=== PATIENT | male | born 1995 | race Caucasian/White ===

== ENCOUNTER 2024-03-12 09:33 | Outpatient (OUT) | payer BC, SELFPAY ==
--- NOTE | 2024-03-12 | XR_ITS ---
The [address] [address] Patient Name: TESSIE BENNETT MRN: [id number] date: 1995 Sex: M Assigned Patient Location: Current Patient Location: Accession/Order Number: [id number] Exam Date: 03/12/2024 09:50 Report Date: 03/13/2024 04:28 At the request of: DEVI PRITCHETT Procedure: XR ankle RT min 3V PROCEDURE: XR ankle RT min 3V HISTORY: RIGHT ANKLE PAIN ; increasing chronic lateral ankle pain COMPARISON: None. FINDINGS: BONES:No fracture, acute abnormality, or significant arthropathy. SOFT TISSUES:No visible soft tissue swelling. EFFUSION:None visible. OTHER: Negative. XR/XR ankle RT min 3V IMPRESSION: 1. No abnormal or suspicious findings to account for patient's symptoms. Electronically authenticated by: PATTI TAPIA Date: 03/13/2024 04:28
== END 2024-03-12 09:34 | disposition home or self-care (01) ==
PROVIDERS: Visit Provider Physician Assistant
DX: M25.571 Pain in right ankle and joints of right foot (principal)
CPT/HCPCS: 73610

== ENCOUNTER 2024-04-27 08:18 | Outpatient (OUT) | payer BC, SELFPAY ==
--- NOTE | 2024-04-27 08:30 | MR_ITS ---
[address] [address] Patient Name: TESSIE BENNETT MRN: [id number] date: 1995 Sex: M Assigned Patient Location: MRI Current Patient Location: MRI Accession/Order Number: [id number] Exam Date: 04/27/2024 08:54 Report Date: 04/27/2024 17:32 At the request of: DEVI PRITCHETT Procedure: MR ankle RT wo con EXAM: MR ankle RT wo con HISTORY: Right Ankle Instability, Right Peroneal Tendinitis. COMPARISON: 03/12/2024. TECHNIQUE: MRI images obtained with multiple sequences. MRI of the right ankle without contrast. Sequences obtained by standard department protocol. FINDINGS: Achilles tendon is intact. Plantar fascia is intact where visualized. Os trigonum. 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 No unstable osteochondral fragment. Extensor, flexor and peroneal tendons are intact. No acute abnormality of the peroneal tendons. Anterior and posterior syndesmotic ligaments are intact. Anterior talofibular, posterior talofibular and calcaneofibular ligaments are intact. Deltoid ligament fibers are intact. No ankle joint effusion. No acute fractures. MR/MR ankle RT wo con IMPRESSION: 1. Extensor, flexor and peroneal tendons are intact. 2. 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 No unstable osteochondral fragment. 3. No significant joint degeneration. No acute ligamentous abnormality. 4. No ankle joint effusion. Electronically authenticated by: MESFIN GUPTA Date: 04/27/2024 17:32
--- OUTSIDE RECORDS SUMMARY | 2024-04-27 08:42 | XMS_ITS | CCD ---
Author Organization [facility] Care Team Providers Care Grinder Tender Name Role Phone MERRY OLSON Unavailable Unavailable HAY, MARTHA Unavailable Unavailable HAY, MARTHA Unavailable Unavailable HAY, MARTHA Unavailable Unavailable REINECK, MANGO G Unavailable Unavailable REINECK, MANGO G Unavailable Unavailable PAVLOCK, MAX Unavailable Unavailable REINECK, MANGO G Unavailable Unavailable PAVLOCK, MAX Unavailable Unavailable HAY, MARTHA Unavailable Unavailable HAY, MARTHA Unavailable Unavailable ZIEBERLAWRENCE R Unavailable Unavailable GRECHNY, IRIS Unavailable Unavailable MARKER, SHAKILA Unavailable Unavailable MARKER, SHAKILA Unavailable Unavailable DENZEL BRIDGES Unavailable Unavailable ALLYSSA MACHUCA V Unavailable Unavailable MARKER, SHAKILA Unavailable Unavailable DENZEL BRIDGES Unavailable Unavailable DENZEL BRIDGES Unavailable Unavailable DENZEL BRIDGES Unavailable Unavailable DENZEL BRIDGES Unavailable Unavailable MD Denzel Bridges Primary Care Provider DO Jaylen Del Rosario Emergency Provider [phone] MD Denzel Bridges Attending Unavailable MD Denzel Bridges Attending Unavailable MD Denzel Bridges Attending Unavailable MD Denzel Bridges Attending Unavailable MD Denzel Bridges Primary Care Provider [phone] RAI Alexander Attending Provider Lacie Alexander Attending Unavailable Lacie Alexander Admitting Unavailable Denzel Bridges Primary Care Unavailable Medications Current Medications Medication Drug Class(es) Dates Sig (Normalized) Sig (Original) meloxicam 15 mg oral tablet (2 sources) Nonsteroidal Anti-inflammatory Drug Start: 03-18-2024 Meloxicam Active MG PO March 18, 2024 12:00am Pneumatic Walking Boot (2 sources) Start: 03-18-2024 Pneumatic Walking Boot Active 0 .Route 1 March 18, 2024 12:00am As directed Completed/Discontinued Medications Medication Drug Class(es) Dates Sig (Normalized) Sig (Original) cyclobenzaprine hydrochloride 10 mg oral tablet (3 sources) Muscle Relaxant Start: 12-10-2022 End: 03-18-2024 take 10 mg by mouth three times daily Cyclobenzaprine Discontinued 10 MG PO Three times daily December 10, 2022 12:00am March 18, 2024 4:31pm ibuprofen 800 mg oral tablet (3 sources) Nonsteroidal Anti-inflammatory Drug Start: 12-10-2022 End: 03-18-2024 take 800 mg by mouth three times daily Ibuprofen Discontinued 800 MG PO Three times daily December 10, 2022 12:00am March 18, 2024 4:31pm losartan potassium 50 mg oral tablet (3 sources) Angiotensin 2 Receptor Devaughn Start: 10-21-2019 End: 03-18-2024 take 50 mg by mouth once daily Losartan Discontinued 50 MG PO Daily October 21, 2019 12:00am March 18, 2024 4:30pm Problems Active Problems Problem Classification Problem Date Documented Date Episodic/Chronic Cardiac dysrhythmias (4 sources) Palpitations; Translations: [PALPITATIONS] Onset: 07-26-2018 Episodic Mood disorders (3 sources) Depressive disorder; Translations: [Depression] 10-21-2019 Chronic Nonspecific chest pain (4 sources) Chest pain, unspecified; Translations: [Other chest pain] Onset: 07-24-2018 Episodic Other connective tissue disease (1 source) Lateral epicondylitis, right elbow; Translations: [LATERAL EPICONDYLITIS RIGHT ELBOW] Onset: 05-07-2018 Episodic Other injuries and conditions due to external causes (3 sources) Unspecified injury of right ankle, initial encounter; Translations: [Knee, leg, ankle, and foot injury] Onset: 03-18-2024 03-18-2024 Episodic Other injuries and conditions due to external causes (3 sources) Unspecified injury of right foot, initial encounter; Translations: [Knee, leg, ankle, and foot injury] Onset: 03-18-2024 03-18-2024 Episodic Other non-traumatic joint disorders (4 sources) Pain in right elbow; Translations: [PAIN IN RIGHT ELBOW] Onset: 05-05-2018 Episodic Screening and history of mental health and substance abuse codes (1 source) Personal history of nicotine dependence; Translations: [PERSONAL HISTORY OF NICOTINE DEPEND] Onset: 07-28-2018 Episodic Sprains and strains (2 sources) Sprain of unspecified ligament of right ankle, initial encounter; Translations: [Sprain of ankle, unspecified site] 03-18-2024 Episodic Past or Other Problems Problem Classification Problem Date Documented Da te Episodic/Chronic Genitourinary symptoms and ill-defined conditions (4 sources) Dysuria; Translations: [DYSURIA] Onset: 02-15-2018 Episodic Unclassified (3 sources) Ankle sprain and strain 12-10-2022 Urinary tract infections (1 source) Other urethritis; Translations: [OTHER URETHRITIS] Onset: 11-08-2017 Episodic Results Test Name Value Interpretation Reference Range Facility XR foot RT min 3V*on 024 XR foot RT min 3V* [facility] [place] [address] [place] [address] XRay Report Signed Patient: Merrill Vargas MR#: [id number] : 1995 Acct:[id number] Age/Sex: 28 / M ADM Date: 03/18/24 Loc: [id number] Room: Type: [facility] Attending Dr: Lacie Alexander APRN Copies to: Lacie Alexander APRN Ordering Provider: Lacie Alexander APRN Date of Service: 03/18/24 XR/XR foot RT min 3V*: S99.911A - Unspecified injury of right ankle, initial enc... ([id number]) XR/XR ankle RT min 3V*: S99.911A - Unspecified injury of right ankle, initial enc... 3 views right ankle plain film COMPARISON: None HISTORY: Right ankle foot injury ACUTE FINDINGS: None DEGENERATIVE CHANGE: Unremarkable SOFT TISSUE FINDINGS: Unremarkable JOINT EFFUSION: None POSTOP CHANGES: None BONE MINERALIZATION: Adequate XR/XR ankle RT min 3V* IMPRESSION: No acute findings. 3 views right foot adequate alignment. No acute fracture. IMPRESSION: No acute fracture Impression dictated by: Sagar De Leon M.D.03/18/2024 5:07 PM Dictation Location: [place] [address] Transcribed By: [facility] 03/18/24 4657 Dictated By: Sagar De Leon DO 03/18/24 201 Signed By: 03/18/24 1707 Normal [facility] Ambulatory Visit Summaryon 0 03-02-2024 Ambulatory Visit Summary Ambulatory Visit Summary MERRILL VARGAS :1995 Visit Date:03/02/2024 Ambulatory Visit Instructions Your Diagnosis BMI 29.0-29.9,adult Overweight Former smoker Your Care Team Attending Physician - Denzel Bridges MD Primary Care Physician - Denzel Bridges MD This Is Your Medications List cyclobenzaprine (cyclobenzaprine 10 mg Tab) Discharge Vitals Temperature (Oral) 36.8 ?C Heart Rate (Peripheral) 70 Respiratory Rate 16 Blood Pressure 120/74 Height 179 cm Height 70 in Weight 94.3 kg Weight 207.46 lb BMI 29.43 What to do next Scheduled Follow-Up Appointments Saturday 7:30 AM EDT Where: [facility] Normal [facility] Family Medicine Office/Clini c Noteon 03-02-2024 Family Medicine Office/Clinic Note Family Medicine Office/Clinic Note HPI Staff Merrill is a 28 year old male presenting for check up Acute: right ankle pain messed it up years ago playing basketball feels it never healed And right wrist pain and tingling, ? carpal tunnel Health Maintenance: Colonoscopy: none PSA: none Last Labs: been a while History of Present Illness Patient is here for his physical and to discuss his ankle and wrist pain. Patient has lost over 65 pounds in the last 2 years. Patient is doing fasting and lifting. Patient feels great. BMI is now up to a 29. With that lifting patient is having issues with his right ankle. Patient states he has been having it for the last 7 years. Pain is on the lateral aspect of that ankle. Patient has trouble with movement. Patient's right wrist has improved with not lifting as much. Patient states the lateral aspect. Patient states at work makes it worse. No swelling or deformities today. Review of Systems PHQ Score Initial Depression Screen Score: 2 SCORE Physical Exam Vitals & Measurements T: 36.8 ?C(Oral) HR: 70(Peripheral) RR: 16 BP: 120/74 SpO2: 98% HT: 70 in HT: 179 cm WT: 94.3 kg WT: 207.46 lb BMI: 29.43 General: alert, no acute distress ENMT: oral mucosa moist, Cardiovascular: regular rate and rhythm, normal peripheral perfusion Respiratory: Lungs CTA, respirations non labored Extremities: no deformity, no trauma, no swelling or deformities noted of the right wrist or right ankle. Neurological: oriented x 4, LOC appropriate for age, CN II-XII intact, motor strength equal & normal bilaterally, speech normal Abdomen: Soft, Nontender, Non-distended, + BS Assessment/Plan 1. Physical exam (Z00.00: Encounter for general adult medical examination without abnormal findings) Anticipatory guidance given. Discussed diet and exercise. Discussed immunizations. Ordered: CBC w/ Auto Diff Comprehensive Metabolic Panel [facility] External Ambulatory Referral Lipid Panel 2. HTN (hypertension) (I10: Essential (primary) hypertension) REsolved with weight loss Ordered: CBC w/ Auto Diff Comprehensive Metabolic Panel [facility] External Ambulatory Referral Lipid Panel 3. Ankle pain (M25.579: Pain in unspecified ankle and joints of unspecified foot) Will send to podiatry Ordered: CBC w/ Auto Diff Comprehensive Metabolic Panel [facility] External Ambulatory Referral Lipid Panel 4. Wrist pain (M25.539: Pain in unspecified wrist) RICE advised. - If no improvement please see us back. - Discussed asking his job about wrist splints and looking at the body mechanics to help identify if he is doing anything wrong Ordered: CBC w/ Auto Diff Comprehensive Metabolic Panel [facility] External Ambulatory Referral Lipid Panel 5. BMI 29.0-29.9,adult (Z68.29: Body mass index [BMI] 29.0-29.9, adult) - BMI education added Ordered: CBC w/ Auto Diff Comprehensive Metabolic Panel [facility] External Ambulatory Referral Lipid Panel 6. Overweight (E66.3: Overweight) - Diet and exercise advised Ordered: CBC w/ Auto Diff Comprehensive Metabolic Panel Lipid Panel 7. Former smoker (Z87.891: Personal history of nicotine dependence) - Please continue to not smoke. Ordered: CBC w/ Auto Diff Comprehensive Metabolic Panel Lipid Panel Orders: buPROPion, 150 mg = 1 tab(s), Oral, q24hr, # 90 tab(s), Refills(s) 0, Pharmacy: [id number], 179.5, cm, 11/08/22 7:57:00 EDT, Height/Length Dosing, 107.3, kg, 11/08/22 7:57:00 EDT, Weight Dosing Follow-up No qualifying data available Problem List/Past Medical History Ongoing Ankle pain Asthma Depression HTN (hypertension) Marijuana use Physical exam Wrist pain Historical No qualifying data Medications cyclobenzaprine 10 mg Tab, 10 mg= 1 tab(s), Oral, TID, PRN, Not taking Allergies No Known Allergies Social History Alcohol - Denies Alcohol Use, 02/12/2023 Substance Abuse - Denies Substance Abuse, 02/12/2023 Tobacco - Denies Tobacco Use, 02/12/2023 Former smoker, quit more than 30 days ago Tobacco Use:. Never Smokeless Tobacco Use:., 03/02/2024 Family History Family history is negative Immunizations Vaccine Date Status Comments influenza virus vaccine, inactivated - Not Given Patient Refuses SARS-CoV-2 (COVID-19) mRNA BNT-162b2 vax 07/22/2021 Recorded SARS-CoV-2 (COVID-19) mRNA BNT-162b2 vax 07/01/2021 Recorded measles/mumps/rubell a virus vaccine 03/16/1999 Recorded hepatitis B pediatric vaccine 03/16/1999 Recorded DTaP, unspecified formulation 03/16/1999 Recorded measles/mumps/rubell a virus vaccine 10/11/1995 Recorded Hib, unspecified formulation 10/11/1995 Recorded DTaP, unspecified formulation 10/11/1995 Recorded hepatitis B pediatric vaccine 01/17/1995 Recorded Hib, unspecified formulation 01/17/1995 Recorded hepatitis B pediatric vaccine 1994 Recorded Hib, unspecified formulation 1994 Recorded hepatitis B pediatric vaccine 1994 Recorded Hib, unspecifie (more content not included)... Normal [facility] Comment on above: Result Comment: Elec tronically Signed By: Parminder LONGO, Denzel Carrillo\.br\Date and Time Signed: 03/02/24 08:45 EDT CBC AUTO DIFFon 07-26-2018 Basophils Auto #/vol (Bld) 0.0 103/ul Normal 0.0-0.1 [facility] Comment on above: Performed By: #### C BC ####[facility] [address] [place] [address]Ger[place] Basophils/100 WBC Auto (Bld) 0.6 % Normal 0.2-2.0 [facility] Comment on above: Performed By: #### C BC ####[facility] [address] [place] [address] [place] Eosinophils Auto #/vol (Bld) 0.2 103/ul Normal 0.0-0.7 [facility] Comment on above: Performed By: #### C BC ####[facility] [address] [place] [address] [place] Eosinophils/100 WBC Auto (Bld) 3.3 % Normal 0.9-7.0 [facility] Comment on above: Performed By: #### C BC ####[facility] [address] [place] [address] [place] Erythrocyte distribution width Auto Ratio (RBC) 11.4 % Normal 11.0-15.0 [facility] Comment on above: Performed By: #### C BC ####[facility] [address] [place] [address] [place] Hematocrit Auto Volume Fraction (Bld) 50.9 % Normal 42.0-54.0 [facility] Comment on above: Performed By: #### C BC ####[facility] [address] [place] [address] [place] Hemoglobin mass conc (Bld) 18.2 g/dL Critically high 14.0-18.0 [facility] Comment on above: Result Comment: test repeated delta check value verified Performed By: #### C BC ####[facility] [address] [place] [address] [place] IG # 0.01 10e3/ul Normal 0.00-0.03 [facility] Comment on above: Performed By: #### C BC ####[facility] [address] [place] [address] [place] IG % 0.2 % Normal 0.0-0.5 [facility] Comment on above: Performed By: #### C BC ####[facility] [address] [place] [address] [place] Lymphocytes Auto #/vol (Bld) 2.8 103/ul Normal 1.2-3.8 [facility] Comment on above: Performed By: #### C BC ####[facility] [address] [place] [address] [place] Lymphocytes/100 WBC Auto (Bld) 50.8 % Normal 20.5-60.0 [facility] Comment on above: Performed By: #### C BC ####[facility] [address] [place] [address] [place] MANUAL DIFF REQ NO Normal [facility] Comment on above: Performed By: #### C BC ####[facility] [address] [place] [address] [place] MCH Auto Entitic mass (RBC) 33.3 pg Normal 25.9-34.0 [facility] Comment on above: Performed By: #### C BC ####[facility] [address] [place] [address] [place] MCHC Auto mass conc (RBC) 35.8 g/dL Critically high 29.9-35.2 [facility] Comment on above: Performed By: #### C BC ####[facility] [address] [place] [address] [place] MCV Auto Entitic volume (RBC) 93.2 fL Normal 80.0-94.0 [facility] Comment on above: Performed By: #### C BC ####[facility] [address] [place] [address] [place] Monocytes Auto #/vol (Bld) 0.4 103/ul Normal 0.3-0.8 [facility] Comment on above: Performed By: #### C BC ####[facility] [address] [place] [address] [place] Monocytes/100 WBC Auto (Bld) 7.0 % Normal 1.7-12.0 [facility] Comment on above: Performed By: #### C BC ####[facility] [address] [place] [address] [place] Neutrophils Auto #/vol (Bld) 2.1 103/ul Normal 1.4-6.5 [facility] Comment on above: Performed By: #### C BC ####[facility] [address] [place] [address] Neutrophils/100 WBC Auto (Bld) 38.1 % Critically low 43.0-75.0 [facility] Comment on above: Performed By: #### C BC ####[facility] [address] [place], [place] [address] Platelet mean volume Auto Entitic volume (Bld) 8.9 fL Critically low 9.5-13.5 [facility] Comment on above: Performed By: #### C BC ####[facility] [address] [place], [place] [address] Platelets Auto #/vol (Bld) 276 103/ul Normal 150-450 [facility] Comment on above: Performed By: #### C BC ####[facility] [address] [place], [place] [address] RBC Auto #/vol (Bld) 5.46 106/ul Normal 4.70-6.10 [facility] Comment on above: Performed By: #### C BC ####[facility] [address] [place], [place] [address] WBC Auto #/vol (Bld) 5.5 103/ul Normal 4.0-11.0 [facility] Comment on above: Performed By: #### C BC ####[facility] [address] [place], [place] [address] GLYCOHEMOGLOBIN A1Con 2017 Glucose mass conc 97 mg/dL Normal [facility] Comment on above: Performed By: #### A 1C ####[facility] [address] [place], [place] [address] Hemoglobin A1c/Hemoglobin.total mass fraction (Bld) 5.0 % Normal <=6.0 [facility] Comment on above: Performed By: #### A 1C ####[facility] [address] [place], [place] [address]Ylacbw [place] LIPID PROFILEon 07-26-2018 CHOL-HDL RATIO NORM SEE BELOW Normal [facility] Comment on above: Result Comment: 3.3 - 4.4 LOW RISK 4.4 - 7.1 AVERAGE RISK 7.1 - 11.0 MODERATE RISK >11.0 HIGH RISK Performed By: #### C T/NGNA ####[facility] [address] [place], [place] [address]Mnkcul [place] Cholesterol in HDL mass conc > or = 60 mg/dl - LOW CARDIOVASCULAR RISK <40 mg/dl - HIGH CARDIOVASCULAR RISK Normal [facility] Comment on above: Performed By: #### C T/NGNA ####[facility] [address] [place], [place] [address]Axgave [place] Cholesterol in HDL mass conc 61 mg/dL Normal [facility] Comment on above: Performed By: #### C T/NGNA ####[facility] [address] [place], [place] [address]Uidwyt [place] Cholesterol in LDL mass conc SEE BELOW Normal [facility] Comment on above: Result Comment: <100 mg/dl OPTIMAL 100 - 129 mg/dl NEAR OR ABOVE OPTIMAL 130 - 159 mg/dl BORDERLINE HIGH 160 - 189 mg/dl HIGH >190 mg/dl VERY HIGH Performed By: #### C T/NGNA ####[facility] [address] [place], [place] [address]Qvedgu [place] Cholesterol in LDL mass conc 62.8 mg/dL Normal [facility] Comment on above: Performed By: #### C T/NGNA ####[facility] [address] [place], [place] [address]Gdewoo [place] Cholesterol mass conc 131 mg/dL Normal <=200 [facility] Comment on above: Performed By: #### C T/NGNA ####[facility] [address] [place], [place] [address]Phiiuc [place] Cholesterol.total/Cho lesterol in HDL mass ratio 2.1 {ratio} Normal [facility] Comment on above: Performed By: #### C T/NGNA ####[facility] [address] [place] Triglyceride mass conc 36 mg/dL Normal <=150 [facility] Comment on above: Performed By: #### C T/NGNA ####[facility] [address] [place] [id number] VLDL CALC 7.2 mg/dL Normal [facility] Comment on above: Performed By: #### C T/NGNA ####[facility] [address] [place] [id number] PROF 14(COMP METB)on 018 Albumin mass conc 4.8 g/dL Normal 3.5-5.0 [facility] Comment on above: Performed By: #### C T/NEHEMIASNA ####[facility] Y[address] [place] Albumin/Globulin mass ratio 1.3 {ratio} Normal [facility] Comment on above: Performed By: #### C T/NGNA ####[facility] [address] [place] [id number] ALP enzyme act/vol 66 U/L Normal 38-126 [facility] Comment on above: Performed By: #### C T/NEHEMIASNA ####[facility] [address] [place] ALT enzyme act/vol 21 U/L Normal 21-72 [facility] Comment on above: Performed By: #### C T/NGNA ####[facility] [address] [place] [address] Anion gap 3 molar conc 11.8 mmol/L Normal [facility] Comment on above: Performed By: #### C T/NGNA ####[facility] [address] [place] [address] AST enzyme act/vol 17 U/L Normal 17-59 [facility] Comment on above: Performed By: #### C T/NGNA ####[facility] I[address] [place] Bilirubin Ql (U) 0.4 mg/dL Normal 0.2-1.3 [facility] Comment on above: Performed By: #### C T/NGNA ####[facility] X[address] [place] [id number] Calcium mass conc 9.9 mg/dL Normal 8.4-10.2 [facility] Comment on above: Performed By: #### C T/NGNA ####[facility] [address] [place] Chloride molar conc 102 mmol/L Normal 98-107 [facility] Comment on above: Performed By: #### C T/NGNA ####[facility] [address] [place] CO2 molar conc 33.0 mmol/L Critically high 22.0-30.0 [facility] Comment on above: Performed By: #### C T/NGNA ####[facility] W[address] [place] Creatinine mass conc 0.96 mg/dL Normal 0.66-1.25 [facility] Comment on above: Performed By: #### C T/NGNA ####[facility] [address] [place] EGFR-AF [place] >60 Normal >=60 [facility] Comment on above: Performed By: #### C T/NGNA ####[facility] W[address] [place] EGFR-NON AF [place] >60 Normal >=60 [facility] Comment on above: Performed By: #### C T/NGNA ####[facility] Vtry[address] [place] Globulin Calculated mass conc (S) 3.7 g/dL Normal [facility] Comment on above: Performed By: #### C T/NGNA ####[facility] Xx[address] [place] Glucose mass conc 92 mg/dL Normal 74-106 [facility] Comment on above: Performed By: #### C T/NGNA ####[facility] [address] [place] [address] Potassium molar conc 3.8 mmol/L Normal 3.4-5.0 [facility] Comment on above: Performed By: #### C T/NGNA ####[facility] [address] [place] [address] Protein mass conc 8.5 g/dL Critically high 6.1-8.2 Th [facility] Comment on above: Performed By: #### C T/NGNA ####[facility] [address] [place] [address] Sodium molar conc 143 mmol/L Normal 137-145 [facility] Comment on above: Performed By: #### C T/NGNA ####[facility] Flops[address] [place] Urea nitrogen mass conc 8.0 mg/dL Critically low 9.0-20.0 [facility] Comment on above: Performed By: #### C T/NGNA ####[facility] [address] [place] [address] Urea nitrogen/Creatinine mass ratio 8.3 mg/mg Normal [facility] Comment on above: Performed By: #### C T/NGNA ####[facility] X[address] [place] [address] TSHon 07-26-2018 Thyrotropin Qn 1.145 uIU/mL Normal 0.470-4.680 [facility] Comment on above: Performed By: #### C T/NGNA ####[facility] [facility] [address] [place] [id number] Thyrotropin Qn SEE BELOW Normal [facility] Comment on above: Result Comment: <0.3 4 UIU/ml HYPERTHYROID 0.34-5.60 UIU/ml EUTHYROID >5.60 UIU/ml HYPOTHYROID Performed By: #### C T/NGNA ####[facility] Skctcnzlqk2562 [address] [place] CARDIAC MISAEL ADMITon 018 CK enzyme act/vol 110 U/L Normal 55-170 [facility] Comment on above: Performed By: #### C YOSEF, CORI ####[facility] [address]jjre[address] [place] [address] CK.MB mass conc 0.87 ng/mL Normal <=2.37 [facility] Comment on above: Performed By: #### C YOSEF, CORI ####[facility] Fulnnhuncl7793 [address] [place] INR Coag RelTime (Bld) SEE BELOW Normal [facility] Comment on above: Result Comment: <0.0 34 ng/ml NEGATIVE 0.034-0.119 INDETERMINATE 0.120 AMI CUT OFF Performed By: #### C YSOEF, CORI ####[facility] [address] [place] [address] [place] OUMAR 29.0 ng/mL Normal <=121.0 [facility] Comment on above: Performed By: #### C YOSEF, CORI ####[facility] [address] [place] [address] [place] TROP <0.017 Normal <=0.034 [facility] Comment on above: Performed By: #### C YOSEF, CORI ####[facility] [address] [place] [address] [place] CBC AUTO DIFFon 07-24-2018 Basophils Auto #/vol (Bld) 0.0 103/ul Normal 0.0-0.1 [facility] Comment on above: Performed By: #### C BC ####[facility] [address] [place] [address] [place] Basophils/100 WBC Auto (Bld) 0.6 % Normal 0.2-2.0 [facility] Comment on above: Performed By: #### C BC ####[facility] [address] [place] [address] [place] Eosinophils Auto #/vol (Bld) 0.2 103/ul Normal 0.0-0.7 [facility] Comment on above: Performed By: #### C BC ####[facility] [address] [place] [address] [place] Eosinophils/100 WBC Auto (Bld) 3.3 % Normal 0.9-7.0 [facility] Comment on above: Performed By: #### C BC ####[facility] X[address] [place] [address] [place] Erythrocyte distribution width Auto Ratio (RBC) 11.3 % Normal 11.0-15.0 [facility] Comment on above: Performed By: #### C BC ####[facility] S[address] [place] [address] [place] Hematocrit Auto Volume Fraction (Bld) 44.6 % Normal 42.0-54.0 [facility] Comment on above: Performed By: #### C BC ####[facility] [address] [place] [address] [place] Hemoglobin mass conc (Bld) 15.7 g/dL Normal 14.0-18.0 [facility] Comment on above: Performed By: #### C BC ####[facility] [address] [place] [address] [place] IG # 0.01 10e3/ul Normal 0.00-0.03 [facility] Comment on above: Performed By: #### C BC ####[facility] En[address] [place] [address] [place] IG % 0.2 % Normal 0.0-0.5 [facility] Comment on above: Performed By: #### C BC ####[facility] [address] [place] [address] [place] Lymphocytes Auto #/vol (Bld) 1.8 103/ul Normal 1.2-3.8 [facility] Comment on above: Performed By: #### C BC ####[facility] W[address] [place] [address] [place] Lymphocytes/100 WBC Auto (Bld) 37.0 % Normal 20.5-60.0 [facility] Comment on above: Performed By: #### C BC ####[facility] Or[address] [place] [id number] MANUAL DIFF REQ NO Normal [facility] Comment on above: Performed By: #### C BC ####[facility] [address] [place], [place] [address] MCH Auto Entitic mass (RBC) 32.8 pg Normal 25.9-34.0 [facility] Comment on above: Performed By: #### C BC ####[facility] [address] [place], [place] [address] MCHC Auto mass conc (RBC) 35.2 g/dL Normal 29.9-35.2 [facility] Comment on above: Performed By: #### C BC ####[facility] [address] [place], [place] [address] MCV Auto Entitic volume (RBC) 93.1 fL Normal 80.0-94.0 [facility] Comment on above: Performed By: #### C BC ####[facility] [address] [place], [place] [address] Monocytes Auto #/vol (Bld) 0.7 103/ul Normal 0.3-0.8 [facility] Comment on above: Performed By: #### C BC ####[facility] Env[address] [place], [place] [address] Monocytes/100 WBC Auto (Bld) 14.9 % Critically high 1.7-12.0 [facility] Comment on above: Performed By: #### C BC ####[facility] [address] [place], [place] [address] Neutrophils Auto #/vol (Bld) 2.1 103/ul Normal 1.4-6.5 [facility] Comment on above: Performed By: #### C BC ####[facility] [address] [place], [place] [address] Neutrophils/100 WBC Auto (Bld) 44.0 % Normal 43.0-75.0 [facility] Comment on above: Performed By: #### C BC ####[facility] [address] [place] [address] [place] Platelet mean volume Auto Entitic volume (Bld) 8.8 fL Critically low 9.5-13.5 [facility] Comment on above: Performed By: #### C BC ####[facility] [address] [place] [address] [place] Platelets Auto #/vol (Bld) 238 103/ul Normal 150-450 [facility] Comment on above: Performed By: #### C BC ####[facility] [address] [place] [address] [place] RBC Auto #/vol (Bld) 4.79 106/ul Normal 4.70-6.10 [facility] Comment on above: Performed By: #### C BC ####[facility] N[address] [place] [address] [place] WBC Auto #/vol (Bld) 4.8 103/ul Normal 4.0-11.0 [facility] Comment on above: Performed By: #### C BC ####[facility] [address] [place] [address] [place] D-DIMERon 07-24-2018 D-DIMER COMMENTS SEE BELOW Normal [facility] Comment on above: Result Comment: Incr eases in D-Dimer concentration observed with thromboembolic events can be variable due to localization, size, and age of the thrombus. Therefore, a thromboembolic event cannot be diagnosed with certainty on the basis of the reference range. D-Dimers may also be elevated for a variety of disorders including: advanced age, , coronary disease, cancer, liver disease, infection, inflammation, hematoma, DIC, trauma, post-surgery, diabetes, thrombolytic or anticoagulant therapy, stress, and generalizd hospitalization. Performed By: #### D DIM ####[facility] [address] [place] [address] [place] Fibrin D-dimer FEU IA mass conc (Bld) 0.19 ug/mL Normal 0.19-0.50 [facility] Comment on above: Performed By: #### D DIM ####[facility] Lvhqmoorfj[address] [place] PROF 14(COMP METB)on 018 Albumin mass conc 3.8 g/dL Normal 3.5-5.0 [facility] Comment on above: Performed By: #### C CORI NAVAS ####[facility] Bblgqrznhp2478 [address] [place] Albumin/Globulin mass ratio 1.0 {ratio} Normal [facility] Comment on above: Performed By: #### C CORI NAVAS ####[facility] Ekwrdutlcg3387 [address] [place] ALP enzyme act/vol 60 U/L Normal 38-126 [facility] Comment on above: Performed By: #### C CORI NAVAS ####[facility] [address] [place] [address] ALT enzyme act/vol 19 U/L Critically low 21-72 [facility] Comment on above: Performed By: #### C CORI NAVAS ####[facility] [address] [place] [address] [place] Anion gap 3 molar conc 10.2 mmol/L Normal [facility] Comment on above: Performed By: #### C CORI NAVAS ####[facility] Fqbjbfmmoi7975 [address] [place] AST enzyme act/vol 14 U/L Critically low 17-59 [facility] Comment on above: Performed By: #### C CORI NAVAS ####[facility] Crjocrildf1102 [address] [place] Bilirubin Ql (U) 0.4 mg/dL Normal 0.2-1.3 [facility] Comment on above: Performed By: #### C CORI NAVAS ####[facility] Cwzsvsvxqg[address] [place] Calcium mass conc 9.4 mg/dL Normal 8.4-10.2 [facility] Comment on above: Performed By: #### C MP, CMADM ####[facility] Ugvboufoqg4346 [address] [place] Chloride molar conc 105 mmol/L Normal 98-107 [facility] Comment on above: Performed By: #### C MP, CMADM ####[facility] Ipablurarp5545 [address] [place] CO2 molar conc 28.5 mmol/L Normal 22.0-30.0 [facility] Comment on above: Performed By: #### C MP, CMADM ####[facility] Boxyjesckv1976 [address] [place] Creatinine mass conc 0.95 mg/dL Normal 0.66-1.25 [facility] Comment on above: Performed By: #### C MP, CMADM ####[facility] Yfqutoqmvb5299 [address] [place] EGFR-AF [place] >60 Normal >=60 [facility] Comment on above: Performed By: #### C MP, CMADM ####[facility] Vgvhemafzf6[address] [place] EGFR-NON AF [place] >60 Normal >=60 [facility] Comment on above: Performed By: #### C MP, CMADM ####[facility] Ngcgrjateb0535 [address] [place] Globulin Calculated mass conc (S) 3.7 g/dL Normal [facility] Comment on above: Performed By: #### C MP, CMADM ####[facility] Yqoyqnnxgh55[address] [place] Glucose mass conc 104 mg/dL Normal 74-106 [facility] Comment on above: Performed By: #### C MP, CMADM ####[facility] Kckjckcuri0136 [address] [place] Potassium molar conc 3.7 mmol/L Normal 3.4-5.0 [facility] Comment on above: Performed By: #### C MP, CMADM ####[facility] [address] [place], [place] [address]Ryfhvq [place] Protein mass conc 7.5 g/dL Normal 6.1-8.2 [facility] Comment on above: Performed By: #### C MP, CMADM ####[facility] Jonhcgbslx[address]656 [place], [place] [address]Poeidb [place] Sodium molar conc 140 mmol/L Normal 137-145 [facility] Comment on above: Performed By: #### C MP, CMADM ####[facility] Odzpmnulbj3609 [place], [place] [address]Sqqysd [place] Urea nitrogen mass conc 10.0 mg/dL Normal 9.0-20.0 [facility] Comment on above: Performed By: #### C MP, CMADM ####[facility] Oqiobxhunu9776 [place], [place] [address]Bpsmxj [place] Urea nitrogen/Creatinine mass ratio 10.5 mg/mg Normal [facility] Comment on above: Performed By: #### C MP, CMADM ####[facility] [address] [place], [place] [address]eyhyf [place] XR CHEST 2 Von 07-24-2018 XR CHEST 2 V [address] [place] [address] Patient: MERRILL VARGAS Exam Date: 07/24/2018DOB: 1995 Gender:M : DR SHAKILA HARMON Admission #: [id number] : Order #: [id number] HERE TO VIEW EXAM RADIOLOGY REPORT PROCEDURE: RADIOGRAPH CHEST 2 VIEWS COMPARISON: XR CHEST 2 V, 01/21/2016. INDICATIONS: Acute chest pain for less than twelve hours; cough and shortness of breath FINDINGS: LUNGS: No significant pulmonary parenchymal abnormalities. VASCULATURE: No increased pulmonary vasculature. PLEURA: No pneumothorax, effusion, or pleural thickening. CARDIAC: No cardiomegaly or cardiac silhouette abnormality. MEDIASTINUM: No visible mass or adenopathy. BONES: No fracture or visible bone lesion. OTHER: Negative. CONCLUSION: No acute disease. Dictated by: Allyssa Machuca M.D. on 07/24/2018 at 07:46 Approved by: Allyssa Machuca M.D. on 07/24/2018 at 07:47 Normal [facility] XR ELBOW RT MIN 3 VIEWSon XR ELBOW RT MIN 3 VIEWS [address] [place] [address] Patient: MERRILL VARGAS Exam Date: 05/05/2018DOB: 1995 Gender:M : POLY PANG Admission #: [id number] : DR MARTHA GRECO . Order #: [id number] HERE TO VIEW EXAM RADIOLOGY REPORT PROCEDURE: RADIOGRAPH ELBOW RIGHT MIN 3 VIEWS COMPARISON: None. INDICATIONS: Acute pain of right elbow joint, no injury FINDINGS: BONES: No fracture, acute abnormality, or significant arthropathy. SOFT TISSUES: No visible soft tissue swelling or radiopaque foreign body. EFFUSION: None visible. OTHER: Negative. CONCLUSION: Normal examination. Dictated by: Lawrence Troncoso M.D. on 05/05/2018 at 16:33 Approved by: Lawrence Troncoso M.D. on 05/05/2018 at 16:35 Normal [facility] CHLAMYDIA/GONOCOCCUS YENNIFER W/C ONF. (SWAB/Uon 11-22-2017 Chlamydia Trach YENNIFER Negative Normal Negative [facility] Comment on above: Performed By: #### C T/NGNA ####[facility] Yhgvetpudd[address]80 [address] [place] N. Gonorrhoeae YENNIFER Negative Normal Negative [facility] Comment on above: Performed By: #### C T/NGNA ####[facility] Rntckxelzg4954 [address] [place] ER URINE PROFILEon 8 BILIRUBIN Negative Normal NEGATIVE [facility] Comment on above: Performed By: #### E RUR ####[facility] Mntqstgavm2805 [address] [place] BLOOD Negative Normal NEGATIVE [facility] Comment on above: Performed By: #### E RUR ####[facility] Wmopaxdgkd5477 [address] [place] CLARITY CLEAR Normal [facility] Comment on above: Performed By: #### E RUR ####[facility] [address] [place] [address] COLOR LT. YELLOW Normal YELLOW [facility] Comment on above: Performed By: #### E RUR ####[facility] [address]ug[address] [place] [address] ERUAHD A micrscopic examination will be performed if indicated. Normal [facility] Comment on above: Performed By: #### E RUR ####[facility] Unkhrelqjg60[address] [place] [address] GLUCOSE Negative Normal NEGATIVE [facility] Comment on above: Performed By: #### E RUR ####[facility] [address] [place] [address] [place] KETONES TRACE Normal NEGATIVE [facility] Comment on above: Performed By: #### E RUR ####[facility] [address] [place] [address] [place] LEUKOCYTES Negative Normal NEGATIVE [facility] Comment on above: Performed By: #### E RUR ####[facility] [address] [place] [address] [place] NITRITE Negative Normal NEGATIVE [facility] Comment on above: Performed By: #### E RUR ####[facility] [address]swe[address] [place] [address] pH 8.0 Normal 5-9 [facility] Comment on above: Performed By: #### E RUR ####[facility] Mc[address]dsxtlp[address]107 [place] [address] Protein mass conc Negative Normal [facility] Comment on above: Performed By: #### E RUR ####[facility] [address] [place] [address] [place] SPEC GRAVITY 1.015 Normal 1.005-<=1.025 [facility] Comment on above: Performed By: #### E RUR ####[facility] Q[address] [place], [place] [address] [place] UR MICRO IND NOT INDICATED Normal [facility] Comment on above: Performed By: #### E RUR ####[facility] Uqxvuogwji[address] [place] UROBILINOGEN 0.2 EU/dl Normal [facility] Comment on above: Performed By: #### E RUR ####[facility] Rmbxckzlpj[address]26 [address] [place] Vital Signs Date Time Vital Sign Value Performing Clinician Faci lity 03-18-2024 15:50-0400 Body height 182.88 cm MD Denzel Bridges Work Phone: [facility] 03-18-2024 15:50-0400 Body mass index (BMI) [Ratio] 28.5 kg/m2 MD Denzel Bridges Work Phone: [facility] 03-18-2024 15:50-0400 Body temperature 98.4 [degF] MD Denzel Bridges Work Phone: [facility] 03-18-2024 15:50-0400 Body weight 95.25 kg MD Denzel Bridges Work Phone: [facility] 03-18-2024 15:50-0400 Diastolic blood pressure 87 mm[Hg] MD Denzel Bridges Work Phone: [facility] 03-18-2024 15:50-0400 Heart rate 81 /min MD Denzel Bridges Work Phone: [facility] 03-18-2024 15:50-0400 SaO2% (BldA) [Mass fraction] 97 % MD Denzel Bridges Work Phone: [facility] 03-18-2024 15:50-0400 Systolic blood pressure 137 mm[Hg] MD Denzel Bridges Work Phone: [facility] 12-10-2022 08:11-0400 Body height 182.88 cm MD Denzel Bridges Work Phone: [facility] 12-10-2022 08:11-0400 Body temperature 97.5 [degF] MD Denzel Bridges Work Phone: [facility] 12-10-2022 08:11-0400 Body weight 101.6 kg MD Denzel Bridges Work Phone: [facility] 12-10-2022 08:11-0400 Diastolic blood pressure 80 mm[Hg] MD Denzel Bridges Work Phone: [facility] 12-10-2022 08:11-0400 Heart rate 98 /min MD Denzel Bridges Work Phone: [facility] 12-10-2022 08:11-0400 Respiratory rate 18 /min MD Denzel Bridges Work Phone: [facility] 12-10-2022 08:11-0400 SaO2% (BldA) [Mass fraction] 100 % MD Denzel Bridges Work Phone: [facility] 12-10-2022 08:11-0400 Systolic blood pressure 133 mm[Hg] MD Denzel Bridges Work Phone: [facility] Encounters Encounter Date Encounter Type Care Provider Facility Start: 03-18-2024 End: 03-18-2024 ambulatory MD Denzel Bridges Work Phone: [facility] Work Phone: Start: 03-18-2024 End: 03-18-2024 Patient encounter procedure MD Denzel Bridges Work Phone: [facility] [place] Work Phone: Start: 03-06-2024 ambulatory MD Denzel Bridges Facil ity:[facility] Start: 03-04-2024 ambulatory MD Denzel Bridges Facil ity:[facility] Start: 03-02-2024 End: 03-02-2024 ambulatory MD Denzel Bridges Facility:[facility] Start: 03-26-2023 End: 03-26-2023 ambulatory MD Denzel Bridges Facility:[facility] Start: 12-10-2022 End: 12-10-2022 Emergency department patient visit MD Denzel Bridges Work Phone: [facility] Work Phone: Start: 07-26-2018 End: 07-27-2018 Patient encounter procedure DENZEL BRIDGES Facility:[facility] Start: 07-24-2018 End: 07-24-2018 Patient encounter procedure SHAKILA MARKER Facility:[facility] Start: 05-05-2018 End: 05-05-2018 Patient encounter procedure TAMMY FREGOSOLOCK Facility:[facility] Start: 02-15-2018 End: 02-15-2018 Patient encounter procedure MANGO SKAGGS Facility:[facility] Start: 11-06-2017 End: 11-06-2017 Patient encounter procedure MERRY WHITNEY Facility:[facility] Procedures Date Procedure Procedure Detail Performing Clinician Start: 03-18-2024 X-ray of right ankle MD Denzel Bridges Work Phone: Start: 03-18-2024 X-ray of right foot MD Denzel Bridges Work Phone: Start: 12-10-2022 X-ray of right ankle MD Denzel Bridges Work Phone: Start: 12-10-2022 X-ray of right foot MD Denzel Bridges Work Phone: Plan of Treatment Date Care Activity Detail Author Patient Education Ankle Sprain ED [facility] Work Phone: Patient referral [facility] Work Phone: Payers Date Payer Category Payer Self-pay [id number] 2024 Unknown [id number] 1995 Unknown [id number] 1994 Unknown [id number] 1994 Unknown [id number] 1994 Unknown [id number] 1994 Unknown [id number] 1994 Unknown [id number] 1994 Unknown [id number] 1994 Unknown [id number] 1994 Unknown [id number] 1959 Unknown [id number] Private Health Insurance [employer] [id number] Unknown [id number] Social History Date Type Detail Facility Start: 12-10-2022 Tobacco smoking stat [facility] Smoker (finding) [facility] Start: 1995 Sex Assigned At Male [facility] Evaluation note Note Date & Type Note Facility Evaluation note No assessment information availa ble [facility] Work Phone: Evaluation note Note Date & Type Note Facility Evaluation note Diagnosis Onset Date Right ankle sprain noneactiv e Right ankle injury noneactiv e Right foot injury noneactive [facility] Work Phone: Summary Purpose Family History No Family History Records Found Relationship Condition Age at Onset Recorded Date/T armando Not Specified No pertinent family history Unknown Advance Directives No Advanced Directives Records Found Advance Directive Response Recorded Date/ Time Advance Directives No October 20 8:20pm Chief Complaint and Reason for Visit Chief Complaint rt ankle inj, 12-08- 3 @ bar Chief Complaint rt ankle pain , poss ible sprained Reason for Visit Right ankle sprain Right ankle injury Right foot injury Additional Source Comments (unrecognized sect ion and content) No Status Records FoundNo Status Records FoundNo Status Records Found INFORMATION SOURCE (unrecogn ized section and content) DATE CREATED AUTHOR 07/31/2018 [facility] DATE CREATED AUTHOR AUTHOR'S ORGANIZ ATION 03/06/2024 [facility] DATE CREATED AUTHOR AUTHOR'S ORGANIZ ATION 03/21/2024 [facility] Care Teams (unrecognized sec tion and content) Team Status: Active Member Role Status Dates Denzel Bridges MD Primary Care Provider Active Team Status: Inactive Member Role Status Dates Denzel Bridges MD Primary Care Provider Active Jaylen Del Rosario DO Emergency Provider Active Team Status: Inactive Member Role Status Dates Denzel Bridges MD Primary Care Provider Active Start: March 18, 2024 End: March 18, 2024 Lacie Alexander APRN Attending Provider Active Sta rt: March 18, 2024 End: March 18, 2024 Team Status: Active Member Role Status Dates Denzel Bridges MD Primary Care Provider Active Start: March 18, 2024 Lacie Alexander APRN Attending Provider Active Sta rt: March 18, 2024 Goals (unrecognized section and content) Goals may be documented in a n alternate sectionGoals may be documented in an alternate sectionGoals may be documented in an alternate section FOR RECORDS PERTAINING TO PATIENTS WHO ARE OR HAVE BEEN ENROLLED IN A CHEMICAL DEPENDENCY/SUBSTANCEABUSE PROGRAM, SOME INFORMATION MAY BE OMITTED. This clinical summary was aggregated from multiple sources. Caution should be exercised in using it in the provision of clinical care. This summary normalizes information from multiple sources, and as a consequence, information in this document may materially change the coding, format and clinical context of patient data. In addition, data may be omitted in some cases. CLINICAL DECISIONS SHOULD BE BASED ON THE PRIMARY CLINICAL RECORDS. [facility] [employer] [facility]. provides no warranty or guarantee of the accuracy or completeness of information in this document.
== END 2024-04-27 08:19 | disposition home or self-care (01) ==
LOC: MRI 08:20
PROVIDERS: Visit Provider Physician Assistant
DX: M25.371 Other instability, right ankle (principal); M76.71 Peroneal tendinitis, right leg; M93.271 Osteochondritis dissecans, right ankle and joints of right foot
CPT/HCPCS: 73721

== ENCOUNTER 2024-05-15 12:22 | Outpatient (OUT) | payer BC, SELFPAY ==
--- OUTSIDE RECORDS SUMMARY | 2024-05-15 12:25 | XMS_ITS | CCD ---
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 Main [place] [address] [place] [address] XRay Report Signed Patient: Merrill Vargas MR#: [id number] : 1995 Acct:[id number] Age/Sex: 28 / M ADM Date: 03/18/24 Loc: [id number] Room: Type: [facility] Attending Dr: Lacie Alexander APRN Copies to: Lacie Alexander APRN Ordering Provider: Lacie Alexander APRN Date of Service: 03/18/24 XR/XR foot RT min 3V*: S99.911A - Unspecified injury of right ankle, initial enc... ([id number]) XR/XR ankle RT min 3V*: S99.911A - [...] De Leon M.D.03/18/2024 5:07 PM Dictation Location: [place] [address] Transcribed By: [facility] 03/18/24 [id number] Dictated By: Sagar De Leon DO 03/18/24 857 Signed By: 03/18/24 1707 Normal [facility] Ambulatory Visit Summaryon 0 03-02-2024 [...] Follow-Up Appointments Saturday 7:30 AM EDT Where: [facility] [place] Normal [facility] Office/Clini c Noteon 03-02-2024 Family [...] CBC w/ Auto Diff Comprehensive Metabolic Panel [facility] External Ambulatory Referral Lipid Panel 2. HTN (hypertension) (I10: Essential (primary) hypertension) REsolved with weight loss Ordered: CBC w/ Auto Diff Comprehensive Metabolic Panel [facility] External Ambulatory Referral Lipid Panel 3. Ankle pain (M25.579: Pain in unspecified ankle and joints of unspecified foot) Will send to podiatry Ordered: CBC w/ Auto Diff Comprehensive Metabolic Panel [facility] External Ambulatory Referral Lipid Panel 4. Wrist pain (M25.539: Pain in unspecified wrist) RICE advised. - If no improvement please see us back. - Discussed asking his job about wrist splints and looking at the body mechanics to help identify if he is doing anything wrong Ordered: CBC w/ Auto Diff Comprehensive Metabolic Panel [facility] External Ambulatory Referral Lipid Panel 5. BMI 29.0-29.9,adult (Z68.29: Body mass index [BMI] 29.0-29.9, adult) - BMI education added Ordered: CBC w/ Auto Diff Comprehensive Metabolic Panel [facility] External Ambulatory Referral Lipid Panel 6. Overweight [...] q24hr, # 90 tab(s), Refills(s) 0, Pharmacy: [id number], 179.5, cm, 11/08/22 7:57:00 EDT, [...] Hib, unspecifie (more content not included)... Normal [facility] Comment on above: Result Comment: Elec tronically Signed By: Parminder LONGO, Denzel Carrillo\.br\Date and Time Signed: 03/02/24 08:45 EDT CBC AUTO DIFFon 07-26-2018 Basophils Auto #/vol (Bld) 0.0 103/ul Normal 0.0-0.1 [facility] Comment on above: Performed By: #### C BC ####[facility] [address]mbqtvcgy44[address] [place] [address] Basophils/100 WBC Auto (Bld) 0.6 % Normal 0.2-2.0 [facility] Comment on above: Performed By: #### C BC ####[facility] [address] [place] [address] [place] Eosinophils Auto #/vol (Bld) 0.2 103/ul Normal 0.0-0.7 [facility] Comment on above: Performed By: #### C BC ####[facility] [address] [place] [address] [place] Eosinophils/100 WBC Auto (Bld) 3.3 % Normal 0.9-7.0 [facility] Comment on above: Performed By: #### C BC ####[facility] Lseibz[address] [place] [address] [place] Erythrocyte distribution width Auto Ratio (RBC) 11.4 % Normal 11.0-15.0 [facility] Comment on above: Performed By: #### C BC ####[facility] [address]cy[address] [place] [address] [place] Hematocrit Auto Volume Fraction (Bld) 50.9 % Normal 42.0-54.0 [facility] Comment on above: Performed By: #### C BC ####[facility] Plzspleyes[address] [place] [address] [place] Hemoglobin mass conc (Bld) 18.2 g/dL Critically high 14.0-18.0 [facility] Comment on above: Result Comment: test repeated delta check value verified Performed By: #### C BC ####[facility] [address] [place] [address] [place] IG # 0.01 10e3/ul Normal 0.00-0.03 [facility] Comment on above: Performed By: #### C BC ####[facility] [address] [place] [address] [place] IG % 0.2 % Normal 0.0-0.5 [facility] Comment on above: Performed By: #### C BC ####[facility] Eevwwyovub[address] [place] [address] [place] Lymphocytes Auto #/vol (Bld) 2.8 103/ul Normal 1.2-3.8 [facility] Comment on above: Performed By: #### C BC ####[facility] Ddbmexlxlu[address] [place] [address] [place] Lymphocytes/100 WBC Auto (Bld) 50.8 % Normal 20.5-60.0 [facility] Comment on above: Performed By: #### C BC ####[facility] [address] [place] [address] [place] MANUAL DIFF REQ NO Normal [facility] Comment on above: Performed By: #### C BC ####[facility] Xkxbjdjvmy[address] [place] [address] [place] MCH Auto Entitic mass (RBC) 33.3 pg Normal 25.9-34.0 [facility] Comment on above: Performed By: #### C BC ####[facility] U[address]adlykse[address] [place] [address] [place] MCHC Auto mass conc (RBC) 35.8 g/dL Critically high 29.9-35.2 [facility] Comment on above: Performed By: #### C BC ####[facility] [address]aisvcpout[address] [place] [address] [place] MCV Auto Entitic volume (RBC) 93.2 fL Normal 80.0-94.0 [facility] Comment on above: Performed By: #### C BC ####[facility] Fufyusrt[address] [place] [address] [place] Monocytes Auto #/vol (Bld) 0.4 103/ul Normal 0.3-0.8 [facility] Comment on above: Performed By: #### C BC ####[facility] Hvbhpkvamn[address] [place] [address] [place] Monocytes/100 WBC Auto (Bld) 7.0 % Normal 1.7-12.0 [facility] Comment on above: Performed By: #### C BC ####[facility] Qnxcvv[address]wh[address] [place] [address] [place] Neutrophils Auto #/vol (Bld) 2.1 103/ul Normal 1.4-6.5 [facility] Comment on above: Performed By: #### C BC ####[facility] Unhtcwliql95[address] [place] [address] Neutrophils/100 WBC Auto (Bld) 38.1 % Critically low 43.0-75.0 [facility] Comment on above: Performed By: #### C BC ####[facility] [address] [place], [place] [address] Platelet mean volume Auto Entitic volume (Bld) 8.9 fL Critically low 9.5-13.5 [facility] Comment on above: Performed By: #### C BC ####[facility] [address]mswe[address] [place], [place] [address] Platelets Auto #/vol (Bld) 276 103/ul Normal 150-450 [facility] Comment on above: Performed By: #### C BC ####[facility] [address]jfxfvhb[address] [place], [place] [address] RBC Auto #/vol (Bld) 5.46 106/ul Normal 4.70-6.10 [facility] Comment on above: Performed By: #### C BC ####[facility] Ofjcec[address]gs[address] [place], [place] [address] WBC Auto #/vol (Bld) 5.5 103/ul Normal 4.0-11.0 [facility] Comment on above: Performed By: #### C BC ####[facility] [address] [place], [place] [address] GLYCOHEMOGLOBIN A1Con 2017 Glucose mass conc 97 mg/dL Normal [facility] Comment on above: Performed By: #### A 1C ####[facility] Lzmt[address] [place], [place] [address] Hemoglobin A1c/Hemoglobin.total mass fraction (Bld) 5.0 % Normal <=6.0 [facility] Comment on above: Performed By: #### A 1C ####[facility] [address]uzkl[address] [place], [place] [address]Oameqs [place] LIPID PROFILEon 07-26-2018 CHOL-HDL RATIO NORM SEE BELOW Normal [facility] Comment on above: Result Comment: 3.3 - 4.4 LOW RISK 4.4 - 7.1 AVERAGE RISK 7.1 - 11.0 MODERATE RISK >11.0 HIGH RISK Performed By: #### C T/NGNA ####[facility] Mbcmpknlxa4479 [place], [place] [address]Etulbe [place] Cholesterol in HDL mass conc > or = 60 mg/dl - LOW CARDIOVASCULAR RISK <40 mg/dl - HIGH CARDIOVASCULAR RISK Normal [facility] Comment on above: Performed By: #### C T/NGNA ####[facility] Wfwugazywy4574 [place], [place] [address]Jhctml [place] Cholesterol in HDL mass conc 61 mg/dL Normal [facility] Comment on above: Performed By: #### C T/NGNA ####[facility] Cpqjsfzhxw0683 [place], [place] [address]Qpqldd [place] Cholesterol in LDL mass conc SEE BELOW Normal [facility] Comment on above: Result Comment: <100 mg/dl OPTIMAL 100 - 129 mg/dl NEAR OR ABOVE OPTIMAL 130 - 159 mg/dl BORDERLINE HIGH 160 - 189 mg/dl HIGH >190 mg/dl VERY HIGH Performed By: #### C T/NGNA ####[facility] Jnssnkpcmt4688 [place], [place] [address]Bgozmf [place] Cholesterol in LDL mass conc 62.8 mg/dL Normal [facility] Comment on above: Performed By: #### C T/NGNA ####[facility] Qyonoqafnt2987 [place], [place] [address]Lwopkt [place] Cholesterol mass conc 131 mg/dL Normal <=200 [facility] Comment on above: Performed By: #### C T/NGNA ####[facility] Dxufqytolj6078 [place], [place] [address]Umprkp [place] Cholesterol.total/Cho lesterol in HDL mass ratio 2.1 {ratio} Normal [facility] Comment on above: Performed By: #### C T/NGNA ####[facility] Ncuvufzjhp[address] [place] Triglyceride mass conc 36 mg/dL Normal <=150 [facility] Comment on above: Performed By: #### C T/NGNA ####[facility] Tqdhxqbvbx8668 [place] [address] VLDL CALC 7.2 mg/dL Normal [facility] Comment on above: Performed By: #### C T/NGNA ####[facility] Eolpomtjru6278 [place] [address] PROF 14(COMP METB)on 018 Albumin mass conc 4.8 g/dL Normal 3.5-5.0 [facility] Comment on above: Performed By: #### C T/NEHEMIASNA ####[facility] Oxbgeahshk0757 [address] [place] Albumin/Globulin mass ratio 1.3 {ratio} Normal [facility] Comment on above: Performed By: #### C T/NGNA ####[facility] Zoruimqpqm3356 [place] [address] ALP enzyme act/vol 66 U/L Normal 38-126 [facility] Comment on above: Performed By: #### C T/NEHEMIASNA ####[facility] Tjgerfzcak6[address] [place] ALT enzyme act/vol 21 U/L Normal 21-72 [facility] Comment on above: Performed By: #### C T/NGNA ####[facility] Oaaqeaiycz9985 [place] [id number] Anion gap 3 molar conc 11.8 mmol/L Normal [facility] Comment on above: Performed By: #### C T/NGNA ####[facility] Qngkuxoiiu7896 [place] [address] AST enzyme act/vol 17 U/L Normal 17-59 [facility] Comment on above: Performed By: #### C T/NGNA ####[facility] Itqbdqnxrw8726 [address] [place] Bilirubin Ql (U) 0.4 mg/dL Normal 0.2-1.3 [facility] Comment on above: Performed By: #### C T/NGNA ####[facility] Eqdgjqehbr5789 [place] [address] Calcium mass conc 9.9 mg/dL Normal 8.4-10.2 [facility] Comment on above: Performed By: #### C T/NGNA ####[facility] Xqgawhndjr65[address] [place] Chloride molar conc 102 mmol/L Normal 98-107 [facility] Comment on above: Performed By: #### C T/NGNA ####[facility] Culsozqopg1138 [address] [place] CO2 molar conc 33.0 mmol/L Critically high 22.0-30.0 [facility] Comment on above: Performed By: #### C T/NGNA ####[facility] Frwkhoqcko7483 [address] [place] Creatinine mass conc 0.96 mg/dL Normal 0.66-1.25 [facility] Comment on above: Performed By: #### C T/NGNA ####[facility] Nnqmwoiumi2354 [address] [place] EGFR-AF MARSHALLESE >60 Normal >=60 [facility] Comment on above: Performed By: #### C T/NGNA ####[facility] Ahmmumduow9982 [address] [place] EGFR-NON AF MARSHALLESE >60 Normal >=60 [facility] Comment on above: Performed By: #### C T/NGNA ####[facility] Ljgtyayaqu5627 [address] [place] Globulin Calculated mass conc (S) 3.7 g/dL Normal [facility] Comment on above: Performed By: #### C T/NGNA ####[facility] Giweedkfjg8718 [address] [place] Glucose mass conc 92 mg/dL Normal 74-106 [facility] Comment on above: Performed By: #### C T/NGNA ####[facility] Zxkssxmyra4670 [place] [id number] Potassium molar conc 3.8 mmol/L Normal 3.4-5.0 [facility] Comment on above: Performed By: #### C T/NGNA ####[facility] Alcjlateto4914 [place] [address] Protein mass conc 8.5 g/dL Critically high 6.1-8.2 [facility] Comment on above: Performed By: #### C T/NGNA ####[facility] Rzunrokjqj8914 [place] [address] Sodium molar conc 143 mmol/L Normal 137-145 [facility] Comment on above: Performed By: #### C T/NGNA ####[facility] Hdabdovpfy67[address] [place] Urea nitrogen mass conc 8.0 mg/dL Critically low 9.0-20.0 [facility] Comment on above: Performed By: #### C T/NGNA ####[facility] Bbocfgioim2144 [place] [address] Urea nitrogen/Creatinine mass ratio 8.3 mg/mg Normal [facility] Comment on above: Performed By: #### C T/NGNA ####[facility] Xddxlxwegh1303 [place] [address] TSHon 07-26-2018 Thyrotropin Qn 1.145 uIU/mL Normal 0.470-4.680 [facility] Comment on above: Performed By: #### C T/NGNA ####[facility] Jcppxzggkq1063 [place] [id number] Thyrotropin Qn SEE BELOW Normal [facility] Comment on above: Result Comment: <0.3 4 UIU/ml HYPERTHYROID 0.34-5.60 UIU/ml EUTHYROID >5.60 UIU/ml HYPOTHYROID Performed By: #### C T/NGNA ####[facility] Bfrahbsqyt5615 [address] [place] CARDIAC MISAEL ADMITon 018 CK enzyme act/vol 110 U/L Normal 55-170 [facility] Comment on above: Performed By: #### C YOSEF, CORI ####[facility] Rrkpeutizy6744 [place] [address] CK.MB mass conc 0.87 ng/mL Normal <=2.37 [facility] Comment on above: Performed By: #### C YOSEF, CORI ####[facility] Zjmaiqebcp8220 [address] [place] INR Coag RelTime (Bld) SEE BELOW Normal [facility] Comment on above: Result Comment: <0.0 34 ng/ml NEGATIVE 0.034-0.119 INDETERMINATE 0.120 AMI CUT OFF Performed By: #### C YOSEF, CORI ####[facility] [address] [place] [address] [place] OUMAR 29.0 ng/mL Normal <=121.0 [facility] Comment on above: Performed By: #### C YOSEF, CORI ####[facility] [address] [place] [address] [place] TROP <0.017 Normal <=0.034 [facility] Comment on above: Performed By: #### C YOSEF, CORI ####[facility] [address]bs[address] [place] [address] [place] CBC AUTO DIFFon 07-24-2018 Basophils Auto #/vol (Bld) 0.0 103/ul Normal 0.0-0.1 [facility] Comment on above: Performed By: #### C BC ####[facility] S[address]wr[address] [place] [address] [place] Basophils/100 WBC Auto (Bld) 0.6 % Normal 0.2-2.0 [facility] Comment on above: Performed By: #### C BC ####[facility] Cugkbfculp[address] [place] [address] [place] Eosinophils Auto #/vol (Bld) 0.2 103/ul Normal 0.0-0.7 [facility] Comment on above: Performed By: #### C BC ####[facility] Ijeuvvupfu[address] [place] [address] [place] Eosinophils/100 WBC Auto (Bld) 3.3 % Normal 0.9-7.0 [facility] Comment on above: Performed By: #### C BC ####[facility] Dwifulabae[address] [place] [address] [place] Erythrocyte distribution width Auto Ratio (RBC) 11.3 % Normal 11.0-15.0 [facility] Comment on above: Performed By: #### C BC ####[facility] Yjuivjvpzs[address] [place] [address] [place] Hematocrit Auto Volume Fraction (Bld) 44.6 % Normal 42.0-54.0 [facility] Comment on above: Performed By: #### C BC ####[facility] [address]bfayxry[address] [place] [address] [place] Hemoglobin mass conc (Bld) 15.7 g/dL Normal 14.0-18.0 [facility] Comment on above: Performed By: #### C BC ####[facility] [address]olkyjcui[address] [place] [address] [place] IG # 0.01 10e3/ul Normal 0.00-0.03 [facility] Comment on above: Performed By: #### C BC ####[facility] [address]bsbap[address] [place] [address] [place] IG % 0.2 % Normal 0.0-0.5 [facility] Comment on above: Performed By: #### C BC ####[facility] Y[address]kefokxjc[address] [place] [address] [place] Lymphocytes Auto #/vol (Bld) 1.8 103/ul Normal 1.2-3.8 [facility] Comment on above: Performed By: #### C BC ####[facility] Fnscyeyid[address] [place] [address] [place] Lymphocytes/100 WBC Auto (Bld) 37.0 % Normal 20.5-60.0 [facility] Comment on above: Performed By: #### C BC ####[facility] Frtdmiiead3824 [place] [address] MANUAL DIFF REQ NO Normal [facility] Comment on above: Performed By: #### C BC ####[facility] Osfklqlij[address] [place], [place] [address] MCH Auto Entitic mass (RBC) 32.8 pg Normal 25.9-34.0 [facility] Comment on above: Performed By: #### C BC ####[facility] Agesxazple[address] [place], [place] [address] MCHC Auto mass conc (RBC) 35.2 g/dL Normal 29.9-35.2 [facility] Comment on above: Performed By: #### C BC ####[facility] [address]tvolhvbxt[address] [place], [place] [address] MCV Auto Entitic volume (RBC) 93.1 fL Normal 80.0-94.0 [facility] Comment on above: Performed By: #### C BC ####[facility] Xkgmngggdt[address] [place], [place] [address] Monocytes Auto #/vol (Bld) 0.7 103/ul Normal 0.3-0.8 [facility] Comment on above: Performed By: #### C BC ####[facility] Lviotepux[address] [place], [place] [address] Monocytes/100 WBC Auto (Bld) 14.9 % Critically high 1.7-12.0 [facility] Comment on above: Performed By: #### C BC ####[facility] [address]ikyaxpuma[address] [place], [place] [address] Neutrophils Auto #/vol (Bld) 2.1 103/ul Normal 1.4-6.5 [facility] Comment on above: Performed By: #### C BC ####[facility] Cygvofssgo[address] [place], [place] [address] Neutrophils/100 WBC Auto (Bld) 44.0 % Normal 43.0-75.0 [facility] Comment on above: Performed By: #### C BC ####[facility] Vttagjgans[address] [place] [address] [place] Platelet mean volume Auto Entitic volume (Bld) 8.8 fL Critically low 9.5-13.5 [facility] Comment on above: Performed By: #### C BC ####[facility] K[address]pd[address]qf[address] [place] [address] [place] Platelets Auto #/vol (Bld) 238 103/ul Normal 150-450 [facility] Comment on above: Performed By: #### C BC ####[facility] [address]qooxocdb[address] [place] [address] [place] RBC Auto #/vol (Bld) 4.79 106/ul Normal 4.70-6.10 [facility] Comment on above: Performed By: #### C BC ####[facility] X[address]sfzq[address]jr[address] [place] [address] [place] WBC Auto #/vol (Bld) 4.8 103/ul Normal 4.0-11.0 [facility] Comment on above: Performed By: #### C BC ####[facility] [address]myit[address]irau[address] [place] [address] [place] D-DIMERon 07-24-2018 D-DIMER COMMENTS SEE BELOW Normal [facility] Comment on above: Result Comment: Incr eases [...] generalizd hospitalization. Performed By: #### D DIM ####[facility] [address]ys[address] [place] [address] [place] Fibrin D-dimer FEU IA mass conc (Bld) 0.19 ug/mL Normal 0.19-0.50 [facility] Comment on above: Performed By: #### D DIM ####[facility] Nzzxmgfdfw3[address] [place] PROF 14(COMP METB)on 018 Albumin mass conc 3.8 g/dL Normal 3.5-5.0 [facility] Comment on above: Performed By: #### C CORI NAVAS ####[facility] Skwyidhona9845 [address] [place] Albumin/Globulin mass ratio 1.0 {ratio} Normal [facility] Comment on above: Performed By: #### C CORI NAVAS ####[facility] Aqsdqytvar2433 [address] [place] ALP enzyme act/vol 60 U/L Normal 38-126 [facility] Comment on above: Performed By: #### C CORI NAVAS ####[facility] Zaixzujlta5367 [place] [id number] ALT enzyme act/vol 19 U/L Critically low 21-72 [facility] Comment on above: Performed By: #### C CORI NAVAS ####[facility] [address]wmvotrk[address] [place] [address] [place] Anion gap 3 molar conc 10.2 mmol/L Normal [facility] Comment on above: Performed By: #### C CORI NAVAS ####[facility] Xeeqeqrhmj7973 [address] [place] AST enzyme act/vol 14 U/L Critically low 17-59 [facility] Comment on above: Performed By: #### C CORI NAVAS ####[facility] Hkyyrbrsdq5054 [address] [place] Bilirubin Ql (U) 0.4 mg/dL Normal 0.2-1.3 [facility] Comment on above: Performed By: #### C CORI NAVAS ####[facility] Cquzzrglxt050[address] [place] Calcium mass conc 9.4 mg/dL Normal 8.4-10.2 [facility] Comment on above: Performed By: #### C MP, CMADM ####[facility] Gfhyyctxpr8298 [address] [place] Chloride molar conc 105 mmol/L Normal 98-107 [facility] Comment on above: Performed By: #### C MP, CMADM ####[facility] Dpewelzmps8237 [address] [place] CO2 molar conc 28.5 mmol/L Normal 22.0-30.0 [facility] Comment on above: Performed By: #### C MP, CMADM ####[facility] Rixdyurhgc6727 [address] [place] Creatinine mass conc 0.95 mg/dL Normal 0.66-1.25 [facility] Comment on above: Performed By: #### C MP, CMADM ####[facility] Khdtcixukm5252 [address] [place] EGFR-AF MARSHALLESE >60 Normal >=60 [facility] Comment on above: Performed By: #### C MP, CMADM ####[facility] Geizzkmogk6975 [address] [place] EGFR-NON AF MARSHALLESE >60 Normal >=60 [facility] Comment on above: Performed By: #### C MP, CMADM ####[facility] Hsdnvuwfkn9241 [address] [place] Globulin Calculated mass conc (S) 3.7 g/dL Normal [facility] Comment on above: Performed By: #### C MP, CMADM ####[facility] Gkjfvolcpl4815 [address] [place] Glucose mass conc 104 mg/dL Normal 74-106 [facility] Comment on above: Performed By: #### C MP, CMADM ####[facility] Cbnnhfkotl77[address] [place] Potassium molar conc 3.7 mmol/L Normal 3.4-5.0 [facility] Comment on above: Performed By: #### C MP, CMADM ####[facility] Gvmqhardii0279 [place], [place] [address]Zitvat [place] Protein mass conc 7.5 g/dL Normal 6.1-8.2 [facility] Comment on above: Performed By: #### C MP, CMADM ####[facility] Tibvitfiwq7219 [place], [place] [address]Qysuyx [place] Sodium molar conc 140 mmol/L Normal 137-145 [facility] Comment on above: Performed By: #### C MP, CMADM ####[facility] Okvivxjrii5388 [place], [place] [address]Zhkqdj [place] Urea nitrogen mass conc 10.0 mg/dL Normal 9.0-20.0 [facility] Comment on above: Performed By: #### C MP, CMADM ####[facility] Ydnyuvlczm0204 [place], [place] [address]Yxfnjq [place] Urea nitrogen/Creatinine mass ratio 10.5 mg/mg Normal [facility] Comment on above: Performed By: #### C MP, CMADM ####[facility] [address]ynpiugvqq[address] [place], [place] [address]Qpudcf [place] XR CHEST 2 Von 07-24-2018 XR CHEST 2 V [address] [place] [address] Patient: MERRILL VARGAS Exam Date: 07/24/2018DOB: 1995 Gender:M : DR SHAKILA HARMON Admission #: [id number] : Order #: [id number] HERE TO VIEW EXAM RADIOLOGY REPORT PROCEDURE: [...] M.D. on 07/24/2018 at 07:47 Normal [facility] XR ELBOW RT MIN 3 VIEWSon XR ELBOW RT MIN 3 VIEWS [address] [place] [address] Patient: MERRILL VARGAS Exam Date: 05/05/2018DOB: 1995 Gender:M : POLY PANG Admission #: [id number] : DR MARTHA GRECO . Order #: [id number] HERE TO VIEW EXAM RADIOLOGY REPORT PROCEDURE: [...] M.D. on 05/05/2018 at 16:35 Normal [facility] CHLAMYDIA/GONOCOCCUS YENNIFER W/C ONF. (SWAB/Uon 11-22-2017 Chlamydia Trach YENNIFER Negative Normal Negative [facility] Comment on above: Performed By: #### C T/NGNA ####[facility] Euqjzyyrey54[address] [place] N. Gonorrhoeae YENNIFER Negative Normal Negative [facility] Comment on above: Performed By: #### C T/NGNA ####[facility] Mfcjtrmmia9345 [address] [place] ER URINE PROFILEon 8 BILIRUBIN Negative Normal NEGATIVE [facility] Comment on above: Performed By: #### E RUR ####[facility] Jbikpeicuy0198 [address] [place] BLOOD Negative Normal NEGATIVE [facility] Comment on above: Performed By: #### E RUR ####[facility] Zbxaxceogm1788 [address] [place] CLARITY CLEAR Normal [facility] Comment on above: Performed By: #### E RUR ####[facility] Atyphwqzbr1250 [place] [id number] COLOR LT. YELLOW Normal YELLOW [facility] Comment on above: Performed By: #### E RUR ####[facility] Hvobmehlbk9120 [place] [address]ken [place] ERUAHD A micrscopic examination will be performed if indicated. Normal [facility] Comment on above: Performed By: #### E RUR ####[facility] Yxgfbbyzoo4516 [place] [address] GLUCOSE Negative Normal NEGATIVE [facility] Comment on above: Performed By: #### E RUR ####[facility] [address] [place] [address] [place] KETONES TRACE Normal NEGATIVE [facility] Comment on above: Performed By: #### E RUR ####[facility] [address] [place] [address] [place] LEUKOCYTES Negative Normal NEGATIVE [facility] Comment on above: Performed By: #### E RUR ####[facility] [address] [place] [address] [place] NITRITE Negative Normal NEGATIVE [facility] Comment on above: Performed By: #### E RUR ####[facility] Flngorojdw1705 [place] [address] pH 8.0 Normal 5-9 [facility] Comment on above: Performed By: #### E RUR ####[facility] Vhnknrvtyf4135 [place] [address] Protein mass conc Negative Normal [facility] Comment on above: Performed By: #### E RUR ####[facility] [address] [place] [address] [place] SPEC GRAVITY 1.015 Normal 1.005-<=1.025 [facility] Comment on above: Performed By: #### E RUR ####[facility] R[address] [place], [place] [address] [place] UR MICRO IND NOT INDICATED Normal [facility] Comment on above: Performed By: #### E RUR ####[facility] Qlobumacgr[address] [place] UROBILINOGEN 0.2 EU/dl Normal [facility] Comment on above: Performed By: #### E RUR ####[facility] Narbrdqcbc4685 [address] [place] Vital Signs Date Time Vital Sign Value Performing Clinician Faci lity 03-18-2024 15:50-0400 Body height 182.88 cm MD Denzel Bridges Work Phone: [facility] 03-18-2024 15:50-0400 Body mass index (BMI) [Ratio] 28.5 kg/m2 MD Denzel Bridges Work Phone: [facility] 03-18-2024 15:50-0400 Body temperature 98.4 [degF] MD Denzel Bridges Work Phone: [facility] 03-18-2024 15:50-0400 Body weight 95.25 kg MD Denzel Bridges Work Phone: [facility] 03-18-2024 15:50-0400 Diastolic blood pressure 87 mm[Hg] MD Denzel Bridges Work Phone: [facility] 03-18-2024 15:50-0400 Heart rate 81 /min MD Denzel Bridges Work Phone: [facility] 03-18-2024 15:50-0400 SaO2% (BldA) [Mass fraction] 97 % MD Denzel Bridges Work Phone: [facility] 03-18-2024 15:50-0400 Systolic blood pressure 137 mm[Hg] MD Denzel Bridges Work Phone: [facility] 12-10-2022 08:11-0400 Body height 182.88 cm MD Denzel Bridges Work Phone: [facility] 12-10-2022 08:11-0400 Body temperature 97.5 [degF] MD Denzel Bridges Work Phone: [facility] 12-10-2022 08:11-0400 Body weight 101.6 kg MD Denzel Bridges Work Phone: [facility] 12-10-2022 08:11-0400 Diastolic blood pressure 80 mm[Hg] MD Denzel Bridges Work Phone: [facility] 12-10-2022 08:11-0400 Heart rate 98 /min MD Denzel Bridges Work Phone: [facility] 12-10-2022 08:11-0400 Respiratory rate 18 /min MD Denzel Bridges Work Phone: [facility] 12-10-2022 08:11-0400 SaO2% (BldA) [Mass fraction] 100 % MD Denzel Bridges Work Phone: [facility] 12-10-2022 08:11-0400 Systolic blood pressure 133 mm[Hg] MD Denzel Bridges Work Phone: [facility] Encounters Encounter Date Encounter Type Care Provider Facility Start: 03-18-2024 End: 03-18-2024 ambulatory MD Denzel Bridges Work Phone: [facility] Work Phone: Start: 03-18-2024 End: 03-18-2024 Patient encounter procedure MD Denzel Bridges Work Phone: [facility] Work Phone: Start: 03-06-2024 ambulatory MD Denzel Bridges Facil ity:[facility] Start: 03-04-2024 ambulatory MD Denzel Bridges Facil ity:[facility] Start: 03-02-2024 End: 03-02-2024 ambulatory MD Denzel Bridges Facility:[facility] Start: 03-26-2023 End: 03-26-2023 ambulatory MD Denzel Bridges Facility:[facility] Start: 12-10-2022 End: 12-10-2022 Emergency department patient visit MD Denzel Bridges Work Phone: [facility] Work Phone: Start: 07-26-2018 End: [...] Detail Author Patient Education Ankle Sprain ED [facility] Work Phone: Patient referral [facility] Work Phone: Payers Date Payer Category Payer Self-pay [id number] 2024 Unknown [id number] 1995 Unknown [id number] 1995 Unknown [id number] 1994 Unknown [id number] 1994 Unknown [id number] 1994 Unknown [id number] 1994 Unknown [id number] 1994 Unknown [id number] 1994 Unknown [id number] 1994 Unknown [id number] 1959 Unknown [id number] Private Health Insurance [employer] [id number] Unknown [id number] Social History Date Type Detail Facility Start: 12-10-[address] [facility] Smoker (finding) [facility] Start: 1995 Sex Assigned At Male [facility] Evaluation note Note Date & Type Note Facility Evaluation note No assessment information availa ble [facility] Work Phone: Evaluation note Note Date & Type Note Facility Evaluation note Diagnosis Onset Date Right ankle sprain noneactiv e Right ankle injury noneactiv e Right foot injury noneactive [facility] Work Phone: Summary Purpose Family History No [...] AUTHOR AUTHOR'S ORGANIZ ATION 03/06/2024 Anil [facility] DATE CREATED AUTHOR AUTHOR'S ORGANIZ ATION 03/21/2024 [facility] Care Teams (unrecognized sec tion [...] BE BASED ON THE PRIMARY CLINICAL RECORDS. [facility] [employer] [facility]. provides no warranty or guarantee of the accuracy or completeness of information in this document.
--- NOTE | 2024-05-15 13:18 | P.GSHP_ITS ---
History of Present Illness History of Present Illness Chief complaint: Right ankle instability Narrative: Patient presents for preadmission testing. Please see HPI from Dr. Singh dated May 06, 2024. Review of Systems ROS Narrative Please see ROS from Dr. Singh dated May 06, 2024. [facility] Medical History (Updated 05/15/24 @ 13:13 by Aga Zavala NP) Sprain of ligament of right ankle ?S93.401A - Sprain of unspecified ligament of right ankle, initial encounter (ICD-10) Contracture, right ankle ?M24.571 - Contracture, right ankle (ICD-10) Strain of muscle(s) and tendon(s) of peroneal muscle group at lower leg level, right leg, initial encounter ?S86.311A - Strain of muscle(s) and tendon(s) of peroneal muscle group at lower leg level, right leg, initial encounter (ICD-10) Plantar fascial fibromatosis ?M72.2 - Plantar fascial fibromatosis (ICD-10) Right ankle instability ?M25.371 - Other instability, right ankle (ICD-10) Osteochondritis dissecans of lateral talus of right ankle ?M93.271 - Osteochondritis dissecans, right ankle and joints of right foot (ICD-10) Osteochondritis dissecans, right ankle and joints of right foot ?M93.271 - Osteochondritis dissecans, right ankle and joints of right foot (ICD-10) Asthma ?J45.909 - Unspecified asthma, uncomplicated (ICD-10) Adopted ?Z02.82 - Encounter for adoption services (ICD-10) COVID-19 (2019) ?U07.1 - COVID-19 (ICD-10) Snores ?R06.83 - Snoring (ICD-10) Family History (Updated 05/15/24 @ 13:10 by Aga Zavala NP) Other Family history not known due to adoption Social History (Updated 05/15/24 @ 12:48 by Aga Zavala NP) Within the past year, how often did you have a drink containing alcohol: monthly or less Smoking status: Current some day smoker Non-prescribed substance use: denies use 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 Highest level of school completed/degree received: high school graduate Meds Home Medications and Allergies Home Medications ?Medication ?Instructions ?Recorded ?Confirmed ?Type meloxicam 15 mg tablet 15 mg PO DAILY 05/15/24 05/15/24 History Allergies Allergy/AdvReac Type Severity Reaction Status Date / Time No Known Drug Allergies Allergy Verified 05/15/24 12:46 Exam Narrative Exam Narrative: Constitutional: Awake, alert, comfortable, well-appearing, nontoxic, interactive, vital signs as charted Head: Normocephalic, atraumatic Neck: Supple, normal appearance, normal range of motion, no meningeal signs, no lymphadenopathy Respiratory: No respiratory distress, breath sounds clear Cardiovascular: Regular rate and rhythm, strong and regular heart tones Skin: No rashes or induration, no lesions, only visible skin inspected Neuro: No neurological deficits, normal sensation Psychiatric: Oriented ?3, normal affect Assessment and Plan Assessment and Plan (1) Sprain of ligament of right ankle: (2) Contracture, right ankle: (3) Strain of muscle(s) and tendon(s) of peroneal muscle group at lower leg level, right leg, initial encounter: (4) Plantar fascial fibromatosis: (5) Right ankle instability: (6) Osteochondritis dissecans of lateral talus of right ankle: (7) Osteochondritis dissecans, right ankle and joints of right foot: Plan Right ankle arthroscopy/arthroplasty with cartilage, ligament, and tendon repairs as needed, endoscopic plantar fasciotomy, and gastrocnemius recession, stress examination under fluoroscopy scheduled with Dr. Singh June 01, 2024
== END 2024-05-15 12:23 | disposition home or self-care (01) ==
LOC: PST 12:23
PROVIDERS: Visit Provider Podiatrist Foot & Ankle Surgery
DX: Z01.818 Encounter for other preprocedural examination (principal); M93.271 Osteochondritis dissecans, right ankle and joints of right foot; M25.371 Other instability, right ankle
CPT/HCPCS: G0463

== ENCOUNTER 2024-06-01 07:08 | Day surgery (SDC) | payer BC, SELFPAY ==
[2024-05-15 13:13] VITALS: BP 131/73; PULSE 69; TEMP 36.5; O2SAT 98; BMI 27.7
[2024-06-01] VITALS (9 sets, daily range): BP systolic 121–134; BP diastolic 72–83; PULSE 78–93; TEMP 36.6; O2SAT 95–98; BMI 28.3
--- NOTE | 2024-06-01 | FL_ITS ---
[address] [address] Patient Name: TESSIE BENNETT MRN: [id number] date: 1995 Sex: M Assigned Patient Location: [facility] Current Patient Location: Accession/Order Number: [id number] Exam Date: 06/01/2024 08:45 Report Date: 06/01/2024 14:39 At the request of: WILLIAM CHA Procedure: FL fluoroscopy <1hr NON-READ EXAM: FL fluoroscopy <1hr NON-READ HISTORY: TECHNIQUE: FINDINGS: Please see Operative Report. Electronically authenticated by: RADIOLOGIST NO Date: 06/01/2024 14:39
--- OUTSIDE RECORDS SUMMARY | 2024-06-01 07:11 | XMS_ITS | CCD ---
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 [place] [address] [place] [address] XRay Report Signed Patient: Merrill Vargas MR#: [id number] : 1995 Acct:[id number] Age/Sex: 28 / M ADM Date: 03/18/24 Loc: [id number] Room: Type: [facility] Attending Dr: Lacie Alexander APRN Copies to: Lacie Alexander APRN Ordering Provider: Lacie Alexander APRN Date of Service: 03/18/24 XR/XR foot RT min 3V*: S99.911A - Unspecified injury of right ankle, initial enc... ([id number]) XR/XR ankle RT min 3V*: S99.911A - [...] De Leon M.D.03/18/2024 5:07 PM Dictation Location: [place] [address] Transcribed By: [facility] 03/18/24 0727 Dictated By: Sagar De Leon DO 03/18/24 730 Signed By: 03/18/24 1707 Normal [facility] Ambulatory Visit Summaryon 0 03-02-2024 [...] Follow-Up Appointments Saturday 7:30 AM EDT Where: [facility] [place] Normal [facility] Office/Clini c Noteon [...] CBC w/ Auto Diff Comprehensive Metabolic Panel [facility] External Ambulatory Referral Lipid Panel 2. HTN (hypertension) (I10: Essential (primary) hypertension) REsolved with weight loss Ordered: CBC w/ Auto Diff Comprehensive Metabolic Panel [facility] External Ambulatory Referral Lipid Panel 3. Ankle pain (M25.579: Pain in unspecified ankle and joints of unspecified foot) Will send to podiatry Ordered: CBC w/ Auto Diff Comprehensive Metabolic Panel [facility] External Ambulatory Referral Lipid Panel 4. Wrist pain (M25.539: Pain in unspecified wrist) RICE advised. - If no improvement please see us back. - Discussed asking his job about wrist splints and looking at the body mechanics to help identify if he is doing anything wrong Ordered: CBC w/ Auto Diff Comprehensive Metabolic Panel [facility] External Ambulatory Referral Lipid Panel 5. BMI 29.0-29.9,adult (Z68.29: Body mass index [BMI] 29.0-29.9, adult) - BMI education added Ordered: CBC w/ Auto Diff Comprehensive Metabolic Panel [facility] External Ambulatory Referral Lipid Panel 6. Overweight [...] q24hr, # 90 tab(s), Refills(s) 0, Pharmacy: [facility], 179.5, cm, 11/08/22 7:57:00 EDT, [...] Hib, unspecifie (more content not included)... Normal [facility] Comment on above: Result Comment: Elec tronically Signed By: Parminder LONGO, Denzel Carrillo\.br\Date and Time Signed: 03/02/24 08:45 EDT CBC AUTO DIFFon 07-26-2018 Basophils Auto #/vol (Bld) 0.0 103/ul Normal 0.0-0.1 [facility] Comment on above: Performed By: #### C BC ####[facility] Ckbozjftjt8429 [place] [address] Basophils/100 WBC Auto (Bld) 0.6 % Normal 0.2-2.0 [facility] Comment on above: Performed By: #### C BC ####[facility] Fdowoxdeaj[address] [place] [address] [place] Eosinophils Auto #/vol (Bld) 0.2 103/ul Normal 0.0-0.7 [facility] Comment on above: Performed By: #### C BC ####[facility] Osztyhepqe[address] [place] [address] [place] Eosinophils/100 WBC Auto (Bld) 3.3 % Normal 0.9-7.0 [facility] Comment on above: Performed By: #### C BC ####[facility] Xsldaayptr[address] [place] [address] [place] Erythrocyte distribution width Auto Ratio (RBC) 11.4 % Normal 11.0-15.0 [facility] Comment on above: Performed By: #### C BC ####[facility] Mmfhbinpob[address] [place] [address] [place] Hematocrit Auto Volume Fraction (Bld) 50.9 % Normal 42.0-54.0 [facility] Comment on above: Performed By: #### C BC ####[facility] Oeisyuvxxq[address] [place] [address] [place] Hemoglobin mass conc (Bld) 18.2 g/dL Critically high 14.0-18.0 [facility] Comment on above: Result Comment: test repeated delta check value verified Performed By: #### C BC ####[facility] Iq[address]pyhb[address] [place] [address] [place] IG # 0.01 10e3/ul Normal 0.00-0.03 [facility] Comment on above: Performed By: #### C BC ####[facility] Hxodzvczve[address] [place] [address] [place] IG % 0.2 % Normal 0.0-0.5 [facility] Comment on above: Performed By: #### C BC ####[facility] Fauslxhdxg[address] [place] [address] [place] Lymphocytes Auto #/vol (Bld) 2.8 103/ul Normal 1.2-3.8 [facility] Comment on above: Performed By: #### C BC ####[facility] Nsdevrocnu[address] [place] [address] [place] Lymphocytes/100 WBC Auto (Bld) 50.8 % Normal 20.5-60.0 [facility] Comment on above: Performed By: #### C BC ####[facility] Bdmiflfktu[address] [place] [address] [place] MANUAL DIFF REQ NO Normal [facility] Comment on above: Performed By: #### C BC ####[facility] Nfnzlhlwll[address] [place] [address] [place] MCH Auto Entitic mass (RBC) 33.3 pg Normal 25.9-34.0 [facility] Comment on above: Performed By: #### C BC ####[facility] Sacpnqrjbx813[address] [place] [address] [place] MCHC Auto mass conc (RBC) 35.8 g/dL Critically high 29.9-35.2 [facility] Comment on above: Performed By: #### C BC ####[facility] Obqvfctbzg[address] [place] [address] [place] MCV Auto Entitic volume (RBC) 93.2 fL Normal 80.0-94.0 [facility] Comment on above: Performed By: #### C BC ####[facility] Fodrzixapj[address] [place] [address] [place] Monocytes Auto #/vol (Bld) 0.4 103/ul Normal 0.3-0.8 [facility] Comment on above: Performed By: #### C BC ####[facility] Ooajaxujcc635[address] [place] [address] [place] Monocytes/100 WBC Auto (Bld) 7.0 % Normal 1.7-12.0 [facility] Comment on above: Performed By: #### C BC ####[facility] Mpmlnxqdsu[address] [place] [address] [place] Neutrophils Auto #/vol (Bld) 2.1 103/ul Normal 1.4-6.5 [facility] Comment on above: Performed By: #### C BC ####[facility] Lrkkrybjpq4717 [place] [id number] Neutrophils/100 WBC Auto (Bld) 38.1 % Critically low 43.0-75.0 [facility] Comment on above: Performed By: #### C BC ####[facility] Bynuzmnxnl[address] [place], [place] [address] Platelet mean volume Auto Entitic volume (Bld) 8.9 fL Critically low 9.5-13.5 [facility] Comment on above: Performed By: #### C BC ####[facility] Ofsqgtkuyu[address] [place], [place] [address] Platelets Auto #/vol (Bld) 276 103/ul Normal 150-450 [facility] Comment on above: Performed By: #### C BC ####[facility] Apcduynapw[address] [place], [place] [address] RBC Auto #/vol (Bld) 5.46 106/ul Normal 4.70-6.10 [facility] Comment on above: Performed By: #### C BC ####[facility] Nmuttwogai[address] [place], [place] [address] WBC Auto #/vol (Bld) 5.5 103/ul Normal 4.0-11.0 [facility] Comment on above: Performed By: #### C BC ####[facility] Cbyewudwyw[address] [place], [place] [address] GLYCOHEMOGLOBIN A1Con 2017 Glucose mass conc 97 mg/dL Normal [facility] Comment on above: Performed By: #### A 1C ####[facility] Yanziebvcb[address] [place], [place] [address] Hemoglobin A1c/Hemoglobin.total mass fraction (Bld) 5.0 % Normal <=6.0 [facility] Comment on above: Performed By: #### A 1C ####[facility] Jmjrncbnkz8786 [place], [place] [address]Uutgjw [place] LIPID PROFILEon 07-26-2018 CHOL-HDL RATIO NORM SEE BELOW Normal [facility] Comment on above: Result Comment: 3.3 - 4.4 LOW RISK 4.4 - 7.1 AVERAGE RISK 7.1 - 11.0 MODERATE RISK >11.0 HIGH RISK Performed By: #### C T/NGNA ####[facility] Nvefvqkrjn1545 [place], [place] [address]Abhcyz [place] Cholesterol in HDL mass conc > or = 60 mg/dl - LOW CARDIOVASCULAR RISK <40 mg/dl - HIGH CARDIOVASCULAR RISK Normal [facility] Comment on above: Performed By: #### C T/NGNA ####[facility] Hycwhqrxnu1264 [place], [place] [address]Pvkeao [place] Cholesterol in HDL mass conc 61 mg/dL Normal [facility] Comment on above: Performed By: #### C T/NGNA ####[facility] Pekrylhphw9114 [place], [place] [address]Asspey [place] Cholesterol in LDL mass conc SEE BELOW Normal [facility] Comment on above: Result Comment: <100 mg/dl OPTIMAL 100 - 129 mg/dl NEAR OR ABOVE OPTIMAL 130 - 159 mg/dl BORDERLINE HIGH 160 - 189 mg/dl HIGH >190 mg/dl VERY HIGH Performed By: #### C T/NGNA ####[facility] Umhgdkdyku0440 [place], [place] [address]Ovbvbq [place] Cholesterol in LDL mass conc 62.8 mg/dL Normal [facility] Comment on above: Performed By: #### C T/NGNA ####[facility] Anknkqzrol3125 [place], [place] [address]Xxjysz [place] Cholesterol mass conc 131 mg/dL Normal <=200 [facility] Comment on above: Performed By: #### C T/NGNA ####[facility] Xviwlhhkqp2864 [place], [place] [address]Naciuf [place] Cholesterol.total/Cho lesterol in HDL mass ratio 2.1 {ratio} Normal [facility] Comment on above: Performed By: #### C T/NGNA ####[facility] Hnnkgkwohp7826 [address] [place] Triglyceride mass conc 36 mg/dL Normal <=150 [facility] Comment on above: Performed By: #### C T/NGNA ####[facility] Idgeshcudy1786 [place] [address] VLDL CALC 7.2 mg/dL Normal [facility] Comment on above: Performed By: #### C T/NGNA ####[facility] Zgdmnjolkf9296 [place] [address] PROF 14(COMP METB)on 018 Albumin mass conc 4.8 g/dL Normal 3.5-5.0 [facility] Comment on above: Performed By: #### C T/NEHEMIASNA ####[facility] Kbndfmdybb2172 [address] [place] Albumin/Globulin mass ratio 1.3 {ratio} Normal [facility] Comment on above: Performed By: #### C T/NGNA ####[facility] Ziujbibirf2853 [place] [address] ALP enzyme act/vol 66 U/L Normal 38-126 [facility] Comment on above: Performed By: #### C T/NEHEMIASNA ####[facility] Xwusmcxwpq9481 [address] [place] ALT enzyme act/vol 21 U/L Normal 21-72 [facility] Comment on above: Performed By: #### C T/NGNA ####[facility] Uizioypjmo0344 [place] [address] Anion gap 3 molar conc 11.8 mmol/L Normal [facility] Comment on above: Performed By: #### C T/NGNA ####[facility] Fxqfwzrylv4962 [place] [address] AST enzyme act/vol 17 U/L Normal 17-59 [facility] Comment on above: Performed By: #### C T/NGNA ####[facility] Tsaoznnpuq3168 [address] [place] Bilirubin Ql (U) 0.4 mg/dL Normal 0.2-1.3 [facility] Comment on above: Performed By: #### C T/NGNA ####[facility] Nhyxdlimfk2516 [place] [phone] Calcium mass conc 9.9 mg/dL Normal 8.4-10.2 [facility] Comment on above: Performed By: #### C T/NGNA ####[facility] Kwwedtgyty10[address] [place] Chloride molar conc 102 mmol/L Normal 98-107 [facility] Comment on above: Performed By: #### C T/NGNA ####[facility] Mjyfwbfese0411 [address] [place] CO2 molar conc 33.0 mmol/L Critically high 22.0-30.0 [facility] Comment on above: Performed By: #### C T/NGNA ####[facility] Jmyuigdgsk4717 [address] [place] Creatinine mass conc 0.96 mg/dL Normal 0.66-1.25 [facility] Comment on above: Performed By: #### C T/NGNA ####[facility] Mctrtwduap6452 [address] [place] EGFR-AF [place] >60 Normal >=60 The [facility] Comment on above: Performed By: #### C T/NGNA ####[facility] Wncmcfgonq7974 [address] [place] EGFR-NON AF [place] >60 Normal >=60 [facility] Comment on above: Performed By: #### C T/NGNA ####[facility] Xrppesmslb8910 [address] [place] Globulin Calculated mass conc (S) 3.7 g/dL Normal [facility] Comment on above: Performed By: #### C T/NGNA ####[facility] Gzbaspeaxu1958 [address] [place] Glucose mass conc 92 mg/dL Normal 74-106 [facility] Comment on above: Performed By: #### C T/NGNA ####[facility] Ylcqtzmkoi1267 [place] [address] Potassium molar conc 3.8 mmol/L Normal 3.4-5.0 [facility] Comment on above: Performed By: #### C T/NGNA ####[facility] Owjvpuubvk9930 [place] [address] Protein mass conc 8.5 g/dL Critically high 6.1-8.2 [facility] Comment on above: Performed By: #### C T/NGNA ####[facility] Tcfxddccim2632 [place] [address] Sodium molar conc 143 mmol/L Normal 137-145 [facility] Comment on above: Performed By: #### C T/NGNA ####[facility] Tpxaoxdapj8411 [address] [place] Urea nitrogen mass conc 8.0 mg/dL Critically low 9.0-20.0 [facility] Comment on above: Performed By: #### C T/NGNA ####[facility] Jpbtkznkaw0064 [place] [phone] Urea nitrogen/Creatinine mass ratio 8.3 mg/mg Normal [facility] Comment on above: Performed By: #### C T/NGNA ####[facility] Utxoivhfhq9059 [place] [phone] TSHon 07-26-2018 Thyrotropin Qn 1.145 uIU/mL Normal 0.470-4.680 [facility] Comment on above: Performed By: #### C T/NGNA ####[facility] Ghhbhagfrf3340 [place] [phone] Thyrotropin Qn SEE BELOW Normal [facility] Comment on above: Result Comment: <0.3 4 UIU/ml HYPERTHYROID 0.34-5.60 UIU/ml EUTHYROID >5.60 UIU/ml HYPOTHYROID Performed By: #### C T/NGNA ####[facility] Msniqygrea7855 [address] [place] CARDIAC MISAEL ADMITon 018 CK enzyme act/vol 110 U/L Normal 55-170 [facility] Comment on above: Performed By: #### C YOSEF, CORI ####[facility] Zrjyhttoja6552 [place] [phone] CK.MB mass conc 0.87 ng/mL Normal <=2.37 [facility] Comment on above: Performed By: #### C YOSEF, CORI ####[facility] Kkahcnumsm7234 [address] [place] INR Coag RelTime (Bld) SEE BELOW Normal [facility] Comment on above: Result Comment: <0.0 34 ng/ml NEGATIVE 0.034-0.119 INDETERMINATE 0.120 AMI CUT OFF Performed By: #### C YOSEF, CORI ####[facility] Rmgzzpeiqt[address] [place] [address] [place] OUMAR 29.0 ng/mL Normal <=121.0 [facility] Comment on above: Performed By: #### C YOSEF, CORI ####[facility] Hktqnkgigd[address] [place] [address] [place] TROP <0.017 Normal <=0.034 [facility] Comment on above: Performed By: #### C YOSEF, CORI ####[facility] [address]izv[address]fzun[address] [place] [address] [place] CBC AUTO DIFFon 07-24-2018 Basophils Auto #/vol (Bld) 0.0 103/ul Normal 0.0-0.1 [facility] Comment on above: Performed By: #### C BC ####[facility] Yuftdzrjnz[address] [place] [address] [place] Basophils/100 WBC Auto (Bld) 0.6 % Normal 0.2-2.0 [facility] Comment on above: Performed By: #### C BC ####[facility] Dymkahpcte[address] [place] [address] [place] Eosinophils Auto #/vol (Bld) 0.2 103/ul Normal 0.0-0.7 [facility] Comment on above: Performed By: #### C BC ####[facility] Kkodnzhfqr[address] [place] [address] [place] Eosinophils/100 WBC Auto (Bld) 3.3 % Normal 0.9-7.0 [facility] Comment on above: Performed By: #### C BC ####[facility] Kphkumujji268[address] [place] [address] [place] Erythrocyte distribution width Auto Ratio (RBC) 11.3 % Normal 11.0-15.0 [facility] Comment on above: Performed By: #### C BC ####[facility] Gmltoxcfph[address] [place] [address] [place] Hematocrit Auto Volume Fraction (Bld) 44.6 % Normal 42.0-54.0 [facility] Comment on above: Performed By: #### C BC ####[facility] Kaefyocnjd59[address] [place] [address] [place] Hemoglobin mass conc (Bld) 15.7 g/dL Normal 14.0-18.0 [facility] Comment on above: Performed By: #### C BC ####[facility] Xtfdhwnayp[address] [place] [address] [place] IG # 0.01 10e3/ul Normal 0.00-0.03 [facility] Comment on above: Performed By: #### C BC ####[facility] Dbhedlquse6424[address] [place] [address] [place] IG % 0.2 % Normal 0.0-0.5 [facility] Comment on above: Performed By: #### C BC ####[facility] Axchwwfshw[address] [place] [address] [place] Lymphocytes Auto #/vol (Bld) 1.8 103/ul Normal 1.2-3.8 [facility] Comment on above: Performed By: #### C BC ####[facility] Ssqrsvtbwq164[address] [place] [address] [place] Lymphocytes/100 WBC Auto (Bld) 37.0 % Normal 20.5-60.0 [facility] Comment on above: Performed By: #### C BC ####[facility] Yllythvlln7179 [place] [phone] MANUAL DIFF REQ NO Normal [facility] Comment on above: Performed By: #### C BC ####[facility] Dckthhxpsl[address] [place], [place] [address] MCH Auto Entitic mass (RBC) 32.8 pg Normal 25.9-34.0 [facility] Comment on above: Performed By: #### C BC ####[facility] Whkkytqrby[address] [place], [place] [address] MCHC Auto mass conc (RBC) 35.2 g/dL Normal 29.9-35.2 [facility] Comment on above: Performed By: #### C BC ####[facility] Feugnlkihm[address] [place], [place] [address] MCV Auto Entitic volume (RBC) 93.1 fL Normal 80.0-94.0 [facility] Comment on above: Performed By: #### C BC ####[facility] Jolqhatxrf230[address] [place], [place] [address] Monocytes Auto #/vol (Bld) 0.7 103/ul Normal 0.3-0.8 [facility] Comment on above: Performed By: #### C BC ####[facility] Yfsvbckgfy[address] [place], [place] [address] Monocytes/100 WBC Auto (Bld) 14.9 % Critically high 1.7-12.0 [facility] Comment on above: Performed By: #### C BC ####[facility] Msnfxtqwsb318[address] [place], [place] [address] Neutrophils Auto #/vol (Bld) 2.1 103/ul Normal 1.4-6.5 The [facility] Comment on above: Performed By: #### C BC ####[facility] Rheivbrhsq[address] [place], [place] [address] Neutrophils/100 WBC Auto (Bld) 44.0 % Normal 43.0-75.0 [facility] Comment on above: Performed By: #### C BC ####[facility] Ovdtbsevku[address] [place] [address] [place] Platelet mean volume Auto Entitic volume (Bld) 8.8 fL Critically low 9.5-13.5 [facility] Comment on above: Performed By: #### C BC ####[facility] Tgyrbuhgey[address] [place] [address] [place] Platelets Auto #/vol (Bld) 238 103/ul Normal 150-450 [facility] Comment on above: Performed By: #### C BC ####[facility] Hjydfgyquw836[address] [place] [address] [place] RBC Auto #/vol (Bld) 4.79 106/ul Normal 4.70-6.10 [facility] Comment on above: Performed By: #### C BC ####[facility] Gbpvkmsqbp[address] [place] [address] [place] WBC Auto #/vol (Bld) 4.8 103/ul Normal 4.0-11.0 [facility] Comment on above: Performed By: #### C BC ####[facility] Knoedybcxy[address] [place] [address] [place] D-DIMERon 07-24-2018 D-DIMER COMMENTS SEE BELOW Normal The [facility] Comment on above: Result Comment: Incr eases [...] generalizd hospitalization. Performed By: #### D DIM ####[facility] Egbivgqeca[address] [place] [address] [place] Fibrin D-dimer FEU IA mass conc (Bld) 0.19 ug/mL Normal 0.19-0.50 [facility] Comment on above: Performed By: #### D DIM ####[facility] Wklydaxjso0331 [address] [place] PROF 14(COMP METB)on 018 Albumin mass conc 3.8 g/dL Normal 3.5-5.0 [facility] Comment on above: Performed By: #### C CORI NAVAS ####[facility] Uhhdbuvaoh9[address] [place] Albumin/Globulin mass ratio 1.0 {ratio} Normal [facility] Comment on above: Performed By: #### C CORI NAVAS ####[facility] Bxhfmlqerj3046 [address] [place] ALP enzyme act/vol 60 U/L Normal 38-126 [facility] Comment on above: Performed By: #### C CORI NAVAS ####[facility] Smmqzxguqx5297 [place] [phone] ALT enzyme act/vol 19 U/L Critically low 21-72 [facility] Comment on above: Performed By: #### C CORI NAVAS ####[facility] Riunpjmtit[address] [place] [address] [place] Anion gap 3 molar conc 10.2 mmol/L Normal [facility] Comment on above: Performed By: #### C CORI NAVAS ####[facility] Xcieqwtrqf5802 [address] [place] AST enzyme act/vol 14 U/L Critically low 17-59 [facility] [facility] Comment on above: Performed By: #### C CORI NAVAS ####[facility] Xasuhqgohs9124 [address] [place] Bilirubin Ql (U) 0.4 mg/dL Normal 0.2-1.3 The [facility] Comment on above: Performed By: #### C CORI NAVAS ####[facility] Xhylrqcuni8138 [address] [place] Calcium mass conc 9.4 mg/dL Normal 8.4-10.2 [facility] Comment on above: Performed By: #### C MP, CMADM ####[facility] Uhtsscluwu2752 [address] [place] Chloride molar conc 105 mmol/L Normal 98-107 [facility] Comment on above: Performed By: #### C MP, CMADM ####[facility] Tbmpwhlnpj2338 [address] [place] CO2 molar conc 28.5 mmol/L Normal 22.0-30.0 The [facility] Comment on above: Performed By: #### C MP, CMADM ####[facility] Zrurkpofgq5059 [address] [place] Creatinine mass conc 0.95 mg/dL Normal 0.66-1.25 [facility] Comment on above: Performed By: #### C MP, CMADM ####[facility] Qohpvncqtt0158 [address] [place] EGFR-AF [place]TH [place]ORE[place] >60 Normal >=60 The [facility] Comment on above: Performed By: #### C MP, CMADM ####[facility] Irrqjohdod0150 [address] [place] EGFR-NON AF [place]ORE[place] >60 Normal >=60 The [facility] Comment on above: Performed By: #### C MP, CMADM ####[facility] Wmqisrtoub3796 [address] [place] Globulin Calculated mass conc (S) 3.7 g/dL Normal [facility] Comment on above: Performed By: #### C MP, CMADM ####[facility] Snsznigdar9548 [address] [place] Glucose mass conc 104 mg/dL Normal 74-106 [facility] Comment on above: Performed By: #### C MP, CMADM ####[facility] Abmuhvacst0443 [address] [place] Potassium molar conc 3.7 mmol/L Normal 3.4-5.0 The [facility] Comment on above: Performed By: #### C MP, CMADM ####[facility] Ymvlesvhqo9145 [place], [place] [address]Zomnfj [place] Protein mass conc 7.5 g/dL Normal 6.1-8.2 [facility] Comment on above: Performed By: #### C MP, CMADM ####[facility] Pyqbxhfilj5826 [place], [place] [address]Hwhcfx [place] Sodium molar conc 140 mmol/L Normal 137-145 [facility] Comment on above: Performed By: #### C MP, CMADM ####[facility] Jjeiztquzp7200 [place], [place] [address]Ldkmds [place] Urea nitrogen mass conc 10.0 mg/dL Normal 9.0-20.0 [facility] Comment on above: Performed By: #### C MP, CMADM ####[facility] Ucyfygylab0914 [place], [place] [address]Hcylgc [place] Urea nitrogen/Creatinine mass ratio 10.5 mg/mg Normal The [facility] Comment on above: Performed By: #### C MP, CMADM ####[facility] Edtnporbdx3360 [place], [place] [address]Lazssg [place] XR CHEST 2 Von 07-24-2018 XR CHEST 2 V [address] [place] [address] Patient: MERRILL VARGAS Exam Date: 07/24/2018DOB: 1995 Gender:M : DR SHAKILA HARMON Admission #: [id number] : Order #: [id number] HERE TO VIEW EXAM RADIOLOGY REPORT PROCEDURE: [...] M.D. on 07/24/2018 at 07:47 Normal The [facility] XR ELBOW RT MIN 3 VIEWSon XR ELBOW RT MIN 3 VIEWS [address] [place] [address] Patient: MERRILL VARGAS Exam Date: 05/05/2018DOB: 1995 Gender:M : POLY PANG Admission #: [id number] : DR MARTHA GRECO . Order #: [id number] HERE TO VIEW EXAM RADIOLOGY REPORT PROCEDURE: [...] M.D. on 05/05/2018 at 16:35 Normal The [facility] CHLAMYDIA/GONOCOCCUS YENNIFER W/C ONF. (SWAB/Uon 11-22-2017 Chlamydia Trach YENNIFER Negative Normal Negative [facility] Comment on above: Performed By: #### C T/NGNA ####[facility] Uvgrtlutqc8734 [address] [place] N. Gonorrhoeae YENNIFER Negative Normal Negative [facility] Comment on above: Performed By: #### C T/NGNA ####[facility] Ndrbwyajmk0236 [address] [place] ER URINE PROFILEon 8 BILIRUBIN Negative Normal NEGATIVE [facility] Comment on above: Performed By: #### E RUR ####[facility] Odpfxcodsc9025 [address] [place] BLOOD Negative Normal NEGATIVE The [facility] Comment on above: Performed By: #### E RUR ####[facility] Dccfpgttrf0384 [address] [place] CLARITY CLEAR Normal The [facility] Comment on above: Performed By: #### E RUR ####[facility] Wazqwvfptt4210 [place] [address] COLOR LT. YELLOW Normal YELLOW The [facility] Comment on above: Performed By: #### E RUR ####[facility] Quhxavnftt8138 [place] [address] ERUAHD A micrscopic examination will be performed if indicated. Normal The [facility] Comment on above: Performed By: #### E RUR ####[facility] Zczagavaqa7184 [place] [address] GLUCOSE Negative Normal NEGATIVE The [facility] Comment on above: Performed By: #### E RUR ####[facility] [address] [place] [address] [place] KETONES TRACE Normal NEGATIVE The [facility] Comment on above: Performed By: #### E RUR ####[facility] [address] [place] [address] [place] LEUKOCYTES Negative Normal NEGATIVE The [facility] Comment on above: Performed By: #### E RUR ####[facility] [address] [place] [address] [place] NITRITE Negative Normal NEGATIVE The [facility] Comment on above: Performed By: #### E RUR ####[facility] Hqhncphdxq2434 [place] [address] pH 8.0 Normal 5-9 The [facility] Comment on above: Performed By: #### E RUR ####[facility] Txjwiosyhj0218 [place] [address] Protein mass conc Negative Normal [facility] Comment on above: Performed By: #### E RUR ####[facility] [address] [place] [address] [place] SPEC GRAVITY 1.015 Normal 1.005-<=1.025 [facility] Comment on above: Performed By: #### E RUR ####[facility] B[address] [place], [place] [address] [place] UR MICRO IND NOT INDICATED Normal [facility] Comment on above: Performed By: #### E RUR ####[facility] Owkuqoyouh1578 [address] [place] UROBILINOGEN 0.2 EU/dl Normal The [facility] Comment on above: Performed By: #### E RUR ####[facility] Tsigohsvxj0690 [address] [place] Vital Signs Date Time Vital Sign Value Performing Clinician Faci lity 03-18-2024 15:50-0400 Body height 182.88 cm MD Denzel Bridges Work Phone: [facility] 03-18-2024 15:50-0400 Body mass index (BMI) [Ratio] 28.5 kg/m2 MD Denzel Bridges Work Phone: [facility] 03-18-2024 15:50-0400 Body temperature 98.4 [degF] MD Denzel Bridges Work Phone: [facility] 03-18-2024 15:50-0400 Body weight 95.25 kg MD Denzel Bridges Work Phone: [facility] 03-18-2024 15:50-0400 Diastolic blood pressure 87 mm[Hg] MD Denzel Bridges Work Phone: [facility] 03-18-2024 15:50-0400 Heart rate 81 /min MD Denzel Bridges Work Phone: [facility] 03-18-2024 15:50-0400 SaO2% (BldA) [Mass fraction] 97 % MD Denzel Bridges Work Phone: [facility] 03-18-2024 15:50-0400 Systolic blood pressure 137 mm[Hg] MD Denzel Bridges Work Phone: [facility] 12-10-2022 08:11-0400 Body height 182.88 cm MD Denzel Bridges Work Phone: [facility] 12-10-2022 08:11-0400 Body temperature 97.5 [degF] MD Denzel Bridges Work Phone: [facility] 12-10-2022 08:11-0400 Body weight 101.6 kg MD Denzel Bridges Work Phone: [facility] 12-10-2022 08:11-0400 Diastolic blood pressure 80 mm[Hg] MD Denzel Bridges Work Phone: [facility] 12-10-2022 08:11-0400 Heart rate 98 /min MD Denzel Bridges Work Phone: [facility] 12-10-2022 08:11-0400 Respiratory rate 18 /min MD Denzel Bridges Work Phone: [facility] 12-10-2022 08:11-0400 SaO2% (BldA) [Mass fraction] 100 % MD Denzel Bridges Work Phone: [facility] 12-10-2022 08:11-0400 Systolic blood pressure 133 mm[Hg] MD Denzel Bridges Work Phone: [facility] Encounters Encounter Date Encounter Type Care Provider Facility Start: 03-18-2024 End: 03-18-2024 ambulatory MD Denzel Bridges Work Phone: [facility] Work Phone: Start: 03-18-2024 End: 03-18-2024 Patient encounter procedure MD Denzel Bridges Work Phone: [facility] [place] Work Phone: Start: 03-06-2024 ambulatory MD Denzel Bridges Facil ity:[facility] Start: 03-04-2024 ambulatory MD Denzel Bridges Facil ity:[facility] [place] Start: 03-02-2024 End: 03-02-2024 ambulatory MD Denzel Bridges Facility:[facility] Start: 03-26-2023 End: 03-26-2023 ambulatory MD Denzel Bridges Facility:[facility] [place] Start: 12-10-2022 End: 12-10-2022 Emergency department patient visit MD Denzel Bridges Work Phone: [facility] Work Phone: Start: 07-26-2018 End: [...] Detail Author Patient Education Ankle Sprain ED [facility] Work Phone: Patient referral [facility] Work Phone: Payers Date Payer Category Payer Self-pay [id number] 2024 Unknown [id number] 1995 Unknown [id number] 1995 Unknown [id number] 1994 Unknown [id number] 1994 Unknown [id number] 1994 Unknown [id number] 1994 Unknown [id number] 1994 Unknown [id number] 1995 Unknown [id number] 1994 Unknown [id number] 1959 Unknown [id number] Private Health Insurance [employer] [id number] Unknown [id number] Social History Date Type Detail Facility Start: 12-10-2022 Tobacco smoking stat [facility] Smoker (finding) [facility] Start: 1995 Sex Assigned At Male F [facility] Evaluation note Note Date & Type Note Facility Evaluation note No assessment information availa ble [facility] Work Phone: Evaluation note Note Date & Type Note Facility Evaluation note Diagnosis Onset Date Right ankle sprain noneactiv e Right ankle injury noneactiv e Right foot injury noneactive [facility] Work Phone: Summary Purpose Family History [...] AUTHOR AUTHOR'S ORGANIZ ATION 03/06/2024 Anil Oshea [facility] DATE CREATED AUTHOR AUTHOR'S ORGANIZ ATION 03/21/2024 [facility] y[facility]ician [facility] Care Teams (unrecognized sec tion [...] BE BASED ON THE PRIMARY CLINICAL RECORDS. [facility] [employer] [facility]. provides no warranty or guarantee of the accuracy or completeness of information in this document.
[2024-06-01 07:16] LABS: Basophils Percent Auto 0.3 % (0.2-2.0); Eosinophils Absolute Auto 0.2 10^3/uL (0.0-0.7); Hematocrit 43.6 % (42.0-54.0); Hemoglobin 15.2 g/dL (14.0-18.0); Immature Granulocytes Abs Auto 0.01 10^3/uL (0.00-0.03); Immature Granulocytes Pct Auto 0.2 % (0.0-0.5); Lymphocytes Absolute Auto 2.7 10^3/uL (1.2-3.8); Lymphocytes Percent Auto 44.1 % (20.5-60.0); Mean Corpuscular HGB Conc 34.9 g/dL (29.9-35.2); Mean Corpuscular Hemoglobin 34.3 pg (25.9-34.0); Mean Corpuscular Volume 98.4 fL (80.0-94.0); Mean Platelet Volume 8.1 fL (9.5-13.5); Monocytes Absolute Auto 0.5 10^3/uL (0.3-0.8); Monocytes Percent Auto 7.5 % (1.7-12.0); Neutrophils Absolute Auto 2.6 10^3/uL (1.4-6.5); Neutrophils Percent Auto 43.9 % (43.0-75.0); Platelet Count 248 10^3/uL (150-450); Red Blood Count 4.43 10^6/uL (4.70-6.10); Red Cell Distribution Width 11.2 % (11.0-15.0)
[2024-06-01 07:39] LABS: Glucometer 96 mg/dL (74-106)
[2024-06-01] MEDS: LACTATED RINGER'S SOLUTION 1,000 ML 50 ML IV (07:42)
[2024-06-01] MEDS: CEFAZOLIN SODIUM 2 GM/50 ML D5W PREMIX IV (08:36)
--- NOTE | 2024-06-01 11:10 | PM.ORONB ---
Brief Operative Note Date of procedure: 06/01/24 Pre-op diagnosis general: Right ankle osteochondritis dissecans, osteochondral defect of talus, plantar fasciitis, equinus, possible lateral ankle instability Post-op diagnosis: other (Right ankle osteochondritis dissecans, osteochondral defect of talus, plantar fasciitis and equinus) Procedure: Procedure performed: Right ankle arthroplasty with cartilage repair, endoscopic plantar fasciotomy, gastrocnemius recession, stress examination under intraoperative fluoroscopy and application of short leg splint Indications for procedure: Patient is a healthy 29-year-old male who presented to me for 7-year history of worsening right ankle pain. In 2017 he had an inversion ankle injury while playing basketball. Initially he believed that his pain got a little better but began getting worse and now affects his activities of daily living on a daily basis. His pain and dysfunction did not improve with NSAIDs, ankle bracing, shoe and activity modification. MRI revealed osteochondritis dissecans/osteochondral defect of the lateral talar dome which the radiologist believed was stable. Due to patient's persistent pain he wished to undergo surgical intervention and also noted to worsening right heel pain consistent with plantar fasciitis. He also had equinus on examination so I recommended the above procedures. He does have a history of lateral ankle injuries so I recommended stress examination to determine if lateral ankle stabilization need to be performed as well. Intraoperative findings: Lateral collateral ankle ligaments were stable on intraoperative stress exam under fluoroscopy. Reduced ankle joint dorsiflexion and thickened medial band of the plantar fascia consistent with plantar fasciitis. Acute and chronic impingement tissue noted on arthroscopy with unstable osteochondral defect of the lateral talar dome. Procedure in detail: patient was identified in preoperative holding by myself which time correct side and site were marked and consent was obtained. Regional anesthesia was performed by the anesthesia team and patient was brought back to the operating theater placed on table in supine position and preoperative antibiotics were started. General anesthesia was administered and the right lower extremity was prepped and draped in usual sterile fashion. Formal timeout was performed. Under fluoroscopy the ankle was stressed in varus, valgus and anterior drawer and was notably stable in all planes. Right lower extremity was exsanguinated and the tourniquet was inflated. Stab incision over the medial aspect of the in-step at the glabrous skin junction was used followed by blunt dissection and the medial band of the plantar fascia was identified. Trochar and cannula were then placed medial to lateral. A lateral stab incision was made to allow passage of the trochar and cannula. Camera was inserted into the lateral portal and a hook blade was placed into the medial portal. 50% of the plantar fascia was released and healthy muscle was noted. The site was flushed with saline and instrumentation was removed. Closure with nylon suture was then undertaken. Incision was placed to figure breadths posterior to the posterior cortex of the tibia over the calf muscle. Combination of sharp and blunt dissection gained access to the deep fascia overlying the gastrocnemius and soleus which was incised longitudinally. Access was gained between the gastrocnemius and soleus muscle bellies using a retractor. Then the fascia overlying the gastrocnemius muscle was incised transversely twice in the soleus once allowing 10 degrees of ankle joint dorsiflexion to be obtained with the knee extended. Surgical site was irrigated with copious saline and the incision was closed in layers. Patient was identified in pre op and consent was reviewed. Correct side and site were identified and marked. Pre-op antibiotics were started. Patient was brought to OR suite and place on table in a supine position. General anesthesia was administered. Thigh tourniquet applied. Operative extremity was prepped and draped in usual sterile fashion and place in a well-padded leg morse. Formal time-out was performed. The intermediate dorsal cutaneous nerve was identified and marked. The ankle was insufflated with 15 cc of sterile saline and the foot, ankle and calf were exsanguinated and tourniquet inflated. Marcaine was injected proximal to the surgical field. No anesthetic was injected into the joint. On the anterior ankle, a 1 cm incision over the medial ankle gutter was created is standard safe zone. Blunt dissection was performed then the trochar and cannula were inserted with the ankle held in maximum dorsiflexion. Inspection of the ankle demonstrated significant acute and chronic synovitis with impingement. A needle was inserted into the anterior lateral ankle in standard safe zone and was identified then removed. A second 1 cm incision was created over anterior lateral ankle followed by blunt dissection to ensure the intermediate dorsal cutaneous nerve was protected. A 3.5 mm aggressive shaver was inserted into this portal and used to resect all impingement and synovitic tissue. Further inspection revealed a meniscoid lesion which was excised as well as osteochondral defect on the lateral talar dome. A blunt probe was used to further inspect the defect which could be easily displaced and was attached only by a small amount of cartilage on is posterior medial aspect. Decision was made to open the ankle for better visualization and access so arthroscopic instrumentation was removed and the lateral ankle portal was extended distally and proximally. Combination of sharp and blunt dissection gained access to the ankle joint capsule which was carefully reflected. The foot was held in plantarflexion and good visualization of the defect was observed. The loose damaged cartilage was excised with rongeurs and curettes and was passed the back table for specimen. The subchondral bone was curetted and irrigated copiously then a 1.1 mm drill bit was used to drilled the subchondral bone noting bleeding from the underlying bone. Then Surgicel, suction and gauze was used to obtain a dry field. Once adequately dry cartilage allograft was speckled onto the exposed subchondral bone filling the defect. Then 2 drops of fibrin glue were used to hold the allograft in place. A dry field was maintained for over 5 minutes until the fibrin glue was dried and stable. The surgical field was lightly irrigated and the capsule was repaired with observable suture. The tourniquet was then dropped noting a prompt hyperemic response. The medial portal was closed with skin suture and the anterior?lateral ankle incision was closed in layers. A dry sterile dressing and multilayer posterior splint was placed. Patient tolerated procedure and anesthesia well was transferred to the recovery room with vital signs stable and brisk capillary refill to the right toes. Postoperative plan: Discharge home under family's care Nonweightbearing in short leg splint which she is to keep clean dry and intact Prescriptions were sent through my office EMR Ice and elevate the operative extremity Follow-up within 1 week for dressing change and to be placed into a fiberglass cast. Patient will be nonweightbearing for approximately 3 weeks Implants: CAM alloaid matrix cartilage allograft Anesthesia: regional and General-LMA Surgeon: Willian Singh Estimated blood loss (mL): 10 Tourniquet time (min): 64 Pathology: other (chondral defect) Condition: stable Disposition: PACU
[2024-06-01 11:31] LABS: Glucometer 101 mg/dL (74-106)
--- NOTE | 2024-06-01 11:41 | XR_ITS ---
The [address] [address] Patient Name: TESSIE BENNETT MRN: [id number] date: 1995 Sex: M Assigned Patient Location: [facility] Current Patient Location: [facility] Accession/Order Number: [id number] Exam Date: 06/01/2024 11:35 Report Date: 06/03/2024 06:01 At the request of: WILLIAM CHA Procedure: XR ankle RT min 3V PROCEDURE: XR ankle RT min 3V HISTORY: osteochondral defect COMPARISON: XR ankle right 03/12/2024 FINDINGS: BONES:Known osteochondritis dissecans of the lateral talar dome as seen on prior MRI, which is less visible on today's study and may have been repaired. SOFT TISSUES:Small amount of free air within the soft tissues anterior to the ankle and dorsal to the proximal foot. Images were obtained to cast material. EFFUSION:None visible. OTHER: Negative. XR/XR ankle RT min 3V IMPRESSION: 1. Postoperative appearance of the right foot with small amount of subcutaneous air. Electronically authenticated by: PATTI TAPIA Date: 06/03/2024 06:01
== END 2024-06-01 12:24 | disposition home or self-care (01) ==
PROVIDERS: Anesthesiology; Visit Provider Podiatrist Foot & Ankle Surgery
PROC: (CPT 1464; principal; 2024-06-01 08:40)
DX: M93.271 Osteochondritis dissecans, right ankle and joints of right foot (principal); M25.371 Other instability, right ankle; M72.2 Plantar fascial fibromatosis; M24.571 Contracture, right ankle; F17.210 Nicotine dependence, cigarettes, uncomplicated; J45.909 Unspecified asthma, uncomplicated
CPT/HCPCS: 27687; 27700; 29893; 36415; 64445; 64450; 73610; 76000; 76942; 82948; 85025; 88305; C1762; J0690; J1100; J1885; J2250; J2405; J2704; J3010

== ENCOUNTER 2024-08-18 08:39 | Outpatient (OUT) | payer BC, SELFPAY ==
--- NOTE | 2024-08-18 08:47 | XR_ITS ---
[place] [id number] Patient Name: TESSIE BENNETT MRN: [id number] date: 1995 Sex: M Assigned Patient Location: [facility] Current Patient Location: [facility] Accession/Order Number: [id number] Exam Date: 08/18/2024 08:50 Report Date: 08/18/2024 21:55 At the request of: WILLIAM CHA Procedure: XR ankle RT min 3V EXAM: XR ankle RT min 3V HISTORY: Right Ankle Pain COMPARISON: 06/01/2024 FINDINGS/IMPRESSION: 1. No acute fracture or dislocation. 2. Ankle mortise is maintained. 3. Mild degeneration of the mid foot. 4. 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 5. Small ankle joint effusion. Electronically authenticated by: MESFIN GUPTA Date: 08/18/2024 21:55
== END 2024-08-18 08:40 | disposition home or self-care (01) ==
LOC: RAD 08:39
PROVIDERS: Visit Provider Podiatrist Foot & Ankle Surgery
DX: M25.571 Pain in right ankle and joints of right foot (principal); M85.871 Other specified disorders of bone density and structure, right ankle and foot; M25.471 Effusion, right ankle
CPT/HCPCS: 73610

== ENCOUNTER 2025-05-03 15:55 | Outpatient (OUT) | payer BC, SELFPAY ==
--- OUTSIDE RECORDS SUMMARY | 2025-05-03 16:08 | XMS_ITS | CCD ---
Author Organization [facility] Team Providers Care [employer] Name Role Phone MARCO OLSON Unavailable Unavailable HAY, MARTHA Unavailable Unavailable HAY, MARTHA Unavailable Unavailable HAY, MARTHA Unavailable Unavailable REINECK, MANGO G Unavailable Unavailable REINECK, MANGO G Unavailable Unavailable PAVLOCK, MAX Unavailable Unavailable REINECK, MANGO G Unavailable Unavailable PAVLOCK, MAX Unavailable Unavailable HAY, MARTHA Unavailable Unavailable HAY, MARTHA Unavailable Unavailable ZIPATTI SAWYER Unavailable Unavailable GRECHNYIRIS Unavailable Unavailable MARKER, SHAKILA Unavailable Unavailable MARKER, SHAKILA Unavailable Unavailable DENZEL BRIDGES Unavailable Unavailable ALLSYSA MACHUCA V Unavailable Unavailable MARKER, SHAKILA Unavailable Unavailable DENZEL BRIDGES Unavailable Unavailable DENZEL BRIDGES Unavailable Unavailable DENZEL BRIDGES Unavailable Unavailable DENZEL BRIDGES Unavailable Unavailable MD Denzel Bridges Primary Care Provider DO Jaylen Del Rosario Emergency Provider MD Denzel Bridges Primary Care Provider RAI Alexander Attending Provider MARTIN Singh Attending Provider [phone] William Singh Attending Unavailable William Singh Admitting Unavailable Lacie Alexander Attending Unavailable Lacie Alexander Admitting Unavailable Denzel Bridges Primary Care Unavailable Tessie Simon Primary Care Physician Denzel Bridges MD Primary Care Provider [phone] Tessie Denise Unavailable [phone] POCOS, ALLYSSA Meneses Referring Unavailable POCALLYSSA ROBBINS Attending Unavailable POCALLYSSA ROBBINS Attending Unavailable ALLYSSA CARLISLE Referring Unavailable Sherman Hart. Attending Unavailable Denzel Bridges Attending Unavailable Denzel Bridges Attending Unavailable Denzel Bridges Attending Unavailable Denzel Bridges Attending Unavailable Denzel Bridges Attending Unavailable Tessie Moe Attending Unavailable Sosinski, Tessie Babin Attending Unavailable Sosinski, Tessie Babin Attending Unavailable Sosinski, Tessie Babin Attending Unavailable WILLIAM SINGH Attending Unavailable WILLIAM SINGH Referring Unavailable Denzel Bridges Referring Unavailable Denzel Bridges Attending Unavailable Tessie Moe Admitting Unavailable Sosmason, Tessie Babin Attending Unavailable Sosmason, Tessie Babin Admitting Unavailable Sosinski, Tessie Babin Attending Unavailable Hajdari, Astrit H Attending Unavailable Sosinski, Tessie Babin Attending Unavailable Sosinski, Tessie Babin Attending Unavailable Sosinski, Tessie Babin Attending Unavailable Sosinski, Tessie Babin Attending Unavailable PocosAllyssa Referring Unavailable Pocos, Allyssa Meneses Attending Unavailable PocosAllyssa Admitting Unavailable Pocos, Allyssa Meneses Referring Unavailable Pocos, Allyssa Meneses Attending Unavailable PocosAllyssa Admitting Unavailable Medications Current Medications Medication Drug Class(es) Dates Sig (Normalized) Sig (Original) acetaminophen 325 mg / HYDROcodone bitartrate 5 mg oral tablet (1 source) Opioid Agonist Start: 02-15-2025 End: 02-18-2025 [place] 325 mg-5 mg oral tablet 1 tab(s), Oral, q6hr for pain for 3 day(s), 12 tab(s), Refill(s) 0, [facility] #[id number], 182.9, cm, 02/15/25 17:15:00 EDT, Height/Length Dosing, 82.1, kg, 02/15/25 17:15:00 EDT, Weight Dosing Start Date: 02/15/25 Stop Date: 02/18/25 Status: Ordered Quantity: 12.0 Unit: tab(s) Repeat number: 1 acetaminophen 325 mg / oxyCODONE hydrochloride 5 mg oral tablet (3 sources) Opioid Agonist Start: 01-06-2025 Percocet 5 mg-325 mg oral tablet 1 tab(s), Oral, q6hr, 12 tab(s), Refill(s) 0, [facility] #[id number], 179, cm, 01/06/25 11:04:00 EDT, Height/Length Dosing, 86.6, kg, 01/06/25 11:10:00 EDT, Weight Dosing Start Date: 01/06/25 Status: Ordered Quantity: 12.0 Unit: tab(s) Repeat number: 1 Indications: Torticollis; Strain of unspecified muscle, fascia and tendon at shoulder and upper arm level, right arm, initial encounter; Pain in right wrist; [id number] 200 actuat albuterol 0.09 mg/actuat metered dose inhaler (7 sources) beta2-Adrenergic Agonist Start: 12-03-2024 take 2 puff(s) by mouth every six hours as needed for wheezing albuterol HFA 90 mcg/act inhaler INHALE 2 PUFFS BY MOUTH EVERY 6 HOURS NEEDED FOR SHORTNESS OF BREATH OR WHEEZING 12/03/2024 Active Albuterol (Eqv-ProAir HFA) 90 mcg/inh inhalation aerosol (9 sources) Start: 11-12-2024 Albuterol (Eqv-ProAir HFA) 90 mcg/inh inhalation aerosol 2 inh, Inhalation, q6hr Shortness of breath or wheezing, 8.5 gm, Refill(s) 3, [facility] #[id number], 179, cm, 11/12/24 10:24:00 EDT, Height/Length Dosing, 92.1, kg, 11/12/24 10:26:00 EDT, Weight Dosing Start Date: 11/12/24 Status: Ordered Quantity: 8.5 Unit: g Repeat number: 4 Indications: Unspecified asthma, uncomplicated; amoxicillin 875 mg / clavulanate 125 mg oral tablet (1 source) Penicillin-class Antibacterial Start: 04-08-2025 End: 04-15-2025 Augmentin 875 mg-125 mg Tab 1 tab(s), Oral, q12hr for 7 day(s), 14 tab(s), Refill(s) 0, [facility] #[id number], 182, cm, 04/08/25 9:33:00 EDT, Height/Length Dosing, 78.3, kg, 04/08/25 9:40:00 EDT, Weight Dosing Start Date: 04/08/25 Stop Date: 04/15/25 Status: Ordered Quantity: 14.0 Unit: tab(s) Repeat number: 1 Indications: Otitis media, unspecified, bilateral; Otalgia, left ear; ciprofloxacin 3 mg/ml / dexamethasone 1 mg/ml otic suspension (1 source) Corticosteroid, Quinolone Antimicrobial Start: 03-19-2025 End: 03-26-2025 Ciprodex 0.3%-0.1% Susp-Otic 4 drop(s), Otic, BID for 7 day(s), 7.5 mL, Refill(s) 0, [facility] #[id number], 182.9, cm, 03/19/25 11:45:00 EDT, Height/Length Dosing, 78, kg, 03/19/25 11:51:00 EDT, Weight Dosing Start Date: 03/19/25 Stop Date: 03/26/25 Status: Ordered Quantity: 7.5 Unit: mL Repeat number: 1 Indications: Otitis media, unspecified, bilateral; fluticasone propionate 0.05 mg/actuat metered dose nasal spray (2 sources) Corticosteroid Start: 03-19-2025 take 1 spray(s) nasal route twice daily Flonase 0.05 mg/inh Stuart 1 spray(s), Nasal, BID, 16 gram, Refill(s) 1, each nostril, [facility] #[id number], 182.9, cm, 03/19/25 11:45:00 EDT, Height/Length Dosing, 78, kg, 03/19/25 11:51:00 EDT, Weight Dosing Start Date: 03/19/25 Status: Ordered Quantity: 16.0 Unit: g Repeat number: 2 Indications: Otitis media, unspecified, bilateral; ibuprofen 800 mg oral tablet (8 sources) Nonsteroidal Anti-inflammatory Drug Start: 07-03-2024 take 1 tablet by mouth every eight hours at mealtime as needed ibuprofen 800 MG tablet TAKE 1 TABLET BY MOUTH EVERY 8 HOURS WITH FOOD OR MILK FOR 20 DAYS NEEDED 07/03/2024 Active Start: 12-10-2022 End: 03-18-2024 take 800 mg by mouth three times daily Ibuprofen Discontinued 800 MG PO Three times daily December 10, 2022 12:00am March 18, 2024 4:31pm meloxicam 15 mg oral tablet (3 sources) Nonsteroidal Anti-inflammatory Drug Start: 03-18-2024 Meloxicam Active MG PO March 18, 2024 12:00am naloxone hydrochloride 40 mg/ml nasal spray (3 sources) Opioid Antagonist Start: 01-06-2025 Narcan 4 mg/0.1 mL nasal spray 4 mg, Nasal, As Directed, for suspected overdose symptoms, # 1 kit(s), Refills(s) 0, Pharmacy: [facility] #[id number], 179, cm, 01/06/25 11:04:00 EDT, Height/Length Dosing, 86.6, kg, 01/06/25 11:10:00 EDT, Weight Dosing Start Date: 01/06/25 Status: Ordered Quantity: 1.0 Unit: kit(s) Repeat number: 1 Indications: Torticollis; Pain in right wrist; Strain of unspecified muscle, fascia and tendon at shoulder and upper arm level, right arm, initial encounter; Pneumatic Walking Boot (3 sources) Start: 03-18-2024 Pneumatic Walking Boot Active 0 .Route 1 March 18, 2024 12:00am As directed pregabalin 50 mg oral capsule (16 sources) Start: 01-06-2025 take 1 capsule by mouth three times daily pregabalin 50 mg Cap 50 mg = 1 cap(s), Oral, TID, Refills(s) 0 Start Date: 01/06/25 Status: Ordered Repeat number: 1 Start: 09-17-2024 take 1 capsule by mo uth twice daily pregabalin 150 mg Cap TAKE 1 CAPSULE BY MOUTH TWICE DAILY Start Date: 09/17/24 Status: Ordered Repeat number: 1 Completed/Discontinued Medications Medication Drug Class(es) Dates Sig (Normalized) Sig (Original) betamethasone 3 mg/ml / betamethasone acetate 3 mg/ml injectable suspension (4 sources) Corticosteroid Start: 02-10-2025 End: 02-10-2025 betamethasone acetate-betamethason e sodium phosphate ([place]) injection 1 mL Start: 02-10-2025 End: 02-10-2025 1 mL, Intra-articular, Once PRN Procedure, Starting on Sat02/10/25 at 1140, For 1 dose cyclobenzaprine hydrochloride 10 mg oral tablet (4 sources) Muscle Relaxant Start: 12-10-2022 End: 03-18-2024 take 10 mg by mouth three times daily Cyclobenzaprine Discontinued 10 MG PO Three times daily December 10, 2022 12:00am March 18, 2024 4:31pm diclofenac sodium 75 mg delayed release oral tablet (4 sources) Nonsteroidal Anti-inflammatory Drug Start: 02-10-2025 End: 03-17-2025 take 1 tablet by mouth in the morning diclofenac (Voltaren) 75 MG EC tablet Indications: Primary osteoarthritis of both knees , Posterior tibial tendinitis of right leg Take 1 tablet (75 mg) by mouth in the morning and 1 tablet (75 mg) before bedtime. Do not crush, chew, or split. 60 tablet 2 02/10/2025 03/17/2025 losartan potassium 50 mg oral tablet (4 sources) Angiotensin 2 Receptor Devaughn Start: 10-21-2019 End: 03-18-2024 take 50 mg by mouth once daily Losartan Discontinued 50 MG PO Daily October 21, 2019 12:00am March 18, 2024 4:30pm predniSONE 10 mg oral tablet (1 source) Start: 11-12-2024 predniSONE 10 mg Tab 10 mg = 1 tab(s), Oral, As Directed, 6 tabs for 2 days,5 tabs for 2 days,4 tabs for 2 days,3 tabs for 2 days,2 tabs for 2 days,1 tab for 2 days, # 42 tab(s), Refills(s) 0, Pharmacy: [facility] #[id number], 179, cm, 11/12/24 10:24:00 EDT, Height/Length Dosing, 92.1, kg, 11/12/24 10:26:00 EDT, Weight Dosing Start Date: 11/12/24 Status: Ordered Quantity: 42.0 Unit: tab(s) Repeat number: 1 Indications: Strain of unspecified muscle, fascia and tendon at shoulder and upper arm level, right arm, initial encounter; Problems Active Problems Problem Classification Problem Date Documented Date Episodic/Chronic Asthma (10 sources) Asthma; Translations: [Unspecified asthma, uncomplicated] Onset: 04-08-2025 11-08-2022 Chronic Cardiac dysrhythmias (4 sources) Palpitations; Translations: [PALPITATIONS] Onset: 07-26-2018 Episodic Essential hypertension (8 sources) Essential hypertension 11-03-2024 Chronic Mood disorders (13 sources) Depressive disorder; Translations: [Depression] 10-21-2019 Chronic Nonspecific chest pain (4 sources) Chest pain, unspecified; Translations: [Other chest pain] Onset: 07-24-2018 Episodic Osteoarthritis (2 sources) Primary gonarthrosis, bilateral; Translations: [Bilateral primary osteoarthritis of knee] 02-10-2025 Chronic Other connective tissue disease (1 source) Lateral epicondylitis, right elbow; Translations: [LATERAL EPICONDYLITIS RIGHT ELBOW] Onset: 05-07-2018 Episodic Other connective tissue disease (2 sources) Tendinitis of right posterior tibial tendon; Translations: [Posterior tibial tendinitis, right leg] 02-10-2025 Episodic Other ear and sense organ disorders (1 source) Otalgia, left ear; Translations: [Otalgia of left ear] Onset: 04-08-2025 Episodic Other injuries and conditions due to external causes (4 sources) Unspecified injury of right ankle, initial encounter; Translations: [Knee, leg, ankle, and foot injury] Onset: 03-18-2024 03-18-2024 Episodic Other injuries and conditions due to external causes (4 sources) Unspecified injury of right foot, initial encounter; Translations: [Knee, leg, ankle, and foot injury] Onset: 03-18-2024 03-18-2024 Episodic Other injuries and conditions due to external causes (2 sources) Injury of right wrist; Translations: [Other specified injuries of right wrist, hand and finger(s), initial encounter] 02-10-2025 Episodic Other nervous system disorders (2 sources) Ulnar neuropathy; Translations: [Lesion of ulnar nerve, right upper limb] 03-17-2025 Chronic Other nervous system disorders (1 source) Anesthesia of skin; Translations: [Anesthesia of skin] Onset: 02-02-2025 Episodic Other nervous system disorders (5 sources) Numbness of hand 02-02-2025 Episodic Other non-traumatic joint disorders (4 sources) Pain in right elbow; Translations: [PAIN IN RIGHT ELBOW] Onset: 05-05-2018 Episodic Other non-traumatic joint disorders (5 sources) Pain of right wrist; Translations: [Pain in right wrist] Onset: 01-06-2025 Episodic Other non-traumatic joint disorders (9 sources) Chronic ankle pain 11-03-2024 Episodic Other non-traumatic joint disorders (9 sources) Pain in wrist 11-03-2024 Episodic Other nutritional; endocrine; and metabolic disorders (11 sources) Overweight in adulthood with body mass index of 25 or more but less than 30; Translations: [Body mass index (BMI) 27.0-27.9, adult] Onset: 01-06-2025 Episodic Other nutritional; endocrine; and metabolic disorders (2 sources) Overweight; Translations: [Overweight] Onset: 01-06-2025 Episodic Other nutritional; endocrine; and metabolic disorders (9 sources) Body mass index 25-29 - overweight 09-17-2024 Episodic Otitis media and related conditions (4 sources) Otitis media; Translations: [Otitis media, unspecified, bilateral] Onset: 03-19-2025 Episodic Residual codes; unclassified (2 sources) Body mass index 20-24 - normal; Translations: [Body mass index (BMI) 23.0-23.9, adult] Onset: 03-19-2025 Episodic Screening and history of mental health and substance abuse codes (1 source) Personal history of nicotine dependence; Translations: [PERSONAL HISTORY OF NICOTINE DEPEND] Onset: 07-28-2018 Episodic Spondylosis; intervertebral disc disorders; other back problems (10 sources) Torticollis; Translations: [Torticollis] Onset: 01-06-2025 Episodic Sprains and strains (16 sources) Sprain of unspecified ligament of right ankle, initial encounter; Translations: [Sprain of ankle, unspecified site] Onset: 01-06-2025 03-18-2024 Episodic Substance-related disorders (9 sources) Marijuana user 11-08-2022 Episodic Unclassified (9 sources) Non-smoker 09-17-2024 Unclassified (20 sources) Patient encounter status 03-02-2024 Past or Other Problems Problem Classification Problem Date Documented Da te Episodic/Chronic Genitourinary symptoms and ill-defined conditions (4 sources) Dysuria; Translations: [DYSURIA] Onset: 02-15-2018 Episodic Unclassified (4 sources) Ankle sprain and strain 12-10-2022 Unclassified (2 sources) Injury of right wrist 02-15-2025 Urinary tract infections (1 source) Other urethritis; Translations: [OTHER URETHRITIS] Onset: 11-08-2017 Episodic Results Test Name Value Interpretation Reference Range Facility Ambulatory Visit Summaryon 0 04-08-2025 Ambulatory Visit Summary Ambulatory Visit Summary TESSIE VARGAS :1995 Visit Date:04/08/2025 Ambulatory Visit Instructions Your Diagnosis Acute otitis media, bilateral BMI 23.0-23.9, adult Left ear pain Asthma Your Care Team Attending Physician - Tessie Simon Primary Care Physician - Tessie Simon This Is Your Medications List albuterol (Albuterol (Eqv-ProAir HFA) 90 mcg/inh inhalation aerosol) amoxicillin-clavulanat e (Augmentin 875 mg-125 mg Tab) fluticasone nasal (Flonase 0.05 mg/inh Stuart) pregabalin (pregabalin 50 mg Cap) Procedures Performed Ankle (06/01/2024). Discharge Vitals Temperature (Oral) 36.9 ???C Heart Rate (Peripheral) 94 Blood Pressure 104/70 Height 182 cm Height 72 in Weight 78.3 kg Weight 172.622 lb BMI 23.64 What to do next Scheduled Follow-Up Appointments Saturday2025 9:20 AM EDT With: Tessie Simon Where: [facility] [address], [facility] [place] [address]- You Need to Schedule the Following Appointments Follow Up with Tessie Simon, [facility], MED When: Comments: as scheduled Where: [address], [facility] [address] [facility] [address] [place] [address]- [phone] Medications What How Much When Why Instructions New amoxicillin-clavulanat e (Augmentin 875 mg-125 mg Tab) 1 Tablets By Mouth Every 12 hours Acute otitis media, bilateral Left ear pain Duration: 7 Days Pickup at [facility] #[id number] Unchanged albuterol (Albuterol (Eqv-ProAir HFA) 90 mcg/ inh inhalation aerosol) 2 Inhalation Inhalation Every 6 hours as needed for Shortness of breath or wheezing Asthma Unchanged fluticasone nasal (Flonase 0.05 mg/ inh Stuart) 1 Sprays Nasal Inhalation 2 times a day Acute otitis media, bilateral each nostril Unchanged pregabalin (pregabalin 50 mg Cap) 1 Capsules By Mouth 3 times a day [id number]: [address] [place], [place] [id number] [phone] Allergies No Known Allergies Problems Ongoing - Any problem that you are currently receiving treatment for. Acute otitis media, bilateral Adult wellness visit Asthma BMI 29.0-29.9,adult Chronic pain of right ankle Depression Encounter for screening for diabetes mellitus Encounter for screening for lipid disorder Hand numbness Marijuana use Neck stiffness Non-smoker Overweight (BMI 25.0-29.9) Physical exam Right shoulder strain Right wrist pain Patient Survey You may receive a survey via text or e-mail asking about your office visit. Please share your experience with us by completing your survey. We appreciate your feedback and thank you for choosing us for your care. Patient Portal You may access all of your results and other medical record information on our secure patient portal. If you are not signed up for this yet, please contact [employer] at [phone] to get signed up today. Language Information Language assistance services are available as needed. Esteban [facility] Office/Clini c Noteon 04-08-2025 Family Medicine Office/Clinic Note Family Medicine Office/Clinic Note Chief Complaint left ear pain HPI Staff 3 mo. f/u - Pt. states he is still having left ear pain, right ear is better. Did use the debrox for a while. Saturday he had severe pain in left ear. History of Present Illness Sergio is a 29 year old male presenting for follow up of pain he is having in his left ear. He was treated at the last visit for bilateral ear infection with Ciprodex eardrops. He states his right ear does feel better but his left ear still having intermittent pain. He has not been wearing ear buds or earplugs at work. He notes ever since he returned from vacation in [place] he has a cough and some rhinitis as well. He uses his albuterol once or twice per week for his cough and he tries not to use it more than that. He does not take any antihistamines. He has been using Flonase nasal spray which does seem to help. Review of Systems PHQ Score Initial Depression Screen Score: 0 SCORE Physical Exam Vitals & Measurements T: 36.9 ???C(Oral) HR: 94(Peripheral) BP: 104/70 HT: 182 cm HT: 72 in WT: 78.3 kg WT: 172.622 lb BMI: 23.64 General: Well developed, well nourished, in no acute distress Ears: No deformity or lesion of external ear. Canals and TM with moderate to severe erythema bilaterally no exudates noted. TM???s intact, left with mild erythema and right not inflamed, with normal light reflex. Hearing grossly normal to conversational speech Lungs: Normal respiratory effort and clear to auscultation Cardio: Regular rate and rhythm, normal S1 and S2, no murmur, no rub Abdomen: Soft, non-distended, non-tender. no G/R/S/Masses Musculoskeletal: No deformity or scoliosis noted. Normal range of motion. Joints normal. No erythema, edema, effusion, or ecchymosis Extremity: No clubbing, cyanosis, edema, or deformity, with normal ROM in both upper and lower bilateral extremities Neurologic: Grossly normal Skin: No rashes, ulcerations, or suspicious lesions Mental Status: Alert and oriented x3. Normal mood and affect Assessment/Plan 1. Acute otitis media, bilateral (H66.93: Otitis media, unspecified, bilateral) Bilateral ears with moderate to severe erythema in the canals with the left tympanic membrane having mild to moderate erythema. There is no sign of exudates in either ear. Will provide patient with Augmentin 1 tablet twice daily for 7 days. He states he has had this in the past with no issues, and I advised him to take this with food and watch for any allergic reaction. He will follow-up as needed. Encouraged use of antihistamine such as Xyzal. I advised him to refrain from any earbuds or earplugs. Ordered: amoxicillin-clavulanat e, 1 tab(s), Oral, q12hr for 7 day(s), 14 tab(s), [facility](s) 0[id number], 182, cm, 04/08/25 9:33:00 EDT, Height/Length Dosing, 78.3, kg, 04/08/25 9:40:00 EDT, Weight Dosing 2. Left ear pain (H92.02: Otalgia, left ear) See above. If the Augmentin does not improve his ear pain then I believe this to be caused by allergies as the ragweed is very high right now. I advised him to start a daily antihistamine such as Xyzal to see if this helps with his ear discomfort and other symptoms. Ordered: amoxicillin-clavulanat e, 1 tab(s), Oral, q12hr for 7 day(s), 14 tab(s), Refill(s) 0, [id number], 182, cm, 04/08/25 9:33:00 EDT, Height/Length Dosing, 78.3, kg, 04/08/25 9:40:00 EDT, Weight Dosing 3. Asthma (J45.909: Unspecified asthma, uncomplicated) I advised him if he is short of breath or has a cough to increase his albuterol usage. He states he feels very mildly short of breath but the albuterol does help. Will continue to monitor follow-up. ED precautions for asthma attack symptoms. 4. BMI 23.0-23.9, adult (Z68.23: Body mass index [BMI] 23.0-23.9, adult) Healthy weight and BMI. Continue diet and exercise. Total time spent preparing the chart, conducting of the encounter with the patient and family and time spent documenting, reviewing, and ordering tests was 30 minutes. Follow-up With When Contact Information Abhi LEDBETTER, Tessie Babin, [facility], [address], [address] [phone] Additional Instructions: as scheduled Patient Education Otitis Media, Adult, [id number] BMI for Adults Problem List/Past Medical History Ongoing Acute otitis media, bilateral Adult wellness visit Asthma BMI 29.0-29.9,adult Chronic pain of right ankle Depression Encounter for screening for diabetes mellitus Encounter for screening for lipid disorder Hand numbness Marijuana use Neck stiffness Non-smoker Overweight (BMI 25.0-29.9) Physical exam Right shoulder strain Right wrist pain Historical No qualifying data Procedure/Surgical History Ankle (06/01/2024). Medications Albuterol (Eqv-ProAir HFA) 90 mcg/inh inhalation aerosol, 2 inh, Inhalation, q6hr, PRN, 3 refills Augmentin 875 mg-125 mg Tab, 1 tab(s), Oral, q12hr Flonase 0.05 mg/inh Stuart, 1 spray(s), Nasal (more content not included)... Normal [facility] Comment on above: Result Comment: Elec tronically Signed By: Tessie Simon\.br\Date and Time Signed: 04/08/25 10:29 EDT MR Wrist - right Arthrogramo n 04-08-2025 Exam Date/Time: 04/06/2025 11:46 EDT Reason for Exam: S63.591D, G56.21, M25.531, S69.81XA Report IMPRESSION: Apparent tearing involving the intermediate/interosse ous component of the scapholunate ligament with grossly intact dorsal and volar components. Grossly intact TFCC. No acute osseous findings. HISTORY: Chronic right wrist pain, worsening. Possible lifting related injury. Denies prior wrist surgery. TECHNIQUE: Routine multisequence multiplanar MRI arthrogram of the right wrist. COMPARISON: Radiographs from 02/15/2025. RESULT: Some limitations from motion. Bone Marrow: There is no evidence of fracture, bone bruise or osteonecrosis. Ligaments: There appears to be tearing involving the intermediate/interosse ous component of the scapholunate ligament, with grossly intact dorsal and volar components. Lunotriquetral ligament grossly intact. Triangular Fibrocartilage Complex (TFCC): The triangular fibrocartilage appears to be intact. Cartilage: The articular cartilage of the radiocarpal and intercarpal joints is preserved. Tendons: The flexor and extensor tendons are intact. Nerves: The visualized portions of the median and ulnar nerves appear to be grossly within normal limits. Other: No other significant abnormality. Ordering Provider: Allyssa Carlisle FINAL REPORT Dictated: 04/08/2025 9:26 am Marco Johnson MD Signed (Electronic Signature): 04/08/2025 9:26 am Signed by: Marco Johnson MD Transcribed by: OLGA LIDIA Technologist: BBOO [facility] Radiology, Radiologist, - 04/08/2025 Exam Date/Time: 04/06/2025 11:46 EDT Reason for Exam: S63.591D, G56.21, M25.531, S69.81XA Report IMPRESSION: Apparent tearing involving the intermediate/interosse ous component of the scapholunate ligament with grossly intact dorsal and volar components. Grossly intact TFCC. No acute osseous findings. HISTORY: Chronic right wrist pain, worsening. Possible lifting related injury. Denies prior wrist surgery. TECHNIQUE: Routine multisequence multiplanar MRI arthrogram of the right wrist. COMPARISON: Radiographs from 02/15/2025. RESULT: Some limitations from motion. Bone Marrow: There is no evidence of fracture, bone bruise or osteonecrosis. Ligaments: There appears to be tearing involving the intermediate/interosse ous component of the scapholunate ligament, with grossly intact dorsal and volar components. Lunotriquetral ligament grossly intact. Triangular Fibrocartilage Complex (TFCC): The triangular fibrocartilage appears to be intact. Cartilage: The articular cartilage of the radiocarpal and intercarpal joints is preserved. Tendons: The flexor and extensor tendons are intact. Nerves: The visualized portions of the median and ulnar nerves appear to be grossly within normal limits. Other: No other significant abnormality. Ordering Provider: Allyssa Carlisle FINAL REPORT Dictated: 04/08/2025 9:26 am Marco Johnson MD Signed (Electronic Signature): 04/08/2025 9:26 am Signed by: Marco Johnson MD Transcribed by: OLGA LIDIA Technologist: [facility] - right ArthrogramO rdered By: Radiologist Radiology on 04-08-2025 [facility]: MRI Wrist Arthrogram Righton 04-08-2025 MRI Wrist Arthrogram Right Exam Date/Time: 04/06/2025 11:46 EDT Reason for Exam: S63.591D, G56.21, M25.531, S69.81XA Report IMPRESSION: Apparent tearing involving the intermediate/interosse ous component of the scapholunate ligament with grossly intact dorsal and volar components. Grossly intact TFCC. No acute osseous findings. HISTORY: Chronic right wrist pain, worsening. Possible lifting related injury. Denies prior wrist surgery. TECHNIQUE: Routine multisequence multiplanar MRI arthrogram of the right wrist. COMPARISON: Radiographs from 02/15/2025. RESULT: Some limitations from motion. Bone Marrow: There is no evidence of fracture, bone bruise or osteonecrosis. Ligaments: There appears to be tearing involving the intermediate/interosse ous component of the scapholunate ligament, with grossly intact dorsal and volar components. Lunotriquetral ligament grossly intact. Triangular Fibrocartilage Complex (TFCC): The triangular fibrocartilage appears to be intact. Cartilage: The articular cartilage of the radiocarpal and intercarpal joints is preserved. Tendons: The flexor and extensor tendons are intact. Nerves: The visualized portions of the median and ulnar nerves appear to be grossly within normal limits. Other: No other significant abnormality. Ordering Provider: Allyssa Carlisle FINAL REPORT Dictated: 04/08/2025 9:26 am Marco Johnson MD Signed (Electronic Signature): 04/08/2025 9:26 am Signed by: Marco Johnson MD Transcribed by: OLGA LIDIA Technologist: BOBO [facility] MR Wrist - right Arthrogramo n 04-06-2025 Radiology Study observation (narrative) [facility] XR Arthrogram Wrist Righton 04-06-2025 XR Arthrogram Wrist Right Exam Date/Time: 04/06/2025 11:19 EDT Reason for Exam: S63.591D, G56.21, M25.531, S69.81XA Report IMPRESSION: RIGHT WRIST ARTHROGRAM FOR MRI, WHICH WILL BE REPORTED SEPARATELY. EXAM: XR Arthrogram Wrist Right DATE: 04/06/2025 10:37 AM CLINICAL HISTORY: S63.591D, G56.21, M25.531, S69.81XA. COMPARISON: Right wrist radiographs 02/15/2025. PROCEDURE: Informed consent was obtained. Sterile technique, local lidocaine anesthesia and fluoroscopic guidance was used to place a 22-gauge spinal needle into the right radiocarpal joint from an anterolateral oblique approach. Approximately 0.3 mL of Isovue-300 contrast was instilled to confirm intra-articular positioning. Approximately 2 mL of saline containing 0.5% of Vueway gadolinium contrast was then injected. The patient tolerated the procedure without evidence of immediate complication, and was taken to the MRI suite in stable condition. Technical Comments: Contrast: Isovue 300 Ka,r in mGy = 0.40 DAP = 7.00 (\XB5\Gy*m\XB2\) Ordering Provider: Allyssa Carlisle FINAL REPORT Dictated: 04/06/2025 1:05 pm Kaleb Busch MD Signed (Electronic Signature): 04/06/2025 1:05 pm Signed by: Kaleb Busch MD Transcribed by: OLGA LIDIA Technologist: JIM [facility] XR INJ WRIST ARTHROGRAM AURELIO Randall 04-06-2025 Exam Date/Time: 04/06/2025 11:19 EDT Reason for Exam: S63.591D, G56.21, M25.531, S69.81XA Report IMPRESSION: RIGHT WRIST ARTHROGRAM FOR MRI, WHICH WILL BE REPORTED SEPARATELY. EXAM: XR Arthrogram Wrist Right DATE: 04/06/2025 10:37 AM CLINICAL HISTORY: S63.591D, G56.21, M25.531, S69.81XA. COMPARISON: Right wrist radiographs 02/15/2025. PROCEDURE: Informed consent was obtained. Sterile technique, local lidocaine anesthesia and fluoroscopic guidance was used to place a 22-gauge spinal needle into the right radiocarpal joint from an anterolateral oblique approach. Approximately 0.3 mL of Isovue-300 contrast was instilled to confirm intra-articular positioning. Approximately 2 mL of saline containing 0.5% of Vueway gadolinium contrast was then injected. The patient tolerated the procedure without evidence of immediate complication, and was taken to the MRI suite in stable condition. Technical Comments: Contrast: Isovue 300 Ka,r in mGy = 0.40 DAP = 7.00 ( Gy*m ) Ordering Provider: Allyssa Carlisle FINAL REPORT Dictated: 04/06/2025 1:05 pm Kaleb Busch MD Signed (Electronic Signature): 04/06/2025 1:05 pm Signed by: Kaleb Busch MD Transcribed by: OLGA LIDIA Technologist: JIM [facility] Radiology, Radiologist, MD - 04/06/2025 Exam Date/Time: 04/06/2025 11:19 EDT Reason for Exam: S63.591D, G56.21, M25.531, S69.81XA Report IMPRESSION: RIGHT WRIST ARTHROGRAM FOR MRI, WHICH WILL BE REPORTED SEPARATELY. EXAM: XR Arthrogram Wrist Right DATE: 04/06/2025 10:37 AM CLINICAL HISTORY: S63.591D, G56.21, M25.531, S69.81XA. COMPARISON: Right wrist radiographs 02/15/2025. PROCEDURE: Informed consent was obtained. Sterile technique, local lidocaine anesthesia and fluoroscopic guidance was used to place a 22-gauge spinal needle into the right radiocarpal joint from an anterolateral oblique approach. Approximately 0.3 mL of Isovue-300 contrast was instilled to confirm intra-articular positioning. Approximately 2 mL of saline containing 0.5% of Vueway gadolinium contrast was then injected. The patient tolerated the procedure without evidence of immediate complication, and was taken to the MRI suite in stable condition. Technical Comments: Contrast: Isovue 300 Ka,r in mGy = 0.40 DAP = 7.00 ( Gy*m ) Ordering Provider: Allyssa Carlisle FINAL REPORT Dictated: 04/06/2025 1:05 pm Kaleb Busch MD Signed (Electronic Signature): 04/06/2025 1:05 pm Signed by: Kaleb Busch MD Transcribed by: OLGA LIDIA Technologist: JIM [facility] Radiology Study observation (narrative) [facility] XR INJ WRIST ARTHROGRAM RIGH TOrdered By: Radiologist Radiology on 04-06-2025 [facility] [employer] Work Phone: Family Medicine Office/Clini c Noteon 03-19-2025 Family Medicine Office/Clinic Note Family Medicine Office/Clinic Note Chief Complaint left ear pressure HPI Staff complaints of _ Onset: 2 weeks Characteristics: started with congestion, still has phlegm, left ear was hurting, now feels like pressure when he bends over OTC tried: History of Present Illness Sergio is a 29 year old male presenting for acute visit of left ear pressure when he bends over and feels like something is in his ear for the last 2 weeks while he was on vacation. He was in [place] and was swimming in pools. He noted he had congestion on the way to vacation and head felt full. He states after a few days he had a cough and ear pain and sinuses cleared. The left ear pain came back after being back from vacation and the sound is muffled. He did have chills but denies confirmed fever. Review of Systems PHQ Score Initial Depression Screen Score: 0 SCORE Physical Exam Vitals & Measurements HR: 83(Peripheral) BP: 122/72 SpO2: 95% HT: 72 in HT: 182.9 cm WT: 78.0 kg WT: 171.96 lb BMI: 23.32 General: Well developed, well nourished, in no acute distress Head: Normocephalic/atraumat ic Eyes: Pupils equal, round, and reactive to light. Conjunctivae and sclerae normal, and extraocular movements intact Ears: No deformity or lesion of external ear. Canals and TM with moderate to severe erythema bilaterally no exudates noted. TM???s intact, not inflamed, with normal light reflex. Hearing grossly normal to conversational speech Nose: No deformity, discharge, inflammation, or lesions Mouth: Mucous membranes moist. Normal oropharynx, and posterior pharynx without lesions or exudates. Tongue normal Neck: Neck supple. No masses or palpable cervical nodes. Trachea midline. Thyroid without nodules, masses, tenderness, or enlargement Chest: No chest wall deformity, no chest wall tenderness Lungs: Normal respiratory effort and clear to auscultation Cardio: Regular rate and rhythm, normal S1 and S2, no murmur, no rub Musculoskeletal: No deformity or scoliosis noted. Normal range of motion. Joints normal. No erythema, edema, effusion, or ecchymosis Extremity: No clubbing, cyanosis, edema, or deformity, with normal ROM in both upper and lower bilateral extremities Neurologic: Grossly normal Skin: No rashes, ulcerations, or suspicious lesions Lymph Nodes: No cervical adenopathy, nodes normal Mental Status: Alert and oriented x3. Normal mood and affect Assessment/Plan 1. Acute otitis media, bilateral (H66.93: Otitis media, unspecified, bilateral) -start ciprodex 4 drops in each ear twice daily for 7 days. -start flonase 1 spray in each nostril twice daily. -avoid ear plugs and ear buds. -avoid swimming. Ordered: ciprofloxacin-dexameth asone otic, 4 drop(s), Otic, BID for 7 day(s), 7.5 mL, Refill(s) 0, [id number], 182.9, cm, 03/19/25 11:45:00 EDT, Height/Length Dosing, 78, kg, 03/19/25 11:51:00 EDT, Weight Dosing fluticasone nasal, 1 spray(s), Nasal, BID, 16 gram, Refill(s) 1, each nostril, [facility][id number], 182.9, cm, 03/19/25 11:45:00 EDT, Height/Length Dosing, 78, kg, 03/19/25 11:51:00 EDT, Weight Dosing 2. BMI 23.0-23.9, adult (Z68.23: Body mass index [BMI] 23.0-23.9, adult) healthy weight and BMI. continue healthy diet and exercise. Total time spent preparing the chart, conducting of the encounter with the patient and family and time spent documenting, reviewing, and ordering tests was 25 minutes. Follow-up With When Contact Information Abhi LEDBETTER, Tessie Babin, [facility], [address], [facility] A [address] [address] [phone] Additional Instructions: as scheduled Patient Education Otitis Media, Adult, Ueru-xi-Lkzk Ear Drops, Adult, Zsrc-tc-Tzke Problem List/Past Medical History Ongoing Acute otitis media, bilateral Adult wellness visit Asthma BMI 29.0-29.9,adult Chronic pain of right ankle Depression Encounter for screening for diabetes mellitus Encounter for screening for lipid disorder Hand numbness Marijuana use Neck stiffness Non-smoker Overweight (BMI 25.0-29.9) Physical exam Primary hypertension Right shoulder strain Right wrist pain Historical No qualifying data Procedure/Surgical History Ankle (06/01/2024). Medications Albuterol (Eqv-ProAir HFA) 90 mcg/inh inhalation aerosol, 2 inh, Inhalation, q6hr, PRN, 3 refills Ciprodex 0.3%-0.1% Susp-Otic, 4 drop(s), Otic, BID Flonase 0.05 mg/inh Stuart, 1 spray(s), Nasal, BID, 1 refills pregabalin 50 mg Cap, 50 mg= 1 cap(s), Oral, TID Allergies No Known Allergies Social History Alcohol - Denies Alcohol Use, 02/12/2023 Current, 1-2 times per month, 02/15/2025 Never., 09/16/2024 Substance Abuse - Denies Substance Abuse, 02/12/2023 Never., 09/16/2024 Tobacco - Denies Tobacco Use, 02/12/2023 Smokeless tobacco user within last 30 days Smokeless Tobacco Use:. Oral, 02/15/2025 Former smoker, quit more than 30 days ago Tobacco Use:. Never Smokeless Tobacco Use:. Oral, Household to (more content not included)... [facility] Comment on above: Result Comment: Elec tronically Signed By: Tessie Simon\.br\Date and Time Signed: 03/19/25 12:12 EDT XR Wrist 3+ Views Righton XR Wrist 3+ Views Right Exam Date/Time: 02/15/2025 17:33 EDT Reason for Exam: Pain, Non Traumatic Report IMPRESSION: No acute osseous findings. EXAMINATION/TECHNIQUE: XR Wrist 3+ Views Right HISTORY: Right wrist pain. COMPARISON: None RESULT: No acute fracture. No dislocation. No significant degenerative changes. Soft tissues unremarkable. No other significant abnormality. Ordering Provider: Carlos Leonard FINAL REPORT Dictated: 02/16/2025 9:42 am Marco Johnson MD Signed (Electronic Signature): 02/16/2025 9:42 am Signed by: Marco Johnson MD Transcribed by: OLGA LIDIA Technologist: RADHA Orellana [facility] ED Clinical Summaryon 2024 ED Clinical Summary ED Clinical Summary [place] [id number] ED Clinical Summary Person Information Name: TESSIE VARGAS/[facility] Age: 29 Years : 1995 Sex: Male Language: Kiswahili PCP: Tessie Simon Marital Status: Single Phone: [phone] Visit Id: Visit Reason: Wrist pain-swelling; RIGHT WRIST PAIN-SWELLING Speciality: Acuity: 4 Enc Type: Emergency Med Service: Emergency Arrival: 02/15/2025 17:04:34 Discharge: 02/15/2025 18:19:45 LOS: 000 01:15 Checkin: 02/15/2025 17:04:34 Checkout: 02/15/2025 18:19:45 Dispo Type: Home (Routine DC) EVENTS: Event Name Event Status Request Date/Time Start Date/Time Complete Date/Time Arrive Complete 02/15/2025 17:04:34 02/15/2025 17:04:34 02/15/2025 17:04:34 Document Home Meds Request 02/15/2025 17:04:34 Triage Complete 02/15/2025 17:04:34 02/15/2025 17:15:47 02/15/2025 17:15:47 Registration Complete 02/15/2025 17:11:46 02/15/2025 17:11:46 02/15/2025 17:11:46 Reg Complete Request 02/15/2025 17:11:46 Reg Bed Request Complete 02/15/2025 17:11:46 02/15/2025 17:11:46 02/15/2025 17:11:46 Bed Assign Complete 02/15/2025 17:15:55 02/15/2025 17:15:55 02/15/2025 17:15:55 Dr Exam Complete 02/15/2025 17:15:55 02/15/2025 17:16:29 02/15/2025 17:16:29 RN Exam Complete 02/15/2025 17:15:55 02/15/2025 17:40:23 02/15/2025 17:40:23 Registration Request 02/15/2025 17:16:29 Dr Exam Complete 02/15/2025 17:19:07 02/15/2025 17:19:07 02/15/2025 17:19:07 X-Ray Complete 02/15/2025 17:21:27 02/15/2025 17:22:23 02/15/2025 17:33:24 Wet Read Request 02/15/2025 17:33:25 Discharge Complete 02/15/2025 18:11:52 02/15/2025 18:19:51 02/15/2025 18:19:51 Transfer Complete 02/15/2025 18:19:51 02/15/2025 18:19:51 02/15/2025 18:19:51 ADDRESS: [address] [place] [phone] PHYS DOC NOTES: MEDICAL INFORMATION: Prescriptions Given: New Medications [id number], [address], [place] [id number], [phone] acetaminophen-hydrocod one (Strasburg 325 mg-5 mg oral tablet) 1 Tablets By Mouth every 6 hours as needed for pain for 3 Days. Refills: 0. Medications to Continue with No Changes Other Medications albuterol (Albuterol (Eqv-ProAir HFA) 90 mcg/inh inhalation aerosol) 2 Inhalation Inhalation every 6 hours as needed Shortness of breath or wheezing. Refills: 3. pregabalin (pregabalin 50 mg Cap) 1 Capsules By Mouth 3 times a day. PATIENT EDUCATION INFORMATION: Instructions: Wrist Pain, Adult Follow up: With: Address: When: Allyssa Carlisle [address] [place] [id number] [facility] (1) In 3 days 02/18/2025 Comments: Call Dr for diagnosis based follow up With: Address: When: Tessie Moe In 3 days DIAGNOSIS: Right wrist pain Normal [facility] ED Note-Physicianon 02-16-20 ED Note-Physician ED Note-Physician Basic Information Time Seen: Horacio HINES, Carlos Bragg 02/15/2025 17:16 Chief Complaint c/o chronic right wrist pain. Recent cortisone shot in wrist. States pain has been much worse sinsce. History of Present Illness A 29-year-old female reports emerged department with concerns of right wrist pain. This has been going on for some time. Of left wrist pain on the lateral aspect of his right wrist on the ulnar aspect. He reports a recent cortisone injection last week with orthopedics. He reports he is right-handed. Denies any new injuries. Would like something for pain. Reports that he cannot work because the pain is so bad. Denies any allergies. Has been taking ibuprofen and NSAIDs for relief. Review of Systems No other aggravating or relieving factors no other associated symptoms no other prior treatments or complaints. Family: Reviewed and noncontributory Social: lives at home Review of systems negative unless otherwise specified in the HPI. Physical Exam Vitals & Measurements T: 36.7 ???C(Oral) HR: 99(Peripheral) BP: 146/92 SpO2: 95% HT: 182.9 cm WT: 82.1 kg BMI: 24.54 General: The patient appears well and in no apparent distress. Patient is resting comfortably in chair. Afebrile Skin: Warm, dry, no pallor noted. No erythema of the wrist noted. No obvious deformity. Head: Normocephalic, atraumatic Neck: No JVD Eye: PERRLA, EOMI ENT: Moist mucus membranes Cardiovascular: Regular rate. normal peripheral perfusion. Radial pulse +2 bilaterally Respiratory: No respiratory distress. no accessory muscle use. no obvious audible wheezing Chest Wall: no deformity Musculoskeletal: Limited range of motion of the right wrist due to pain. No obvious deformity. Tenderness along the lateral aspect on palpation of the ulnar aspect of the wrist. GI: No obvious distention Neurological: A&O. moves all extremities equal strength and symmetry Psychiatric: Cooperative and appropriate Medical Decision Making 29-year-old male reports emerged department with concerns of wrist pain. This been going on for a while, worsening wrist pain. Had a recent injection in the wrist, that seemed to make it worse. Has a hard time moving his wrist. Right wrist is neurovascularly intact. No tendon deficits. No obvious signs of infection. We did do an x-ray that showed no acute fractures. Discussed with the patient. Patient prescribed Strasburg for pain. Continue to take NSAIDs. I did offer do a wrist splint, with patient denying at this time as he states it makes it worse. Discussed need follow-up orthopedics. Follow-up with your primary care provider in 3 to 5 days. If symptoms worsen, do not improve, or new symptoms arise please report back to emergency department for further evaluation. The patient was understanding and agreeable to plan moving forward. Assessment/Plan Right wrist pain (M25.531: Pain in right wrist) Orders: acetaminophen-hydrocod one, 1 tab(s), Oral, q6hr for pain for 3 day(s), 12 tab(s), Refill(s) 0, [id number], 182.9, cm, 02/15/25 17:15:00 EDT, Height/Length Dosing, 82.1, kg, 02/15/25 17:15:00 EDT, Weight Dosing XR Wrist 3+ Views Right Disposition Plan Patient Discharge Condition stable Discharge Disposition to home Discharge Prescription List Prescriptions Strasburg 325 mg-5 mg oral tablet, 1 tab(s), Oral, q6hr, PRN Follow-up With When Contact Information Allyssa Carlisle In 3 days 02/18/2025 EDT [address] [place] [address]- Business (1) Additional Instructions: Call Dr for diagnosis based follow up Tessie Moe In 3 days Additional Instructions: Patient Education Wrist Pain, Adult Attestation Patient seen and evaluated by the physician assistant field hockey coach. Attending physician was present in the emergency department and supervised care. This visit was performed by both the physician and an APC. I performed all aspects of the MDM as documented. This report was transcribed using voice recognition software. Every effort was made to ensure accuracy, however, inadvertently computerized orthodontic technician mistakes may be present. Appropriate healthcare PPE was used in evaluating this patient. The patient was placed in a mask. The healthcare provider was wearing mask, gloves, and utilizing proper hand hygiene. All equipment was properly cleansed. I performed a substantive part of the MDM during the patient???s E/M visit. I personally made or approved the documented management plan and acknowledge its risk of complications. (Independent Interpretation) My (EKG/X-Ray/US/CT as applicable) interpretation as above. (Discussion) Management/test interpretation discussed with APC. Problem List/Past Medical History Ongoing Adult wellness visit Asthma BMI 29.0-29.9,adult Chronic pain of right ankle Depression Encounter for screening for diabetes mellitus Encounter for screening for lipid disorder Hand numbness Marijuana use Neck stiffness Non-smoker Overweight (BMI (more content not included)... Normal [facility] Comment on above: Result Comment: Elec tronically Signed By: Carlos Leonard PA-C\.br\Date and Time Signed: 02/15/25 18:33 EDT\.br\Electronically Co-Signed By: Imelda Ridley M.D.\.br\Date and Time Co-Signed: 02/15/25 18:39 EDT ED Patient Summaryon 025 ED Patient Summary ED Patient Summary [facility] [address], [place] [address] Patient Discharge Instructions Person Information Name: TESSIE VARGAS Age: 29 Years Arrival Date: 02/15/2025 17:04:34 Discharge Diagnosis: Right wrist pain Primary Care Physician: Tessie Simon Provider Information Primary Provider: Imelda Ridley M.D. [employer] Claim Adjuster:Carlos Leonard PA-C The exam and treatment you received in the Emergency Department were for an urgent problem and are not intended as complete care. It is important that you follow up with a doctor, nurse practitioner, or physician???s assistant field hockey coach for ongoing care. If your symptoms become worse or you do not improve as expected and you are unable to reach your usual health care provider, you should return to the Emergency Department. We are available 24 hours a day. TESSIE VARGAS has been given the following list of patient education materials, prescriptions and follow-up instructions: Follow-up Instructions: With: Address: When: Allyssa Carlisle [address] [place] [address] [place] (6) In 3 days 02/18/2025 Comments: Call Dr for diagnosis based follow up With: Address: When: Tessie Moe In 3 days In the event that this physician does not participate in your insurance network, please consult with your insurance company to find a nearby participating provider. Patient Education Materials: Wrist Pain, Adult A MESSAGE TO ALL PATIENTS REGARDING OPIOIDS PRESCRIPTION OPIOIDS: WHAT YOU NEED TO KNOW Prescription opioids can be used to help relieve gabmpzoi-vk-blurtw pain and are often prescribed following a surgery or injury, or for certain health conditions. These medications can be an important part of the treatment but also come with serious risks. It is important to work with your healthcare provider to make sure you are getting the safest, most effective care. WHAT ARE THE RISKS AND SIDE EFFECTS OF OPIOID USE? Prescription opioids carry serious risks of addiction and overdose, especially with prolonged use. An opioid overdose, often marked by slowed breathing, can cause sudden . The use of prescription opioids can have a number of side effects as well, even when taken as directed: ??? Tolerance???meaning you might need to take more of the medication for the same pain relief ??? Physical dependence???meaning you have symptoms of withdrawal when a medication is stopped ??? Increased sensitivity to pain ??? Constipation ??? Nausea, vomiting, and dry mouth ??? Sleepiness and dizziness ??? Confusion ??? Depression ??? Low levels of testosterone that can result in lower sex drive, energy, and strength ??? Itching and sweating RISKS ARE GREATER WITH: ??? History of drug misuse, substance use disorder, or overdose ??? Mental health conditions (such as depression or anxiety) ??? Sleep apnea ??? Older age (65 years and older) ??? Avoid alcohol while taking prescription opioids. Also, unless specifically advised by your health care provider, medications to avoid include: ??? Benzodiazepines (such as Xanax or Valium) ??? Muscle relaxants (such as Soma or Flexeril) ??? Hypnotics (such as Ambien or Lunesta) ??? Other prescription opioids KNOW YOUR OPTIONS Talk to your health care provider about ways to manage your pain that don???t involve prescription opioids. Some of these options may actually work better and have fewer risks and side effects. Options may include: ??? Pain relievers such as acetaminophen, ibuprofen, and naproxen ??? Some medication that are also used for depression or seizures ??? Physical therapy and exercise ??? Cognitive behavioral therapy, a psychological, goal-directed approach, in which patients learn how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 pregabalin (pregabalin 50 mg Cap) 1 Capsules By Mouth 3 times a day Unchanged albuterol (Albuterol (Eqv-ProAir HFA) 90 mcg/ inh inhalation aerosol) 2 Inhalation Inhalation Every 6 hours as needed for Shortness of breath or wheezing Asthma [email or web address] #[id number]: [address] [place] [address] [phone] Allergies No Known Allergies Problems Ongoing - Any problem that you are currently receiving treatment for. Adult wellness visit Asthma BMI 29.0-29.9,adult Chronic pain of right ankle Depression Encounter for screening for diabetes mellitus Encounter for screening for lipid disorder Marijuana use Neck stiffness Non-smoker Overweight (BMI 25.0-29.9) Physical exam Primary hypertension Right shoulder strain Right wrist pain Patient Survey You may receive a survey via text or e-mail asking about your office visit. Please share your experience with us by completing your survey. We appreciate your feedback and thank you for choosing us for your care. [facility] Ambulatory Visit Summary Ambulatory Visit Summary SABRINATESSIE :1995 Visit Date:01/06/2025 Ambulatory Visit Instructions Your Diagnosis Right wrist pain Right shoulder strain Neck stiffness BMI 27.0-27.9,adult Overweight (BMI 25.0-29.9) Your Care Team Attending Physician - Tessie Simon Primary Care Physician - Tessie Simon This Is Your Medications List acetaminophen-oxycodon e (Percocet 5 mg-325 mg oral tablet) albuterol (Albuterol (Eqv-ProAir HFA) 90 mcg/inh inhalation aerosol) naloxone (Narcan 4 mg/0.1 mL nasal spray) pregabalin (pregabalin 50 mg Cap) Procedures Performed Ankle (06/01/2024). Discharge Vitals Heart Rate (Peripheral) 80 Blood Pressure 122/78 Height 179 cm Height 70 in Weight 86.6 kg Weight 190.92 lb BMI 27.03 What to do next Scheduled Follow-Up Appointments Saturday 11:00 AM EDT With: Tessie Simon Where: [facility] [address], [place] [address]- Saturday2025 9:20 AM EDT With: Tessie Simon Where: [facility] [address], [place] [address]- You Need to Schedule the Following Appointments Follow Up with Tessie Simon, [facility] When: In 3 months Comments: shoulder/wrist pain Where: [facility] Brown, [address] [address]- [phone] You Need to Complete the Following XR Spine Cervical 4 or 5 Views, 01/06/25, Routine, Order for future visit, Transport Mode: Ambulatory, Reason: Neck Pain, No, Neck stiffness Right shoulder strain Right wrist pain, pp_set_radiology_subsp ecialty, Ma - Dayo XR Spine Thoracic 3 Views, 01/06/25, Routine, Order for future visit, Transport Mode: Ambulatory, Reason: Pain, Non Traumatic, No, Neck stiffness Right shoulder strain Right wrist pain, pp_set_radiology_subsp ecialty, Ma - Allen Medications What How Much When Why Instructions New acetaminophen-oxycodon e (Percocet 5 mg-325 mg oral tablet) 1 Tablets By Mouth Every 6 hours Right wrist pain Right shoulder strain Neck stiffness Pickup at [facility] #[id number] New naloxone (Narcan 4 mg/ 0.1 mL nasal spray) 4 Milligram Nasal Inhalation As Directed Right wrist pain Right shoulder strain Neck stiffness for suspected overdose symptoms Pickup at [facility] #[id number] Changed pregabalin (pregabalin 50 mg Cap) 1 Capsules By Mouth 3 times a day Unchanged albuterol (Albuterol (Eqv-ProAir HFA) 90 mcg/ inh inhalation aerosol) 2 Inhalation Inhalation Every 6 hours as needed for Shortness of breath or wheezing Asthma Pharmacy Information [facility] #[id number]: [address] [place], [place] [phone] Allergies No Known Allergies Problems Ongoing - Any problem that you are currently receiving treatment for. Adult wellness visit Asthma BMI 29.0-29.9,adult Chronic pain of right ankle Depression Encounter for screening for diabetes mellitus Encounter for screening for lipid disorder Marijuana use Neck stiffness Non-smoker Overweight (BMI 25.0-29.9) Physical exam Primary hypertension Right shoulder strain Right wrist pain Patient Survey You may receive a survey via text or e-mail asking about your office visit. Please share your experience with us by completing your survey. We appreciate your feedback and thank you for choosing us for your care. [facility] Family Medicine Office/Clini c Noteon 01-06-2025 Family Medicine Office/Clinic Note Family Medicine Office/Clinic Note Chief Complaint wrist and shoulder blade area pain HPI Staff Pt. finished his OT therapy. Needs referral for orthopedics, also shoulder blade area is hurting and radiates in neck, and is having a hard time moving it. History of Present Illness Tessie is a 29 year old male presenting for acute visit of chronic right wrist pain. He previously saw Dr. Bridges for this in October and was improved at the time, but considering MRI if no significant recovery of wrist function. He did have occupational therapy for this and did not relieve his issues. and he takes pregabalin 150 mg twice daily. The pain is worse in the right wrist than the left and is exacerbated by rotational movements. He denies numbness or tingling in the fingers and hands. He has been unable to obtain a possible cause for the pain. He notes his pain has worsened this past month and over the last few days he notes neck stiffness and right shoulder blade tenderness reproducible with palpation. He is on Lyrica for nerve pain. he lowered his dosing about 2 weeks ago and does not correlate to the pain he is having now. Pain currently 8/10 throbbing right shoulder blade pain worse with positioning and sleeping on it. Review of Systems PHQ Score Initial Depression Screen Score: 0 SCORE Physical Exam Vitals & Measurements HR: 80(Peripheral) BP: 122/78 SpO2: 94% HT: 70 in HT: 179 cm WT: 86.6 kg WT: 190.92 lb BMI: 27.03 General: Well developed, well nourished, in no acute distress Lungs: Normal respiratory effort and clear to auscultation Cardio: Regular rate and rhythm, normal S1 and S2, no murmur, no rub Musculoskeletal: No deformity or scoliosis noted. decreased range of motion noted in upper and lower extremities. point tenderness near shoulder blade and C8/T1. Joints normal. No erythema, edema, effusion, or ecchymosis Extremity: No clubbing, cyanosis, edema, or deformity, with decreased ROM in both upper and lower bilateral extremities Neurologic: Grossly normal Skin: No rashes, ulcerations, or suspicious lesions Mental Status: Alert and oriented x3. Normal mood and affect Assessment/Plan 1. Right wrist pain (M25.531: Pain in right wrist) he completed PT/OT and still has the pain Xray from 2022 showed possible AC joint separation reviewed with the patient. will obtain xray of thoracic and cervical spine as dermatomes align with his pain and he notes point tenderness off the right side of the spine. plan of care to be determined by findings. percocet provided for pain relief as this has been keeping him up at night. advised him to watch for sedation as he takes lyrica but lower dose than previous. He states has tolerated this medication well in the past. OARRS reviewed. possible ortho or spine/pain management referral depending on Xray findings. OT did not help his hand/arm issues. work note provided for the rest of the week. Ordered: acetaminophen-oxycodon e, 1 tab(s), Oral, q6hr, 12 tab(s), Refill(s) 0, [facility] #[id number], 179, cm, 01/06/25 11:04:00 EDT, Height/Length Dosing, 86.6, kg, 01/06/25 11:10:00 EDT, Weight Dosing naloxone, 4 mg, Nasal, As Directed, for suspected overdose symptoms, # 1 kit(s), Refills(s) 0, Pharmacy: [facility] #[id number], 179, cm, 01/06/25 11:04:00 EDT, Height/Length Dosing, 86.6, kg, 01/06/25 11:10:00 EDT, Weight Dosing XR Spine Cervical 4 or 5 Views XR Spine Thoracic 3 Views 2. Right shoulder strain (S46.911A: Strain of unspecified muscle, fascia and tendon at shoulder and upper arm level, right arm, initial encounter) possible AC joint separation seen on right shoulder xray in 2022. will obtain new xray. this AC joint separation can indirectly explain the issues with the rest of his arm due to the body compensating. plan of care to be determined on results. Ordered: acetaminophen-oxycodon e, 1 tab(s), Oral, q6hr, 12 tab(s), Refill(s) 0, [facility] #[id number], 179, cm, 01/06/25 11:04:00 EDT, Height/Length Dosing, 86.6, kg, 01/06/25 11:10:00 EDT, Weight Dosing naloxone, 4 mg, Nasal, As Directed, for suspected overdose symptoms, # 1 kit(s), Refills(s) 0, Pharmacy: [facility] #[id number], 179, cm, 01/06/25 11:04:00 EDT, Height/Length Dosing, 86.6, kg, 01/06/25 11:10:00 EDT, Weight Dosing predniSONE, 10 mg = 1 tab(s), Oral, As Directed, 6 tabs for 2 days,5 tabs for 2 days,4 tabs for 2 days,3 tabs for 2 days,2 tabs for 2 days,1 tab for 2 days, # 42 tab(s), Refills(s) 0, Pharmacy: [facility] #[id number], 179, cm, 11/12/24 10:24:00 EDT, Height/L... XR Spine Cervical 4 or 5 Views XR Spine Thoracic 3 Views 3. Neck stiffness (M43.6: Torticollis) see #1 and #2. Ordered: acetaminophen-oxycodon e, 1 tab(s), Oral, q6hr, 12 tab(s), Refill(s) 0, [facility] #[id number], 179, cm, 01/06/25 11:04:00 EDT, Height/Length Dosing, 86.6, kg, 01/06/25 11:10:00 EDT, Weight Dosing naloxone, 4 mg, Nasal, As Directed, for suspected overdose symptoms, # 1 kit(s), Refills(s) 0, Pharmacy: [facility] (more content not included)... [facility] Comment on above: Result Comment: Elec tronically Signed By: Abhi LEDBETTER, Tessie Babin\.br\Date and Time Signed: 01/06/25 12:41 EDT Provider Letteron 01-06-2025 Provider Letter Provider Letter January 06, 2025 TESSIE VARGAS [address] [address] : 1995 To Whom It May Concern, Please excuse above patient from work. Date of Illness:01/06/2025 From: _01/06/2025 To: _01/10/2025 May Return to Work On:01/11/2025 Restrictions: _none Comments: _ Sincerely, [facility] [address] [place] [address], [place] [address] [facility] Nonvisit Note - OTon 12-29-2 025 Nonvisit Note - OT Nonvisit Note - OT Pt. canceled today and rescheduled as he is not feeling well. [facility] Nonvisit Note - OTon 12-22- 025 Nonvisit Note - OT Nonvisit Note - OT Pt. canceled and rescheduled his reassessment today as he got called into work. [facility] Nonvisit Note - OTon 12-15- 025 Nonvisit Note - OT Nonvisit Note - OT Pt. cancelled today's appointment and rescheduled as his son has appointment in [place]. [facility] Nonvisit Note - OTon 12-02- 025 Nonvisit Note - OT Nonvisit Note - OT Pt. cancelled and rescheduled today's appointment as he had another appointment that ran late. [facility] Nonvisit Note - OTon 11-25- 025 Nonvisit Note - OT Nonvisit Note - OT Pt. cancelled today as his car is in the shop and rescheduled it for next week. [facility] Ambulatory Visit Summaryon 0 11-12-2024 Ambulatory Visit Summary Ambulatory Visit Summary SABRINA TESSIE :1995 Visit Date:11/12/2024 Ambulatory Visit Instructions Your Diagnosis Adult wellness visit Primary hypertension Asthma Depression Chronic pain of right ankle BMI 28.0-28.9,adult Overweight (BMI 25.0-29.9) Right shoulder strain Encounter for screening for lipid disorder Encounter for screening for diabetes mellitus Your Care Team Attending Physician - Tessie Simon Primary Care Physician - Tessie Simon This Is Your Medications List albuterol (Albuterol (Eqv-ProAir HFA) 90 mcg/inh inhalation aerosol) predniSONE (predniSONE 10 mg Tab) pregabalin (pregabalin 150 mg Cap) Procedures Performed Ankle (06/01/2024). Discharge Vitals Heart Rate (Peripheral) 80 Blood Pressure 122/78 Height 179 cm Height 70 in Weight 92.1 kg Weight 203.046 lb BMI 28.74 What to do next Scheduled Follow-Up Appointments Saturday 9:00 AM EDT With: Where: [facility] Occup[facility] Saturday 9:20 AM EDT With: Denzel Bridges MD Where: [facility] [address] [address]- Saturday2025 9:20 AM EDT With: Tessie Simon Where: [facility] [address], [place] [address]- You Need to Schedule the Following Appointments Follow Up with Tessie Simon, [facility] When: In 1 year Comments: wellness Where: [address], [address] [facility] [address] [place] [address]- [phone] You Need to Complete the Following CBC w/ Auto Diff, Blood, Routine collect, 11/12/24, Order for future visit, Lab Collect, Adult wellness visit Asthma, Print Label By Order Location Comprehensive Metabolic Panel, Blood, Routine collect, 11/12/24, Order for future visit, Lab Collect, Adult wellness visit Primary hypertension, Print Label By Order Location HgbA1c, Blood, Routine collect, 11/12/24, Order for future visit, Lab Collect, Adult wellness visit Encounter for screening for diabetes mellitus, Print Label By Order Location Lipid Panel, Blood, Routine collect, 11/12/24, Order for future visit, Lab Collect, Adult wellness visit Encounter for screening for lipid disorder, Print Label By Order Location XR Shoulder Complete Right, 11/12/24, Routine, Order for future visit, Transport Mode: Ambulatory, Reason: Pain, Non Traumatic, No, Right shoulder strain, pp_set_radiology_subsp de [facility] Medications What How Much When Why Instructions New albuterol (Albuterol (Eqv-ProAir HFA) 90 mcg/ inh inhalation aerosol) 2 Inhalation Inhalation Every 6 hours as needed for Shortness of breath or wheezing Asthma Refills: 3 Pickup at [facility] #[id number] New predniSONE (predniSONE 10 mg Tab) 1 Tablets By Mouth As Directed Right shoulder strain 6 tabs for 2 days,5 tabs for 2 days,4 tabs for 2 days,3 tabs for 2 days,2 tabs for 2 days,1 tab for 2 days Pickup at [facility] #[id number] Unchanged pregabalin (pregabalin 150 mg Cap) TAKE 1 CAPSULE BY MOUTH TWICE DAILY [id number] [address] [place], [place] [phone] Allergies No Known Allergies Problems Ongoing - Any problem that you are currently receiving treatment for. Adult wellness visit Asthma BMI 29.0-29.9,adult Chronic pain of right ankle Depression Encounter for screening for diabetes mellitus Encounter for screening for lipid disorder Marijuana use Non-smoker Overweight (BMI 25.0-29.9) Physical exam Primary hypertension Right shoulder strain Right wrist pain Patient Survey You may receive a survey via text or e-mail asking about your office visit. Please share your experience with us by completing your survey. We appreciate your feedback and thank you for choosing us for your care. Education Materials BMI for Adults Body mass index (BMI) is a number found using a person's weight and height. BMI can help tell how much of a person's weight is made up of fat. BMI does not measure body fat directly. It is used instead of tests that directly measure body fat, which can be difficult and expensive. What are BMI measurements used for? BMI is useful to: ??? Find out if your weight puts you at higher risk for medical problems. ??? Help recommend changes, such as in diet and exercise. This can help you reach a healthy weight. BMI screening can be done again to see if these changes are working. How is BMI calculated? Your height and weight are measured. The BMI is found from those numbers. This can be done with U.S. or metric measurements. Note that charts and online BMI calculators are available to help you find your BMI quickly and easily without doing these calculations. To calculate your BMI in U.S. measurements: 1. Measure your weight in pounds (lb). 2. Multiply the number of daphnie (more content not included)... [facility] Family Medicine Office/Clini c Noteon 11-12-2024 Family Medicine Office/Clinic Note Family Medicine Office/Clinic Note Chief Complaint Est. care HPI Staff Establish Care: History: Any previous diagnosis: History of seeing any specialist(s): When was your last doctor visit: Last provider: Any recent labs: n/a JAS: 0 PHQ9: 0 Acute: Current issues/complaints: right middle of back, shoulder blade area is super tight, very painful, been going on for a couple months. History of Present Illness Tessie is a 29 year old male presenting to establish [facility] and soreness of right upper back. He is going to OT and PT for decreased range of motion per Dr. Bridges. he denies numbness and tingling. He states he uses a massage chair and it seems to help temporarily. He is taking lyrica for ankle procedure where he had right ankle reconstruction. He notes the lyrica is taken twice daily and helps with the pain in his ankle but not the pain in his right shoulder blade. he is able to pinpoint in the area of the third/fourth rib connection to the spine and the shoulder blade. he states he was on vacation and he was throwing a ball for a couple hours and was seen in the ED for this 02-12-2023. He notes while he was off work, his pain has worsened since his ankle procedure. Social hx: diet: 4 meals per day for weight lifting. home cooked, meal prepped, not processed occupation: [employer]. exercise: 3 days per week, cardio and strength training. alcohol use: socially illicit drug use: none smoking status: none Health Maintenance: Routine labs: due will order today. Immunizations: Tdap due, declined for now. Specialists: Communications Programmer: none Dentist: none PHQ: 0 JAS: 0 Review of Systems PHQ Score Initial Depression Screen Score: 0 SCORE Physical Exam Vitals & Measurements HR: 80(Peripheral) BP: 122/78 SpO2: 96% HT: 70 in HT: 179 cm WT: 203.046 lb WT: 92.1 kg BMI: 28.74 General: Well developed, well nourished, in no acute distress Head: Normocephalic/atraumat ic Eyes: Pupils equal, round, and reactive to light. Conjunctivae and sclerae normal, and extraocular movements intact Ears: No deformity or lesion of external ear. Canals and TM appear normal bilaterally. TM???s intact, not inflamed, with normal light reflex. Hearing grossly normal to conversational speech Nose: No deformity, discharge, inflammation, or lesions Mouth: Mucous membranes moist. Normal oropharynx, and posterior pharynx without lesions or exudates. Tongue normal Neck: Neck supple. No masses or palpable cervical nodes. Trachea midline. Thyroid without nodules, masses, tenderness, or enlargement Chest: No chest wall deformity, no chest wall tenderness Lungs: Normal respiratory effort and clear to auscultation Cardio: Regular rate and rhythm, normal S1 and S2, no murmur, no rub Abdomen: Soft, non-distended, non-tender, no M/M/T/G/S Musculoskeletal: No deformity or scoliosis noted. decreased range of motion with upper and lower extremities. Joints normal. No erythema, edema, effusion, or ecchymosis Extremity: No clubbing, cyanosis, edema, or deformity, with decreased ROM in both upper and lower bilateral extremities Neurologic: Grossly normal Skin: No rashes, ulcerations, or suspicious lesions Lymph Nodes: No cervical adenopathy, nodes normal Mental Status: Alert and oriented x3. Normal mood and affect Assessment/Plan 1. Adult wellness visit (Z00.00: Encounter for general adult medical examination without abnormal findings) - Discussed recommended screenings and testing for age and lifestyle risks: - Screening for hypertension with blood pressure checks - Screening for depression with PHQ tools and anxiety with JAS - Vaccination recommendations reviewed - Screening for diabetes -Ordered labs today (CMP, CBC, A1c, lipids) - Discuss Resources and Guidelines including proper diet and exercise. - Those with HTN, CAD, or PAD for example. recommendations regarding BP parameters and lipid control provided - Dental and Ophthalmology recommendations Ordered: CBC w/ Auto Diff Comprehensive Metabolic Panel HgbA1c Lipid Panel 2. Primary hypertension (I10: Essential (primary) hypertension) not on current medication. his blood pressure is controlled of medication with lifestyle modifications. will continue to monitor at follow ups. Ordered: Comprehensive Metabolic Panel 3. Asthma (J45.909: Unspecified asthma, uncomplicated) he is not on any as needed or maintenance therapy. breathing is doing well without treatment or issues. he does not use albuterol inhaler but would like to have one on hand. Ordered: albuterol, 2 inh, Inhalation, q6hr Shortness of breath or wheezing, 8.5 gm, Refill(s) 3, [facility] #[id number], 179, cm, 11/12/24 10:24:00 EDT, Height/Length Dosing, 92.1, kg, 11/12/24 10:26:00 EDT, Weight Dosing CBC w/ Auto Diff 4. Depression (F32.A: Depression, unspecified) PHQ: 0 no therapy and is controlled at this time. no need for medications at this time. 5. Chronic anastasia (more content not included)... [facility] Comment on above: Result Comment: Elec tronically Signed By: Abhi LEDBETTER, Tessie Babin\.br\Date and Time Signed: 11/12/24 11:27 EDT Ambulatory Visit Summaryon 0 11-03-2024 Ambulatory Visit Summary Ambulatory Visit Summary SABRINATESSIE :1995 Visit Date:11/03/2024 Ambulatory Visit Instructions Your Diagnosis Primary hypertension Other chronic pain Chronic pain of right ankle Right wrist pain Your Care Team Attending Physician - Denzel Bridges MD Primary Care Physician - Denzel Bridges MD This Is Your Medications List pregabalin (pregabalin 150 mg Cap) Procedures Performed Ankle (06/01/2024). Discharge Vitals Temperature (Tympanic) 36.8 ???C Heart Rate (Peripheral) 68 Respiratory Rate 18 Blood Pressure 124/80 Height 179 cm Height 70 in Weight 94 kg Weight 207.234 lb BMI 29.34 What to do next Scheduled Follow-Up Appointments Saturday 9:00 AM EDT With: Where: Occupational Therapy Saturday 9:20 AM EDT With: Denzel Bridges MD Where: [facility] [address] [address]- Medications What When Instructions Unchanged pregabalin (pregabalin 150 mg Cap) TAKE 1 CAPSULE BY MOUTH TWICE DAILY Allergies No Known Allergies Problems Ongoing - Any problem that you are currently receiving treatment for. Asthma BMI 29.0-29.9,adult Chronic pain of right ankle Depression Marijuana use Non-smoker Overweight (BMI 25.0-29.9) Physical exam Primary hypertension Right wrist pain Patient Survey You may receive a survey via text or e-mail asking about your office visit. Please share your experience with us by completing your survey. We appreciate your feedback and thank you for choosing us for your care. Esteban Ma [facility] Family Medicine Office/Clini c Noteon 11-03-2024 Family Medicine Office/Clinic Note Family Medicine Office/Clinic Note Chief Complaint follow up to wrist pain Pain in the right wrist and right ankle. HPI Staff 1m follow up to Rt wrist pain. sharp pain. no full range of motion Tx'd w/steroid @ [facility]. finished. took all of it and did not feel a difference. Referred to Occupational therapy. went a month after surgery. helped with motion. massage helps and tape also helps. concerns: weird spot on back looked at. History of Present Illness The patient is a 29-year-old male presenting with chronic pain management concerns regarding his right wrist and right ankle. The wrist pain, while not completely resolved, has reduced in frequency and maintains some limitation in movement range. Follow-up considerations include the requirement of an MRI for further investigation. The ankle pain poses difficulty with work activities, and potential concerns involve consultations with a production metal sprayer diagnosing lip polyps possibly specific to certain conditions, with management referred out. The patient's primary hypertension is under control, with blood pressure appearing stable during this encounter. There was an affirmation on the usage of pregabalin for neuropathic relief, highlighting its benefit and necessity for continuation. - Blood pressure monitoring, indicating stable control. - Continued discussion and use of pregabalin for neuropathic pain management. Review of Systems PHQ Score Initial Depression Screen Score: 0 SCORE Physical Exam Vitals & Measurements T: 36.8 ???C(Tympanic) HR: 68(Peripheral) RR: 18 BP: 124/80 SpO2: 98% HT: 179 cm HT: 70 in WT: 94 kg WT: 207.234 lb BMI: 29.34 General: alert, no acute distress ENMT: oral mucosa moist, polyps on the middle of the lip Cardiovascular: Regular rate and rhythm, normal peripheral perfusion Respiratory: Lungs clear to auscultation, respirations non labored Extremities: no deformity, no trauma, right ankle pain, wrist with limited supination Neurological: oriented x 4, level of consciousness appropriate for age, CN II-XII intact, motor strength equal & normal bilaterally, speech normal Abdomen: Soft, Non-tender, Non-distended, + Bowel sounds Assessment/Plan 1. Primary hypertension (I10: Essential (primary) hypertension) Blood pressure management is satisfactory; no changes in current medical regimen needed. Regular check-ups are suggested to maintain stable readings. 2. Other chronic pain (G89.29: Other chronic pain) Ensured refill of pregabalin prescription due to its favorable impact on managing symptoms. Watchfulness advised for symptom progression and effect. 3. Chronic pain of right ankle (M25.571: Pain in right ankle and joints of right foot) Monitoring of right ankle pain continues with ongoing assessment of functional impact. The management of lip polyps is deferred to a specialist. It is advised to attend follow-up visits for ankle pain evaluation. 4. Right wrist pain (M25.531: Pain in right wrist) Improvement noted; further imaging as MRI considered if no significant recovery of wrist function is noted. Observation on occupational therapy outcomes continues. 29-year-old male with history of primary hypertension presenting with chronic pain in the right wrist and right ankle. The right wrist has improved in symptom severity, but movement remains somewhat restricted, warranting consideration for imaging. Right ankle pain continues to impact functioning, compounded by non-resolved lip polyps being overseen by specialist guidance. Blood pressure is stable, and current medication for neuropathic pain shows effectiveness. In this visit, I addressed the chronic pain challenges affecting the right wrist and right ankle, specifically emphasizing therapy continuation and pain management strategies. We discussed the control of primary hypertension with current medications showing satisfactory results. The options of obtaining imaging for future wrist evaluation if necessary were considered. The importance of seen outcomes from pregabalin use was also restated in agreement with ongoing care necessity. There are ongoing specialist checks concerning irritated lip polyps, with no intervention during this visit. Discussions regarding patient???s well-being, routine therapy, and essential follow-up to maintain effective pain management and cardiac care were reviewed. Follow-up No qualifying data available Patient Education Hypertension, Adult Problem List/Past Medical History Ongoing Asthma BMI 29.0-29.9,adult Chronic pain of right ankle Depression Marijuana use Non-smoker Overweight (BMI 25.0-29.9) Physical exam Primary hypertension Right wrist pain Historical No qualifying data Procedure/Surgical History Ankle (06/01/2024). Medications pregabalin 150 mg Cap Allergies No Known Allergies Social History Alcohol - Denies Alcohol Use, 02/12/2023 Never., 09/16/2024 Substance Abuse - Denies Substance Abuse, 02/12/2023 Never., 09/16/2024 To (more content not included)... Normal [facility] Comment on above: Result Comment: Elec tronically Signed By: Denzel Bridges MD\.br\Date and Time Signed: 11/03/24 09:48 EDT Nonvisit Note - OTon 025 Nonvisit Note - OT Nonvisit Note - OT Pt. cancelled as he stated that his ride cancelled and now he doesn't have a way to get to therapy. Normal [facility] Nonvisit Note - OTon 025 Nonvisit Note - OT Nonvisit Note - OT No call, no show. Left a voicemail message to remind pt. of his next. appt. Normal [facility] Ambulatory Visit Summaryon 0 09-17-2024 Ambulatory Visit Summary Ambulatory Visit Summary TESSIE VARGAS :1995 Visit Date:09/17/2024 Ambulatory Visit Instructions Your Diagnosis Wrist pain Marijuana use HTN (hypertension) BMI 29.0-29.9,adult Overweight (BMI 25.0-29.9) Non-smoker Your Care Team Attending Physician - Denzel Bridges MD Primary Care Physician - Denzel Bridges MD This Is Your Medications List methylPREDNISolone (Medrol Dosepack 4 mg Tab) pregabalin (pregabalin 150 mg Cap) Procedures Performed Ankle (06/01/2024). Discharge Vitals Temperature (Tympanic) 36.7 ???C Heart Rate (Peripheral) 82 Respiratory Rate 18 Blood Pressure 122/78 Height 179 cm Height 70 in Weight 95.1 kg Weight 209.659 lb BMI 29.68 What to do next Scheduled Follow-Up Appointments Saturday 9:45 AM EST With: Where: [facility] Saturday 9:00 AM EST With: Where: [facility] Saturday 9:45 AM EST With: Where: [facility] Saturday 8:45 AM EST With: Where: [facility] Saturday 9:45 AM EST With: Where: [facility] 2024 9:30 AM EST With: Parminder LONGO, Denzel Carrillo Where: [address] [address]- Medications What How Much When Why Instructions New methylPREDNISolone (Medrol Dosepack 4 mg Tab) 1 Packets By Mouth As Directed BMI 29.0-29.9,adult Overweight (BMI 25.0-29.9) Non-smoker Wrist pain HTN (hypertension) Marijuana use Duration: 6 Days as directed on package labeling Pickup at [facility] #[id number] Unchanged pregabalin (pregabalin 150 mg Cap) TAKE 1 CAPSULE BY MOUTH TWICE DAILY Pharmacy Information [facility] #[id number]: [address], [place] [id number] [phone] Allergies No Known Allergies Problems Ongoing - Any problem that you are currently receiving treatment for. Ankle pain Asthma BMI 29.0-29.9,adult Depression HTN (hypertension) Marijuana use Non-smoker Overweight (BMI 25.0-29.9) Physical exam Wrist pain Patient Survey You may receive a survey via text or e-mail asking about your office visit. Please share your experience with us by completing your survey. We appreciate your feedback and thank you for choosing us for your care. Education Materials BMI for Adults Body mass index (BMI) is a number found using a person's weight and height. BMI can help tell how much of a person's weight is made up of fat. BMI does not measure body fat directly. It is used instead of tests that directly measure body fat, which can be difficult and expensive. What are BMI measurements used for? BMI is useful to: ??? Find out if your weight puts you at higher risk for medical problems. ??? Help recommend changes, such as in diet and exercise. This can help you reach a healthy weight. BMI screening can be done again to see if these changes are working. How is BMI calculated? Your height and weight are measured. The BMI is found from those numbers. This can be done with U.S. or metric measurements. Note that charts and online BMI calculators are available to help you find your BMI quickly and easily without doing these calculations. To calculate your BMI in U.S. measurements: 1. Measure your weight in pounds (lb). 2. Multiply the number of pounds by 703. ??? So, for an adult who weighs 150 lb, multiply that number by 703: 150 x 703, which equals 105,450. 3. Measure your height in inches. Then multiply that number by itself to get a measurement called inches squared. ??? So, for an adult who is 70 inches tall, the inches squared measurement is 70 inches x 70 inches, which equals 4,900 inches squared. 4. Divide the total from step 2 (number of lb x 703) by the total from step 3 (inches squared): 105,450 ??? 4,900 = 21.5. This is your BMI. To calculate your BMI in metric measurements: 1. Measure your weight in kilograms (kg). ??? For this example, the weight is 70 kg. 2. Measure your height in meters (m). Then multiply that number by itself to get a measurement called meters squared. ??? So, for an adult who is 1.75 m tall, the meters squared measurement is 1.75 m x 1.75 m, which equals 3.1 meters squared. 3. Divide the number of kilograms (your weight) by the meters squared number. In this example: 70 ??? 3.1 = 22.6. This is your BMI. What do the results mean? BMI charts are used to see if you are underweight, normal weight, overweight, or obese. The following guidelines will be used: ??? Underweight: BMI less than 18.5. ??? Normal weight: BMI between 18.5 and 24.9. ??? Overweight: BMI between 25 and 29.9. ??? Obese: BMI of 30 or above. BMI is a tool and cannot diagnose a condition. Talk with your health care provider about what your BMI means for you. Keep these notes in mind: ??? We (more content not included)... Normal [facility] Family Medicine Office/Clini c Noteon 09-17-2024 Family Medicine Office/Clinic Note Family Medicine Office/Clinic Note Chief Complaint Acute Visit Pain and tightness in the right wrist HPI Staff Pt presents today for acute visit. Pain in Rt wrist getting worse. Denies pain when not using. /10. Increases when using. Has tried taking Tylenol with no relief. History of Present Illness The patient is a 29-year-old male presenting with wrist pain management and evaluation. The patient reports that the wrist pain initially started months ago, worsening progressively. The pain is localized primarily in the right wrist, extending into the right arm, with the right wrist being significantly more affected than the left. The patient describes the sensation as a tightness and significant stinging pain that is exacerbated by rotational movements. There is no describing numbness in the hands or fingers. The patient reports a history of surgery and physical therapy concerning an ankle issue but has not had occupational therapy for the wrist pain. Various interventions have been attempted, including trying to avoid activities that worsen the symptoms. Wrist pain worsens during certain movements such as tucking in a shirt. The patient has been contemplating the underlying causes of wrist pain, considering possibilities like tendon tightness and muscle strain. No clear relief measures have been identified yet. - Weight management due to BMI 29.0-29.9 - Blood pressure control due to essential hypertension - Counseling on reducing cannabis use, particularly due to asthma considerations Review of Systems PHQ Score Initial Depression Screen Score: 0 SCORE Physical Exam Vitals & Measurements T: 36.7 ???C(Tympanic) HR: 82(Peripheral) RR: 18 BP: 122/78 SpO2: 96% HT: 70 in HT: 179 cm WT: 95.1 kg WT: 209.659 lb BMI: 29.68 General: alert, no acute distress ENMT: oral mucosa moist Cardiovascular: Regular rate and rhythm, normal peripheral perfusion Respiratory: Lungs clear to auscultation, respirations non labored Extremities: Right wrist pain with tightness and stinging sensation, no deformity, no trauma Neurological: oriented x 4, level of consciousness appropriate for age, CN II-XII intact, motor strength equal & normal bilaterally, speech normal Abdomen: Soft, Non-tender, Non-distended, + Bowel sounds Assessment/Plan 1. Wrist pain (M25.539: Pain in unspecified wrist) Referral to occupational therapy aimed at addressing wrist mechanics and alleviating symptoms. Consider potential for steroid therapy to reduce inflammation if occupational therapy is not effective. Possible future imaging (MRI) if symptoms persist despite therapeutic intervention. Ordered: methylPREDNISolone, = 1 packet(s), Oral, As Directed, as directed on package labeling, X 6 day(s), # 21 tab(s), Refills(s) 0, Pharmacy: [facility] #[id number], 179, cm, 09/17/24 9:01:00 EST, Height/Length Dosing, 95.1, kg, 09/17/24 9:01:00 EST, Weight Dosing [facility] Outpatient Occupational Therapy Evaluate Patient, Develop a Plan of Care, & Implement Plan Occupational Therapy Evaluation - External Facility 2. Marijuana use (F12.90: Cannabis use, unspecified, uncomplicated) Continued encouragement to reduce cannabis use, especially with respiratory considerations in the backdrop of asthma history. Ordered: methylPREDNISolone, = 1 packet(s), Oral, As Directed, as directed on package labeling, X 6 day(s), # 21 tab(s), Refills(s) 0, Pharmacy: [facility] #[id number], 179, cm, 09/17/24 9:01:00 EST, Height/Length Dosing, 95.1, kg, 09/17/24 9:01:00 EST, Weight Dosing [facility] Outpatient Occupational Therapy Evaluate Patient, Develop a Plan of Care, & Implement Plan 3. HTN (hypertension) (I10: Essential (primary) hypertension) Blood pressure monitoring to continue; the discussion will include advisories if steroid treatment begins, as it could affect blood pressure. Ordered: methylPREDNISolone, = 1 packet(s), Oral, As Directed, as directed on package labeling, X 6 day(s), # 21 tab(s), Refills(s) 0, Pharmacy: [facility] #[id number], 179, cm, 09/17/24 9:01:00 EST, Height/Length Dosing, 95.1, kg, 09/17/24 9:01:00 EST, Weight Dosing [facility] Outpatient Occupational Therapy Evaluate Patient, Develop a Plan of Care, & Implement Plan Occupational Therapy Evaluation - External Facility 4. BMI 29.0-29.9,adult (Z68.29: Body mass index [BMI] 29.0-29.9, adult) Continue monitoring and addressing lifestyle changes such as diet and exercise to aid weight management. Ordered: methylPREDNISolone, = 1 packet(s), Oral, As Directed, as directed on package labeling, X 6 day(s), # 21 tab(s), Refills(s) 0, Pharmacy: [facility] #[id number], 179, cm, 09/17/24 9:01:00 EST, Height/Length Dosing, 95.1, kg, 09/17/24 9:01:00 EST, Weight Dosing [facility] Outpatient Occupational Therapy Evaluate Patient, Develop a Plan of Care, & Implement Plan Occupational Therapy Evaluation - External Facility 5. Overweight (BMI 25.0-29.9) (E66.3: Overweight) Diet and exercise advised Ordered: methy (more content not included)... Normal [facility] Comment on above: Result Comment: Elec tronically Signed By: Parminder LONGO, Denzel Palmabr\Date and Time Signed: 09/17/24 09:27 EST Nonvisit Note - PTon 025 Nonvisit Note - PT Nonvisit Note - PT Called following the appointment time to cancel due to confusing appointment times. Normal [facility] Nonvisit Note - PTon 025 Nonvisit Note - PT Nonvisit Note - PT Patient is sick and requested to cancel this appointment. Normal [facility] Nonvisit Note - PTon 07-31- 024 Nonvisit Note - PT Nonvisit Note - PT Patient is sick and requested to cancel. Normal [facility] [place] 06-01-2024 L Specimen: [id number] Received: 06/02/24 Status: NOHELIA Stewart Num: [id number] Spec Type: Surgical Subm Dr: William Singh DPM, MS Tissues: A Osteochondroma (OSTEOCHONDRAL DEFECT RT ANKL) Procedures: HE, Gross/Micro L4 Age/ Patient Sex Location Account Attending Physician Tessie Vargas 29/M [facility] [id number] William Singh DPM, MS SPEC NUM: [id number] RECD: 06/02/24 STATUS: NOHELIA STEWART NUM: [id number] NATY: 06/01/[address]: William Singh DPM, MS ENTERED: 06/02/[address]: Gokul Limon SPEC TYPE: Surgical DEPT: [facility] ENTERED BY: [id number] RECV BY: [id number] ORDERED: HE, Gross/Micro L4 ORDERED: HE, Gross/Micro L4 Pathological Diagnosis Right ankle, tissue, excision: - Degenerative cartilaginous tissue. Clinical Information Right ankle instability, osteochondritis Gross Description The specimen is received in formalin with the patient's name and osteochondral defect right ankle and consists of two portions of white cartilage tissue measuring 0.6 and 1.0 cm in greatest dimension. The largest portion is trisected. The specimen is entirely submitted in cassette A1. Microscopic Description Microscopic examination is performed. CPT Codes 79405 ---- ---- Specimen: [id number] Received: 06/02/24 Status: NOHELIA Stewart Num: [id number] Spec Type: Surgical Subm Dr: William Singh,MARTIN, MS Tissues: A Osteochondroma (OSTEOCHONDRAL DEFECT RT ANKL) Procedures: Faby PAEZ/Ochoa Rowe ---- Patient: Tessie Vargas [id number] (Continued) ---- Signed (signature on file) Milo Macias MD 06/03/24 1424 Normal [facility] XR foot RT min 3V*on 024 XR foot RT min 3V* [facility] [place] [address] XRay Report Signed Patient: Tessie Vargas MR#: [id number] : 1995 Acct:[id number] Age/Sex: 28 / M ADM Date: 03/18/24 Loc: [id number] Room: Type: [facility] Attending Dr: Lacie Alexander [employer]ER Copies to: Lacie Alexander APRN Ordering Provider: Lacie Alexander APRN Date of Service: 03/18/24 XR/XR foot RT min 3V*: S99.911A - Unspecified injury of right ankle, initial enc... ([id number]) XR/XR ankle RT min 3V*: S99.911A - [...] De Leon M.D.03/18/2024 5:07 PM Dictation Location: [place] [address] Transcribed By: [facility] 03/18/241706 Dictated By: Sagar De Leon DO 03/18/241705 Signed By: 03/18/241706 Normal [facility] CBC AUTO DIFFon 07-26-2018 Basophils Auto #/vol (Bld) 0.0 103/ul Normal 0.0-0.[address] [facility] Comment on above: Performed By: #### C BC ####[facility] [address] [place], [place] [address]Gerken Rosemary Basophils/100 WBC Auto (Bld) 0.6 % Normal 0.2-2.[address] [facility] Comment on above: Performed By: #### C BC ####[facility] [address] [place] [address] Rosemary Eosinophils Auto #/vol (Bld) 0.2 103/ul Normal 0.0-0.7 [facility] Comment on above: Performed By: #### C BC ####[facility] [address] [place], [place] [address]Gerken Rosemary Eosinophils/100 WBC Auto (Bld) 3.3 % Normal 0.9-7.[address] [facility] Comment on above: Performed By: #### C BC ####[facility] [address] [place] [address] Rosemary Erythrocyte distribution width Auto Ratio (RBC) 11.4 % Normal 11.0-15.[address] [facility] Comment on above: Performed By: #### C BC ####[facility] [address] [place] [address] Rosemary Hematocrit Auto Volume Fraction (Bld) 50.9 % Normal 42.0-54.0 [facility] Comment on above: Performed By: #### C BC ####[facility] [address] [place], [place] [address]Gerken Rosemary Hemoglobin mass conc (Bld) 18.2 g/dL Critically high 14.0-18.[address] [facility] Comment on above: Result Comment: test repeated delta check value verified Performed By: #### C BC ####[facility] [address] [place], [place] [address]Gerken Rosemary IG # 0.01 10e3/ul Normal 0.00-0.03 [facility] Comment on above: Performed By: #### C BC ####[facility] [address] [place], [place] [address]Gerken Rosemary IG % 0.2 % Normal 0.0-0.[address] [facility] Comment on above: Performed By: #### C BC ####[facility] [address] [place], [place] [address]Muafkp Rosemary Lymphocytes Auto #/vol (Bld) 2.8 103/ul Normal 1.2-3.[address] [facility] Comment on above: Performed By: #### C BC ####[facility] [address] [place], [place] [address]Mnzxgs Rosemary Lymphocytes/100 WBC Auto (Bld) 50.8 % Normal 20.5-60.[address] [facility] Comment on above: Performed By: #### C BC ####[facility] [address] [place], [place] [address]Gerken Rosemary MANUAL DIFF REQ NO Normal [facility] Comment on above: Performed By: #### C BC ####[facility] [address] [place], [place] [address]Gerken Rosemary MCH Auto Entitic mass (RBC) 33.3 pg Normal 25.9-34.0 [facility] Comment on above: Performed By: #### C BC ####[facility] [address] [place], [place] [address]Gerken Rosemary MCHC Auto mass conc (RBC) 35.8 g/dL Critically high 29.9-35.2 [facility] Comment on above: Performed By: #### C BC ####[facility] [address] [place], [place] [address]Gerken Rosemary MCV Auto Entitic volume (RBC) 93.2 fL Normal 80.0-94.0 [facility] Comment on above: Performed By: #### C BC ####[facility] [address] [place] [address]Nfrgym Rosemary Monocytes Auto #/vol (Bld) 0.4 103/ul Normal 0.3-0.8 [facility] Comment on above: Performed By: #### C BC ####[facility] [address] [place], [place] [address]Gerken Rosemary Monocytes/100 WBC Auto (Bld) 7.0 % Normal 1.7-12.0 [facility] Comment on above: Performed By: #### C BC ####[facility] [address] [place], [place] [address]Cltyxa Rosemary Neutrophils Auto #/vol (Bld) 2.1 103/ul Normal 1.4-6.5 [facility] Comment on above: Performed By: #### C BC ####[facility] [address] [place], [place] [address]Ogcphz Rosemary Neutrophils/100 WBC Auto (Bld) 38.1 % Critically low 43.0-75.0 [facility] Comment on above: Performed By: #### C BC ####[facility] [address] [place], [place] [address]Bnipkp Rosemary Platelet mean volume Auto Entitic volume (Bld) 8.9 fL Critically low 9.5-13.5 [facility] Comment on above: Performed By: #### C BC ####[facility] [address] [place], [place] [address]Gerken Rosemary Platelets Auto #/vol (Bld) 276 103/ul Normal 150-450 [facility] Comment on above: Performed By: #### C BC ####[facility] [address] [place], [place] [address]Gerken Rosemary RBC Auto #/vol (Bld) 5.46 106/ul Normal 4.70-6.10 [facility] Comment on above: Performed By: #### C BC ####[facility] [address] [place], [place] [address]Gerken Rosemary WBC Auto #/vol (Bld) 5.5 103/ul Normal 4.0-11.0 [facility] Comment on above: Performed By: #### C BC ####[facility] Urgccsofvf6412 [place], [place] [address]Fpeuuy Karen GLYCOHEMOGLOBIN A1Con 2017 Glucose mass conc 97 mg/dL Normal [facility] Comment on above: Performed By: #### A 1C ####[facility] U[address] [place], [place] [address]Germichelle Riley Hemoglobin A1c/Hemoglobin.total mass fraction (Bld) 5.0 % Normal <=6.0 [facility] Comment on above: Performed By: #### A 1C ####[facility] Pnjztejzjt9976 [place], [place] [address]Tjfpnh Rosemary LIPID PROFILEon 07-26-2018 CHOL-HDL RATIO NORM SEE BELOW Normal [facility] Comment on above: Result Comment: 3.3 - 4.4 LOW RISK 4.4 - 7.1 AVERAGE RISK 7.1 - 11.0 MODERATE RISK >11.0 HIGH RISK Performed By: #### C T/NGNA ####[facility] Wkogoicarb4702 [place], [place] [address]Jgmnzs Rosemary Cholesterol in HDL mass conc > or = 60 mg/dl - LOW CARDIOVASCULAR RISK <40 mg/dl - HIGH CARDIOVASCULAR RISK Normal [facility] Comment on above: Performed By: #### C T/NGNA ####[facility] Vcvnflhiom9387 [place], [place] [address]Mdmrux Rosemary Cholesterol in HDL mass conc 61 mg/dL Normal [facility] Comment on above: Performed By: #### C T/NGNA ####[facility] Qwsweeekqc1458 [place], [place] [address]Pwtrrw Rosemary Cholesterol in LDL mass conc SEE BELOW Normal [facility] Comment on above: Result Comment: <100 mg/dl OPTIMAL 100 - 129 mg/dl NEAR OR ABOVE OPTIMAL 130 - 159 mg/dl BORDERLINE HIGH 160 - 189 mg/dl HIGH >190 mg/dl VERY HIGH Performed By: #### C T/NGNA ####[facility] Gkfzwjhoel8640 [place], [place] [address]Tufqyc Rosemary Cholesterol in LDL mass conc 62.8 mg/dL Normal [facility] Comment on above: Performed By: #### C T/NGNA ####[facility] Dcfchrtnhy0640 [place], [place] [address]Ujwwdl Rosemary Cholesterol mass conc 131 mg/dL Normal <=[address] [facility] Comment on above: Performed By: #### C T/NGNA ####[facility] Rlncdorowb8998 [place], [place] [address]Fdlmvt Rosemary Cholesterol.total/Cho lesterol in HDL mass ratio 2.1 {ratio} Normal [facility] Comment on above: Performed By: #### C T/NGNA ####[facility] Nyiroicuhf6205 [place] [id number] [place] Triglyceride mass conc 36 mg/dL Normal <=[address] [facility] Comment on above: Performed By: #### C T/NGNA ####[facility] Gobzflaieg3114 [place] [id number] [place] VLDL CALC 7.2 mg/dL Normal [facility] Comment on above: Performed By: #### C T/NGNA ####[facility] Ufavsgnsrf5880 [place] [phone] [place] PROF 14(COMP METB)on 018 Albumin mass conc 4.8 g/dL Normal 3.5-5.0 [facility] Comment on above: Performed By: #### C T/NGNA ####[facility] Ljialxdzcx3622 [address] [place] Albumin/Globulin mass ratio 1.3 {ratio} Normal [facility] Comment on above: Performed By: #### C T/NGNA ####[facility] Vgtarbbaxe5370 [place] [id number] [place] ALP enzyme act/vol 66 U/L Normal 38-126 [facility] Comment on above: Performed By: #### C T/NGNA ####[facility] Gshmrovvre4554 [place] [phone] [place] ALT enzyme act/vol 21 U/L Normal 21-72 [facility] Comment on above: Performed By: #### C T/NGNA ####[facility] Rlorkiquxe7763 [place] [phone] [place] Anion gap 3 molar conc 11.8 mmol/L Normal [facility] Comment on above: Performed By: #### C T/NGNA ####[facility] Eocvwjlgku3301 [place] [phone] [place] AST enzyme act/vol 17 U/L Normal 17-59 [facility] Comment on above: Performed By: #### C T/NGNA ####[facility] Ibzlaqaqsy2381 [address] [place] Bilirubin Ql (U) 0.4 mg/dL Normal 0.2-1.3 [facility] Comment on above: Performed By: #### C T/NGNA ####[facility] Daukitgehz6571 [address] [place] Calcium mass conc 9.9 mg/dL Normal 8.4-10.2 [facility] Comment on above: Performed By: #### C T/NGNA ####[facility] Oqauscgnyq0888 [address] [place] Chloride molar conc 102 mmol/L Normal 98-107 [facility] Comment on above: Performed By: #### C T/NGNA ####[facility] [address] [place] [address] Rose[place] CO2 molar conc 33.0 mmol/L Critically high 22.0-30.0 [facility] Comment on above: Performed By: #### C T/NGNA ####[facility] [address] [place] [address] Rose[place] Creatinine mass conc 0.96 mg/dL Normal 0.66-1.25 [facility] Comment on above: Performed By: #### C T/NGNA ####[facility] V[address]isf[address] [place] [address] [place] EGFR-AF DJIBOUTIAN >60 Normal >=60 [facility] Comment on above: Performed By: #### C T/NGNA ####[facility] Ykmnqndkfw9964 [place] [phone] [place] EGFR-NON AF DJIBOUTIAN >60 Normal >=60 [facility] Comment on above: Performed By: #### C T/NGNA ####[facility] Tur[address]yanrd[address] [place] [address] [place] Globulin Calculated mass conc (S) 3.7 g/dL Normal [facility] Comment on above: Performed By: #### C T/NGNA ####[facility] Bchdshijis4502 [place] [phone] [place] Glucose mass conc 92 mg/dL Normal 74-106 [facility] Comment on above: Performed By: #### C T/NGNA ####[facility] Yzdciwnhat7898 [address] [place] Potassium molar conc 3.8 mmol/L Normal 3.4-5.[address] [facility] Comment on above: Performed By: #### C T/NGNA ####[facility] Npdrpqbhtt2587 [address] [place] Protein mass conc 8.5 g/dL Critically high 6.1-8.2 Th e [facility] Comment on above: Performed By: #### C T/NGNA ####[facility] Qzzqjkyrjd5822 [address] [place] Sodium molar conc 143 mmol/L Normal 137-145 [facility] Comment on above: Performed By: #### C T/NGNA ####[facility] Jltelxzuov6338 [address] [place] Urea nitrogen mass conc 8.0 mg/dL Critically low 9.0-20.[address] [facility] Comment on above: Performed By: #### C T/NGNA ####[facility] Snwiytrazg2569 [address] [place] Urea nitrogen/Creatinine mass ratio 8.3 mg/mg Normal [facility] Comment on above: Performed By: #### C T/NGNA ####[facility] Zqmregfiwq4092 [place] [phone] [place] TSHon 07-26-2018 Thyrotropin Qn 1.145 uIU/mL Normal 0.470-4.680 [facility] Comment on above: Performed By: #### C T/NGNA ####[facility] Vvcfmmjxpu5519 [address] [place] Thyrotropin Qn SEE BELOW Normal [facility] Comment on above: Result Comment: <0.3 4 UIU/ml HYPERTHYROID 0.34-5.60 UIU/ml EUTHYROID >5.60 UIU/ml HYPOTHYROID Performed By: #### C T/NGNA ####[facility] Ldgifxbpbr26[address] [place] CARDIAC MISAEL ADMITon 018 CK enzyme act/vol 110 U/L Normal 55-170 [facility] Comment on above: Performed By: #### C YOSEF, CORI ####[facility] [address] [place] [address] [place] CK.MB mass conc 0.87 ng/mL Normal <=2.37 [facility] Comment on above: Performed By: #### C YOSEF, CORI ####[facility] [address] [place] [address] [place] INR Coag RelTime (Bld) SEE BELOW Normal [facility] Comment on above: Result Comment: <0.0 34 ng/ml NEGATIVE 0.034-0.119 INDETERMINATE 0.120 AMI CUT OFF Performed By: #### C CORI NAVAS ####[facility] [address] [place] [address] [place] OUMAR 29.0 ng/mL Normal <=121.0 [facility] Comment on above: Performed By: #### C CORI NAVAS ####[facility] [address]xus[address] [place] [address] [place] TROP <0.017 Normal <=0.034 [facility] Comment on above: Performed By: #### C CORI NAVAS ####[facility] [address] [place] [address] [place] CBC AUTO DIFFon 07-24-2018 Basophils Auto #/vol (Bld) 0.0 103/ul Normal 0.0-0.1 [facility] Comment on above: Performed By: #### C BC ####[facility] [address] [place] [address] [place] Basophils/100 WBC Auto (Bld) 0.6 % Normal 0.2-2.0 [facility] Comment on above: Performed By: #### C BC ####[facility] [address] [place] [address] [place] Eosinophils Auto #/vol (Bld) 0.2 103/ul Normal 0.0-0.7 [facility] Comment on above: Performed By: #### C BC ####[facility] [address]wcftgrz[address] [place], [place] [address]Gerken [place] Eosinophils/100 WBC Auto (Bld) 3.3 % Normal 0.9-7.0 [facility] Comment on above: Performed By: #### C BC ####[facility] Jhbnuaucmn[address] [place], [place] [address]Gerken [place] Erythrocyte distribution width Auto Ratio (RBC) 11.3 % Normal 11.0-15.0 [facility] Comment on above: Performed By: #### C BC ####[facility] [address] [place] [address] [place] Hematocrit Auto Volume Fraction (Bld) 44.6 % Normal 42.0-54.0 [facility] Comment on above: Performed By: #### C BC ####[facility] N[address]cb[address] [place], [place] [address]Gerken Rose[place] Hemoglobin mass conc (Bld) 15.7 g/dL Normal 14.0-18.0 [facility] Comment on above: Performed By: #### C BC ####[facility] [address]qbehtzz[address] [place], [place] [address]Gerken [place] IG # 0.01 10e3/ul Normal 0.00-0.03 [facility] Comment on above: Performed By: #### C BC ####[facility] Zarvyjzoyr[address] [place], [place] [address]Gerken [place] IG % 0.2 % Normal 0.0-0.5 [facility] Comment on above: Performed By: #### C BC ####[facility] Aeqpmufxgj[address] [place], [place] [address]Gerken [place] Lymphocytes Auto #/vol (Bld) 1.8 103/ul Normal 1.2-3.8 [facility] Comment on above: Performed By: #### C BC ####[facility] Xcgrrbgket0164 [place], [place] [address]Mgqjsa Rosemary Lymphocytes/100 WBC Auto (Bld) 37.0 % Normal 20.5-60.0 [facility] Comment on above: Performed By: #### C BC ####[facility] Xtmokgclsh1855 [place], [place] [address]Bynuau Rosemary MANUAL DIFF REQ NO Normal [facility] Comment on above: Performed By: #### C BC ####[facility] Jhcwhvhujb8433 [place] [phone] [place] MCH Auto Entitic mass (RBC) 32.8 pg Normal 25.9-34.0 [facility] Comment on above: Performed By: #### C BC ####[facility] [address]vc[address]rr[address] [place], [place] [address]Gerken [place]mary MCHC Auto mass conc (RBC) 35.2 g/dL Normal 29.9-35.2 [facility] Comment on above: Performed By: #### C BC ####[facility] [address]lexm[address] [place], [place] [address]Gerken [place]mary MCV Auto Entitic volume (RBC) 93.1 fL Normal 80.0-94.0 [facility] Comment on above: Performed By: #### C BC ####[facility] Zsjunbzoiv[address] [place], [place] [address]Gerken [place] Monocytes Auto #/vol (Bld) 0.7 103/ul Normal 0.3-0.8 [facility] Comment on above: Performed By: #### C BC ####[facility] [address] [place] [address]Mqjgzw Rose[place] Monocytes/100 WBC Auto (Bld) 14.9 % Critically high 1.7-12.0 [facility] Comment on above: Performed By: #### C BC ####[facility] [address]vxkw[address] [place], [place] [address]Gerken Rosemary Neutrophils Auto #/vol (Bld) 2.1 103/ul Normal 1.4-6.5 [facility] Comment on above: Performed By: #### C BC ####[facility] Epervztced8705 [place], [place] [address]Lmavmb Karen Neutrophils/100 WBC Auto (Bld) 44.0 % Normal 43.0-75.0 [facility] Comment on above: Performed By: #### C BC ####[facility] Lfvvsekqrw8849 [place], [place] [address]OzvcjuChao Riley Platelet mean volume Auto Entitic volume (Bld) 8.8 fL Critically low 9.5-13.5 [facility] Comment on above: Performed By: #### C BC ####[facility] [address] [place] [address]Qefxou [place] Platelets Auto #/vol (Bld) 238 103/ul Normal 150-450 [facility] Comment on above: Performed By: #### C BC ####[facility] [address] [place] [address]Djxswt Rosemary RBC Auto #/vol (Bld) 4.79 106/ul Normal 4.70-6.10 [facility] Comment on above: Performed By: #### C BC ####[facility] [address] [place] [address]Ulspuw Rosemary WBC Auto #/vol (Bld) 4.8 103/ul Normal 4.0-11.0 [facility] Comment on above: Performed By: #### C BC ####[facility] [address] [place] [address]Rdrivi Rosemary D-DIMERon 07-24-2018 D-DIMER COMMENTS SEE BELOW Normal [facility] Comment on above: Result Comment: Incr [...] generalizd hospitalization. Performed By: #### D DIM ####[facility] [address] [place] [address]Qqidpk Rosemary Fibrin D-dimer FEU IA mass conc (Bld) 0.19 ug/mL Normal 0.19-0.[address] [facility] Comment on above: Performed By: #### D AJAY ####[facility] Whvwbcmcqt1655 [place] [phone] [place] PROF 14(COMP METB)on 018 Albumin mass conc 3.8 g/dL Normal 3.5-5.0 [facility] Comment on above: Performed By: #### C CORI NAVAS ####[facility] Vegidqrajl4865 [address] [place] Albumin/Globulin mass ratio 1.0 {ratio} Normal [facility] Comment on above: Performed By: #### C CORI NAVAS ####[facility] Eppqaapcbk6207 [place] [address]Gerken [place] ALP enzyme act/vol 60 U/L Normal 38-126 [facility] Comment on above: Performed By: #### C CORI NAVAS ####[facility] Azqzdkbhbi7008 [place] [phone] [place] ALT enzyme act/vol 19 U/L Critically low 21-72 [facility] Comment on above: Performed By: #### C CORI NAVAS ####[facility] Otaijfvoiv7787 [place] [phone] [place] Anion gap 3 molar conc 10.2 mmol/L Normal [facility] Comment on above: Performed By: #### C CORI NAVAS ####[facility] Cqrzdfrscz8168 [place] [address]Gerken [place] AST enzyme act/vol 14 U/L Critically low 17-59 [facility] Comment on above: Performed By: #### C CORI NAVAS ####[facility] Nyeidacpdm8236 [place] [address]Ger[place] Bilirubin Ql (U) 0.4 mg/dL Normal 0.2-1.3 [facility] Comment on above: Performed By: #### C CORI NAVAS ####[facility] Gswshvyoay5055 [place], [place] [address]Rybotx [place] Calcium mass conc 9.4 mg/dL Normal 8.4-10.2 [facility] Comment on above: Performed By: #### C YOSEF, CORI ####[facility] Mpdomvrrod8806 [place], [place] [address]Vxaiae [place] Chloride molar conc 105 mmol/L Normal 98-107 [facility] Comment on above: Performed By: #### C YOSEF, CORI ####[facility] Otijdnfvhf0313 [place] [address]Gerken [place] CO2 molar conc 28.5 mmol/L Normal 22.0-30.0 [facility] Comment on above: Performed By: #### C CORI NAVAS ####[facility] Cuklltxhur5715 [place] [address]Gerken [place] Creatinine mass conc 0.95 mg/dL Normal 0.66-1.25 [facility] Comment on above: Performed By: #### C YOSEF, CORI ####[facility] Ibgszwkvea6476 [place], [place] [address]Kfqzum [place] EGFR-AF DJIBOUTIAN >60 Normal >=60 [facility] Comment on above: Performed By: #### C YOSEF, CORI ####[facility] Zmmgjaxhyv1616 [place] [address]Gerken [place] EGFR-NON AF DJIBOUTIAN >60 Normal >=60 [facility] Comment on above: Performed By: #### C YOSEF, CORI ####[facility] Sjganyimqt4613 [place] [address]Gerken [place] Globulin Calculated mass conc (S) 3.7 g/dL Normal [facility] Comment on above: Performed By: #### C YOSEF, CORI ####[facility] Wkbrbqkdgi6955 [place], [place] [address]Vbybws [place] Glucose mass conc 104 mg/dL Normal 74-106 [facility] Comment on above: Performed By: #### C YOSEF, CORI ####[facility] [address] [place], [place] [address]Gerken [place] Potassium molar conc 3.7 mmol/L Normal 3.4-5.[address] [facility] Comment on above: Performed By: #### C YOSEF, CMADM ####[facility] Zwbmidbfhg3596 [place] [address]Germichelle Riley Protein mass conc 7.5 g/dL Normal 6.1-8.2 [facility] Comment on above: Performed By: #### C YOSEF, CMADM ####[facility] Dsmrwlpwgx5627 [place], [place] [address]Pfukac Karen Sodium molar conc 140 mmol/L Normal 137-145 [facility] Comment on above: Performed By: #### C YOSEF, CMADM ####[facility] Tkdwopnbem6130 [place] [address]Gerken [place] Urea nitrogen mass conc 10.0 mg/dL Normal 9.0-20.[address] [facility] Comment on above: Performed By: #### C YOSEF, CMADM ####[facility] Kgqzlmloqr5828 [place] [phone] [place] Urea nitrogen/Creatinine mass ratio 10.5 mg/mg Normal [facility] Comment on above: Performed By: #### C YOSEF, CMADM ####[facility] Epmpnzadfj4224 [place] [phone] [place] XR CHEST 2 Von 07-24-2018 XR CHEST [address] [place] [id number] Patient: TESSIE VARGAS Exam Date: 07/24/2018DOB: 1995 Gender:M : DR SHAKILA HARMON Admission #: [id number] : Order #: [id number] HERE TO VIEW EXAM RADIOLOGY REPORT PROCEDURE: [...] M.D. on 07/24/2018 at 07:47 Normal [facility] XR ELBOW RT MIN 3 VIEWSon XR ELBOW RT MIN 3 VIEWS [address] [place] [address] Patient: TESSIE VARGAS Exam Date: 05/05/2018DOB: 1995 Gender:M : POLY PANG Admission #: [id number] : DR MARTHA GRECO . Order #: [id number] HERE TO VIEW EXAM RADIOLOGY REPORT PROCEDURE: RADIOGRAPH ELBOW RIGHT MIN 3 VIEWS COMPARISON: None. INDICATIONS: Acute pain of right elbow joint, no injury FINDINGS: BONES: No fracture, acute abnormality, or significant arthropathy. SOFT TISSUES: No visible soft tissue swelling or radiopaque foreign body. EFFUSION: None visible. OTHER: Negative. CONCLUSION: Normal examination. Dictated by: Patti Troncoso M.D. on 05/05/2018 at 16:33 Approved by: Patti Troncoso M.D. on 05/05/2018 at 16:35 Normal [facility] CHLAMYDIA/GONOCOCCUS YENNIFER W/C ONF. (SWAB/Uon 11-22-2017 Chlamydia Trach YENNIFER Negative Normal Negative [facility] Comment on above: Performed By: #### C T/NGNA ####[facility] Jqu[address]pcsmc[address] Gonorrhoeae YENNIFER Negative Normal Negative [facility] Comment on above: Performed By: #### C T/NGNA ####[facility] Zrxbrjsixp[address] ER URINE PROFILEon 8 BILIRUBIN Negative Normal NEGATIVE [facility] Comment on above: Performed By: #### E RUR ####[facility] Jgpczkrnvd[address] [place] BLOOD Negative Normal NEGATIVE [facility] Comment on above: Performed By: #### E RUR ####[facility] Lagakreydv5363 [place] [phone] [place] CLARITY CLEAR Normal [facility] Comment on above: Performed By: #### E RUR ####[facility] Vqbtafsqrh0257 [place] [phone] [place] COLOR LT. YELLOW Normal YELLOW [facility] Comment on above: Performed By: #### E RUR ####[facility] Ggfipyadjf5901 [place] [phone] [place] ERUAHD A micrscopic examination will be performed if indicated. Normal [facility] Comment on above: Performed By: #### E RUR ####[facility] [address] [place] [address] [place] GLUCOSE Negative Normal NEGATIVE [facility] Comment on above: Performed By: #### E RUR ####[facility] [address] [place] [address] [place] KETONES TRACE Normal NEGATIVE [facility] Comment on above: Performed By: #### E RUR ####[facility] [address] [place] [address] [place] LEUKOCYTES Negative Normal NEGATIVE [facility] Comment on above: Performed By: #### E RUR ####[facility] Fcshydopew1796 [address] [place] NITRITE Negative Normal NEGATIVE [facility] [facility] Comment on above: Performed By: #### E RUR ####[facility] [id number] [place] pH 8.0 Normal 5-9 [facility] Comment on above: Performed By: #### E RUR ####[facility] [id number] [address] [place] Protein mass conc Negative Normal [facility] Comment on above: Performed By: #### E RUR ####[facility] [id number] [address] [place] SPEC GRAVITY 1.015 Normal 1.005-<=1.[address] [facility] Comment on above: Performed By: #### E RUR ####[facility] [id number] [place], [place] [address]Ihniyo [place] UR MICRO IND NOT INDICATED Normal [facility] Comment on above: Performed By: #### E RUR ####[facility] [id number] [place], [place] [address]Advbsq [place] UROBILINOGEN 0.2 EU/dl Normal [facility] Comment on above: Performed By: #### E RUR ####[facility] [id number] [place], [place] [address]Wlwcri [place] Vital Signs Date Time Vital Sign Value Performing Clinician Facility 03-17-2025 09:45-0400 Body height 180.3 cm Allyssa Pocos DO Work Phone: [facility] 03-17-2025 09:45-0400 Body mass index (BMI) [Ratio] 25.1 kg/m2 Allyssa Pocos DO Work Phone: [facility] 03-17-2025 09:45-0400 Body weight 81.65 kg Allyssa Pocos DO Work Phone: [facility] 02-10-2025 10:50-0400 Body height 180.3 cm Allyssa Pocos DO Work Phone: [facility] 02-10-2025 10:50-0400 Body mass index (BMI) [Ratio] 25.1 kg/m2 Allyssa Pocos DO Work Phone: [facility] 02-10-2025 10:50-0400 Body weight 81.65 kg Allyssa Pocos DO Work Phone: [facility] 03-18-2024 15:50-0400 Body height 182.88 cm MD Denzel Bridges Work Phone: [facility] 03-18-2024 15:50-0400 Body mass index (BMI) [Ratio] 28.5 kg/m2 MD Denzel Bridges Work Phone: [facility] 03-18-2024 15:50-0400 Body temperature 98.4 [degF] MD Denzel Bridges Work Phone: [facility] 03-18-2024 15:50-0400 Body weight 95.25 kg MD Denzel Bridges Work Phone: [facility] 03-18-2024 15:50-0400 Diastolic blood pressure 87 mm[Hg] MD Denzel Bridges Work Phone: [facility] 03-18-2024 15:50-0400 Heart rate 81 /min MD Denzel Bridges Work Phone: [facility] 03-18-2024 15:50-0400 SaO2% (BldA) [Mass fraction] 97 % MD Denzel Bridges Work Phone: [facility] 03-18-2024 15:50-0400 Systolic blood pressure 137 mm[Hg] MD Denzel Bridges Work Phone: [facility] 12-10-2022 08:11-0400 Body height 182.88 cm MD Denzel Bridges Work Phone: [facility] 12-10-2022 08:11-0400 Body temperature 97.5 [degF] MD Denzel Bridges Work Phone: [facility] 12-10-2022 08:11-0400 Body weight 101.6 kg MD Denzel Bridges Work Phone: [facility] 12-10-2022 08:11-0400 Diastolic blood pressure 80 mm[Hg] MD Denzel Bridges Work Phone: [facility] 12-10-2022 08:11-0400 Heart rate 98 /min MD Denzel Bridges Work Phone: [facility] 12-10-2022 08:11-0400 Respiratory rate 18 /min MD Denzel Bridges Work Phone: [facility] 12-10-2022 08:11-0400 SaO2% (BldA) [Mass fraction] 100 % MD Denzel Bridges Work Phone: [facility] 12-10-2022 08:11-0400 Systolic blood pressure 133 mm[Hg] MD Denzel Bridges Work Phone: [facility] Encounters Encounter Date Encounter Type Care Provider Facility Start: 11-17-2025 ambulatory Tessie Moe Facili ty:[facility] Start: 04-08-2025 End: 04-08-2025 ambulatory Tessie Moe Facility:[facility] Start: 04-08-2025 End: 04-08-2025 Patient encounter procedure Tessie Moe [employer] [facility] Start: 04-06-2025 End: 04-08-2025 Clinisync Result Encounter Nir Pocos DO Work Phone: [facility] Unsolic[facility] Start: 04-06-2025 End: 04-08-2025 Clinisync Result Encounter Nir Pocos DO Work Phone: [facility]olic[facility] Start: 04-06-2025 End: 04-06-2025 ambulatory Allyssa Meneses Pocos Facility:[facility] Start: 04-05-2025 ambulatory Denzel Bridges Facility :[facility] Start: 03-19-2025 End: 03-19-2025 ambulatory Tessie Moe Facility:[facility] Start: 03-19-2025 End: 03-19-2025 Patient encounter procedure Tessie Moe [employer] [facility] Start: 03-17-2025 End: 03-17-2025 Bamboo flowsheet Nir Pocos DO Work Phone: [facility] Start: 03-17-2025 End: 03-17-2025 Bamboo flowsheet Nir Pocos DO Work Phone: [facility] Start: 03-17-2025 End: 03-17-2025 Patient encounter procedure Inr Pocos DO Work Phone: [facility] Comment on above: TFCC (triangular fib rocartilage complex) tear, right, subsequent encounter (Primary Dx); Ulnar tunnel syndrome of right wrist Start: 03-17-2025 End: 03-17-2025 ambulatory NIR POCOS Not Available Start: 03-16-2025 End: 03-16-2025 ambulatory Tessie Moe Facility:[facility] Start: 03-16-2025 End: 03-16-2025 Patient encounter procedure Tessie Moe [employer] [facility] Start: 02-15-2025 End: 02-15-2025 Emergency department patient visit Imelda Ridley [facility] Start: 02-10-2025 End: 02-10-2025 Patient encounter procedure Nir Pocos DO Work Phone: [facility] Comment on above: Right wrist pain (Pr imary Dx); TFCC (triangular fibrocartilage complex) injury, right, initial encounter; Primary osteoarthritis of both knees; Posterior tibial tendinitis of right leg Start: 02-10-2025 End: 02-10-2025 ambulatory ALLYSSA Meneses POCOS Not Available Start: 02-10-2025 End: 02-10-2025 ambulatory ALLYSSA Meneses POCOS Not Available Start: 02-02-2025 End: 02-02-2025 ambulatory Tessie Moe Facility:[facility] Start: 02-02-2025 End: 02-02-2025 Patient encounter procedure Tessie Moe [employer] [facility] Start: 01-28-2025 End: 01-28-2025 ambulatory Tessie Moe Facility:[facility] Start: 01-28-2025 End: 01-28-2025 Patient encounter procedure Tessie Moe [employer] [facility] Start: 01-25-2025 End: 01-25-2025 ambulatory Tessie Moe Facility:[facility] Start: 01-25-2025 End: 01-25-2025 Patient encounter procedure Tessie Moe [employer] [facility] Start: 01-06-2025 End: 01-06-2025 ambulatory Tessie Talya Moe Facility:[facility] Start: 01-06-2025 End: 01-06-2025 Patient encounter procedure Tessie Moe [employer] [facility] Start: 01-05-2025 End: 01-05-2025 ambulatory Sherman Hart Facility:[facility] Start: 01-05-2025 End: 01-05-2025 Patient encounter procedure Sherman Hart [facility] Start: 11-12-2024 End: 11-12-2024 ambulatory Tessie Talya Moe Facility:[facility] Start: 11-11-2024 ambulatory Sherman Hart Facility: [facility] Start: 11-03-2024 End: 11-03-2024 ambulatory Denzel Bridges Facility: [facility] Start: 10-29-2024 End: 10-29-2024 ambulatory Denzel Bridges Facility:[facility] [place] Start: 10-22-2024 End: 10-22-2024 ambulatory Denzel Bridges Facility:[facility] [place] Start: 09-28-2024 End: 03-31-2025 ambulatory Denzel Bridges Facility:[facility] Start: 09-17-2024 End: 09-17-2024 ambulatory Denzel Bridges Facility:[facility] Start: 07-24-2024 End: 12-09-2024 ambulatory WILLIAM SINGH Facility:[facility] Start: 06-01-2024 End: 06-01-2024 ambulatory MD Denzel Bridges Work Phone: [facility] Work Phone: Start: 06-01-2024 End: 06-01-2024 Departed Referred MD Denzel Bridges Work Phone: [facility] Start: 03-18-2024 End: 03-18-2024 ambulatory MD Denzel Bridges Work Phone: [facility] Work Phone: Start: 03-18-2024 End: 03-18-2024 Patient encounter procedure MD Denzel Bridges Work Phone: [facility] Juan Manuel Work Phone: Start: 12-10-2022 End: 12-10-2022 Emergency department patient visit MD Denzel Bridges Work Phone: [facility] Work Phone: Start: 07-26-2018 End: 07-27-2018 Patient encounter procedure DENZEL BRIDGES Facility:[facility] Start: 07-24-2018 End: 07-24-2018 Patient encounter procedure SHAKILA EDEN Facility:[facility] Start: 05-05-2018 End: 05-05-2018 Patient encounter procedure TAMMY BECKMAN Facility:[facility] Start: 02-15-2018 End: 02-15-2018 Patient encounter procedure MANGO SKAGGS Facility:[facility] Start: 11-06-2017 End: 11-06-2017 Patient encounter procedure MARCO OLSON Facility:[facility] Procedures Date Procedure Procedure Detail Performing Clinician Start: 04-06-2025 XR INJ WRIST ARTHROG MELE RIGHT Allyssa Mneeses Pocos DO Work Phone: Start: 04-06-2025 MR Wrist - right Arthrogram Allyssa Meneses Pocos DO Work Phone: Start: 02-10-2025 Arthrocentesis aspir &/inj interm jt/burs w/o us Allyssa Meneses Pocos DO Work Phone: Start: 02-10-2025 Radex wrist complete minimum 3 views Allyssa Meneses Pocos DO Work Phone: Start: 06-01-2024 Ankle region structu re (body structure) Sherman Hart Start: 03-18-2024 X-ray of right ankle MD Denzel Bridges Work Phone: Start: 03-18-2024 X-ray of right foot MD Denzel Bridges Work Phone: Start: 12-10-2022 X-ray of right ankle MD Denzel Bridges Work Phone: Start: 12-10-2022 X-ray of right foot MD Denzel Bridges Work Phone: Plan of Treatment Date Care Activity Detail Author Start: 04-12-2025 Influenza vaccination Influenza Vacc ine (#1) [facility] Start: 04-09-2025 End: 04-09-2025 Patient encounter procedure 04/09/2025 8:30 AM EDT [facility] [address] [place] [address] Allyssa Carlisle, DO [address] [facility] [place] [address] [facility] Start: 03-17-2025 End: 03-17-2025 Patient encounter procedure [facility] Comment on above: Arrived Patient Education Ankle Sprain ED [facility] Work Phone: Patient referral [facility] Work Phone: XR Wrist - right 3 Views XR wrist 3+ views right Imaging Routine Right wrist pain 02/10/2025 8:12 AM EDT [facility] Work Phone: Immunizations Immunization Date Immunization Notes Care Provider Fa [facility] 07-22-2021 SARS-CoV-2 (COVID-19 ) mRNA BNT-162b2 vax Sherman [facility] 07-01-2021 SARS-CoV-2 (COVID-19 ) mRNA BNT-162b2 vax Sherman Hart [facility] 03-16-1999 DTaP, unspecified formulation Sherman Hart [facility] 03-16-1999 hepatitis B vaccine, pediatric or pediatric/adolescent dosage [facility] 03-16-1999 measles, mumps and rubella virus vaccine [facility] 10-11-1995 DTaP, unspecified formulation [facility] 10-11-1995 Hib, unspecified formulation [facility] 10-11-1995 measles, mumps and rubella virus vaccine [facility] 01-17-1995 hepatitis B vaccine, pediatric or pediatric/adolescent dosage [facility] 01-17-1995 Hib, unspecified formulation [facility] 1994 hepatitis B vaccine, pediatric or pediatric/adolescent dosage [facility] 1994 Hib, unspecified formulation [facility] 1994 hepatitis B vaccine, pediatric or pediatric/adolescent dosage [facility] 1994 Hib, unspecified formulation [facility] NEGATED: Highlighted row has not occurred!11-08-2022 influenza virus vaccine, unspecified formulation [facility] Payers Date Payer Category Payer Private Health Insurance [id number] 2024 Self-pay [id number] 2024 [facility] BCBS [id number] 2024 Unknown [id number] 1994 Unknown [id number] 2.16.840.1.187709.3.579. 2.593 1994 Unknown [id number] 2.16.840.1.848364.3.579. 2.593 1994 Unknown [id number] 2.16.840.1.708836.3.579. 2.593 1994 Unknown [id number] 2.16.840.1.885931.3.579. 2.593 1994 Unknown [id number] 2.16.840.1.485473.3.579. 2.593 1994 Unknown [id number] 2.16.840.1.961360.3.579. 2.1259 1994 Unknown [id number] 2.16.840.1.640882.3.579. 2.1259 1994 Unknown [id number] 2.16.840.1.054500.3.579. 2.9 1994 Unknown [id number] 2.16.840.1.644033.3.579. 2 1994 Unknown [id number] 2.16.840.1.631736.3.579. 2 1994 Unknown [id number] 2.16.840.1.394624.3.579. 2 1994 Unknown [id number] 2.16.840.1.601188.3.579. 2 1994 Unknown [id number] 2.16.840.1.958401.3.579. 2 1994 Unknown [id number] 2.16.840.1.799808.3.579. 2 1994 Unknown [id number] 2.16.840.1.614929.3.579. 2 1994 Unknown [id number] 2.16.840.1.246164.3.579. 2 1994 Unknown [id number] 2.16.840.1.731771.3.579. 2 1994 Unknown [id number] 2.16.840.1.477480.3.579. 2 1994 Unknown [id number] 2.16.840.1.593134.3.579. 2 1994 Unknown [id number] 2.16.840.1.993125.3.579. 2 1994 Unknown [id number] 2.16.840.1.629347.3.579. 2 1994 Unknown [id number] 2.16.840.1.453174.3.579. 2 1994 Unknown [id number] 2.16.840.1.823685.3.579. 2 1994 Unknown [id number] 2.16.840.1.157317.3.579. 2.727 1994 Unknown [id number] 2.16.840.1.218688.3.579. 2.727 1994 Unknown [id number] 2.16.840.1.573003.3.579. 2.727 1994 Unknown [id number] 2.16.840.1.733416.3.579. 2.727 1994 Unknown [id number] 2.16.840.1.952546.3.579. 2.727 1959 Unknown [id number] Private Health Insurance [facility] Insurance Co [id number] Unknown [id number] 2.16.840.1.191433.3.579. 2.531 Unknown [id number] 2.16.840.1.655326.3.579. 2.531 Social History Date Type Detail Facility Start: [facility]10-2022 [facility] Start: 1995 Sex Assigned At Male [facility] Start: 01-06-2025 End: 04-08-2025 Tobacco smoking status Ex-smoker (finding) [facility] Start: 02-15-2025 Tobacco smoking status Never [facility] Sexual Orientation [facility] Start: 02-10-2025 End: 03-17-2025 Sex Assigned At Male [facility] [place] [facility] Start: 10-12-2013 Sex Male (finding) [facility] Start: 02-10-2025 [facility] Start: 02-10-2025 Tobacco use and exposure Smoke less tobacco non-user [facility] Start: 02-10-2025 End: 03-17-2025 Alcoholic beverage intake Ex-drinker (finding) [facility] Start: 02-10-2025 End: 03-17-2025 History of Social function [facility] Start: 1995 Sex assigned at Not on file [facility] Clinical Notes 09-17-2024 to 04-08-2025 Pallavi Paris - 03/17/2025 9:45 AM EDT Note Date & Type Note Facility 04-08-2025 Hospital Discharge instructions Patient Education 04/08/2025 10:28:26 Otitis Media, Adult, Iaee-ia-Agxj Otitis Media, Adult Otitis media is a condition in which the middle ear is red and swollen (inflamed) and full of fluid. The middle ear is the part of the ear that contains bones for hearing as well as air that helps send sounds to the brain. The condition usually goes away on its own. What are the causes? This condition is caused by a blockage in the eustachian tube. This tube connects the middle ear to the back of the nose. It normally allows air into the middle ear. The blockage is caused by fluid or swelling. Problems that can cause blockage include: A cold or infection that affects the nose, mouth, or throat. Allergies. An irritant, such as tobacco smoke. Adenoids that have become large. The adenoids are soft tissue located in the back of the throat, behind the nose and the roof of the mouth. Growth or swelling in the upper part of the throat, just behind the nose (nasopharynx). Damage to the ear caused by a change in pressure. This is called barotrauma. What increases the risk? You are more likely to develop this condition if you: Smoke or are exposed to tobacco smoke. Have an opening in the roof of your mouth (cleft palate). Have acid reflux. Have problems in your body's defense system (immune system). What are the signs or symptoms? Symptoms of this condition include: Ear pain. Fever. Problems with hearing. Being tired. Fluid leaking from the ear. Ringing in the ear. How is this treated? This condition can go away on its own within 3 5 days. But if the condition is caused by germs (bacteria) and does not go away on its own, or if it keeps coming back, your doctor may: Give you antibiotic medicines. Give you medicines for pain. Follow these instructions at home: Take svsu-uki-qumxymz and prescription medicines only as told by your doctor. If you were prescribed an antibiotic medicine, take it as told by your doctor. Do not stop taking it even if you start to feel better. Keep all follow-up visits. Contact a doctor if: You have bleeding from your nose. There is a lump on your neck. You are not feeling better in 5 days. You feel worse instead of better. Get help right away if: You have pain that is not helped with medicine. You have swelling, redness, or pain around your ear. You get a stiff neck. You cannot move part of your face (paralysis). You notice that the bone behind your ear hurts when you touch it. You get a very bad headache. Summary Otitis media means that the middle ear is red, swollen, and full of fluid. This condition usually goes away on its own. If the problem does not go away, treatment may be needed. You may be given medicines to treat the infection or to treat your pain. If you were prescribed an antibiotic medicine, take it as told by your doctor. Do not stop taking it even if you start to feel better. Keep all follow-up visits. This information is not intended to replace advice given to you by your health care provider. Make sure you discuss any questions you have with your health care provider. Document Revised: 11/06/2021 Document Reviewed: 11/06/2021 [employer] Patient Education 2023 Melon #[email or web address]. 04/08/2025 10:28:21 BMI for Adults BMI for Adults Body mass index (BMI) is a number found using a person's weight and height. BMI can help tell how much of a person's weight is made up of fat. BMI does not measure body fat directly. It is used instead of tests that directly measure body fat, which can be difficult and expensive. What are BMI measurements used for? BMI is useful to: Find out if your weight puts you at higher risk for medical problems. Help recommend changes, such as in diet and exercise. This can help you reach a healthy weight. BMI screening can be done again to see if these changes are working. How is BMI calculated? Your height and weight are measured. The BMI is found from those numbers. This can be done with U.S. or metric measurements. Note that charts and online BMI calculators are available to help you find your BMI quickly and easily without doing these calculations. To calculate your BMI in U.S. measurements: 1.Measure your weight in pounds (lb). 2.Multiply the number of pounds by 703. So, for an adult who weighs 150 lb, multiply that number by 703: 150 x 703, which equals 105,450. 3.Measure your height in inches. Then multiply that number by itself to get a measurement called inches squared. So, for an adult who is 70 inches tall, the inches squared measurement is 70 inches x 70 inches, which equals 4,900 inches squared. 4.Divide the total from step 2 (number of lb x 703) by the total from step 3 (inches squared): 105,450 4,900 = 21.5. This is your BMI. To calculate your BMI in metric measurements: 1.Measure your weight in kilograms (kg). For this example, the weight is 70 kg. 2.Measure your height in meters (m). Then multiply that number by itself to get a measurement called meters squared. So, for an adult who is 1.75 m tall, the meters squared measurement is 1.75 m x 1.75 m, which equals 3.1 meters squared. 3.Divide the number of kilograms (your weight) by the meters squared number. In this example: 70 3.1 = 22.6. This is your BMI. What do the results mean? BMI charts are used to see if you are underweight, normal weight, overweight, or obese. The following guidelines will be used: Underweight: BMI less than 18.5. Normal weight: BMI between 18.5 and 24.9. Overweight: BMI between 25 and 29.9. Obese: BMI of 30 or above. BMI is a tool and cannot diagnose a condition. Talk with your health care provider about what your BMI means for you. Keep these notes in mind: Weight includes fat and muscle. Someone with a muscular build, such as an athlete, may have a BMI that is higher than 24.9. In cases like these, BMI is not a correct measure of body fat. If you have a BMI of 25 or higher, your provider may need to do more testing to find out if excess body fat is the cause. BMI is measured the same way for males and females. Females usually have more body fat than males of the same height and weight. Where to find more information For more information about BMI, including tools to quickly find your BMI, go to: Centers for Disease Control and Prevention: cdc.gov [place] [employer]: heart.org National Heart, Lung, and Blood [place]: nhlbi.nih.gov This information is not intended to replace advice given to you by your health care provider. Make sure you discuss any questions you have with your health care provider. Document Revised: 2023 Document Reviewed: 04/11/2023 [employer] Patient Education 2023 Melon #[email or web address]. Follow Up Care 01/06/2025 11:43:59 With:Abhi LEDBETTER, Tessie Babin, UDAY, [facility] Address: [address], [address] [facility] [address] [place] [address] [phone] When: Unknown Comments:as scheduled [facility] 04-08-2025 Note Patient Education ENT Otitis Media, Adult Otitis media is a condition in which the middle ear is red and swollen (inflamed) and full of fluid. The middle ear is the part of the ear that contains bones for hearing as well as air that helps send sounds to the brain. The condition usually goes away on its own. What are the causes? This condition is caused by a blockage in the eustachian tube. This tube connects the middle ear to the back of the nose. It normally allows air into the middle ear. The blockage is caused by fluid or swelling. Problems that can cause blockage include: ??? A cold or infection that affects the nose, mouth, or throat. ??? Allergies. ??? An irritant, such as tobacco smoke. ??? Adenoids that have become large. The adenoids are soft tissue located in the back of the throat, behind the nose and the roof of the mouth. ??? Growth or swelling in the upper part of the throat, just behind the nose (nasopharynx). ??? Damage to the ear caused by a change in pressure. This is called barotrauma. What increases the risk? You are more likely to develop this condition if you: ??? Smoke or are exposed to tobacco smoke. ??? Have an opening in the roof of your mouth (cleft palate). ??? Have acid reflux. ??? Have problems in your body's defense system (immune system). What are the signs or symptoms? Symptoms of this condition include: ??? Ear pain. ??? Fever. ??? Problems with hearing. ??? Being tired. ??? Fluid leaking from the ear. ??? Ringing in the ear. How is this treated? This condition can go away on its own within 3?5 days. But if the condition is caused by germs (bacteria) and does not go away on its own, or if it keeps coming back, your doctor may: ??? Give you antibiotic medicines. ??? Give you medicines for pain. Follow these instructions at home: ??? Take kjto-dii-yekvctx and prescription medicines only as told by your doctor. ??? If you were prescribed an antibiotic medicine, take it as told by your doctor. Do not stop taking it even if you start to feel better. ??? Keep all follow-up visits. Contact a doctor if: ??? You have bleeding from your nose. ??? There is a lump on your neck. ??? You are not feeling better in 5 days. ??? You feel worse instead of better. Get help right away if: ??? You have pain that is not helped with medicine. ??? You have swelling, redness, or pain around your ear. ??? You get a stiff neck. ??? You cannot move part of your face (paralysis). ??? You notice that the bone behind your ear hurts when you touch it. ??? You get a very bad headache. Summary ??? Otitis media means that the middle ear is red, swollen, and full of fluid. ??? This condition usually goes away on its own. ??? If the problem does not go away, treatment may be needed. You may be given medicines to treat the infection or to treat your pain. ??? If you were prescribed an antibiotic medicine, take it as told by your doctor. Do not stop taking it even if you start to feel better. ??? Keep all follow-up visits. This information is not intended to replace advice given to you by your health care provider. Make sure you discuss any questions you have with your health care provider. Document Revised: 11/06/2021 Document Reviewed: 11/06/2021 [employer] Patient Education ? 2023 [employer] Nutrition BMI for Adults Body mass index (BMI) is a number found using a person's weight and height. BMI can help tell how much of a person's weight is made up of fat. BMI does not measure body fat directly. It is used instead of tests that directly measure body fat, which can be difficult and expensive. What are BMI measurements used for? BMI is useful to: ??? Find out if your weight puts you at higher risk for medical problems. ??? Help recommend changes, such as in diet and exercise. This can help you reach a healthy weight. BMI screening can be done again to see if these changes are working. How is BMI calculated? Your height and weight are measured. The BMI is found from those numbers. This can be done with U.S. or metric measurements. Note that charts and online BMI calculators are available to help you find your BMI quickly and easily without doing these calculations. To calculate your BMI in U.S. measurements: 1. Measure your weight in pounds (lb). 2. Multiply the number of pounds by 703. ??? So, for an adult who weighs 150 lb, multiply that number by 703: 150 x 703, which equals 105,450. 3. Measure your height in inches. Then multiply that number by itself to get a measurement called inches squared. ??? So, for an adult who is 70 inches tall, the inches squared measurement is 70 inches x 70 inches, which equals 4,900 inches squared. 4. Divide the total from step 2 (number of lb x 703) by the total from step 3 (inches squared): 105,450 ? 4,900 = 21.5. This is your BMI. To calculate your BMI in metric measurements: (Inserted Image. Un (more content not included)... [facility] 03-19-2025 Hospital Discharge instructions Patient Education 03/19/2025 12:11:59 Otitis Media, Adult, Vcbz-nj-Kvkn Otitis Media, Adult Otitis media is a condition in which the middle ear is red and swollen (inflamed) and full of fluid. The middle ear is the part of the ear that contains bones for hearing as well as air that helps send sounds to the brain. The condition usually goes away on its own. What are the causes? This condition is caused by a blockage in the eustachian tube. This tube connects the middle ear to the back of the nose. It normally allows air into the middle ear. The blockage is caused by fluid or swelling. Problems that can cause blockage include: A cold or infection that affects the nose, mouth, or throat. Allergies. An irritant, such as tobacco smoke. Adenoids that have become large. The adenoids are soft tissue located in the back of the throat, behind the nose and the roof of the mouth. Growth or swelling in the upper part of the throat, just behind the nose (nasopharynx). Damage to the ear caused by a change in pressure. This is called barotrauma. What increases the risk? You are more likely to develop this condition if you: Smoke or are exposed to tobacco smoke. Have an opening in the roof of your mouth (cleft palate). Have acid reflux. Have problems in your body's defense system (immune system). What are the signs or symptoms? Symptoms of this condition include: Ear pain. Fever. Problems with hearing. Being tired. Fluid leaking from the ear. Ringing in the ear. How is this treated? This condition can go away on its own within 3 5 days. But if the condition is caused by germs (bacteria) and does not go away on its own, or if it keeps coming back, your doctor may: Give you antibiotic medicines. Give you medicines for pain. Follow these instructions at home: Take dezz-hpw-dwosmnx and prescription medicines only as told by your doctor. If you were prescribed an antibiotic medicine, take it as told by your doctor. Do not stop taking it even if you start to feel better. Keep all follow-up visits. Contact a doctor if: You have bleeding from your nose. There is a lump on your neck. You are not feeling better in 5 days. You feel worse instead of better. Get help right away if: You have pain that is not helped with medicine. You have swelling, redness, or pain around your ear. You get a stiff neck. You cannot move part of your face (paralysis). You notice that the bone behind your ear hurts when you touch it. You get a very bad headache. Summary Otitis media means that the middle ear is red, swollen, and full of fluid. This condition usually goes away on its own. If the problem does not go away, treatment may be needed. You may be given medicines to treat the infection or to treat your pain. If you were prescribed an antibiotic medicine, take it as told by your doctor. Do not stop taking it even if you start to feel better. Keep all follow-up visits. This information is not intended to replace advice given to you by your health care provider. Make sure you discuss any questions you have with your health care provider. Document Revised: 11/06/2021 Document Reviewed: 11/06/2021 [employer] Patient Education 2023 [employer]on [email or web address]. 03/19/2025 12:11:57 Ear Drops, Adult, Aghf-nj-Nyyr Ear Drops, Adult Your doctor has found that you have a condition that requires you to use ear drops. Ear drops are a medicine that is placed in the ear. You may need to use ear drops in one ear or both ears. The following information offers guidance on how to use your ear drops. Your doctor may also give you more instructions. Supplies needed: Cotton balls. Ear drops. How to put ear drops into your ear 1.Wash your hands with soap and water for at least 20 seconds. If you cannot use soap and water, use hand medical massage therapist. 2.Make sure your ears are clean and dry. 3.If there is earwax or fluid at the outer part of the ear canal, wipe it out gently with a cotton-tipped swab. 4.Warm the medicine by holding it in your hand for a few minutes. 5.Shake the medicine gently to mix the ear drops. 6.Use the dropper to draw up the ear drops. You will need to squeeze the round part of the dropper to do this. 7.Put the drops in your ear as told. Hold the dropper above your ear. Do not let the dropper touch your ear. The medicine may go in more easily if you pull the flap of your ear up and back while you put the drops in. 8.To make sure your ear soaks up the medicine, do one of these things: Lie down for 10 minutes. The ear with the medicine in it should face up. This will cause the drops to stay in the ear canal and fill the canal. Put a cotton ball in your ear. Do not push it deeper into your ear. Take out the cotton ball when the drops have been soaked up or after 15 30 minutes have passed. 9.If you need to put drops in your other ear, repeat the same steps. Your doctor will tell you if you should put drops in both ears. 10.Wash your hands with soap and water for at least 20 seconds after using ear drops. If you cannot use soap and water, use hand medical massage therapist. Follow these instructions at home: Use the ear drops for as long as your doctor tells you to. Do not stop using them even if you start to feel better. Always wash your hands for at least 20 seconds before and after handling the ear drops. Keep the ear drops at room temperature. Do not wash out your ears unless told to by your doctor. Contact a doctor if: Your condition gets worse. Your pain or itching gets worse. Unusual fluid is coming from your ear, especially if the fluid smells bad. You have new trouble hearing. You get a rash around your ear. You have used the ear drops for the amount of time told by your doctor, but you do not feel better. Get help right away if: You feel like the room is spinning and you feel like you might vomit. This condition is called vertigo. The outside of your ear becomes red or swollen. You have a very bad headache with or without a stiff neck. This information is not intended to replace advice given to you by your health care provider. Make sure you discuss any questions you have with your health care provider. Document Revised: 01/01/2023 Document Reviewed: 12/10/2022 [employer] Patient Education 2023 [employer]on [employer][email or web address]. Follow Up Care 03/16/2025 08:01:31 With:Abhi LEDBETTER, UDAY Welch, MED Address: [address] [place] [phone] When: Unknown Comments:as scheduled [facility] 03-19-2025 Note Patient Education Caregiving Ear Drops, Adult Your doctor has found that you have a condition that requires you to use ear drops. Ear drops are a medicine that is placed in the ear. You may need to use ear drops in one ear or both ears. The following information offers guidance on how to use your ear drops. Your doctor may also give you more instructions. Supplies needed: ??? Cotton balls. ??? Ear drops. How to put ear drops into your ear 1. Wash your hands with soap and water for at least 20 seconds. If you cannot use soap and water, use hand medical massage therapist. 2. Make sure your ears are clean and dry. 3. If there is earwax or fluid at the outer part of the ear canal, wipe it out gently with a cotton-tipped swab. 4. Warm the medicine by holding it in your hand for a few minutes. 5. Shake the medicine gently to mix the ear drops. 6. Use the dropper to draw up the ear drops. You will need to squeeze the round part of the dropper to do this. 7. Put the drops in your ear as told. Hold the dropper above your ear. Do not let the dropper touch your ear. The medicine may go in more easily if you pull the flap of your ear up and back while you put the drops in. 8. To make sure your ear soaks up the medicine, do one of these things: ??? Lie down for 10 minutes. The ear with the medicine in it should face up. This will cause the drops to stay in the ear canal and fill the canal. ??? Put a cotton ball in your ear. Do not push it deeper into your ear. Take out the cotton ball when the drops have been soaked up or after 15?30 minutes have passed. 9. If you need to put drops in your other ear, repeat the same steps. Your doctor will tell you if you should put drops in both ears. 10. Wash your hands with soap and water for at least 20 seconds after using ear drops. If you cannot use soap and water, use hand medical massage therapist. Follow these instructions at home: ??? Use the ear drops for as long as your doctor tells you to. Do not stop using them even if you start to feel better. ??? Always wash your hands for at least 20 seconds before and after handling the ear drops. ??? Keep the ear drops at room temperature. ??? Do not wash out your ears unless told to by your doctor. Contact a doctor if: ??? Your condition gets worse. ??? Your pain or itching gets worse. ??? Unusual fluid is coming from your ear, especially if the fluid smells bad. ??? You have new trouble hearing. ??? You get a rash around your ear. ??? You have used the ear drops for the amount of time told by your doctor, but you do not feel better. Get help right away if: ??? You feel like the room is spinning and you feel like you might vomit. This condition is called vertigo. ??? The outside of your ear becomes red or swollen. ??? You have a very bad headache with or without a stiff neck. This information is not intended to replace advice given to you by your health care provider. Make sure you discuss any questions you have with your health care provider. Document Revised: 01/01/2023 Document Reviewed: 12/10/2022 [employer] Patient Education ? 2023 [email or web address]. ENT Otitis Media, Adult Otitis media is a condition in which the middle ear is red and swollen (inflamed) and full of fluid. The middle ear is the part of the ear that contains bones for hearing as well as air that helps send sounds to the brain. The condition usually goes away on its own. What are the causes? This condition is caused by a blockage in the eustachian tube. This tube connects the middle ear to the back of the nose. It normally allows air into the middle ear. The blockage is caused by fluid or swelling. Problems that can cause blockage include: ??? A cold or infection that affects the nose, mouth, or throat. ??? Allergies. ??? An irritant, such as tobacco smoke. ??? Adenoids that have become large. The adenoids are soft tissue located in the back of the throat, behind the nose and the roof of the mouth. ??? Growth or swelling in the upper part of the throat, just behind the nose (nasopharynx). ??? Damage to the ear caused by a change in pressure. This is called barotrauma. What increases the risk? You are more likely to develop this condition if you: ??? Smoke or are exposed to tobacco smoke. ??? Have an opening in the roof of your mouth (cleft palate). ??? Have acid reflux. ??? Have problems in your body's defense system (immune system). What are the signs or symptoms? Symptoms of this condition include: ??? Ear pain. ??? Fever. ??? Problems with hearing. ??? Being tired. ??? Fluid leaking from the ear. ??? Ringing in the ear. How is this treated? This condition can go away on its own within 3?5 days. But if the condition is caused by germs (bacteria) and does not go away on its own, or if it keeps coming back, your doctor may: ??? Give you antibiotic medicines. ?? (more content not included)... [facility] 03-17-2025 History of Present illness Narrative Images from the original note were not included. Tessie Vargas is a 29 y.o. male presents with chief complaint of right wrist sprain involving the TFCC. HPI: Tessie returns here today for repeat evaluation of the above. He really has not noticed a lot of relief with the corticosteroid injection or medications. He is now having some increasing numbness ulnar nerve distribution. He denies any interval injury. It is effecting him on a day-to-day basis. He has tried bracing but this also is very irritating for him. SUBJECTIVE: MEDICATIONS: Current Outpatient Medications Medication Instructions albuterol HFA 90 mcg/act inhaler INHALE 2 PUFFS BY MOUTH EVERY 6 HOURS NEEDED FOR SHORTNESS OF BREATH OR WHEEZING ibuprofen 800 MG tablet TAKE 1 TABLET BY MOUTH EVERY 8 HOURS WITH FOOD OR MILK FOR 20 DAYS NEEDED pregabalin (LYRICA) 50 mg ALLERGIES: No Known Allergies SURGICAL HISTORY: Past Surgical History: Procedure Laterality Date ANKLE SURGERY Right 06/01/2024 Dr. Singh - [facility] FAMILY HISTORY: No family history on file. SOCIAL HISTORY: Social History Tobacco Use Smoking status: Never Smokeless tobacco: Never Vaping Use Vaping status: Never Used Substance Use Topics Alcohol use: Not Currently Drug use: Never Depression: Not on file REVIEW OF SYMPTOMS: The review of systems, history and current medications list are all reviewed today. OBJECTIVE: Visit Vitals Ht 5' 11 Wt 180 lb BMI 25.10 kg/m Smoking Status Never BSA 2.02 m Physical Exam His orthopedic exam here today reveals gentle arc of motion of the wrist to be without difficulty. He does have tenderness right over the TFCC. He has no gross malalignment or deformity. His neurocirculatory status is overall grossly intact to all distributions. Examination of the contralateral left wrist reveals arc of motion without difficulty. Neurocirculatory status is overall grossly intact. He does have a minimally positive Tinel's over the ulnar tunnel on the right, nothing on the left. Examination of the x-rays, AP, lateral and oblique of the right wrist total of three views with permanent images are saved to the record does show a prominent ulnar styloid. There is no real evidence of abutment, although he does have a small cyst at the tip of the styloid. No evidence of fracture or instability pattern. 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 The findings are discussed. We would recommend MRI arthrogram of the right wrist as the next most reasonable step. This would be a high risk for a TFCC injury and tear. Occupational therapy would not be expected to be advantage in this situation. This patient has a high level of pain effecting quality of life. He won't even tolerate splinting to the area. The injection was ineffective which is also of diagnostic significance. We will hold off on neurodiagnostic testing. We did recommend vitamin B6. His return here will be after the MRI arthrogram for review and further recommendations. We will do this in a lower costing setting. Cosigned by Allyssa Carlisle DO at 03/19/2025 7:46 AM EDT documented in this encounter [facility] 02-15-2025 Hospital Discharge instructions Patient Education 02/15/2025 18:19:51 Wrist Pain, Adult Wrist Pain, Adult There are many things that can cause wrist pain. Some common causes include: An injury to the wrist area, such as a sprain, strain, or broken bone (fracture). Overuse of the joint. A condition that causes increased pressure on a nerve in the wrist (carpal tunnel syndrome). Wear and tear of the joints that occurs with aging (osteoarthritis). Other types of joint inflammation and stiffness (arthritis). Sometimes, the cause of wrist pain is not known. Often, the pain goes away when you follow instructions from your health care provider for relieving pain at home. This may include resting the wrist, icing the wrist, or using a splint or an elastic wrap for a short time. If your wrist pain continues, it is important to tell your provider. Follow these instructions at home: If you have a removable splint or elastic wrap: Wear the splint or wrap as told by your provider. Remove it only as told by your provider. Ask your provider if you may remove it for bathing. Check the skin around the splint or wrap every day. Tell your provider about any concerns. Loosen the splint or wrap if your fingers tingle, become numb, or turn cold and blue. Keep the splint or wrap clean. If the splint or wrap is not waterproof: ?Do not let it get wet. ?Cover it with a watertight covering when you take a bath or shower. Managing pain, stiffness, and swelling If told, put ice on the painful area. ?If you have a removable splint or wrap, remove it as told by your provider. ?Put ice in a plastic bag. ?Place a towel between your skin and the bag or between your splint or wrap and the bag. ?Leave the ice on for 20 minutes, 2 3 times a day. If your skin turns bright red, remove the ice right away to prevent skin damage. The risk of damage is higher if you cannot feel pain, heat, or cold. Move your fingers often to reduce stiffness and swelling. Raise (elevate) the injured area above the level of your heart while you are sitting or lying down. Activity Rest your affected wrist as told by your provider. Return to your normal activities as told by your provider. Ask your provider what activities are safe for you. Ask your provider when it is safe to drive if you have a splint or wrap on your wrist. Do exercises as told by your provider. General instructions Pay attention to any changes in your symptoms. Take lmva-vhe-amqlgcd and prescription medicines only as told by your provider. Contact a health care provider if: You have a sudden, sharp pain in the wrist, hand, or arm that is different or new. Any swelling or bruising on your wrist or hand gets worse. Your skin becomes red, has a rash, or has open sores. Your pain does not get better or it gets worse. You have a fever or chills. Get help right away if: You lose feeling in your fingers or hand. Your fingers turn white, very red, or cold and blue. You cannot move your fingers. This information is not intended to replace advice given to you by your health care provider. Make sure you discuss any questions you have with your health care provider. Document Revised: 05/03/2023 Document Reviewed: 05/03/2023 [employer] Patient Education 2023 [employer]on [employer][email or web address]. Follow Up Care 02/15/2025 17:05:24 With:Allyssa Carlisle Address: [address] [place] [phone] (1) When:02/18/2025 18:11:48 Comments:Call Dr for diagnosis based follow up With:Tessie Moe Address:Unknown When:Within 3 Day(s) [facility] 02-15-2025 Note ED Patient Education Note Orthopedics Wrist Pain, Adult There are many things that can cause wrist pain. Some common causes include: ??? An injury to the wrist area, such as a sprain, strain, or broken bone (fracture). ??? Overuse of the joint. ??? A condition that causes increased pressure on a nerve in the wrist (carpal tunnel syndrome). ??? Wear and tear of the joints that occurs with aging (osteoarthritis). ??? Other types of joint inflammation and stiffness (arthritis). Sometimes, the cause of wrist pain is not known. Often, the pain goes away when you follow instructions from your health care provider for relieving pain at home. This may include resting the wrist, icing the wrist, or using a splint or an elastic wrap for a short time. If your wrist pain continues, it is important to tell your provider. Follow these instructions at home: If you have a removable splint or elastic wrap: ??? Wear the splint or wrap as told by your provider. Remove it only as told by your provider. Ask your provider if you may remove it for bathing. ??? Check the skin around the splint or wrap every day. Tell your provider about any concerns. ??? Loosen the splint or wrap if your fingers tingle, become numb, or turn cold and blue. ??? Keep the splint or wrap clean. ??? If the splint or wrap is not waterproof: ? Do not let it get wet. ? Cover it with a watertight covering when you take a bath or shower. Managing pain, stiffness, and swelling ??? If told, put ice on the painful area. ? If you have a removable splint or wrap, remove it as told by your provider. ? Put ice in a plastic bag. ? Place a towel between your skin and the bag or between your splint or wrap and the bag. ? Leave the ice on for 20 minutes, 2?3 times a day. ??? If your skin turns bright red, remove the ice right away to prevent skin damage. The risk of damage is higher if you cannot feel pain, heat, or cold. ??? Move your fingers often to reduce stiffness and swelling. ??? Raise (elevate) the injured area above the level of your heart while you are sitting or lying down. Activity ??? Rest your affected wrist as told by your provider. ??? Return to your normal activities as told by your provider. Ask your provider what activities are safe for you. ??? Ask your provider when it is safe to drive if you have a splint or wrap on your wrist. ??? Do exercises as told by your provider. General instructions ??? Pay attention to any changes in your symptoms. ??? Take itio-fnv-koicrvm and prescription medicines only as told by your provider. Contact a health care provider if: ??? You have a sudden, sharp pain in the wrist, hand, or arm that is different or new. ??? Any swelling or bruising on your wrist or hand gets worse. ??? Your skin becomes red, has a rash, or has open sores. ??? Your pain does not get better or it gets worse. ??? You have a fever or chills. Get help right away if: ??? You lose feeling in your fingers or hand. ??? Your fingers turn white, very red, or cold and blue. ??? You cannot move your fingers. This information is not intended to replace advice given to you by your health care provider. Make sure you discuss any questions you have with your health care provider. Document Revised: 05/03/2023 Document Reviewed: 05/03/2023 [employer] Patient Education ? 2023 Melon #[email or web address]. [facility] 02-15-2025 Evaluation + Plan note Extrac aura from: Title:ED Note Author:Carlos Leonard PA-C te:02/15/25 Right wrist pain (M25.531: P ain in right wrist) Orders: acetaminophen-hydrocodone, 1 tab(s), Oral, q6hr for pain for 3 day(s), 12 tab(s), Refill(s) 0, [id number], 182.9, cm, 02/15/25 17:15:00 EDT, Height/Length Dosing, 82.1, kg, 02/15/25 17:15:00 EDT, Weight Dosing XR Wrist 3+ Views Right Future Appointments Appointment Date:04/07/2025 11:00:00 AM Scheduled Provider:Tessie Simon Location:[facility] Appointment Type: Open Appointment Date:11/17/2025 09:20:00 AM Scheduled Provider:Tessie Simon [facility] Type: Open Future Scheduled Tests Laboratory* CBC w/ Auto Diff 03/02/24 * Comprehensive Metabolic Panel 03/02/24 * Lipid Panel 03/02/24 [facility] 07-02-2025 History of Present illness Narrative* CHANO Joseph - 02/10/2025 10:30 AM EDTAssociated Order(s): M Inj/Asp: R distal radioulnar Post-Procedure Diagnose(s): TFCC (triangular fibrocartilage complex) injury, right, initial encounter M Inj/Asp: R distal radioulnar on 02/10/2025 11:40 AM Indications: pain Details: 25 G needle Medications: 1 mL betamethasone acetate-betamethasone sodium phosphate 6 (3-3) MG/ML Consent was given by the patient. documented in this encounterMiss[facility] [id number] Hospital Discharge instructions Patient Education 02/02/2025 09:56:17 Paresthesia, Dpvk-qv-Hlno Paresthesia Paresthesia is a burning or prickling feeling. This feeling can happen in any part of the body. It often happens in the hands, arms, legs, or feet. Usually, it is not painful. In most cases, the feeling goes away in a short time and is not a sign of a serious problem. If you have paresthesia that lasts a long time, you need to see your doctor. Follow these instructions at home: Nutrition Eat a healthy diet. This includes: Eating foods that are high in fiber. These include beans, whole grains, and fresh fruits and vegetables. Limiting foods that are high in fat and sugar. These include fried or sweet foods. Alcohol use Do not drink alcohol if: ?Your doctor tells you not to drink. ?You are , may be , or are planning to become . If you drink alcohol: ?Limit how much you have to: ?0 1 drink a day for women. ?0 2 drinks a day for men. ?Know how much alcohol is in your drink. In the [place] one drink equals one 12 oz bottle of beer (355 mL), one 5 oz glass of wine (148 mL), or one 1 oz glass of hard liquor (44 mL). General instructions Take maaf-xnk-xrpcqei and prescription medicines only as told by your doctor. Do not smoke or use any products that contain nicotine or tobacco. If you need help quitting, ask your doctor. If you have diabetes, work with your doctor to make sure your blood sugar stays in a healthy range. If your feet feel numb: ?Check for redness, warmth, and swelling every day. ?Wear padded socks and comfortable shoes. These help protect your feet. Keep all follow-up visits. Contact a doctor if: You have paresthesia that gets worse or does not go away. You lose feeling (have numbness) after an injury. Your burning or prickling feeling gets worse when you walk. You have pain or cramps. You feel dizzy or you faint. You have a rash. Get help right away if: You feel weak or have new weakness in an arm or leg. You have trouble walking or moving. You have problems speaking, understanding, or seeing. You feel confused. You cannot control when you pee (urinate) or poop (have a bowel movement). These symptoms may be an emergency. Get help right away. Call 911. Do not wait to see if the symptoms will go away. Do not drive yourself to the hospital. Summary Paresthesia is a burning or prickling feeling. It often happens in the hands, arms, legs, or feet. In most cases, the feeling goes away in a short time and is not a sign of a serious problem. If you have paresthesia that lasts a long time, you need to be seen by your doctor. This information is not intended to replace advice given to you by your health care provider. Make sure you discuss any questions you have with your health care provider. Document Revised: 04/09/2022 Document Reviewed: 04/09/2022 [employer] Patient Education 2023 Melon #[email or web address]. 02/02/2025 09:56:13 Wrist Pain, Adult, Pwxq-ps-Hdoi Wrist Pain, Adult There are many things that can cause wrist pain. Some common causes include: An injury to the wrist. Using the joint too much. A condition that causes too much pressure to be put on a nerve in the wrist (carpal tunnel syndrome). Wear and tear of the joints that happens as a person gets older (osteoarthritis). A condition that causes swelling and stiffness in the joints (arthritis). Sometimes, the cause of wrist pain is not known. Often, the pain goes away when you follow your doctor's instructions for easing pain at home. This may include resting your wrist, icing your wrist, or using a splint or an elastic wrap for a short time. It is important to tell your doctor if your wrist pain does not go away. Follow these instructions at home: If you have a splint or elastic wrap that can be taken off: Wear the splint or wrap as told by your doctor. Take it off only as told by your doctor. Ask if youcan take it off for bathing. Check the skin around the splint or wrap every day. Tell your doctor if you see problems. Loosen the splint or wrap if your fingers: ?Tingle. ?Become numb. ?Turn cold and blue. Keep the splint or wrap clean. If the splint or wrap is not waterproof: ?Do not let it get wet. ?Cover it with a watertight covering when you take a bath or shower. Managing pain, stiffness, and swelling If told, put ice on the painful area. ?If you have a removable splint or wrap, take it off as told by your doctor. ?Put ice in a plastic bag. ?Place a towel between your skin and the bag or between your splint or wrap and the bag. ?Leave the ice on for 20 minutes, 2 3 times a day. If your skin turns bright red, take off the ice right away to prevent skin damage. The risk of damage is higher if you cannot feel pain, heat, or cold. Move your fingers often. Raise the injured area above the level of your heart while you are sitting or lying down. Activity Rest your wrist as told by your doctor. Return to your normal activities when your doctor says that it is safe. Ask your doctor when it is safe to drive if you have a splint or wrap on your wrist. Do exercises as told by your doctor. General instructions Pay attention to any changes in your symptoms. Take aleg-qhf-xpmldan and prescription medicines only as told by your doctor. Contact a doctor if: You have a sudden, sharp pain in the wrist, hand, or arm that is different or new. Any swelling or bruising on your wrist or hand gets worse. Your skin: ?Becomes red. ?Has a rash. ?Has open sores. Your pain does not get better. Your pain gets worse. You have a fever or chills. Get help right away if: You lose feeling in your fingers or hand. Your fingers turn white, very red, or cold and blue. You cannot move your fingers. This information is not intended to replace advice given to you by your health care provider. Make sure you discuss any questions you have with your health care provider. Document Revised: 05/03/2023 Document Reviewed: 05/03/2023 [employer] Patient Education 2023 Melon #[email or web address]. Follow Up Care 01/27/2025 14:14:48 With:Abhi LEDBETTER, Tessie Babin, UDAY, MED Address: Susanna Brown, [facility] A [address] [address]- [phone] When: Unknown Comments:as scheduled [facility] 06-24-2025 NotePatient Education Neurology Paresthesia Paresthesia is a burning or prickling feeling. This feeling can happen in any part of the body. It often happens in the hands, arms, legs, or feet. Usually, it is not painful. In most cases, the feeling goes away in a short time and is not a sign of a serious problem. If you have paresthesia that lasts a long time, you need to see your doctor. Follow these instructions at home: Nutrition Eat a healthy diet. This includes: ??? Eating foods that are high in fiber. These include beans, whole grains, and fresh fruits and vegetables. ??? Limiting foods that are high in fat and sugar. These include fried or sweet foods. Alcohol use ??? Do not drink alcohol if: ? Your doctor tells you not to drink. ? You are , may be , or are planning to become . ??? If you drink alcohol: ? Limit how much you have to: ? 0?1 drink a day for women. ? 0?2 drinks a day for men. ? Know how much alcohol is in your drink. In the [place] one drink equals one 12 oz bottle of beer (355 mL), one 5 oz glass of wine (148 mL), or one 1? oz glass of hard liquor (44 mL). General instructions ??? Take dirr-orv-bjcicet and prescription medicines only as told by your doctor. ??? Do not smoke or use any products that contain nicotine or tobacco. If you need help quitting, ask your doctor. ??? If you have diabetes, work with your doctor to make sure your blood sugar stays in a healthy range. ??? If your feet feel numb: ? Check for redness, warmth, and swelling every day. ? Wear padded socks and comfortable shoes. These help protect your feet. ??? Keep all follow-up visits. Contact a doctor if: ??? You have paresthesia that gets worse or does not go away. ??? You lose feeling (have numbness) after an injury. ??? Your burning or prickling feeling gets worse when you walk. ??? You have pain or cramps. ??? You feel dizzy or you faint. ??? You have a rash. Get help right away if: ??? You feel weak or have new weakness in an arm or leg. ??? You have trouble walking or moving. ??? You have problems speaking, understanding, or seeing. ??? You feel confused. ??? You cannot control when you pee (urinate) or poop (have a bowel movement). These symptoms may be an emergency. Get help right away. Call 911. ??? Do not wait to see if the symptoms will go away. ??? Do not drive yourself to the hospital. Summary ??? Paresthesia is a burning or prickling feeling. It often happens in the hands, arms, legs, or feet. ??? In most cases, the feeling goes away in a short time and is not a sign of a serious problem. ??? If you have paresthesia that lasts a long time, you need to be seen by your doctor. This information is not intended to replace advice given to you by your health care provider. Make sure you discuss any questions you have with your health care provider. Document Revised: 04/09/2022 Document Reviewed: 04/09/2022 [employer] Patient Education ? 2023 Melon #[email or web address]. Orthopedics Wrist Pain, Adult There are many things that can cause wrist pain. Some common causes include: ??? An injury to the wrist. ??? Using the joint too much. ??? A condition that causes too much pressure to be put on a nerve in the wrist (carpal tunnel syndrome). ??? Wear and tear of the joints that happens as a person gets older (osteoarthritis). ??? A condition that causes swelling and stiffness in the joints (arthritis). Sometimes, the cause of wrist pain is not known. Often, the pain goes away when you follow your doctor's instructions for easing pain at home. This may include resting your wrist, icing your wrist, or using a splint or an elastic wrap for a short time. It is important to tell your doctor if your wrist pain does not go away. Follow these instructions at home: If you have a splint or elastic wrap that can be taken off: ??? Wear the splint or wrap as told by your doctor. Take it off only as told by your doctor. Ask ifyou can take it off for bathing. ??? Check the skin around the splint or wrap every day. Tell your doctor if you see problems. ??? Loosen the splint or wrap if your fingers: ? Tingle. ? Become numb. ? Turn cold and blue. ??? Keep the splint or wrap clean. ??? If the splint or wrap is not waterproof: ? Do not let it get wet. ? Cover it with a watertight covering when you take a bath or shower. Managing pain, stiffness, and swelling ??? If told, put ice on the painful area. ? If you have a removable splint or wrap, take it off as told by your doctor. ? Put ice in a plastic bag. ? Place a towel between your skin and the bag or between your splint or wrap and the bag. ? Leave the ice on for 20 minutes, 2?3 times a day. ??? If your skin turns bright red, take off the ice right away to prevent skin damage. The risk of damage is higher if you cannot feel (more content not included)...[facility]05-28-2025 Hospital Discharge instructions Patient Education 01/06/2025 12:40:54 Wrist Pain, Adult, Mrxk-eu-Csaj Wrist Pain, Adult There are many things that can cause wrist pain. Some common causes include: An injury to the wrist. Using the joint too much. A condition that causes too much pressure to be put on a nerve in the wrist (carpal tunnel syndrome). Wear and tear of the joints that happens as a person gets older (osteoarthritis). A condition that causes swelling and stiffness in the joints (arthritis). Sometimes, the cause of wrist pain is not known. Often, the pain goes away when you follow your doctor's instructions for easing pain at home. This may include resting your wrist, icing your wrist, or using a splint or an elastic wrap for a short time. It is important to tell your doctor if your wrist pain does not go away. Follow these instructions at home: If you have a splint or elastic wrap that can be taken off: Wear the splint or wrap as told by your doctor. Take it off only as told by your doctor. Ask if youcan take it off for bathing. Check the skin around the splint or wrap every day. Tell your doctor if you see problems. Loosen the splint or wrap if your fingers: ?Tingle. ?Become numb. ?Turn cold and blue. Keep the splint or wrap clean. If the splint or wrap is not waterproof: ?Do not let it get wet. ?Cover it with a watertight covering when you take a bath or shower. Managing pain, stiffness, and swelling If told, put ice on the painful area. ?If you have a removable splint or wrap, take it off as told by your doctor. ?Put ice in a plastic bag. ?Place a towel between your skin and the bag or between your splint or wrap and the bag. ?Leave the ice on for 20 minutes, 2 3 times a day. If your skin turns bright red, take off the ice right away to prevent skin damage. The risk of damage is higher if you cannot feel pain, heat, or cold. Move your fingers often. Raise the injured area above the level of your heart while you are sitting or lying down. Activity Rest your wrist as told by your doctor. Return to your normal activities when your doctor says that it is safe. Ask your doctor when it is safe to drive if you have a splint or wrap on your wrist. Do exercises as told by your doctor. General instructions Pay attention to any changes in your symptoms. Take wrcu-nnf-tclgsfd and prescription medicines only as told by your doctor. Contact a doctor if: You have a sudden, sharp pain in the wrist, hand, or arm that is different or new. Any swelling or bruising on your wrist or hand gets worse. Your skin: ?Becomes red. ?Has a rash. ?Has open sores. Your pain does not get better. Your pain gets worse. You have a fever or chills. Get help right away if: You lose feeling in your fingers or hand. Your fingers turn white, very red, or cold and blue. You cannot move your fingers. This information is not intended to replace advice given to you by your health care provider. Make sure you discuss any questions you have with your health care provider. Document Revised: 05/03/2023 Document Reviewed: 05/03/2023 [employer] Patient Education 2023 [employer] 01/06/2025 12:40:52 Joint Pain, Plqx-ji-Sicc Joint Pain Joint pain can be caused by many things. It is likely to go away if you follow instructions from your doctor for taking care of yourself at home. Sometimes, you may need more treatment. Follow these instructions at home: Managing pain, stiffness, and swelling If told, put ice on the painful area. To do this: ?If you have a removable elastic bandage, sling, or splint, take it off as told by your doctor. ?Put ice in a plastic bag. ?Place a towel between your skin and the bag. ?Leave the ice on for 20 minutes, 2 3 times a day. ?Take off the ice if your skin turns bright red. This is very important. If you cannot feel pain, heat, or cold, you have a greater risk of damage to the area. Move your fingers or toes below the painful joint often. Raise the painful joint above the level of your heart while you are sitting or lying down. If told, put heat on the painful area. Do this as often as told by your doctor. Use the heat sourcethat your doctor recommends, such as a moist heat pack or a heating pad. ?Place a towel between your skin and the heat source. ?Leave the heat on for 20 30 minutes. ?Take off the heat if your skin gets bright red. This is especially important if you are unable to feel pain, heat, or cold. You may have a greater risk of getting burned. Activity Rest the painful joint for as long as told by your doctor. Do not do things that cause pain or makeyour pain worse. Begin exercising or stretching the affected area, as told by your doctor. Ask your doctor what types of exercise are safe for you. Return to your normal activities when your doctor says that it is safe. If you have an elastic bandage, sling, or splint: Wear it as told by your doctor. Take it only as told by your doctor. Loosen it your fingers or toes below the joint: ?Tingle. ?Become numb. ?Get cold and blue. Keep it clean. Ask your doctor if you should take it off before bathing. If it is not waterproof: ?Do not let it get wet. ?Cover it with a watertight covering when you take a bath or shower. General instructions Take omyw-foc-mnbcvrw and prescription medicines only as told by your doctor. This may include medicines taken by mouth or applied to the skin. Do not smoke or use any products that contain nicotine or tobacco. If you need help quitting, ask your doctor. Keep all follow-up visits as told by your doctor. This is important. Contact a doctor if: You have pain that gets worse and does not get better with medicine. Your joint pain does not get better in 3 days. You have more bruising or swelling. You have a fever. You lose 10 lb (4.5 kg) or more without trying. Get help right away if: You cannot move the joint. Your fingers or toes tingle, become numb. or get cold and blue. You have a fever along with a joint that is red, warm, and swollen. Summary Joint pain can be caused by many things. It often goes away if you follow instructions from your doctor for taking care of yourself at home. Rest the painful joint for as long as told. Do not do things that cause pain or make your pain worse. Take eknu-aty-nfrienk and prescription medicines only as told by your doctor. This information is not intended to replace advice given to you by your health care provider. Make sure you discuss any questions you have with your health care provider. Document Revised: 11/08/2020 Document Reviewed: 11/09/2020 [employer] Patient Education 2023 Melon #[email or web address]. 01/06/2025 12:40:51 Acute Pain, Adult Acute Pain, Adult Acute pain is a type of sudden pain that may last for just a few days or for as long as three months. It is often related to an illness, injury, or a medical procedure. Acute pain may be mild, moderate, or severe. Pain can make it hard for you to do your daily activities. It can cause anxiety and lead to other problems if it is not treated. Treatment may not take all the pain away, but it may lessen the pain so you can move around and tolerate it. Pain is best treated with medicines and other therapies such as distraction, meditation, oils from plants (aromatherapy), heat, and ice. Treatment depends on the cause of the pain and how severe it is. Acute pain usually goes away once your injury has healed or you are no longer ill. Follow these instructions at home: Medicines Take wkqe-utl-okdyorr and prescription medicines only as told by your health care provider. Take the lowest dose of medicine for the shortest amount of time needed to relieve the pain. If you are taking prescription pain medicine: ?Do not stop taking the medicine suddenly. Talk to your health care provider about how and when to stop taking prescription medicine. ?Do not take more pills than told by your health care provider even if your pain is severe. ?Do not take other xexi-pwl-oilvpcs pain medicines in addition to prescription pain medicine unlesstold by your health care provider. ?Keep your medicine in a safe place, away from children or anyone who could use it in a way that itwas not prescribed. ?Ask your health care provider if the medicine prescribed to you requires you to avoid driving or using machinery. Managing pain, stiffness, and swelling If told, put ice on the affected area. ?Put ice in a plastic bag. ?Place a towel between your skin and the bag. ?Leave the ice on for 20 minutes, 2 3 times a day. If told, apply heat to the affected area as often as told by your health care provider. Use the heat source that your health care provider recommends, such as a moist heat pack or a heating pad. ?Place a towel between your skin and the heat source. ?Leave the heat on for 20 30 minutes. If your skin turns bright red, remove the ice or heat right away to prevent skin damage. The risk of damage is higher if you cannot feel pain, heat, or cold. Managing constipation Your medicines may cause constipation. To prevent or treat constipation, you may need to: Drink enough fluid to keep your urine pale yellow. Take zyvm-kzp-tffyntt or prescription medicines. Eat foods that are high in fiber, such as beans, whole grains, and fresh fruits and vegetables. Limit foods that are high in fat and processed sugars, such as fried or sweet foods. Activity Rest as told by your health care provider. Return to your normal activities as told by your health care provider. Ask your health care provider what activities are safe for you. Ask your health care provider if doing physical therapy exercises to improve movement and strength can help you manage your pain. General instructions Check your pain level as told by your health care provider. Ask your health care provider if distraction, relaxation, or aromatherapy can help you manage your pain. Keep all follow-up visits. Your health care provider will monitor your pain level. Contact a health care provider if: Your pain is not controlled by medicine. Your pain does not improve or gets worse. You have side effects from pain medicines. Get help right away if: You have severe pain. You have trouble breathing. You faint, or another person sees you faint. You have chest pain or pressure that lasts for more than a few minutes, or if you have other symptoms along with chest pain, including: ?Pain or discomfort in one or both arms, your back, neck, jaw, or stomach. ?Shortness of breath. ?A cold sweat. ?Nausea. ?Feeling light-headed. These symptoms may be an emergency. Get help right away. Call 911. Do not wait to see if the symptoms will go away. Do not drive yourself to the hospital. This information is not intended to replace advice given to you by your health care provider. Make sure you discuss any questions you have with your health care provider. Document Revised: 02/20/2023 Document Reviewed: 02/20/2023 [employer] Patient Education 2023 Melon #[email or web address]. Follow Up Care 12/31/2024 12:46:08 With:Abhi LEDBETTER, UDAY Welch, [facility] Address: [address] [place] [address] Stephanie, [facility] A [address] [phone] When:Within 3 Month(s) Comments:shoulder/wrist pain [facility] 05-28-2025 NotePatient Education Orthopedics Wrist Pain, Adult There are many things that can cause wrist pain. Some common causes include: ??? An injury to the wrist. ??? Using the joint too much. ??? A condition that causes too much pressure to be put on a nerve in the wrist (carpal tunnel syndrome). ??? Wear and tear of the joints that happens as a person gets older (osteoarthritis). ??? A condition that causes swelling and stiffness in the joints (arthritis). Sometimes, the cause of wrist pain is not known. Often, the pain goes away when you follow your doctor's instructions for easing pain at home. This may include resting your wrist, icing your wrist, or using a splint or an elastic wrap for a short time. It is important to tell your doctor if your wrist pain does not go away. Follow these instructions at home: If you have a splint or elastic wrap that can be taken off: ??? Wear the splint or wrap as told by your doctor. Take it off only as told by your doctor. Ask ifyou can take it off for bathing. ??? Check the skin around the splint or wrap every day. Tell your doctor if you see problems. ??? Loosen the splint or wrap if your fingers: ? Tingle. ? Become numb. ? Turn cold and blue. ??? Keep the splint or wrap clean. ??? If the splint or wrap is not waterproof: ? Do not let it get wet. ? Cover it with a watertight covering when you take a bath or shower. Managing pain, stiffness, and swelling ??? If told, put ice on the painful area. ? If you have a removable splint or wrap, take it off as told by your doctor. ? Put ice in a plastic bag. ? Place a towel between your skin and the bag or between your splint or wrap and the bag. ? Leave the ice on for 20 minutes, 2?3 times a day. ??? If your skin turns bright red, take off the ice right away to prevent skin damage. The risk of damage is higher if you cannot feel pain, heat, or cold. ??? Move your fingers often. ??? Raise the injured area above the level of your heart while you are sitting or lying down. Activity ??? Rest your wrist as told by your doctor. ??? Return to your normal activities when your doctor says that it is safe. ??? Ask your doctor when it is safe to drive if you have a splint or wrap on your wrist. ??? Do exercises as told by your doctor. General instructions ??? Pay attention to any changes in your symptoms. ??? Take lzxa-nbk-ukgqheu and prescription medicines only as told by your doctor. Contact a doctor if: ??? You have a sudden, sharp pain in the wrist, hand, or arm that is different or new. ??? Any swelling or bruising on your wrist or hand gets worse. ??? Your skin: ? Becomes red. ? Has a rash. ? Has open sores. ??? Your pain does not get better. ??? Your pain gets worse. ??? You have a fever or chills. Get help right away if: ??? You lose feeling in your fingers or hand. ??? Your fingers turn white, very red, or cold and blue. ??? You cannot move your fingers. This information is not intended to replace advice given to you by your health care provider. Make sure you discuss any questions you have with your health care provider. Document Revised: 05/03/2023 Document Reviewed: 05/03/2023 [employer] Patient Education ? 2023 [employer] Joint Pain Joint pain can be caused by many things. It is likely to go away if you follow instructions from your doctor for taking care of yourself at home. Sometimes, you may need more treatment. Follow these instructions at home: Managing pain, stiffness, and swelling ??? If told, put ice on the painful area. To do this: ? If you have a removable elastic bandage, sling, or splint, take it off as told by your doctor. ? Put ice in a plastic bag. ? Place a towel between your skin and the bag. ? Leave the ice on for 20 minutes, 2?3 times a day. ? Take off the ice if your skin turns bright red. This is very important. If you cannot feel pain, heat, or cold, you have a greater risk of damage to the area. ??? Move your fingers or toes below the painful joint often. ??? Raise the painful joint above the level of your heart while you are sitting or lying down. ??? If told, put heat on the painful area. Do this as often as told by your doctor. Use the heat source that your doctor recommends, such as a moist heat pack or a heating pad. ? Place a towel between your skin and the heat source. ? Leave the heat on for 20?30 minutes. ? Take off the heat if your skin gets bright red. This is especially important if you are unable tofeel pain, heat, or cold. You may have a greater risk of getting burned. Activity ??? Rest the painful joint for as long as told by your doctor. Do not do things that cause pain or make your pain worse. ??? Begin exercising or stretching the affected area, as told by your doctor. Ask your doctor what types (more content not included)...[facility]04-03-2025 NotePatient Education Cardiovascular Hypertension, Adult Hypertension is another name for high blood pressure. High blood pressure forces your heart to workharder to pump blood. This can cause problems over time. There are two numbers in a blood pressure reading. There is a top number (systolic) over a bottom number (diastolic). It is best to have a blood pressure that is below 120/80. What are the causes? The cause of this condition is not known. Some other conditions can lead to high blood pressure. What increases the risk? Some lifestyle factors can make you more likely to develop high blood pressure: ??? Smoking. ??? Not getting enough exercise or physical activity. ??? Being overweight. ??? Having too much fat, sugar, calories, or salt (sodium) in your diet. ??? Drinking too much alcohol. Other risk factors include: ??? Having any of these conditions: ? Heart disease. ? Diabetes. ? High cholesterol. ? Kidney disease. ? Obstructive sleep apnea. ??? Having a family history of high blood pressure and high cholesterol. ??? Age. The risk increases with age. ??? Stress. What are the signs or symptoms? High blood pressure may not cause symptoms. Very high blood pressure (hypertensive crisis) may cause: ??? Headache. ??? Fast or uneven heartbeats (palpitations). ??? Shortness of breath. ??? Nosebleed. ??? Vomiting or feeling like you may vomit (nauseous). ??? Changes in how you see. ??? Very bad chest pain. ??? Feeling dizzy. ??? Seizures. How is this treated? This condition is treated by making healthy lifestyle changes, such as: ? Eating healthy foods. ? Exercising more. ? Drinking less alcohol. ??? Your doctor may prescribe medicine if lifestyle changes do not help enough and if: ? Your top number is above 130. ? Your bottom number is above 80. ??? Your personal target blood pressure may vary. Follow these instructions at home: Eating and drinking ??? If told, follow the DASH eating plan. To follow this plan: ? Fill one half of your plate at each meal with fruits and vegetables. ? Fill one fourth of your plate at each meal with whole grains. Whole grains include whole-wheat pasta, brown rice, and whole-grain bread. ? Eat or drink low-fat dairy products, such as skim milk or low-fat yogurt. ? Fill one fourth of your plate at each meal with low-fat (lean) proteins. Low- fat proteins includefish, chicken without skin, eggs, beans, and tofu. ? Avoid fatty meat, cured and processed meat, or chicken with skin. ? Avoid pre-made or processed food. ??? Limit the amount of salt in your diet to less than 1,500 mg each day. ??? Do not drink alcohol if: ? Your doctor tells you not to drink. ? You are , may be , or are planning to become . ??? If you drink alcohol: ? Limit how much you have to: ? 0?1 drink a day for women. ? 0?2 drinks a day for men. ? Know how much alcohol is in your drink. In the [place] one drink equals one 12 oz bottle of beer (355 mL), one 5 oz glass of wine (148 mL), or one 1? oz glass of hard liquor (44 mL). Lifestyle ??? Work with your doctor to stay at a healthy weight or to lose weight. Ask your doctor what the best weight is for you. ??? Get at least 30 minutes of exercise that causes your heart to beat faster (aerobic exercise) most days of the week. This may include walking, swimming, or biking. ??? Get at least 30 minutes of exercise that strengthens your muscles (resistance exercise) at least 3 days a week. This may include lifting weights or doing Pilates. ??? Do not smoke or use any products that contain nicotine or tobacco. If you need help quitting, ask your doctor. ??? Check your blood pressure at home as told by your doctor. ??? Keep all follow-up visits. Medicines ??? Take klpa-els-eevhgmy and prescription medicines only as told by your doctor. Follow directionscarefully. ??? Do not skip doses of blood pressure medicine. The medicine does not work as well if you skip doses. Skipping doses also puts you at risk for problems. ??? Ask your doctor about side effects or reactions to medicines that you should watch for. Contact a doctor if: ??? You think you are having a reaction to the medicine you are taking. ??? You have headaches that keep coming back. ??? You feel dizzy. ??? You have swelling in your ankles. ??? You have trouble with your vision. Get help right away if: ??? You get a very bad headache. ??? You start to feel mixed up (confused). ??? You feel weak or numb. ??? You feel faint. ??? You have very bad pain in your: ? Chest. ? Belly (abdomen). ??? You vomit more than once. ??? You have trouble breathing. These symptoms may be an emergency. Get help right away. Call 911. ??? Do not wait to see if the symptoms will go away. ??? Do not drive yourself to the hospital. Summary ??? Hypertension is a (more content not included)...[facility] 11-03-2024 NotePatient Education Cardiovascular Hypertension, Adult High blood pressure (hypertension) is when the force of blood pumping through the arteries is too strong. The arteries are the blood vessels that carry blood from the heart throughout the body. Hypertension forces the heart to work harder to pump blood and may cause arteries to become narrow or stiff. Untreated or uncontrolled hypertension can lead to a heart attack, heart failure, a stroke, kidney disease, and other problems. A blood pressure reading consists of a higher number over a lower number. Ideally, your blood pressure should be below 120/80. The first ( top ) number is called the systolic pressure. It is a measure of the pressure in your arteries as your heart beats. The second ( bottom ) number is called the diastolic pressure. It is a measure of the pressure in your arteries as the heart relaxes. What are the causes? The exact cause of this condition is not known. There are some conditions that result in high bloodpressure. What increases the risk? Certain factors may make you more likely to develop high blood pressure. Some of these risk factorsare under your control, including: ??? Smoking. ??? Not getting enough exercise or physical activity. ??? Being overweight. ??? Having too much fat, sugar, calories, or salt (sodium) in your diet. ??? Drinking too much alcohol. Other risk factors include: ??? Having a personal history of heart disease, diabetes, high cholesterol, or kidney disease. ??? Stress. ??? Having a family history of high blood pressure and high cholesterol. ??? Having obstructive sleep apnea. ??? Age. The risk increases with age. What are the signs or symptoms? High blood pressure may not cause symptoms. Very high blood pressure (hypertensive crisis) may cause: ??? Headache. ??? Fast or irregular heartbeats (palpitations). ??? Shortness of breath. ??? Nosebleed. ??? Nausea and vomiting. ??? Vision changes. ??? Severe chest pain, dizziness, and seizures. How is this diagnosed? This condition is diagnosed by measuring your blood pressure while you are seated, with your arm resting on a flat surface, your legs uncrossed, and your feet flat on the floor. The cuff of the bloodpressure monitor will be placed directly against the skin of your upper arm at the level of your heart. Blood pressure should be measured at least twice using the same arm. Certain conditions can cause a difference in blood pressure between your right and left arms. If you have a high blood pressure reading during one visit or you have normal blood pressure with other risk factors, you may be asked to: ??? Return on a different day to have your blood pressure checked again. ??? Monitor your blood pressure at home for 1 week or longer. If you are diagnosed with hypertension, you may have other blood or imaging tests to help your health care provider understand your overall risk for other conditions. How is this treated? This condition is treated by making healthy lifestyle changes, such as eating healthy foods, exercising more, and reducing your alcohol intake. You may be referred for counseling on a healthy diet and physical activity. Your health care provider may prescribe medicine if lifestyle changes are not enough to get your blood pressure under control and if: ??? Your systolic blood pressure is above 130. ??? Your diastolic blood pressure is above 80. Your personal target blood pressure may vary depending on your medical conditions, your age, and other factors. Follow these instructions at home: Eating and drinking ??? Eat a diet that is high in fiber and potassium, and low in sodium, added sugar, and fat. An example of this eating plan is called the DASH diet. DASH stands for Dietary Approaches to Stop Hypertension. To eat this way: ? Eat plenty of fresh fruits and vegetables. Try to fill one half of your plate at each meal with fruits and vegetables. ? Eat whole grains, such as whole-wheat pasta, brown rice, or whole-grain bread. Fill about one fourth of your plate with whole grains. ? Eat or drink low-fat dairy products, such as skim milk or low-fat yogurt. ? Avoid fatty cuts of meat, processed or cured meats, and poultry with skin. Fill about one fourth of your plate with lean proteins, such as fish, chicken without skin, beans, eggs, or tofu. ? Avoid pre-made and processed foods. These tend to be higher in sodium, added sugar, and fat. ??? Reduce your daily sodium intake. Many people with hypertension should eat less than 1,500 mg ofsodium a day. ??? Do not drink alcohol if: ? Your health care provider tells you not to drink. ? You are , may be , or are planning to become . ??? If you drink alcohol: ? Limit how much you have to: ? 0?1 drink a day for women. ? 0?2 drinks a day for men. ? Know how much alcohol is in your drink. In the [place] one drink equals one 12 oz bottle (more content not included)...[facility]02-06-2025 NotePatient Education Nutrition BMI for Adults Body mass index (BMI) is a number found using a person's weight and height. BMI can help tell how much of a person's weight is made up of fat. BMI does not measure body fat directly. It is used instead of tests that directly measure body fat, which can be difficult and expensive. What are BMI measurements used for? BMI is useful to: ??? Find out if your weight puts you at higher risk for medical problems. ??? Help recommend changes, such as in diet and exercise. This can help you reach a healthy weight.BMI screening can be done again to see if these changes are working. How is BMI calculated? Your height and weight are measured. The BMI is found from those numbers. This can be done with [place] or metric measurements. Note that charts and online BMI calculators are available to help you findyour BMI quickly and easily without doing these calculations. To calculate your BMI in [place] measurements: 1. Measure your weight in pounds (lb). 2. Multiply the number of pounds by 703. ??? So, for an adult who weighs 150 lb, multiply that number by 703: 150 x 703, which equals 105,450. 3. Measure your height in inches. Then multiply that number by itself to get a measurement called inches squared. ??? So, for an adult who is 70 inches tall, the inches squared measurement is 70 inches x 70 inches, which equals 4,900 inches squared. 4. Divide the total from step 2 (number of lb x 703) by the total from step 3 (inches squared): 105,450 ? 4,900 = 21.5. This is your BMI. To calculate your BMI in metric measurements: 1. Measure your weight in kilograms (kg). ??? For this example, the weight is 70 kg. 2. Measure your height in meters (m). Then multiply that number by itself to get a measurement called meters squared. ??? So, for an adult who is 1.75 m tall, the meters squared measurement is 1.75 m x 1.75 m, whichequals 3.1 meters squared. 3. Divide the number of kilograms (your weight) by the meters squared number. In this example: 70 ?3.1 = 22.6. This is your BMI. What do the results mean? BMI charts are used to see if you are underweight, normal weight, overweight, or obese. The following guidelines will be used: ??? Underweight: BMI less than 18.5. ??? Normal weight: BMI between 18.5 and 24.9. ??? Overweight: BMI between 25 and 29.9. ??? Obese: BMI of 30 or above. BMI is a tool and cannot diagnose a condition. Talk with your health care provider about what your BMI means for you. Keep these notes in mind: ??? Weight includes fat and muscle. Someone with a muscular build, such as an athlete, may have a BMI that is higher than 24.9. In cases like these, BMI is not a correct measure of body fat. ??? If you have a BMI of 25 or higher, your provider may need to do more testing to find out if excess body fat is the cause. ??? BMI is measured the same way for males and females. Females usually have more body fat than males of the same height and weight. Where to find more information For more information about BMI, including tools to quickly find your BMI, go to: ??? Centers for Disease Control and Prevention: cdc.gov ??? [place] Heart Association: heart.org ??? National Heart, Lung, and Blood [place]: nhlbi.nih.gov This information is not intended to replace advice given to you by your health care provider. Make sure you discuss any questions you have with your health care provider. Document Revised: 2023 Document Reviewed: 04/11/2023 [employer] Patient Education ? 2023 [email or web address] Evaluation + Plan note Future Appointments Appointment Date:04/07/2025 11:00:00 AM Scheduled Provider:Tessie Simon Location:[facility] [employer] Appointment Type: Open Appointment Date:11/17/2025 09:20:00 AM Scheduled Provider:Tessie Simon Location:[facility] Appointment Type: Open Future Scheduled Tests Laboratory* HgbA1c 11/12/24 * CBC w/ Auto Diff 03/02/24 * CBC w/ Auto Diff 11/12/24 * Comprehensive Metabolic Panel 03/02/24 * Comprehensive Metabolic Panel 11/12/24 * Lipid Panel 03/02/24 * Lipid Panel 11/12/24 Radiology* XR Shoulder Complete Right 11/12/24 * XR Spine Cervical 4 or 5 Views 01/06/25 * XR Spine Thoracic 3 Views 01/06/25 [facility] Evaluation + Plan note Future Appointments Appointment Date:01/06/2025 11:00:00 AM Scheduled Provider:Tessie Simon Location:[facility] [employer] Appointment Type:FM Open Appointment Date:11/17/2025 09:20:00 AM Scheduled Provider:Tessie Simon Location:[facility] [employer] Appointment Type: Open Future Scheduled Tests Laboratory* HgbA1c 11/12/24 * CBC w/ Auto Diff 03/02/24 * CBC w/ Auto Diff 11/12/24 * Comprehensive Metabolic Panel 03/02/24 * Comprehensive Metabolic Panel 11/12/24 * Lipid Panel 03/02/24 * Lipid Panel 11/12/24 Radiology* XR Shoulder Complete Right 11/12/24 [facility] Evaluation + Plan note Future Appointments Appointment Date:04/07/2025 11:00:00 AM Scheduled Provider:Tessie Simon Location:[facility] [employer] Appointment Type:FM Open Appointment Date:11/17/2025 09:20:00 AM Scheduled Provider[facility]essie Simon [facility] Open Future Scheduled Tests Laboratory* CBC w/ Auto Diff 03/02/24 * Comprehensive Metabolic Panel 03/02/24 * Lipid Panel 03/02/24 [facility] Evaluation + Plan note Future Appointments Appointment Date:02/02/2025 09:20:00 AM Scheduled Provider:Tessie Simon Location:[facility] Appointment Type: Open Appointment Date:04/07/2025 11:00:00 AM Scheduled Provider:Tessie Simon Location:[facility] [employer] Appointment Type: Open Appointment Date:11/17/2025 09:20:00 AM Scheduled Provider:Tessie Simon Location:[facility] [employer] Appointment Type: Open Future Scheduled Tests Laboratory* CBC w/ Auto Diff 03/02/24 * Comprehensive Metabolic Panel 03/02/24 * Lipid Panel 03/02/24 [facility] Evaluation + Plan note Future Appointments Appointment Date:03/19/2025 11:40:00 AM Scheduled Provider:Tessie Simon Location:[facility] [employer] Appointment Type: Acute Appointment Date:04/08/2025 09:20:00 AM Scheduled Provider:Tessie Simon Location:[facility] [employer] Appointment Type:FM Open Appointment Date:11/17/2025 09:20:00 AM Scheduled Provider:Tessie Simon [facility] Type: Open [facility] Evaluation + Plan note Future Appointments Appointment Date:04/08/2025 09:20:00 AM Scheduled Provider:Tessie Simon Location:[facility] Appointment Type: Open Appointment Date:11/17/2025 09:20:00 AM Scheduled Provider:Tessie Simon Location:[facility] Appointment Type: Open [facility] Evaluation + Plan note Future Appointments Appointment Date:11/17/2025 09:20:00 AM Scheduled Provider:Tessie Simon Location:[facility] Appointment Type: Open [facility] Evaluation noteNo assessment information available [facility] Work Phone: evaluation note* Diagnosis Onset Date Resolution Status Right ankle sprain noneactiv e Right ankle injury noneactiv e Right foot injury noneactive [facility] Work Phone: evaluation note* Diagnosis Right wrist pain- Primary Pain in joint, forearm TFCC (triangular fibrocartilage complex) injury, right, initial encounter Primary osteoarthritis of both knees Posterior tibial tendinitis of right leg [facility] Diagnosis TFCC (triangular fibrocartilage complex) tear, right, subsequent encounter- Primary Ulnar tunnel syndrome of right wrist [facility] Narrative No data available for this section [facility] Discharge instructions No data available for this section [facility] Progress note No data available for this section [facility] Summary Purpose Family History No Family History Records Found Relationship Condition Age at Onset Recorded Date/T armando Not Specified No pertinent family history Unknown Advance Directives No Advanced Directives Records Found Advance Directive Response Recorded Date/ Time Advance Directives No October 20 020 8:20pm Chief Complaint and Reason for Visit Chief Complaint rt ankle inj, 4-29-2 3 @ bar Chief Complaint rt ankle pain , poss ible sprained Reason for Visit Right ankle sprain Right ankle injury Right foot injury Chief Complaint rt ankle pain , poss ible sprained [id number] Unknown Reason for Visit Right ankle sprain Right ankle injury Right foot injury Additional Source Comments (unrecognized sect ion and content) No Status Records FoundNo Status Records FoundNo Status Records FoundNo Status Records FoundNo Status Records FoundNo Status Records FoundNo Status Records FoundNo Status Records FoundNo Status Records Found INFORMATION SOURCE (unrecogn ized section and content) DATE CREATED AUTHOR 07/31/2018 [facility] DATE CREATED AUTHOR AUTHOR'S ORGANIZ ATION 06/04/2024 [facility] DATE CREATED AUTHOR AUTHOR'S ORGANIZ ATION 01/27/2025 [facility] [facility] DATE CREATED AUTHOR AUTHOR'S ORGANIZ ATION 03/19/2025 [facility] EPIC DATE CREATED AUTHOR AUTHOR'S ORGANIZ ATION 04/10/2025 [facility] DATE CREATED AUTHOR AUTHOR'S ORGANIZ ATION 04/21/2025 [facility] Care Teams (unrecognized sec tion and content) Team Status: Active Member Role Status Dates Denzel Bridges MD Primary Care Provider Active Team Status: Inactive Member Role Status Dates Denzel Bridges MD Primary Care Provider Active Jaylen Del Rosario DO Emergency Provider Active Team Status: Inactive Member Role Status Dates Denzel Brigdes MD Primary Care Provider Active Start: March 18, 2024 End: March 18, 2024 Lacie Alexander APRN Attending Provider Active Sta rt: March 18, 2024 End: March 18, 2024 Team Status: Active Member Role Status Dates Denzel Bridges MD Primary Care Provider Active Start: March 18, 2024 Lacie Alexander APRN Attending Provider Active Sta rt: March 18, 2024 Team Status: Inactive Member Role Status Dates William Singh DPM MS Attending Provider Active Start: June 01, 2024 End: June 01, 2024 [employer] Relationship Specialty Start Date End Date Denzel Bridges MD [address] [place] [address] PCP - General Family Medicine 02/03/25 Tessie Moe FNP [address] [place] [address] Referring Physician Family Medicine 02/03/25 [employer] Relationship Specialty Start Date End Date Denzel Bridges MD [address] [place], [place] [id number] PCP - General Family Medicine 02/03/25 Tessie Moe FNP [address] [place] [address] Referring Physician Family Medicine 02/03/25 [employer] Relationship Specialty Start Date End Date Denzel Bridges MD [address] [place] [address] PCP - General Family Medicine 02/03/25 Tessie Moe FNP [address] [place] [phone] Referring Physician Family Medicine 02/03/25 [employer] Relationship Specialty Start Date End Date Denzel Bridges MD [address] [place] [address] PCP - General Family Medicine 02/03/25 Tessie Moe FNP [address] [place] [phone] Referring Physician Family Medicine 02/03/25 Goals (unrecognized section and content) Goals may be documented in a n alternate sectionGoals may be documented in an alternate sectionGoals may be documented in an alternate sectionGoals may be documented in an alternate section No data available for this section No data available for this section No data available for this section No data available for this section No data available for this section No data available for this section No data available for this section No data available for this section No data available for this section Reason for Visit (unrecogniz ed section and content) Reason Comments Pain Reason Comments Follow-up FOR RECORDS PERTAINING TO PATIENTS WHO ARE [...] BE BASED ON THE PRIMARY CLINICAL RECORDS. [facility] [employer] [facility]. provides no warranty or guarantee of the accuracy or completeness of information in this document.
--- NOTE | 2025-05-03 16:12 | XR_ITS ---
[facility] [place] [id number] Patient Name: TESSIE BENNETT MRN: [id number] date: 1995 Sex: M Assigned Patient Location: RAD Current Patient Location: [facility] Accession/Order Number: [id number] Exam Date: 05/03/2025 16:04 Report Date: 05/03/2025 19:53 At the request of: WILLIAM CHA DPDenver Procedure: XR ankle RT min 3V RIGHT ANKLE - 3 views CLINICAL HISTORY: Pain COMPARISON: 08/18/2024 FINDINGS: No fractures or dislocation. Soft tissues unremarkable. XR/XR ankle RT min 3V IMPRESSION: NO ACUTE PLAIN FILM FINDINGS. Impression dictated by: Eyad Grover M.D. 05/03/2025 7:53 PM Dictation Location: [place] [address] Electronically authenticated by: [id number] Y Date: 05/03/2025 19:53
== END 2025-05-03 15:56 | disposition home or self-care (01) ==
PROVIDERS: Visit Provider Podiatrist Foot & Ankle Surgery
DX: M25.571 Pain in right ankle and joints of right foot (principal)
CPT/HCPCS: 73610

== ENCOUNTER 2025-05-21 13:56 | Outpatient (OUT) | payer BC, SELFPAY ==
--- NOTE | 2025-05-21 14:00 | MR_ITS ---
[address] [address] Patient Name: TESSIE BENNETT MRN: [id number] date: 1995 Sex: M Assigned Patient Location: MRI Current Patient Location: MRI Accession/Order Number: [id number] Exam Date: 05/21/2025 14:05 Report Date: 05/21/2025 16:58 At the request of: WILLIAM CHA DPDenver Procedure: MR ankle RT wo con MR ankle RT wo con 05/21/2025 2:53 PM SIGNS AND SYMPTOMS: Osteochondritis Dissecans Of Talus PROTOCOL: Multiplanar multisequence MR images of the right ankle without contrast COMPARISON: 04/27/2024 FINDINGS: Alignment: Normal. Fluid: Tibiotalar: No joint effusion. Subtalar: No joint effusion. Medial: Medial malleolus: Intact. Tendons: Posterior tibial tendon: Intact. Flexor digitorum longus: Intact. Flexor hallucis longus: Intact. Ligaments: Deltoid ligament complex - superficial: Intact. Deltoid ligament complex - deep: Intact. Spring (plantar calcaneo-navicular) ligament: Intact. Lateral: Lateral malleolus: Normal. Retromalleolar groove: Normal. Tendons: Peroneus longus: Intact. There is an os perineum which is a normal variant. This is unchanged. Peroneus brevis: Intact. Peroneal retinaculum: Intact. Ligaments: Anterior inferior tibiofibular (syndesmosis): Intact. Posterior inferior tibiofibular (syndesmosis): Intact. Anterior talofibular ligament: Intact. Calcaneofibular ligament: Intact. Posterior talofibular ligament: Intact. Posterior: Posterior talus: There is an os trigonum which is normal in signal. Intermalleolar ligament: Intact. Achilles tendon: Intact. Plantar fascia: Intact. 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 This is new when compared to the previous study. Anterior: Tendons: Anterior tibial tendon: Intact. Extensor hallucis longus: Intact. Extensor digitorum longus: Intact. Tibiotalar joint: There is redemonstration of a small osteochondral defect along the lateral margin of the talar dome measuring approximately 6 mm in greatest dimension similar to the prior exam showing no significant interval change. Consistent with the history of osteochondritis. Subtalar joint: Intact. Bones (other than subarticular marrow): Normal Muscles: Normal Tarsal tunnel: Normal Sinus tarsi: Normal. MR/MR ankle RT wo con IMPRESSION: There is redemonstration of a small osteochondral defect along the lateral margin of the talar dome measuring approximately 6 mm in greatest dimension similar to the prior exam showing no significant interval change. Consistent with the history of osteochondritis. 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 This is new when compared to the previous study. Impression dictated by: Tank Herrera M.D. 05/21/2025 4:58 PM Dictation Location: [place] [address] Electronically authenticated by: [id number] Y Date: 05/21/2025 16:58
--- OUTSIDE RECORDS SUMMARY | 2025-05-21 14:01 | XMS_ITS | CCD ---
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 Name Role Phone MARCO OLSON Unavailable Unavailable HAY, MARTHA Unavailable Unavailable HAY, MARTHA Unavailable Unavailable HAY, MARTHA Unavailable Unavailable REINECK, MANGO G Unavailable Unavailable REINECK, MANGO G Unavailable Unavailable PAVLOCK, MAX Unavailable Unavailable REINECK, MANGO G Unavailable Unavailable PAVLOCK, MAX Unavailable Unavailable HAY, MARTHA Unavailable Unavailable HAY, MARTHA Unavailable Unavailable ZIPATTI SAWYER R Unavailable Unavailable GRECHNYIRIS Unavailable Unavailable MARKER, SHAKILA Unavailable Unavailable MARKER, SHAKILA Unavailable Unavailable DENZEL BRIDGES Unavailable Unavailable ALLYSSA MACHUCA V Unavailable Unavailable MARKER, SHAKILA Unavailable Unavailable DENZEL BRIDGES Unavailable Unavailable DENZEL BRIDGES Unavailable Unavailable DENZEL BRIDGES Unavailable Unavailable DENZEL BRIDGES Unavailable Unavailable MD Denzel Bridges Primary Care Provider [phone] DO Jaylen Del Rosario Emergency Provider MD Denzel Bridges Primary Care Provider RAI Alexander Attending Provider [phone] MARTIN Singh Attending Provider William Singh Attending Unavailable William Singh Admitting Unavailable Lacie Alexander Attending Unavailable Lacie Alexander Admitting Unavailable Denzel Bridges Primary Care Unavailable Tessie Simon Primary Care Physician Denzel Bridges MD Primary Care Provider Tessie Denise Unavailable POCOS, ALLYSSA Meneses Referring Unavailable POCALLYSSA ROBBINS [...] source) Opioid Agonist Start: 02-15-2025 End: 02-18-2025 Carmel 325 mg-5 mg oral tablet 1 tab(s), Oral, q6hr for pain for 3 day(s), 12 tab(s), Refill(s) 0, [facility] #22906, 182.9, cm, 02/15/25 17:15:00 EDT, Height/Length Dosing, 82.1, kg, 02/15/25 17:15:00 EDT, Weight Dosing Start Date: 02/15/25 Stop Date: 02/18/25 Status: Ordered Quantity: 12.0 Unit: tab(s) Repeat number: 1 acetaminophen 325 mg / oxyCODONE hydrochloride 5 mg oral tablet (3 sources) Opioid Agonist Start: 01-06-2025 Percocet 5 mg-325 mg oral tablet 1 tab(s), Oral, q6hr, 12 tab(s), Refill(s) 0, [facility] #95704, 179, cm, 01/06/25 11:04:00 EDT, Height/Length Dosing, 86.6, kg, 01/06/25 11:10:00 EDT, Weight Dosing Start Date: 01/06/25 Status: Ordered Quantity: 12.0 Unit: tab(s) Repeat number: 1 Indications: Torticollis; Strain of unspecified muscle, fascia and tendon at shoulder and upper arm level, right arm, initial encounter; Pain in right wrist; [id number] 200 actuat albuterol 0.09 mg/actuat metered dose [...] breath or wheezing, 8.5 gm, Refill(s) 3, [facility] #68412, 179, cm, 11/12/24 10:24:00 EDT, Height/Length Dosing, 92.1, kg, 11/12/24 10:26:00 EDT, Weight Dosing Start Date: 11/12/24 Status: Ordered Quantity: 8.5 Unit: g Repeat number: 4 Indications: Unspecified asthma, uncomplicated; amoxicillin 875 mg / clavulanate 125 mg oral tablet (1 source) Penicillin-class Antibacterial Start: 04-08-2025 End: 04-15-2025 Augmentin 875 mg-125 mg Tab 1 tab(s), Oral, q12hr for 7 day(s), 14 tab(s), Refill(s) 0, [facility] #17490, 182, cm, 04/08/25 9:33:00 EDT, Height/Length Dosing, [...] for 7 day(s), 7.5 mL, Refill(s) 0, [facility] #[id number], 182.9, cm, 03/19/25 11:45:00 EDT, Height/Length Dosing, 78, kg, 03/19/25 11:51:00 EDT, Weight Dosing Start Date: 03/19/25 Stop Date: 03/26/25 Status: Ordered Quantity: 7.5 Unit: mL Repeat number: 1 Indications: Otitis media, unspecified, bilateral; fluticasone propionate 0.05 mg/actuat metered dose nasal spray (2 sources) Corticosteroid Start: 03-19-2025 take 1 spray(s) nasal route twice daily Flonase 0.05 mg/inh [facility] 1 spray(s), Nasal, BID, 16 gram, Refill(s) 1, each nostril, [facility] #21474, 182.9, cm, 03/19/25 11:45:00 EDT, Height/Length Dosing, [...] symptoms, # 1 kit(s), Refills(s) 0, Pharmacy: [facility] #[id number], 179, cm, 01/06/25 11:04:00 EDT, Height/Length Dosing, [...] days, # 42 tab(s), Refills(s) 0, Pharmacy: [facility] #[id number], 179, cm, 11/12/24 10:24:00 EDT, Height/Length Dosing, [...] mg Tab) fluticasone nasal (Flonase 0.05 mg/inh [facility]) pregabalin (pregabalin 50 mg Cap) Procedures Performed Ankle (06/01/2024). Discharge Vitals Temperature (Oral) 36.9 ???C Heart Rate (Peripheral) 94 Blood Pressure 104/70 Height 182 cm Height 72 in Weight 78.3 kg Weight 172.622 lb BMI 23.64 What to do next Scheduled Follow-Up Appointments Saturday2025 9:20 AM EDT With: Tessie Simon Where: [facility] [address], [place] [address]- You Need to Schedule the Following Appointments Follow Up with Tessei Simon, [facility], MED When: Comments: as scheduled Where: [address], [facility] [address] [place] [address]- [phone] Medications What How Much When Why Instructions New amoxicillin-clavulanat e (Augmentin 875 mg-125 mg Tab) 1 Tablets By Mouth Every 12 hours Acute otitis media, bilateral Left ear pain Duration: 7 Days Pickup at [facility] #48597 Unchanged albuterol (Albuterol (Eqv-ProAir HFA) 90 mcg/ inh inhalation aerosol) 2 Inhalation Inhalation Every 6 hours as needed for Shortness of breath or wheezing Asthma Unchanged fluticasone nasal (Flonase 0.05 mg/ inh [facility]) 1 Sprays Nasal Inhalation 2 times a day Acute otitis media, bilateral each nostril Unchanged pregabalin (pregabalin 50 mg Cap) 1 Capsules By Mouth 3 times a day [id number]: [address] [place], [place] [phone] Allergies No Known Allergies Problems Ongoing - [...] signed up for this yet, please contact [employer] at [phone] to get signed up today. Language Information Language assistance services are available as needed. Esteban [facility] Family Medicine Office/Clini c Noteon 04-08-2025 Family [...] ever since he returned from vacation in [place] he has a cough and some rhinitis [...] for 7 day(s), 14 tab(s), Refill(s) 0, [email or web address][id number], 182, cm, 04/08/25 9:33:00 EDT, Height/Length Dosing, [...] for 7 day(s), 14 tab(s), Refill(s) 0, [email or web address][id number], 182, cm, 04/08/25 9:33:00 EDT, Height/Length Dosing, [...] When Contact Information Abhi LEDBETTER, Tessie Babin, [facility], [address], [address] [phone] Additional Instructions: as scheduled Patient Education Otitis Media, Adult, Ahhu-tv-Nkpv BMI for Adults Problem List/Past Medical History [...] 1 tab(s), Oral, q12hr Flonase 0.05 mg/inh [facility], 1 spray(s), Nasal (more content not included)... Normal [facility] Comment on above: Result Comment: Elec [...] MD Transcribed by: OLGA LIDIA Technologist: BOBO [facility] Radiology, Radiologist, - 04/08/2025 Exam Date/Time: 04/06/2025 [...] MD Transcribed by: OLGA LIDIA Technologist: [facility] W[facility] - right ArthrogramO rdered By: Radiologist Radiology on 04-08-2025 [facility] Work Phone: MRI Wrist Arthrogram [place]on 04-08-2025 [...] MD Transcribed by: OLGA LIDIA Technologist: BOBO [facility] MR Wrist - right Arthrogramo n 04-06-2025 Radiology Study observation (narrative) [facility] XR Arthrogram Wrist Righton 04-06-2025 XR Arthrogram [...] MD Transcribed by: OLGA LIDIA Technologist: JIM [facility] XR INJ WRIST ARTHROGRAM AURELIO Randall 04-06-2025 [...] Transcribed by: OLGA LIDIA Technologist: JIM [facility] Radiology, Radiologist, MD - 04/06/2025 Exam Date/Time: [...] MD Transcribed by: OLGA LIDIA Technologist: JIM [facility] Radiology Study observation (narrative) [facility] XR INJ WRIST ARTHROGRAM RIGH TOrdered By: Radiologist Radiology on 04-06-2025 [facility] [employer] Work Phone: Family Medicine Office/Clini c Noteon [...] he was on vacation. He was in [place] and was swimming in pools. He noted [...] for 7 day(s), 7.5 mL, Refill(s) 0, [facility] #[id number], 182.9, cm, 03/19/25 11:45:00 EDT, Height/Length Dosing, 78, kg, 03/19/25 11:51:00 EDT, Weight Dosing fluticasone nasal, 1 spray(s), Nasal, BID, 16 gram, Refill(s) 1, each nostril, [facility] #[id number], 182.9, cm, 03/19/25 11:45:00 EDT, Height/Length Dosing, [...] When Contact Information Abhi LEDBETTER, Tessie Babin, [facility], [address], [facility] A [address] [phone] Additional Instructions: as scheduled Patient Education Otitis Media, Adult, Rbno-br-Fsjk Ear Drops, Adult, Eaoy-ls-Gxhd Problem List/Past Medical History Ongoing Acute otitis [...] 4 drop(s), Otic, BID Flonase 0.05 mg/inh [facility], 1 spray(s), Nasal, BID, 1 refills pregabalin [...] Oral, Household to (more content not included)... [facility] Comment on above: Result Comment: Elec [...] Transcribed by: OLGA LIDIA Technologist: RADHA Orellana [facility] ED Clinical Summaryon 2024 ED Clinical Summary ED Clinical Summary [place] [id number] ED Clinical Summary Person Information Name: [facility] Age: 29 Years : 1995 Sex: Male Language: Sami PCP: Tessie Simon Marital Status: Single Phone: [phone] Visit Id: Visit Reason: Wrist pain-swelling; RIGHT [...] 02/15/2025 18:19:51 02/15/2025 18:19:51 02/15/2025 18:19:51 ADDRESS: [address] [place] [phone] PHYS DOC NOTES: MEDICAL INFORMATION: Prescriptions Given: New Medications [id number], [address] [place], [place] [phone], [phone] acetaminophen-hydrocod one (Carmel 325 mg-5 mg oral tablet) 1 Tablets [...] Follow up: With: Address: When: Allyssa Carlisle [address] [place] [id number] [facility] (1) In 3 days 02/18/2025 Comments: Call Dr for diagnosis based follow up With: Address: When: Tessie Moe In 3 days DIAGNOSIS: Right wrist pain Normal [facility] ED Note-Physicianon 02-16-20 ED Note-Physician ED Note-Physician [...] fractures. Discussed with the patient. Patient prescribed Carmel for pain. Continue to take NSAIDs. I [...] for 3 day(s), 12 tab(s), Refill(s) 0, [facility] #[id number], 182.9, cm, 02/15/25 17:15:00 EDT, Height/Length Dosing, 82.1, kg, 02/15/25 17:15:00 EDT, Weight Dosing XR Wrist 3+ Views Right Disposition Plan Patient Discharge Condition stable Discharge Disposition to home Discharge Prescription List Prescriptions Carmel 325 mg-5 mg oral tablet, 1 tab(s), Oral, q6hr, PRN Follow-up With When Contact Information Allyssa Carlisle In 3 days 02/18/2025 EDT [address] [place] [address]- Business (1) Additional Instructions: Call Dr for diagnosis based follow up Tessie Moe In 3 days Additional Instructions: Patient Education Wrist Pain, Adult Attestation Patient seen and evaluated by the physician commercial escrow assistant. Attending physician was present in the emergency department and supervised care. This visit was performed by both the physician and an APC. I performed all aspects of the MDM as documented. This report was transcribed using voice recognition software. Every effort was made to ensure accuracy, however, inadvertently computerized otr driver mistakes may be present. Appropriate healthcare PPE [...] Overweight (BMI (more content not included)... Normal [facility] Comment on above: Result Comment: Elec tronically Signed By: Carlos Leonard PA-C\.br\Date and Time Signed: 02/15/25 18:33 EDT\.br\Electronically Co-Signed By: Imelda Ridley M.D.\.br\Date and Time Co-Signed: 02/15/25 18:39 EDT ED Patient Summaryon 025 ED Patient Summary ED Patient Summary [facility] [address] [place], [place] [address] Patient Discharge Instructions Person Information Name: TESSIE VARGAS Age: 29 Years Arrival Date: 02/15/2025 17:04:34 Discharge Diagnosis: Right wrist pain Primary Care Physician: Tessie Simon Provider Information Primary Provider: Imelda Ridley M.D. Advanced Assistant Director:Carlos Leonard PA-C The exam and treatment you received in the Emergency Department were for an urgent problem and are not intended as complete care. It is important that you follow up with a doctor, nurse practitioner, or physician???s commercial escrow assistant for ongoing care. If your symptoms become worse or you do not improve as expected and you are unable to reach your usual health care provider, you should return to the Emergency Department. We are available 24 hours a day. TESSIE VARGAS has been given the following list of patient education materials, prescriptions and follow-up instructions: Follow-up Instructions: With: Address: When: Allyssa Carlisle [address] [place] [address] [facility] () In 3 days 02/18/2025 Comments: Call Dr [...] opioids can be used to help relieve mgfqdjnd-yu-fwwwbp pain and are often prescribed following a [...] ??? I (more content not included)... Normal [facility] No Panel Informationon 02-10 PATRICIA Joseph T 02/15/2025 7:30 AM M Inj/Asp: R distal radioulnar on 02/10/2025 11:40 AM Indications: pain Details: 25 G needle Medications: 1 mL betamethasone acetate-betamethasone sodium phosphate 6 (3-3) MG/ML Consent was given by the patient. [facility] Ambulatory Visit Summaryon 0 02-02-2025 Ambulatory Visit [...] 11:00 AM EDT With: Tessie Simon Where: [facility] [address], [place] [address]- Saturday2025 9:20 AM EDT With: Tessie Simon Where: [facility] [address], [place] [address]- Someone Will Contact You Regarding These Appointments [facility] External Ambulatory Referral, Orthopaedics, 02/02/25 9:42:00 EDT, [...] signed up for this yet, please contact Game[employer] at [phone] to get signed up today. Language Information Language assistance services are available as needed. Esteban Ma [facility] Family Medicine Office/Clini c Noteon 02-02-2025 Family [...] has pain. He follows Dr. Singh in [place] for podiatry. He was on vacation about [...] this. will follow up in March to [facility] after patient has appointment with ortho. Ordered: [facility] External Ambulatory Referral 2. Hand numbness (R20.0: Anesthesia of skin) see above. Ordered: [facility] External Ambulatory Referral 3. Right shoulder strain [...] When Contact Information Abhi LEDBETTER, UDAY Welch, [address], [facility] [address] [phone] Additional Instructions: as scheduled Patient Education Paresthesia, Qfdn-ve-Grgj Wrist Pain, Adult, Qlcz-rk-Hnnn Problem List/Past Medical History Ongoing Adult wellness [...] influenza (more content not included)... Normal Ma [facility] Comment on above: Result Comment: Elec tronically Signed By: Tessie Simon\Date and Time Signed: 02/02/25 09:56 EDT CBC w/ Auto Diffon 5 Basophil Absolute 0.0 E9/L Normal 0.0-0.2 [facility] Comment on above: Performed By: #### 2 [id number] #### [facility] [address] [place] [address] Basophils/100 WBC (Bld) 0.6 % Normal 0.0-2.0 [facility] Comment on above: Performed By: #### 2 [id number] #### [facility] [address] [place] [address] Eos Absolute 0.1 E9/L Normal 0.0-0.5 [facility] Comment on above: Performed By: #### 2 [id number] #### [facility] [address] [place] [address] Eosinophils/100 WBC (Bld) 3.8 % Normal 0.0-8.0 [facility] Comment on above: Performed By: #### 2 [id number] #### [facility] [address] [place] [address] Erythrocyte distribution width (RBC) [Ratio] 12.2 % Normal 10.9-14.2 [facility] Comment on above: Performed By: #### 2 [id number] #### [facility] [address] [place] [address] Hematocrit (Bld) [Volume fraction] 46.9 % Normal 37.7-49.0 [facility] Comment on above: Performed By: #### 2 769600 #### [facility] [address] [place] [address] Hemoglobin (Bld) [Mass/Vol] 16.2 g/dL Normal 13.5-17.5 [facility] Comment on above: Performed By: #### 2 610444 #### [facility] [address] [place] [address] Lymph Absolute 1.7 E9/L Normal 1.0-4.0 [facility] Comment on above: Performed By: #### 2 922255 #### [facility] [address] [place] [address] Lymphocytes/100 WBC (Bld) 46.2 % Normal 14.0-50.0 [facility] Comment on above: Performed By: #### 2 970274 #### [facility] [address] [place] [address] MCH (RBC) [Entitic mass] 32.6 pg Normal 27.0-34.0 [facility] Comment on above: Performed By: #### 2 186368 #### [facility] [address] [place] [address] MCHC (RBC) [Mass/Vol] 34.5 g/dL Normal 31.4-36.0 [facility] Comment on above: Performed By: #### 2 163095 #### [facility] [address] [place] [address] MCV (RBC) [Entitic vol] 94.6 fL Normal 80.0-100.0 [facility] Comment on above: Performed By: #### 2 746129 #### [facility] [address] [place] [address] [place] Absolute 0.3 E9/L Normal 0.2-1.0 [facility] Comment on above: Performed By: #### 2 476831 #### [facility] [address] [place] [address] Monocytes/100 WBC (Bld) 8.6 % Normal 4.0-14.0 [facility] Comment on above: Performed By: #### 2 036560 #### [facility] [address] [place] [address] Neutro Absolute 1.5 E9/L Low 2.0-7.5 [facility] Comment on above: Performed By: #### 2 801788 #### [facility] [address] [place] [address] Neutro Auto 40.8 % Normal 36.0-75.0 [facility] Comment on above: Performed By: #### 2 811681 #### [facility] [address] [place] [address] Platelet 276.0 E9/L Normal 150.0-500.0 [facility] Comment on above: Performed By: #### 2 197681 #### [facility] [address] [place] [address] Platelet mean volume (Bld) [Entitic vol] 7.0 fL Normal 6.4-10.8 [facility] Comment on above: Performed By: #### 2 526702 #### [facility] [address] [place] [address] RBC 5.0 E12/L Normal 4.3-5.9 [facility] Comment on above: Performed By: #### 2 650000 #### [facility] [address] [place] [address] WBC 3.7 E9/L Low 4.0-11.0 [facility] Comment on above: Performed By: #### 2 721521 #### [facility] [address] [place] [address] CHEMISTRYOrdered By: SYSTEM SYSTEM on 01-25-2025 Albumin [...] [Mass fraction] 5.0 % Normal <=5.9% [facility] ChemAutoSS CMPon 01-25-2025 Albumin [Mass/Vol] 4.5 g/dL Normal 3.3-5.0 [facility] Comment on above: Performed By: #### 2 [id number] #### [facility] [address] [place] [address] Albumin/Globulin [Mass ratio] 1.7 {ratio} Normal 1.1-2.2 [facility] Comment on above: Performed By: #### 2 225768 #### [facility] [address] [place] [address] Alk Phos 59 Int._Unit/L Normal 21-98 [facility] Comment on above: Performed By: #### 2 040084 #### [facility] [address] [place] [address] ALT 9 Int._Unit/L Normal 6-46 [facility] Comment on above: Performed By: #### 2 079058 #### [facility] [address] [place] [address] Anion gap [Moles/Vol] 8 mmol/L Normal 6-16 [facility] Comment on above: Performed By: #### 2 850826 #### [facility] [address] [place] [address] AST 9 Int._Unit/L Normal 5-43 [facility] Comment on above: Performed By: #### 2 851507 #### [facility] [address] [place] [address] Bili Total 0.9 mg/dL Normal 0.0-1.1 [facility] Comment on above: Performed By: #### 2 806141 #### [facility] [address] [place] [address] BUN/Creat Ratio 10 No Units Normal 10-20 [facility] Comment on above: Performed By: #### 2 580842 #### [facility] [address] [place] [address] Calcium [Mass/Vol] 9.7 mg/dL Normal 8.9-11.1 [facility] Comment on above: Performed By: #### 2 383008 #### [facility] [address] [place] [address] Chloride [Moles/Vol] 103 mmol/L Normal 101-111 [facility] Comment on above: Performed By: #### 2 169951 #### [facility] [address] [place] [address] CO2 [Moles/Vol] 33 mmol/L High 21-31 [facility] Comment on above: Performed By: #### 2 362099 #### [facility] [address] [place] [address] Creatinine [Mass/Vol] 0.9 mg/dL Normal 0.5-1.3 [facility] Comment on above: Performed By: #### 2 250520 #### [facility] [address] [place] [address] Globulin (S) [Mass/Vol] 2.6 g/dL Normal 1.4-4.0 [facility] Comment on above: Performed By: #### 2 257690 #### [facility] [address] [place] [address] Glucose [Mass/Vol] 100 mg/dL Normal 55-199 [facility] Comment on above: Performed By: #### 2 349804 #### [facility] [address] [place] [address] Potassium [Moles/Vol] 3.7 mmol/L Normal 3.5-5.3 [facility] Comment on above: Performed By: #### 2 009481 #### [facility] [address] [place] [address] Protein [Mass/Vol] 7.1 g/dL Normal 6.0-7.8 [facility] Comment on above: Performed By: #### 2 734354 #### [facility] [address] [place] [address] Sodium [Moles/Vol] 140 mmol/L Normal 135-145 [facility] Comment on above: Performed By: #### 2 761708 #### [facility] [address] [place] [address] Urea nitrogen [Mass/Vol] 9 mg/dL Normal 5-21 [facility] Comment on above: Performed By: #### 2 645922 #### [facility] [address] [place] [address] HEMATOLOGYOrdered By: SYSTEM SYSTEM on 01-25-2025 Basophils/100 [...] Low 4.0 - 11.0 E9/L Remisol Heme [id number] 01-25-2025 HbA1c (Bld) [Mass fraction] 5.0 % Normal <=5.9 [facility] Comment on above: Performed By: #### 7 [id number] #### [facility] [address] [place] [address] Lipid Panelon 01-25-2025 Cholesterol [Mass/Vol] 109 mg/dL Low 120-200 [facility] Comment on above: Performed By: #### 2 157104 #### [facility] [address] [place] [address] Cholesterol in HDL [Mass/Vol] 48 mg/dL Invalid Interpretation Code [facility] Comment on above: Result Comment: '>= 60 LOW RISK' '<= 40 HIGH RISK' Performed By: #### 2 229782 #### [facility] [address] [place] [address] Cholesterol in LDL [Mass/Vol] 53 mg/dL Normal <=129 [facility] Comment on above: Performed By: #### 2 107940 #### [facility] [address] [place] [address] Cholesterol in VLDL [Mass/Vol] 7 mg/dL Normal 7-40 [facility] Comment on above: Performed By: #### 2 065396 #### [facility] [address] [place] [address] Triglyceride [Mass/Vol] 35 mg/dL Normal <=149 [facility] Comment on above: Performed By: #### 2 860879 #### [facility] [address] [address] XR Shoulder Complete Righton 01-25-2025 XR Shoulder [...] Transcribed by: OLGA LIDIA Technologist: JIM Orellana [facility] [facility] XR Spine Cervical 4 or 5 Vie [...] Transcribed by: OLGA LIDIA Technologist: JIM Orellana [facility] XR Spine Thoracic 3 Viewson 01-25-2025 XR [...] Transcribed by: OLGA LIDIA Technologist: JIM Orellana [facility] eGFRon 01-25-2025 eGFR 117 mL/min/1.73 m2 Normal >=59 [facility] Comment on above: Performed By: #### 1 [id number] #### [facility] [address] [place] [address] Ambulatory Visit Summaryon 0 01-06-2025 Ambulatory Visit [...] 11:00 AM EDT With: Tessie Simon Where: [facility] [address], [place] [address]- Saturday2025 9:20 AM EDT With: Tessie Simon Where: [facility] [address], [place] [address]- You Need to Schedule the Following Appointments Follow Up with Tessie Simon, [facility], MED When: In 3 months Comments: shoulder/wrist pain Where: [address], [facility] [address] [place] [phone] You Need to Complete the Following XR [...] Right shoulder strain Neck stiffness Pickup at [facility] #84602 New naloxone (Narcan 4 mg/ 0.1 mL nasal spray) 4 Milligram Nasal Inhalation As Directed Right wrist pain Right shoulder strain Neck stiffness for suspected overdose symptoms Pickup at [facility] #54738 Changed pregabalin (pregabalin 50 mg Cap) 1 Capsules By Mouth 3 times a day Unchanged albuterol (Albuterol (Eqv-ProAir HFA) 90 mcg/ inh inhalation aerosol) 2 Inhalation Inhalation Every 6 hours as needed for Shortness of breath or wheezing Asthma [id number]: [address] [place] [phone] Allergies No Known Allergies Problems Ongoing - [...] for choosing us for your care. Normal [facility] Ambulatory Visit Summary Ambulatory Visit Summary SABRINATESSIE [...] 11:00 AM EDT With: Tessie Simon Where: [facility] [address], [place] [address]- Saturday2025 9:20 AM EDT With: Tessie Simon Where: [facility] [address], [place] [address]- You Need to Schedule the Following Appointments Follow Up with Tessie Simon, [facility] When: In 3 months Comments: shoulder/wrist pain Where: Susanna Brown, [address] [address] [phone] You Need to Complete the Following XR Spine Cervical 4 or 5 Views, 01/06/25, Routine, Order for future visit, Transport Mode: Ambulatory, Reason: Neck Pain, No, Neck stiffness Right shoulder strain Right wrist pain, pp_set_radiology_subsp ecialty, [facility] XR Spine Thoracic 3 Views, 01/06/25, Routine, Order for future visit, Transport Mode: Ambulatory, Reason: Pain, Non Traumatic, No, Neck stiffness Right shoulder strain Right wrist pain, pp_set_radiology_subsp ecialty, [facility] Medications What How Much When Why Instructions New acetaminophen-oxycodon e (Percocet 5 mg-325 mg oral tablet) 1 Tablets By Mouth Every 6 hours Right wrist pain Right shoulder strain Neck stiffness Pickup at [facility] #91942 New naloxone (Narcan 4 mg/ 0.1 mL nasal spray) 4 Milligram Nasal Inhalation As Directed Right wrist pain Right shoulder strain Neck stiffness for suspected overdose symptoms Pickup at [facility] #26760 Changed pregabalin (pregabalin 50 mg Cap) 1 Capsules By Mouth 3 times a day Unchanged albuterol (Albuterol (Eqv-ProAir HFA) 90 mcg/ inh inhalation aerosol) 2 Inhalation Inhalation Every 6 hours as needed for Shortness of breath or wheezing Asthma Pharmacy Information [facility] #[id number]: [address] [place], [place] [phone] Allergies No Known Allergies Problems Ongoing - [...] for choosing us for your care. Normal [facility] Family Medicine Office/Clini c Noteon 01-06-2025 Family [...] tab(s), Oral, q6hr, 12 tab(s), Refill(s) 0, [facility] #76213, 179, cm, 01/06/25 11:04:00 EDT, Height/Length Dosing, 86.6, kg, 01/06/25 11:10:00 EDT, Weight Dosing naloxone, 4 mg, Nasal, As Directed, for suspected overdose symptoms, # 1 kit(s), Refills(s) 0, Pharmacy: [facility] #54411, 179, cm, 01/06/25 11:04:00 EDT, Height/Length Dosing, [...] tab(s), Oral, q6hr, 12 tab(s), Refill(s) 0, [facility] #44550, 179, cm, 01/06/25 11:04:00 EDT, Height/Length Dosing, 86.6, kg, 01/06/25 11:10:00 EDT, Weight Dosing naloxone, 4 mg, Nasal, As Directed, for suspected overdose symptoms, # 1 kit(s), Refills(s) 0, Pharmacy: [facility] #57114, 179, cm, 01/06/25 11:04:00 EDT, Height/Length Dosing, 86.6, kg, 01/06/25 11:10:00 EDT, Weight Dosing predniSONE, 10 mg = 1 tab(s), Oral, As Directed, 6 tabs for 2 days,5 tabs for 2 days,4 tabs for 2 days,3 tabs for 2 days,2 tabs for 2 days,1 tab for 2 days, # 42 tab(s), Refills(s) 0, Pharmacy: [facility] #31016, 179, cm, 11/12/24 10:24:00 EDT, Height/L... XR Spine Cervical 4 or 5 Views XR Spine Thoracic 3 Views 3. Neck stiffness (M43.6: Torticollis) see #1 and #2. Ordered: acetaminophen-oxycodon e, 1 tab(s), Oral, q6hr, 12 tab(s), Refill(s) 0, [facility] #30156, 179, cm, 01/06/25 11:04:00 EDT, Height/Length Dosing, 86.6, kg, 01/06/25 11:10:00 EDT, Weight Dosing naloxone, 4 mg, Nasal, As Directed, for suspected overdose symptoms, # 1 kit(s), Refills(s) 0, Pharmacy: [facility] (more content not included)... Normal [facility] Comment on above: Result Comment: Elec tronically Signed By: Abhi LEDBETTER, Tessie Babin\.br\Date and Time Signed: 01/06/25 12:41 EDT Provider Letteron 01-06-2025 Provider Letter Provider Letter January 06, 2025 TESSIE VARGAS [address] [facility] [place] [address] : 1995 To Whom It May Concern, Please excuse above patient from work. Date of Illness:01/06/2025 From: _01/06/2025 To: _01/10/2025 May Return to Work On:01/11/2025 Restrictions: _none Comments: _ Sincerely, [facility] [address] [place] [address], [place] [address] Normal [facility] Nonvisit Note - OTon 12-29-2 025 Nonvisit Note - OT Nonvisit Note - OT Pt. canceled today and rescheduled as he is not feeling well. Normal [facility] Nonvisit Note - OTon 12-22- 025 Nonvisit Note - OT Nonvisit Note - OT Pt. canceled and rescheduled his reassessment today as he got called into work. Normal [facility] Nonvisit Note - OTon 12-15- 025 Nonvisit Note - OT Nonvisit Note - OT Pt. cancelled today's appointment and rescheduled as his son has appointment in [place]. Normal [facility] Nonvisit Note - OTon 12-02- 025 Nonvisit Note - OT Nonvisit Note - OT Pt. cancelled and rescheduled today's appointment as he had another appointment that ran late. Normal [facility] Nonvisit Note - OTon 11-25- 025 Nonvisit Note - OT Nonvisit Note - OT Pt. cancelled today as his car is in the shop and rescheduled it for next week. Normal [facility] Ambulatory Visit Summaryon 0 11-12-2024 Ambulatory Visit [...] AM EDT With: Denzel Bridges MD Where: [facility] [address] [address]- Saturday2025 9:20 AM EDT With: Tessie Simon Where: [facility] [address], [place] [address]- You Need to Schedule the Following Appointments Follow Up with Tessie Simon, [facility], [facility] When: In 1 year Comments: wellness Where: [address], [address] [facility] [address] [place] [phone] You Need to Complete the Following CBC [...] Traumatic, No, Right shoulder strain, pp_set_radiology_subsp de [facility] Medications What How Much When Why Instructions New albuterol (Albuterol (Eqv-ProAir HFA) 90 mcg/ inh inhalation aerosol) 2 Inhalation Inhalation Every 6 hours as needed for Shortness of breath or wheezing Asthma Refills: 3 Pickup at [facility] #33740 New predniSONE (predniSONE 10 mg Tab) 1 Tablets By Mouth As Directed Right shoulder strain 6 tabs for 2 days,5 tabs for 2 days,4 tabs for 2 days,3 tabs for 2 days,2 tabs for 2 days,1 tab for 2 days Pickup at [facility] #63334 Unchanged pregabalin (pregabalin 150 mg Cap) TAKE 1 CAPSULE BY MOUTH TWICE DAILY [id number] [address] [place], [place] [phone] Allergies No Known Allergies Problems Ongoing - [...] daphnie (more content not included)... Normal [facility] Family Medicine Office/Clini c Noteon 11-12-2024 Family [...] 29 year old male presenting to establish [facility] and soreness of right upper back. [...] Immunizations: Tdap due, declined for now. Specialists: Concept Artist: none Dentist: none PHQ: 0 JAS: 0 [...] breath or wheezing, 8.5 gm, Refill(s) 3, [facility] #[id number], 179, cm, 11/12/24 10:24:00 EDT, Height/Length Dosing, 92.1, kg, 11/12/24 10:26:00 EDT, Weight Dosing CBC w/ Auto Diff 4. Depression (F32.A: Depression, unspecified) PHQ: 0 no therapy and is controlled at this time. no need for medications at this time. 5. Chronic anastasia (more content not included)... Normal [facility] Comment on above: Result Comment: Elec [...] AM EDT With: Denzel Bridges MD Where: [facility] [address] [address]- Medications What When Instructions Unchanged pregabalin (pregabalin [...] choosing us for your care. Esteban [facility] Family Medicine Office/Clini c Noteon 11-03-2024 Family [...] and potential concerns involve consultations with a route driver salesperson diagnosing lip polyps possibly specific to certain [...] 09/16/2024 To (more content not included)... Normal [facility] Comment on above: Result Comment: Elec tronically Signed By: Denzel Bridges MD\.br\Date and Time Signed: 11/03/24 09:48 EDT Nonvisit Note - OTon 025 Nonvisit Note - OT Nonvisit Note - OT Pt. cancelled as he stated that his ride cancelled and now he doesn't have a way to get to therapy. Normal [facility] Nonvisit Note - OTon 025 Nonvisit Note - OT Nonvisit Note - OT No call, no show. Left a voicemail message to remind pt. of his next. appt. Normal [facility] Ambulatory Visit Summaryon 0 09-17-2024 Ambulatory Visit [...] EST With: Parminder LONGO, Denzel Carrillo Where: [address] [address]- Medications What How Much When Why Instructions New methylPREDNISolone (Medrol Dosepack 4 mg Tab) 1 Packets By Mouth As Directed BMI 29.0-29.9,adult Overweight (BMI 25.0-29.9) Non-smoker Wrist pain HTN (hypertension) Marijuana use Duration: 6 Days as directed on package labeling Pickup at [facility] #67905 Unchanged pregabalin (pregabalin 150 mg Cap) TAKE 1 CAPSULE BY MOUTH TWICE DAILY Pharmacy Information [facility] #27805: [address] [place], [place] [phone] Allergies No Known Allergies Problems Ongoing - [...] We (more content not included)... Normal [facility] Family Medicine Office/Clini c Noteon 09-17-2024 Family [...] day(s), # 21 tab(s), Refills(s) 0, Pharmacy: [facility] #49554, 179, cm, 09/17/24 9:01:00 EST, Height/Length Dosing, 95.1, kg, 09/17/24 9:01:00 EST, Weight Dosing [facility] Outpatient Occupational Therapy Evaluate Patient, Develop a [...] day(s), # 21 tab(s), Refills(s) 0, Pharmacy: [facility] #33734, 179, cm, 09/17/24 9:01:00 EST, Height/Length Dosing, 95.1, kg, 09/17/24 9:01:00 EST, Weight Dosing [facility] Outpatient Occupational Therapy Evaluate Patient, Develop a Plan of Care, & Implement Plan 3. HTN (hypertension) (I10: Essential (primary) hypertension) Blood pressure monitoring to continue; the discussion will include advisories if steroid treatment begins, as it could affect blood pressure. Ordered: methylPREDNISolone, = 1 packet(s), Oral, As Directed, as directed on package labeling, X 6 day(s), # 21 tab(s), Refills(s) 0, Pharmacy: [facility] #05693, 179, cm, 09/17/24 9:01:00 EST, Height/Length Dosing, 95.1, kg, 09/17/24 9:01:00 EST, Weight Dosing [facility] Outpatient Occupational Therapy Evaluate Patient, Develop a [...] day(s), # 21 tab(s), Refills(s) 0, Pharmacy: [facility] #97309, 179, cm, 09/17/24 9:01:00 EST, Height/Length Dosing, 95.1, kg, 09/17/24 9:01:00 EST, Weight Dosing [facility] Outpatient Occupational Therapy Evaluate Patient, Develop a Plan of Care, & Implement Plan Occupational Therapy Evaluation - External Facility 5. Overweight (BMI 25.0-29.9) (E66.3: Overweight) Diet and exercise advised Ordered: methy (more content not included)... Normal [facility] Comment on above: Result Comment: Elec tronically Signed By: Parminder LONGO, Denzel Palmabr\Date and Time Signed: 09/17/24 09:27 EST Nonvisit Note - PTon 025 Nonvisit Note - PT Nonvisit Note - PT Called following the appointment time to cancel due to confusing appointment times. Normal [facility] Nonvisit Note - PTon 025 Nonvisit Note - PT Nonvisit Note - PT Patient is sick and requested to cancel this appointment. Normal [facility] Nonvisit Note - PTon 07-31- 024 Nonvisit Note - PT Nonvisit Note - PT Patient is sick and requested to cancel. Normal [facility] [place] 06-01-2024 L Specimen: [id number] Received: 06/02/24 Status: NOHELIA Stewart Num: [id number] Spec Type: Surgical Subm Dr: William Singh DPM, MS Tissues: A Osteochondroma (OSTEOCHONDRAL DEFECT RT ANKL) Procedures: HE, Gross/Micro L4 Age/ Patient Sex Location Account Attending Physician Tessie Vargas 29/M [place] [id number] William Singh DPM, MS SPEC NUM: [id number] RECD: 06/02/24 STATUS: NOHELIA STEWART NUM: [id number] NATY: 06/01/[address]: William Singh DPM, MS ENTERED: 06/02/[address]: Gokul Limon SPEC TYPE: Surgical DEPT: [facility] ENTERED BY: [id number] RECV BY: [id number] ORDERED: HE, Gross/Micro L4 ORDERED: HE, Gross/Micro [...] Description Microscopic examination is performed. CPT Codes 88048 ---- ---- Specimen: [id number] Received: 06/02/24 Status: NOHELIA Stewart Num: [id number] Spec Type: Surgical Subm Dr: William Singh,MARTIN, MS Tissues: A Osteochondroma (OSTEOCHONDRAL DEFECT RT ANKL) Procedures: Faby PAEZ/Ochoa Rowe ---- Patient: Tessie Vargas [id number] (Continued) ---- Signed (signature on file) Milo Macias MD 06/03/24 1424 Normal [facility] XR foot RT min 3V*on 024 XR foot RT min 3V* [facility] [place] [address] XRay Report Signed Patient: Tessie Vargas MR#: [id number] : 1995 Acct:[id number] Age/Sex: 28 / M ADM Date: 03/18/24 Loc: [id number] Room: Type: [facility] Attending Dr: Lacie Alexander 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 ([id number]) XR/XR ankle RT min 3V*: S99.911A - [...] De Leon M.D.03/18/2024 5:07 PM Dictation Location: [place] [address] Transcribed By: [facility] 03/18/241706 Dictated By: Sagar De Leon DO 03/18/241705 Signed By: 03/18/241706 Normal [facility] CBC AUTO DIFFon 07-26-2018 Basophils Auto #/vol (Bld) 0.0 103/ul Normal 0.0-0.1 [facility] Comment on above: Performed By: #### C BC ####[facility] [address] [place], [place] [address]Gerken Rosemary Basophils/100 WBC Auto (Bld) 0.6 % Normal 0.2-2.0 [facility] Comment on above: Performed By: #### C BC ####[facility] [address] [place] [address] Rosemary Eosinophils Auto #/vol (Bld) 0.2 103/ul Normal 0.0-0.7 [facility] Comment on above: Performed By: #### C BC ####[facility] [address] [place], [place] [address]Gerken Rosemary Eosinophils/100 WBC Auto (Bld) 3.3 % Normal 0.9-7.0 [facility] Comment on above: Performed By: #### C BC ####[facility] [address] [place] [address] Rosemary Erythrocyte distribution width Auto Ratio (RBC) 11.4 % Normal 11.0-15.0 [facility] Comment on above: Performed By: #### C BC ####[facility] [address] [place] [address] Rosemary Hematocrit Auto Volume Fraction (Bld) 50.9 % Normal 42.0-54.0 [facility] Comment on above: Performed By: #### C BC ####[facility] [address] [place], [place] [address]Gerken Rosemary Hemoglobin mass conc (Bld) 18.2 g/dL Critically high 14.0-18.0 [facility] Comment on above: Result Comment: test repeated delta check value verified Performed By: #### C BC ####[facility] [address] [place], [place] [address]Gerken Rosemary IG # 0.01 10e3/ul Normal 0.00-0.03 [facility] Comment on above: Performed By: #### C BC ####[facility] [address] [place], [place] [address]Gerken Rosemary IG % 0.2 % Normal 0.0-0.5 [facility] Comment on above: Performed By: #### C BC ####[facility] [address] [place], [place] [address]Bzykcv Rosemary Lymphocytes Auto #/vol (Bld) 2.8 103/ul Normal 1.2-3.8 [facility] Comment on above: Performed By: #### C BC ####[facility] [address] [place], [place] [address]Yfyyds Rosemary Lymphocytes/100 WBC Auto (Bld) 50.8 % Normal 20.5-60.0 [facility] Comment on above: Performed By: #### C BC ####[facility] [address] [place], [place] [address]Gerken Rosemary MANUAL DIFF REQ NO Normal [facility] Comment on above: Performed By: #### C BC ####[facility] [address] [place], [place] [address]Gerken Rosemary MCH Auto Entitic mass (RBC) 33.3 pg Normal 25.9-34.0 [facility] Comment on above: Performed By: #### C BC ####[facility] [address] [place], [place] [address]Gerken Rosemary MCHC Auto mass conc (RBC) 35.8 g/dL Critically high 29.9-35.2 [facility] Comment on above: Performed By: #### C BC ####[facility] [address] [place], [place] [address]Gerken Rosemary MCV Auto Entitic volume (RBC) 93.2 fL Normal 80.0-94.0 [facility] Comment on above: Performed By: #### C BC ####[facility] [address] [place] [address]Nobqot Rosemary Monocytes Auto #/vol (Bld) 0.4 103/ul Normal 0.3-0.8 [facility] Comment on above: Performed By: #### C BC ####[facility] [address] [place], [place] [address]Gerken Rosemary Monocytes/100 WBC Auto (Bld) 7.0 % Normal 1.7-12.0 [facility] Comment on above: Performed By: #### C BC ####[facility] [address] [place], [place] [address]Peudjh Rosemary Neutrophils Auto #/vol (Bld) 2.1 103/ul Normal 1.4-6.5 [facility] Comment on above: Performed By: #### C BC ####[facility] [address] [place], [place] [address]Zpbehu Rosemary Neutrophils/100 WBC Auto (Bld) 38.1 % Critically low 43.0-75.0 [facility] Comment on above: Performed By: #### C BC ####[facility] [address] [place], [place] [address]Rojqaj Rosemary Platelet mean volume Auto Entitic volume (Bld) 8.9 fL Critically low 9.5-13.5 [facility] Comment on above: Performed By: #### C BC ####[facility] [address] [place], [place] [address]Gerken Rosemary Platelets Auto #/vol (Bld) 276 103/ul Normal 150-450 [facility] Comment on above: Performed By: #### C BC ####[facility] [address] [place], [place] [address]Gerken Rosemary RBC Auto #/vol (Bld) 5.46 106/ul Normal 4.70-6.10 [facility] Comment on above: Performed By: #### C BC ####[facility] [address] [place], [place] [address]Gerken Rosemary WBC Auto #/vol (Bld) 5.5 103/ul Normal 4.0-11.0 [facility] Comment on above: Performed By: #### C BC ####[facility] [address] [place], [place] [address]Irpfnn Karen GLYCOHEMOGLOBIN A1Con 2017 Glucose mass conc 97 mg/dL Normal [facility] Comment on above: Performed By: #### A 1C ####[facility] [address] [place], [place] [address]Germichelle Riley Hemoglobin A1c/Hemoglobin.total mass fraction (Bld) 5.0 % Normal <=6.0 [facility] Comment on above: Performed By: #### A 1C ####[facility] [address] [place], [place] [address]Cbnbtv Rosemary LIPID PROFILEon 07-26-2018 CHOL-HDL RATIO NORM SEE BELOW Normal [facility] Comment on above: Result Comment: 3.3 - 4.4 LOW RISK 4.4 - 7.1 AVERAGE RISK 7.1 - 11.0 MODERATE RISK >11.0 HIGH RISK Performed By: #### C T/NGNA ####[facility] [address] [place], [place] [address]Pidzlr Rosemary Cholesterol in HDL mass conc > or = 60 mg/dl - LOW CARDIOVASCULAR RISK <40 mg/dl - HIGH CARDIOVASCULAR RISK Normal [facility] Comment on above: Performed By: #### C T/NGNA ####[facility] [address] [place], [place] [address]Fsfqlm Rosemary Cholesterol in HDL mass conc 61 mg/dL Normal [facility] Comment on above: Performed By: #### C T/NGNA ####[facility] [address] [place], [place] [address]Xwvdfd Rosemary Cholesterol in LDL mass conc SEE BELOW Normal [facility] Comment on above: Result Comment: <100 mg/dl OPTIMAL 100 - 129 mg/dl NEAR OR ABOVE OPTIMAL 130 - 159 mg/dl BORDERLINE HIGH 160 - 189 mg/dl HIGH >190 mg/dl VERY HIGH Performed By: #### C T/NGNA ####[facility] [address] [place], [place] [address]Ysobou Rosemary Cholesterol in LDL mass conc 62.8 mg/dL Normal [facility] Comment on above: Performed By: #### C T/NGNA ####[facility] [address] [place], [place] [address]Fjhjbf Rosemary Cholesterol mass conc 131 mg/dL Normal <=200 [facility] Comment on above: Performed By: #### C T/NGNA ####[facility] [address] [place], [place] [address]Hzutsi Rosemary Cholesterol.total/Cho lesterol in HDL mass ratio 2.1 {ratio} Normal [facility] Comment on above: Performed By: #### C T/NGNA ####[facility] [address] [place] [address]Gerken Rosemary Triglyceride mass conc 36 mg/dL Normal <=150 [facility] Comment on above: Performed By: #### C T/NGNA ####[facility] [address] [place] [address]Gerken Rosemary VLDL CALC 7.2 mg/dL Normal [facility] Comment on above: Performed By: #### C T/NGNA ####[facility] [address] [place] [address]Gerken Rosemary PROF 14(COMP METB)on 018 Albumin mass conc 4.8 g/dL Normal 3.5-5.0 [facility] Comment on above: Performed By: #### C T/NGNA ####[facility] X[address] Rosemary Albumin/Globulin mass ratio 1.3 {ratio} Normal [facility] Comment on above: Performed By: #### C T/NGNA ####[facility] [address] [place] [address]Gerken Rosemary ALP enzyme act/vol 66 U/L Normal 38-126 [facility] [facility] Comment on above: Performed By: #### C T/NGNA ####[facility] Wweiqgraur6420 [place] [phone] ALT enzyme act/vol 21 U/L Normal 21-72 [facility] Comment on above: Performed By: #### C T/NGNA ####[facility] Fqfbgvimro2509 [place] [phone] Anion gap 3 molar conc 11.8 mmol/L Normal [facility] Comment on above: Performed By: #### C T/NGNA ####[facility] Pyawduddqw3553 [place] [phone] AST enzyme act/vol 17 U/L Normal 17-59 [facility] Comment on above: Performed By: #### C T/NGNA ####[facility] Knygxgwglu7349 [address] [place] Bilirubin Ql (U) 0.4 mg/dL Normal 0.2-1.3 [facility] Comment on above: Performed By: #### C T/NGNA ####[facility] Mwhbqykwte9778 [address] [place] Calcium mass conc 9.9 mg/dL Normal 8.4-10.2 [facility] Comment on above: Performed By: #### C T/NGNA ####[facility] Mtkortzzbx6396 [address] [place] Chloride molar conc 102 mmol/L Normal 98-107 [facility] Comment on above: Performed By: #### C T/NGNA ####[facility] S[address] [place] [address] [place] CO2 molar conc 33.0 mmol/L Critically high 22.0-30.0 [facility] Comment on above: Performed By: #### C T/NGNA ####[facility] Wuuribwxqv[address] [place] [address] [place] Creatinine mass conc 0.96 mg/dL Normal 0.66-1.25 [facility] Comment on above: Performed By: #### C T/NGNA ####[facility] Brkncwrctj[address] [place] [address] [place] EGFR-AF INDONESIAN >60 Normal >=60 [facility] Comment on above: Performed By: #### C T/NGNA ####[facility] Pywtoougco5179 [place] [phone] EGFR-NON AF INDONESIAN >60 Normal >=60 [facility] Comment on above: Performed By: #### C T/NGNA ####[facility] Vifrxfucfs[address] [place] [address] [place] Globulin Calculated mass conc (S) 3.7 g/dL Normal [facility] Comment on above: Performed By: #### C T/NGNA ####[facility] Gzyrcsrakb0068 [place] [phone] Glucose mass conc 92 mg/dL Normal 74-106 [facility] Comment on above: Performed By: #### C T/NGNA ####[facility] Cugsovbola2846 [address] [place] Potassium molar conc 3.8 mmol/L Normal 3.4-5.0 [facility] Comment on above: Performed By: #### C T/NGNA ####[facility] Gfjkjlassk0534 [address] [place] Protein mass conc 8.5 g/dL Critically high 6.1-8.2 [facility] e [facility] Comment on above: Performed By: #### C T/NGNA ####[facility] Pldalgoahj2177 [address] [place] Sodium molar conc 143 mmol/L Normal 137-145 [facility] Comment on above: Performed By: #### C T/NGNA ####[facility] Lucchueipq4605 [address] [place] Urea nitrogen mass conc 8.0 mg/dL Critically low 9.0-20.0 [facility] Comment on above: Performed By: #### C T/NGNA ####[facility] Wljlimokin7180 [address] [place] Urea nitrogen/Creatinine mass ratio 8.3 mg/mg Normal [facility] Comment on above: Performed By: #### C T/NGNA ####[facility] Remahttbcc2305 [place] [phone] TSHon 07-26-2018 Thyrotropin Qn 1.145 uIU/mL Normal 0.470-4.680 [facility] Comment on above: Performed By: #### C T/NGNA ####[facility] Covdfqzqxk5187 [address] [place] Thyrotropin Qn SEE BELOW Normal [facility] Comment on above: Result Comment: <0.3 4 UIU/ml HYPERTHYROID 0.34-5.60 UIU/ml EUTHYROID >5.60 UIU/ml HYPOTHYROID Performed By: #### C T/NGNA ####[facility] Fxbnidwflb7951 [address] [place] CARDIAC MISAEL ADMITon 018 CK enzyme act/vol 110 U/L Normal 55-170 [facility] Comment on above: Performed By: #### C YOSEF, CORI ####[facility] Ngmsbbyzqx[address] [place] [address] [place] CK.MB mass conc 0.87 ng/mL Normal <=2.[address] [facility] Comment on above: Performed By: #### C YOSEF, CORI ####[facility] Rtqxbwqsrf[address] [place] [address] [place] INR Coag RelTime (Bld) SEE BELOW Normal [facility] Comment on above: Result Comment: <0.0 34 ng/ml NEGATIVE 0.034-0.119 INDETERMINATE 0.120 AMI CUT OFF Performed By: #### C CORI NAVAS ####[facility] Bjvbcjpanl[address] [place] [address] [place] OUMAR 29.0 ng/mL Normal <=121.0 [facility] Comment on above: Performed By: #### C CORI NAVAS ####[facility] Agoiwwctvz[address] [place] [address] [place] TROP <0.017 Normal <=0.034 [facility] Comment on above: Performed By: #### C CORI NAVAS ####[facility] Bftywkeafe[address] [place] [address] [place] CBC AUTO DIFFon 07-24-2018 Basophils Auto #/vol (Bld) 0.0 103/ul Normal 0.0-0.1 [facility] Comment on above: Performed By: #### C BC ####[facility] Nslgtjazqc[address] [place] [address] [place] Basophils/100 WBC Auto (Bld) 0.6 % Normal 0.2-2.0 [facility] Comment on above: Performed By: #### C BC ####[facility] Mqvrfirgvl[address] [place] [address] [place] Eosinophils Auto #/vol (Bld) 0.2 103/ul Normal 0.0-0.7 [facility] Comment on above: Performed By: #### C BC ####[facility] Vcelibhgap[address] [place], [place] [address]Gerken [place] Eosinophils/100 WBC Auto (Bld) 3.3 % Normal 0.9-7.0 [facility] Comment on above: Performed By: #### C BC ####[facility] Junrznkvsp9522[address] [place], [place] [phone] [place] Erythrocyte distribution width Auto Ratio (RBC) 11.3 % Normal 11.0-15.0 [facility] Comment on above: Performed By: #### C BC ####[facility] Dpqnnzefyf[address] [place] [address] [place] Hematocrit Auto Volume Fraction (Bld) 44.6 % Normal 42.0-54.0 [facility] Comment on above: Performed By: #### C BC ####[facility] Kdwoygkeuz[address] [place], [place] [phone] [place] Hemoglobin mass conc (Bld) 15.7 g/dL Normal 14.0-18.0 [facility] Comment on above: Performed By: #### C BC ####[facility] Gtrqkbofjf[address] [place], [place] [phone] [place] IG # 0.01 10e3/ul Normal 0.00-0.03 [facility] Comment on above: Performed By: #### C BC ####[facility] Vvdtkykhww[address] [place], [place] [address]ken [place] IG % 0.2 % Normal 0.0-0.5 [facility] Comment on above: Performed By: #### C BC ####[facility] Qvlvbbvryz4[address] [place], [place] [phone] [place] Lymphocytes Auto #/vol (Bld) 1.8 103/ul Normal 1.2-3.8 [facility] Comment on above: Performed By: #### C BC ####[facility] Ulyoethdvi4201 [place], [place] [address]Jzbtfu [place] Lymphocytes/100 WBC Auto (Bld) 37.0 % Normal 20.5-60.0 [facility] Comment on above: Performed By: #### C BC ####[facility] Trwxnnsdex3559 [place], [place] [address]Byvuqw [place] MANUAL DIFF REQ NO Normal [facility] Comment on above: Performed By: #### C BC ####[facility] Dhyqlkfwtb8154 [place] [phone] MCH Auto Entitic mass (RBC) 32.8 pg Normal 25.9-34.0 [facility] Comment on above: Performed By: #### C BC ####[facility] Ftscagsqab94[address] [place], [place] [phone] [place] MCHC Auto mass conc (RBC) 35.2 g/dL Normal 29.9-35.2 [facility] Comment on above: Performed By: #### C BC ####[facility] Bzyldzylyh[address] [place], [place] [address]Gerken [place] MCV Auto Entitic volume (RBC) 93.1 fL Normal 80.0-94.0 [facility] Comment on above: Performed By: #### C BC ####[facility] Bbncexches[address] [place], [place] [address] Monocytes Auto #/vol (Bld) 0.7 103/ul Normal 0.3-0.8 [facility] Comment on above: Performed By: #### C BC ####[facility] [address] [place] [address]Zhacke [place] Monocytes/100 WBC Auto (Bld) 14.9 % Critically high 1.7-12.0 [facility] Comment on above: Performed By: #### C BC ####[facility] Dhtepbdbja[address] [place], [place] [address] Neutrophils Auto #/vol (Bld) 2.1 103/ul Normal 1.4-6.5 [facility] Comment on above: Performed By: #### C BC ####[facility] Aoblfbibvf6412 [place], [place] [address]Ekjrsu Karen Neutrophils/100 WBC Auto (Bld) 44.0 % Normal 43.0-75.0 [facility] Comment on above: Performed By: #### C BC ####[facility] Wbcauhodao0465 [place], [place] [address]UpxhsnChao Riley Platelet mean volume Auto Entitic volume (Bld) 8.8 fL Critically low 9.5-13.5 [facility] Comment on above: Performed By: #### C BC ####[facility] [address] [place] [address]Zxdlti [place] Platelets Auto #/vol (Bld) 238 103/ul Normal 150-450 [facility] Comment on above: Performed By: #### C BC ####[facility] U[address]vyjamop[address] [place] [address]Qbqloe [place] RBC Auto #/vol (Bld) 4.79 106/ul Normal 4.70-6.10 [facility] Comment on above: Performed By: #### C BC ####[facility] B[address]jsd[address] [place] [address]Ueccoc [place] WBC Auto #/vol (Bld) 4.8 103/ul Normal 4.0-11.0 [facility] Comment on above: Performed By: #### C BC ####[facility] N[address]fc[address] [place] [address]Eeftkn [place] D-DIMERon 07-24-2018 D-DIMER COMMENTS SEE BELOW Normal [facility] Comment on above: Result Comment: [...] generalizd hospitalization. Performed By: #### D DIM ####[facility] [address] [place] [address]Qpyymb [place] Fibrin D-dimer FEU IA mass conc (Bld) 0.19 ug/mL Normal 0.19-0.50 [facility] Comment on above: Performed By: #### D AJAY ####[facility] Wistrjnojg1643 [place] [phone] PROF 14(COMP METB)on 018 Albumin mass conc 3.8 g/dL Normal 3.5-5.0 [facility] Comment on above: Performed By: #### C CORI NAVAS ####[facility] Tefybesnfh8495 [address] [place] Albumin/Globulin mass ratio 1.0 {ratio} Normal [facility] Comment on above: Performed By: #### C CORI NAVAS ####[facility] Znlehmwpve5953 [place] [phone] ALP enzyme act/vol 60 U/L Normal 38-126 [facility] Comment on above: Performed By: #### C CORI NAVAS ####[facility] Bvgxrykbbj3393 [place] [phone] ALT enzyme act/vol 19 U/L Critically low 21-72 [facility] Comment on above: Performed By: #### C CORI NAVAS ####[facility] Qbkoccplnn4520 [place] [phone] Anion gap 3 molar conc 10.2 mmol/L Normal [facility] Comment on above: Performed By: #### C CORI NAVAS ####[facility] Xwkqgvjvgc6205 [place] [phone] AST enzyme act/vol 14 U/L Critically low 17-59 [facility] Comment on above: Performed By: #### C CORI NAVAS ####[facility] Nfbfqeuhbc2043 [place] [phone] Bilirubin Ql (U) 0.4 mg/dL Normal 0.2-1.3 [facility] Comment on above: Performed By: #### C CORI NAVAS ####[facility] Cy[address]qpdxpwi5026 [place], [place] [address]Qbovqq Rsoemary Calcium mass conc 9.4 mg/dL Normal 8.4-10.2 [facility] Comment on above: Performed By: #### C YOSEF, CORI ####[facility] Scoykhtgkq9077 [place], [place] [address]Vsthho [place] Chloride molar conc 105 mmol/L Normal 98-107 [facility] Comment on above: Performed By: #### C YOSEF, CORI ####[facility] Xiwiahwaou9217 [place] [phone] CO2 molar conc 28.5 mmol/L Normal 22.0-30.[address] [facility] Comment on above: Performed By: #### C CORI NAVAS ####[facility] Nycdrzsumm7780 [place] [phone] Creatinine mass conc 0.95 mg/dL Normal 0.66-1.25 [facility] Comment on above: Performed By: #### C YOSEF, CORI ####[facility] Xsnjngagly4970 [place], [place] [address]Wmwfji [place] EGFR-AF INDONESIAN >60 Normal >=60 [facility] Comment on above: Performed By: #### C YOSEF, CORI ####[facility] Gfajvzageq7972 [place] [phone] EGFR-NON AF INDONESIAN >60 Normal >=60 [facility] Comment on above: Performed By: #### C YOSEF, CORI ####[facility] Sjyrdjwets3451 [place] [phone] Globulin Calculated mass conc (S) 3.7 g/dL Normal [facility] Comment on above: Performed By: #### C YOSEF, CORI ####[facility] Vgpuvmafnd3568 [place], [place] [address]Fcmrwp [place] Glucose mass conc 104 mg/dL Normal 74-106 [facility] Comment on above: Performed By: #### C YOSEF, CORI ####[facility] R[address]bguhnlf[address] [place], [place] [address]Gerken [place] Potassium molar conc 3.7 mmol/L Normal 3.4-5.0 [facility] Comment on above: Performed By: #### C YOSEF, CMADM ####[facility] Xxrrubmmur3149 [place] [phone] Riley Protein mass conc 7.5 g/dL Normal 6.1-8.2 [facility] Comment on above: Performed By: #### C YOSEF, CMADM ####[facility] Jqqmxzawlb5033 [place], [place] [address]Qqqwrf Karen Sodium molar conc 140 mmol/L Normal 137-145 [facility] Comment on above: Performed By: #### C YOSEF, CMADM ####[facility] Xjmmdbbpvy2954 [place] [phone] Urea nitrogen mass conc 10.0 mg/dL Normal 9.0-20.0 [facility] Comment on above: Performed By: #### C YOSEF, CMADM ####[facility] Agyldtdjhx4412 [place] [phone] Urea nitrogen/Creatinine mass ratio 10.5 mg/mg Normal [facility] Comment on above: Performed By: #### C YOSEF, CMADM ####[facility] Qmfsevlfmv3777 [place] [phone] XR CHEST 2 Von 07-24-2018 XR CHEST [address] [place] [id number] Patient: TESSIE VARGAS Exam Date: 07/24/2018DOB: 1995 Gender:M : DR SHAKILA HARMON Admission #: [id number] : Order #: [id number] HERE TO VIEW EXAM RADIOLOGY REPORT PROCEDURE: [...] M.D. on 07/24/2018 at 07:47 Normal [facility] XR ELBOW RT MIN 3 VIEWSon XR ELBOW RT MIN 3 VIEWS [address] [place] [address] Patient: TESSIE VARGAS Exam Date: 05/05/2018DOB: 1995 Gender:M : POLY PANG Admission #: [id number] : DR MARTHA GRECO . Order #: [id number] HERE TO VIEW EXAM RADIOLOGY REPORT PROCEDURE: [...] M.D. on 05/05/2018 at 16:35 Normal [facility] CHLAMYDIA/GONOCOCCUS YENNIFER W/C ONF. (SWAB/Uon 11-22-2017 Chlamydia Trach YENNIFER Negative Normal Negative [facility] Comment on above: Performed By: #### C T/NGNA ####[facility] Cqhfujfywc2220 [address] Gonorrhoeae YENNIFER Negative Normal Negative [facility] Comment on above: Performed By: #### C T/NGNA ####[facility] Jxoqjcuepf7[address] ER URINE PROFILEon 8 BILIRUBIN Negative Normal NEGATIVE [facility] Comment on above: Performed By: #### E RUR ####[facility] Akumunvsfl1826 [address] [place] BLOOD Negative Normal NEGATIVE [facility] Comment on above: Performed By: #### E RUR ####[facility] Gedzmmjjys7768 [place] [phone] CLARITY CLEAR Normal [facility] Comment on above: Performed By: #### E RUR ####[facility] Qyoowmjsxd4934 [place] [phone] COLOR LT. YELLOW Normal YELLOW [facility] Comment on above: Performed By: #### E RUR ####[facility] Dzubdfbech3446 [place] [phone] ERUAHD A micrscopic examination will be performed if indicated. Normal [facility] Comment on above: Performed By: #### E RUR ####[facility] [address] [place] [address] [place] GLUCOSE Negative Normal NEGATIVE [facility] Comment on above: Performed By: #### E RUR ####[facility] [address]qbnwizi[address] [place] [address] [place] KETONES TRACE Normal NEGATIVE [facility] Comment on above: Performed By: #### E RUR ####[facility] [address] [place] [address] [place] LEUKOCYTES Negative Normal NEGATIVE [facility] Comment on above: Performed By: #### E RUR ####[facility] Yvzxvkolct1824 [address] [place] NITRITE Negative Normal NEGATIVE [facility] Comment on above: Performed By: #### E RUR ####[facility] Gmtjcolhru3698 [address] [place] pH 8.0 Normal 5-9 [facility] Comment on above: Performed By: #### E RUR ####[facility] Nlgjczhyjv8018 [address] [place] Protein mass conc Negative Normal [facility] Comment on above: Performed By: #### E RUR ####[facility] Lzmsfldjac4371 [address] [place] SPEC GRAVITY 1.015 Normal 1.005-<=1.02 5 [facility] Comment on above: Performed By: #### E RUR ####[facility] Afayzdlicm[address] [place], [place] [address]Pdhesm Rosemary UR MICRO IND NOT INDICATED Normal [facility] Comment on above: Performed By: #### E RUR ####[facility] Zgzetkwrcy3922 [place], [place] [address]Zjjxzr [place] UROBILINOGEN 0.2 EU/dl Normal [facility] Comment on above: Performed By: #### E RUR ####[facility] Ssupbbrnvt8257 [place], [place] [address]Adbpys Rosemary Vital Signs Date Time Vital Sign Value Performing Clinician Facility 03-17-2025 09:45-0400 Body height 180.3 cm Allyssa Pocos DO Work Phone: [facility] 03-17-2025 09:45-0400 Body mass index (BMI) [Ratio] 25.1 kg/m2 Allyssa Pocos DO Work Phone: [facility] 03-17-2025 09:45-0400 Body weight 81.65 kg Allyssa Pocos DO Work Phone: [facility] 02-10-2025 10:50-0400 Body height 180.3 cm Allyssa Pocos DO Work Phone: [facility] 02-10-2025 10:50-0400 Body mass index (BMI) [Ratio] 25.1 kg/m2 Allyssa Pocos DO Work Phone: [facility] 02-10-2025 10:50-0400 Body weight 81.65 kg Allyssa Pocos DO Work Phone: [facility] 03-18-2024 15:50-0400 Body height 182.88 cm MD Denzel Bridges Work Phone: [facility] 03-18-2024 15:50-0400 Body mass index (BMI) [Ratio] 28.5 kg/m2 MD Denzel Bridges Work Phone: [facility] 03-18-2024 15:50-0400 Body temperature 98.4 [degF] MD Denzel Bridges Work Phone: [facility] 03-18-2024 15:50-0400 Body weight 95.25 kg MD Denzel Bridges Work Phone: [facility] 03-18-2024 15:50-0400 Diastolic blood pressure 87 mm[Hg] MD Denzel Bridges Work Phone: [facility] 03-18-2024 15:50-0400 Heart rate 81 /min MD eDnzel Bridges Work Phone: [facility] 03-18-2024 15:50-0400 SaO2% (BldA) [Mass fraction] 97 % MD Denzel Bridges Work Phone: [facility] 03-18-2024 15:50-0400 Systolic blood pressure 137 mm[Hg] MD Denzel Bridges Work Phone: [facility] 12-10-2022 08:11-0400 Body height 182.88 cm MD Denzel Bridges Work Phone: [facility] 12-10-2022 08:11-0400 Body temperature 97.5 [degF] MD Denzel Bridges Work Phone: [facility] 12-10-2022 08:11-0400 Body weight 101.6 kg MD Denzel Bridges Work Phone: [facility] 12-10-2022 08:11-0400 Diastolic blood pressure 80 mm[Hg] MD Denzel Bridges Work Phone: [facility] 12-10-2022 08:11-0400 Heart rate 98 /min MD Denzel Bridges Work Phone: [facility] 12-10-2022 08:11-0400 Respiratory rate 18 /min MD Denzel Bridges Work Phone: [facility] 12-10-2022 08:11-0400 SaO2% (BldA) [Mass fraction] 100 % MD Denzel Brigdes Work Phone: [facility] 12-10-2022 08:11-0400 Systolic blood pressure 133 mm[Hg] MD Denzel Bridges Work Phone: [facility] Encounters Encounter Date Encounter Type Care Provider Facility Start: 11-17-2025 ambulatory Tessie Moe Facili ty:[facility] Start: 04-08-2025 End: 04-08-2025 ambulatory Tessie Moe Facility:[facility] Start: 04-08-2025 End: 04-08-2025 Patient encounter procedure Tessie Moe EARLY MORNING BABYSITTER-C [facility] Start: 04-06-2025 End: 04-08-2025 Clinisync Result Encounter Nir Pocos DO Work Phone: [facility] External Department Unsolicited Start: 04-06-2025 End: 04-08-2025 Clinisync Result Encounter Nir Pocos DO Work Phone: [facility] External Department Unsolicited Start: 04-06-2025 End: 04-06-2025 ambulatory Allyssa Meneses Pocos Facility:[facility] Start: 04-05-2025 ambulatory Denzel Bridges Facility :[facility] Start: 03-19-2025 End: 03-19-2025 ambulatory Tessie Moe Facility:[facility] Start: 03-19-2025 End: 03-19-2025 Patient encounter procedure Tessie Moe EARLY MORNING BABYSITTER-C [facility] Start: 03-17-2025 End: 03-17-2025 Bamboo flowsheet Nir Pocos DO Work Phone: [facility] Start: 03-17-2025 End: 03-17-2025 Bamboo flowsheet Nir Pocos DO Work Phone: [facility] Start: 03-17-2025 End: 03-17-2025 Patient encounter procedure Nir Pocos DO Work Phone: [facility] Comment on above: TFCC (triangular fib rocartilage complex) tear, right, subsequent encounter (Primary Dx); Ulnar tunnel syndrome of right wrist Start: 03-17-2025 End: 03-17-2025 ambulatory NIR POCOS Not Available Start: 03-16-2025 End: 03-16-2025 ambulatory Tessie Moe Facility:[facility] Start: 03-16-2025 End: 03-16-2025 Patient encounter procedure Tessie Moe EARLY MORNING BABYSITTER-C [facility] Start: 02-15-2025 End: 02-15-2025 Emergency department patient visit Imelda Ridley [facility] Start: 02-10-2025 End: 02-10-2025 Patient encounter [...] Start: 02-02-2025 End: 02-02-2025 ambulatory Tessie Moe Facility:[facility] Start: 02-02-2025 End: 02-02-2025 Patient encounter procedure Tessie Moe EARLY MORNING BABYSITTER-C [facility] Start: 01-28-2025 End: 01-28-2025 ambulatory Tessie Moe Facility:[facility] Start: 01-28-2025 End: 01-28-2025 Patient encounter procedure Tessie Moe EARLY MORNING BABYSITTER-C [facility] Start: 01-25-2025 End: 01-25-2025 ambulatory Tessie Moe Facility:[facility] Start: 01-25-2025 End: 01-25-2025 Patient encounter procedure Tessie Moe EARLY MORNING BABYSITTER-C [facility] Start: 01-06-2025 End: 01-06-2025 ambulatory Tessie Talya Moe Facility:[facility] Start: 01-06-2025 End: 01-06-2025 Patient encounter procedure Tessie Moe EARLY MORNING BABYSITTER-C [facility] Start: 01-05-2025 End: 01-05-2025 ambulatory Sherman Hart Facility:[facility] Start: 01-05-2025 End: 01-05-2025 Patient encounter procedure Sherman Hart [facility] Start: 11-12-2024 End: 11-12-2024 ambulatory Tsesie Talya Moe Facility:[facility] Start: 11-11-2024 ambulatory Sherman Hart Facility: [facility] Start: 11-03-2024 End: 11-03-2024 ambulatory Denzel Bridges Facility: [facility] Start: 10-29-2024 End: 10-29-2024 ambulatory Denzel Bridges Facility:[facility] Start: 10-22-2024 End: 10-22-2024 ambulatory Denzel Bridges Facility:[facility] Start: 09-28-2024 End: 03-31-2025 ambulatory Denzel Bridges Facility:[facility] Start: 09-17-2024 End: 09-17-2024 ambulatory Denzel Bridges Facility:[facility] Start: 07-24-2024 End: 12-09-2024 ambulatory WILLIAM SINGH Facility:[facility] Start: 06-01-2024 End: 06-01-2024 ambulatory MD Denzel Bridges Work Phone: [facility] Work Phone: Start: 06-01-2024 End: 06-01-2024 Departed Referred MD Denzel Bridges Work Phone: [facility] Start: 03-18-2024 End: 03-18-2024 ambulatory MD Denzel Bridges Work Phone: [facility] Work Phone: Start: 03-18-2024 End: 03-18-2024 Patient encounter procedure MD Denzel Bridges Work Phone: [facility] Juan Manuel Work Phone: Start: 12-10-2022 End: 12-10-2022 Emergency department patient visit MD Denzel Bridges Work Phone: [facility] Work Phone: Start: 07-26-2018 End: [...] XR INJ WRIST ARTHROG MELE RIGHT Allyssa Meneses Pocos DO Work Phone: Start: 04-06-2025 MR [...] 04-12-2025 Influenza vaccination Influenza Vacc ine (#1) [facility] Start: 04-09-2025 End: 04-09-2025 Patient encounter procedure 04/09/2025 8:30 AM EDT [facility] [address] [place] [address] Allyssa Carlisle, DO [address] [facility] [place] [address] [facility] Start: 03-17-2025 End: 03-17-2025 Patient encounter procedure [facility] Comment on above: Arrived Patient Education Ankle Sprain ED [facility] Work Phone: Patient referral [facility] Work Phone: XR Wrist - right 3 Views XR wrist 3+ views right Imaging Routine Right wrist pain 02/10/2025 8:12 AM EDT [facility] Work Phone: Immunizations Immunization Date Immunization Notes Care Provider Fa [facility] 07-22-2021 SARS-CoV-2 (COVID-19 ) mRNA BNT-162b2 vax Sherman Hart [facility] 07-01-2021 SARS-CoV-2 (COVID-19 ) mRNA BNT-162b2 vax Sherman Hart [facility] 03-16-1999 DTaP, unspecified formulation Sherman Hart [facility] 03-16-1999 hepatitis B vaccine, pediatric or pediatric/adolescent dosage Sherman Tanner [facility] 03-16-1999 measles, mumps and rubella virus vaccine Sherman Tanner [facility] 10-11-1995 DTaP, unspecified formulation Sherman Tanner [facility] 10-11-1995 Hib, unspecified formulation Sherman Tanner [facility] 10-11-1995 measles, mumps and rubella virus vaccine Sherman Tanner [facility] 01-17-1995 hepatitis B vaccine, pediatric or pediatric/adolescent dosage Sherman Tanner [facility] 01-17-1995 Hib, unspecified formulation Sherman Tanner [facility] 1994 hepatitis B vaccine, pediatric or pediatric/adolescent dosage Sherman Tanner [facility] 1994 Hib, unspecified formulation Sherman Tanner [facility] 1994 hepatitis B vaccine, pediatric or pediatric/adolescent dosage Sherman Tanner [facility] 1994 Hib, unspecified formulation Sherman Tanner [facility] NEGATED: Highlighted row has not occurred!11-08-2022 influenza virus vaccine, unspecified formulation Sherman Tanner [facility] Payers Date Payer Category Payer Private Health Insurance [id number] 2024 Self-pay [id number] 20[address] [facility] BCBS [id number] 2024 Unknown [id number] 1994 Unknown [id number] 2.16.840.1.537642.3.579. 2.593 1994 Unknown [id number] 2.16.840.1.420648.3.579. 2.593 1994 Unknown [id number] 2.16.840.1.588647.3.579. 2.593 1994 Unknown [id number] 2.16.840.1.539220.3.579. 2.593 1994 Unknown [id number] 2.16.840.1.758912.3.579. 2.593 1994 Unknown [id number] 2.16.840.1.468632.3.579. 2.1259 1994 Unknown [id number] 2.16.840.1.601259.3.579. 2.1259 1994 Unknown [id number] 2.16.840.1.393150.3.579. 2.9 1994 Unknown [id number] 2.16.840.1.310475.3.579. 2 1994 Unknown [id number] 2.16.840.1.120987.3.579. 2 1994 Unknown [id number] 2.16.840.1.017087.3.579. 2 1994 Unknown [id number] 2.16.840.1.041318.3.579. 2 1994 Unknown [id number] 2.16.840.1.309103.3.579. 2 1994 Unknown [id number] 2.16.840.1.036554.3.579. 2 1994 Unknown [id number] 2.16.840.1.719481.3.579. 2 1994 Unknown [id number] 2.16.840.1.984890.3.579. 2 1994 Unknown [id number] 2.16.840.1.198729.3.579. 2 1994 Unknown [id number] 2.16.840.1.073307.3.579. 2 1994 Unknown [id number] 2.16.840.1.719740.3.579. 2 1994 Unknown [id number] 2.16.840.1.009549.3.579. 2 1994 Unknown [id number] 2.16.840.1.892388.3.579. 2 1994 Unknown [id number] 2.16.840.1.261670.3.579. 2 1994 Unknown [id number] 2.16.840.1.240959.3.579. 2 1994 Unknown [id number] 2.16.840.1.087216.3.579. 2.727 1994 Unknown [id number] 2.16.840.1.439433.3.579. 2.727 1994 Unknown [id number] 2.16.840.1.963724.3.579. 2.727 1994 Unknown [id number] 2.16.840.1.452097.3.579. 2.727 1994 Unknown [id number] 2.16.840.1.055522.3.579. 2.727 1959 Unknown [id number] Private Health Insurance [employer] [id number] Unknown [id number] 2.16.840.1.696680.3.579. 2.531 Unknown [id number] 2.16.840.1.082023.3.579. 2.531 Social History Date Type Detail Facility Start: 12-10-2022 [facility] Start: 1995 Sex Assigned At Male [facility] Start: 01-06-2025 End: 04-08-2025 Tobacco smoking status Ex-smoker (finding) [facility] Start: 02-15-2025 Tobacco smoking status Never [facility] Sexual Orientation [facility] Start: 02-10-2025 End: 03-17-2025 Sex Assigned At Male [facility] Start: 10-12-2013 Sex Male (finding) [facility] Start: 02-10-2025 [facility] Start: 02-10-2025 Tobacco use and exposure Smoke less tobacco non-user [facility] Start: 02-10-2025 End: 03-17-2025 Alcoholic beverage intake Ex-drinker (finding) [facility] Start: 02-10-2025 End: 03-17-2025 History of Social function [facility] Start: 1995 Sex assigned at Not on file [facility] Clinical Notes 09-17-2024 to 04-08-2025 Pallavi Paris - 03/17/2025 9:45 AM EDT Note Date & Type Note Facility 04-08-2025 Hospital Discharge instructions Patient Education 04/08/2025 10:28:26 Otitis Media, Adult, Vfdo-mf-Avyd Otitis Media, Adult Otitis media is a [...] pain. Follow these instructions at home: Take tzrt-agg-fsatuoo and prescription medicines only as told by [...] provider. Document Revised: 11/06/2021 Document Reviewed: 11/06/2021 [employer] Patient Education 2023 [employer]. 04/08/2025 10:28:21 BMI for Adults BMI for [...] Centers for Disease Control and Prevention: cdc.gov [place] Heart Association: heart.org National Heart, Lung, and Blood [place]: nhlbi.nih.gov This information is not intended to replace advice given to you by your health care provider. Make sure you discuss any questions you have with your health care provider. Document Revised: 2023 Document Reviewed: 04/11/2023 [employer] Patient Education 2023 [employer]. Follow Up Care 01/06/2025 11:43:59 With:Abhi LEDBETTER, Tessie Babin, UDAY, [facility] Address: [address], [address] [facility] [address] [place] [phone] When: Unknown Comments:as scheduled [facility] 04-08-2025 Note Patient Education ENT [...] Follow these instructions at home: ??? Take nwjo-eff-frlhftu and prescription medicines only as told by [...] provider. Document Revised: 11/06/2021 Document Reviewed: 11/06/2021 [employer] Patient Education ? 2023 [employer] Nutrition BMI for Adults Body mass [...] (Inserted Image. Un (more content not included)... [facility] 03-19-2025 Hospital Discharge instructions Patient Education 03/19/2025 12:11:59 Otitis Media, Adult, Vptx-to-Qtdf Otitis Media, Adult Otitis media is a [...] pain. Follow these instructions at home: Take npbi-qon-iurvstg and prescription medicines only as told by [...] provider. Document Revised: 11/06/2021 Document Reviewed: 11/06/2021 [employer] Patient Education 2023 [employer]. 03/19/2025 12:11:57 Ear Drops, Adult, Dzvb-oq-Bziy Ear Drops, Adult Your doctor has found [...] cannot use soap and water, use hand halver machine operator. 2.Make sure your ears are clean and [...] cannot use soap and water, use hand halver machine operator. Follow these instructions at home: Use the [...] provider. Document Revised: 01/01/2023 Document Reviewed: 12/10/2022 [employer] Patient Education 2023 [employer]. Follow Up Care 03/16/2025 08:01:31 With:Abhi LEDBETTER, UDAY Welch, MED Address: [address] [place] [phone] When: Unknown Comments:as scheduled [facility] 03-19-2025 Note Patient Education Caregiving [...] cannot use soap and water, use hand halver machine operator. 2. Make sure your ears are clean [...] cannot use soap and water, use hand halver machine operator. Follow these instructions at home: ??? Use [...] provider. Document Revised: 01/01/2023 Document Reviewed: 12/10/2022 [employer] Patient Education ? 2023 [employer]. ENT Otitis Media, Adult Otitis media is [...] antibiotic medicines. ?? (more content not included)... [facility] 03-17-2025 History of Present illness Narrative Images [...] ANKLE SURGERY Right 06/01/2024 Dr. Singh - [facility] FAMILY HISTORY: No family history on [...] 7:46 AM EDT documented in this encounter [facility] 02-15-2025 Hospital Discharge instructions Patient Education 02/15/2025 [...] to any changes in your symptoms. Take llvk-jjp-hbmnqlk and prescription medicines only as told by [...] provider. Document Revised: 05/03/2023 Document Reviewed: 05/03/2023 [employer] Patient Education 2023 [employer]. Follow Up Care 02/15/2025 17:05:24 With:Allyssa Carlisle Address: [address] [place] [id number]- Digital Guardian (1) When:02/18/2025 18:11:48 Comments:Call Dr for diagnosis based follow up With:Tessie Moe Address:Unknown When:Within 3 Day(s) [facility] 02-15-2025 Note ED Patient Education Note [...] any changes in your symptoms. ??? Take ftpm-umo-jdjlikq and prescription medicines only as told by [...] provider. Document Revised: 05/03/2023 Document Reviewed: 05/03/2023 [employer] Patient Education ? 2023 [employer]. [facility] 02-15-2025 Evaluation + Plan note Extrac aura from: Title:ED Note Author:Carlos Leonard PA-C te:02/15/25 Right wrist pain (M25.531: P ain in right wrist) Orders: acetaminophen-hydrocodone, 1 tab(s), Oral, q6hr for pain for 3 day(s), 12 tab(s), Refill(s) 0, [id number], 182.9, cm, 02/15/25 17:15:00 EDT, Height/Length Dosing, 82.1, kg, 02/15/25 17:15:00 EDT, Weight Dosing XR Wrist 3+ Views Right Future Appointments Appointment Date:04/07/2025 11:00:00 AM Scheduled Provider:Tessie Simon Location:[facility] Appointment Type: Open Appointment Date:11/17/2025 09:20:00 AM Scheduled Provider:Tessie Simon [facility] Type: Open Future Scheduled Tests Laboratory* CBC w/ Auto Diff 03/02/24 * Comprehensive Metabolic Panel 03/02/24 * Lipid Panel 03/02/24 [facility] 07-02-2025 History of Present illness Narrative* [...] given by the patient. [id number] Discharge instructions Patient Education 02/02/2025 09:56:17 Paresthesia, Kmex-ie-Gosy Paresthesia Paresthesia is a burning or prickling [...] hard liquor (44 mL). General instructions Take gasv-odk-zmhsody and prescription medicines only as told by [...] provider. Document Revised: 04/09/2022 Document Reviewed: 04/09/2022 [employer] Patient Education 2023 [employer]. 02/02/2025 09:56:13 Wrist Pain, Adult, Hywc-dx-Ukpf Wrist Pain, Adult There are many things [...] to any changes in your symptoms. Take ejme-pyx-wkxszmg and prescription medicines only as told by [...] provider. Document Revised: 05/03/2023 Document Reviewed: 05/03/2023 [employer] Patient Education 2023 [employer]. Follow Up Care 01/27/2025 14:14:48 With:Abhi LEDBETTER, Tessie Babin, UDAY, MED Address: [address], [facility] [address] [phone] When: Unknown Comments:as scheduled [facility] 06-24-2025 NotePatient Education Neurology Paresthesia [...] liquor (44 mL). General instructions ??? Take beud-rsr-bbjnshj and prescription medicines only as told by [...] provider. Document Revised: 04/09/2022 Document Reviewed: 04/09/2022 [employer] Patient Education ? 2023 [employer]. Orthopedics Wrist Pain, Adult There are many [...] if you cannot feel (more content not included)...[facility]05-28-2025 Hospital Discharge instructions Patient Education 01/06/2025 12:40:54 Wrist Pain, Adult, Ihgh-yg-Wjhj Wrist Pain, Adult There are many things [...] to any changes in your symptoms. Take vqwy-lsn-pdqqxcf and prescription medicines only as told by [...] provider. Document Revised: 05/03/2023 Document Reviewed: 05/03/2023 [employer] Patient Education 2023 [employer] 01/06/2025 12:40:52 Joint Pain, Jwkr-oj-Aatx Joint Pain Joint pain can be caused [...] a bath or shower. General instructions Take oybo-fkt-jaqrkcf and prescription medicines only as told by [...] pain or make your pain worse. Take tvgx-igf-qwfctgg and prescription medicines only as told by your doctor. This information is not intended to replace advice given to you by your health care provider. Make sure you discuss any questions you have with your health care provider. Document Revised: 11/08/2020 Document Reviewed: 11/09/2020 [employer] Patient Education 2023 [employer]. 01/06/2025 12:40:51 Acute Pain, Adult Acute Pain, [...] Follow these instructions at home: Medicines Take acjx-tat-pclxqve and prescription medicines only as told by [...] pain is severe. ?Do not take other piiy-mht-qzfvksc pain medicines in addition to prescription pain [...] to keep your urine pale yellow. Take awgy-wly-qzlldnf or prescription medicines. Eat foods that are [...] provider. Document Revised: 02/20/2023 Document Reviewed: 02/20/2023 [employer] Patient Education 2023 [employer]. Follow Up Care 12/31/2024 12:46:08 With:Abhi LEDBETTER, UDAY Welch, [facility] Address: [address] [place] [address] Stephanie, [facility] [address] [phone] When:Within 3 Month(s) Comments:shoulder/wrist pain [facility] 05-28-2025 NotePatient Education Orthopedics Wrist [...] any changes in your symptoms. ??? Take eoyl-ijj-jqggybw and prescription medicines only as told by [...] provider. Document Revised: 05/03/2023 Document Reviewed: 05/03/2023 [employer] Patient Education ? 2023 [employer] Joint Pain Joint pain can be [...] your doctor what types (more content not included)...[facility]04-03-2025 NotePatient Education Cardiovascular Hypertension, Adult Hypertension is [...] Keep all follow-up visits. Medicines ??? Take cizn-fwz-azkfwgx and prescription medicines only as told by [...] ??? Hypertension is a (more content not included)...[facility] 11-03-2024 NotePatient Education Cardiovascular Hypertension, Adult High [...] one 12 oz bottle (more content not included)...[facility]02-06-2025 NotePatient Education Nutrition BMI for Adults Body [...] for Disease Control and Prevention: cdc.gov ??? [place] Heart Association: heart.org ??? National Heart, Lung, and Blood [place]: nhlbi.nih.gov This information is not intended to replace advice given to you by your health care provider. Make sure you discuss any questions you have with your health care provider. Document Revised: 2023 Document Reviewed: 04/11/2023 [employer] Patient Education ? 2023 [employer].[facility] Evaluation + Plan note Future Appointments Appointment Date:04/07/2025 11:00:00 AM Scheduled Provider:Tessie Simon Location:[facility] Appointment Type: Open Appointment Date:11/17/2025 09:20:00 AM Scheduled Provider:Tessie Simon Location:[facility] Appointment Type: Open Future Scheduled Tests Laboratory* HgbA1c 11/12/24 * CBC w/ Auto Diff 03/02/24 * CBC w/ Auto Diff 11/12/24 * Comprehensive Metabolic Panel 03/02/24 * Comprehensive Metabolic Panel 11/12/24 * Lipid Panel 03/02/24 * Lipid Panel 11/12/24 Radiology* XR Shoulder Complete Right 11/12/24 * XR Spine Cervical 4 or 5 Views 01/06/25 * XR Spine Thoracic 3 Views 01/06/25 [facility] Evaluation + Plan note Future Appointments Appointment Date:01/06/2025 11:00:00 AM Scheduled Provider:Tessie Simon Location:[facility] Appointment Type:FM Open Appointment Date:11/17/2025 09:20:00 AM Scheduled Provider:Tessie Simon Location:[facility] Appointment Type: Open Future Scheduled Tests Laboratory* HgbA1c 11/12/24 * CBC w/ Auto Diff 03/02/24 * CBC w/ Auto Diff 11/12/24 * Comprehensive Metabolic Panel 03/02/24 * Comprehensive Metabolic Panel 11/12/24 * Lipid Panel 03/02/24 * Lipid Panel 11/12/24 Radiology* XR Shoulder Complete Right 11/12/24 [facility] Evaluation + Plan note Future Appointments Appointment Date:04/07/2025 11:00:00 AM Scheduled Provider:Tessie Simon Location:[facility] Appointment Type:FM Open Appointment Date:11/17/2025 09:20:00 AM Scheduled Provider:Tessie Simon [facility] Type:FM Open Future Scheduled Tests Laboratory* CBC w/ Auto Diff 03/02/24 * Comprehensive Metabolic Panel 03/02/24 * Lipid Panel 03/02/24 [facility] Evaluation + Plan note Future Appointments Appointment Date:02/02/2025 09:20:00 AM Scheduled Provider:Tessie Simon Location:[facility] Appointment Type: Open Appointment Date:04/07/2025 11:00:00 AM Scheduled Provider:Tessie Simon Location:[facility] Appointment Type: Open Appointment Date:11/17/2025 09:20:00 AM Scheduled Provider:Tessie Simon Location:[facility] Appointment Type: Open Future Scheduled Tests Laboratory* CBC w/ Auto Diff 03/02/24 * Comprehensive Metabolic Panel 03/02/24 * Lipid Panel 03/02/24 [facility] Evaluation + Plan note Future Appointments Appointment Date:03/19/2025 11:40:00 AM Scheduled Provider:Tessie Simon Location:[facility] Appointment Type: Acute Appointment Date:04/08/2025 09:20:00 AM Scheduled Provider:Tessie Simon Location:[facility] Appointment Type:FM Open Appointment Date:11/17/2025 09:20:00 AM Scheduled Provider:[facility]ie Simon [facility]: Open [facility] Evaluation + Plan note Future Appointments Appointment Date:04/08/2025 09:20:00 AM Scheduled Provider:Tessie Simon Location:[facility] Appointment Type: Open Appointment Date:11/17/2025 09:20:00 AM Scheduled Provider:Tessie Simon Location:[facility] Appointment Type: Open [facility] Evaluation + Plan note Future Appointments Appointment Date:11/17/2025 09:20:00 AM Scheduled Provider:Tessie Simon Location:[facility] Appointment Type: Open [facility] Evaluation noteNo assessment information available [facility] Work Phone: evaluation note* Diagnosis Onset Date Resolution Status Right ankle sprain noneactiv e Right ankle injury noneactiv e Right foot injury noneactive [facility] Work Phone: evaluation note* Diagnosis Right [...] Narrative No data available for this section [facility] Hospital Discharge instructions No data available for this section [facility] Progress note No data available for this section [facility] Summary Purpose Family History No [...] and content) DATE CREATED AUTHOR 07/31/2018 [facility] DATE CREATED AUTHOR AUTHOR'S ORGANIZ ATION 06/04/2024 [facility] DATE CREATED AUTHOR AUTHOR'S ORGANIZ ATION 01/27/2025 [facility] DATE CREATED AUTHOR AUTHOR'S ORGANIZ ATION 03/19/2025 [facility] Special[facility] EPIC DATE CREATED AUTHOR AUTHOR'S ORGANIZ ATION 04/10/2025 [facility] DATE CREATED AUTHOR AUTHOR'S ORGANIZ ATION 04/21/2025 [facility] Care Teams (unrecognized sec tion and content) [...] June 01, 2024 End: June 01, 2024 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 Relationship Specialty Start Date End Date Denzel Bridges MD [address] [place] [address] PCP - General Family Medicine 02/03/25 Tessie Moe FNP [address] [place] [address] Referring Physician Family Medicine 02/03/25 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 Relationship Specialty Start Date End Date Denzel Bridges MD [address] [place], [place] [phone] PCP - General Family Medicine 02/03/25 Tessie Moe FNP [address] [place] [address] Referring Physician Family Medicine 02/03/25 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 [facility] [employer] [facility]. provides no warranty or guarantee of the accuracy or completeness of [phone] in [phone] [id number]
== END 2025-05-21 13:57 | disposition home or self-care (01) ==
LOC: MRI 13:56
PROVIDERS: Visit Provider Podiatrist Foot & Ankle Surgery
DX: M93.271 Osteochondritis dissecans, right ankle and joints of right foot (principal); S86.311A Strain of muscle(s) and tendon(s) of peroneal muscle group at lower leg level, right leg, initial encounter
CPT/HCPCS: 73721